=== PATIENT | female | born 1960 | race Hispanic/Latino ===

== ENCOUNTER 2018-06-11 04:21 | Inpatient (IN) | payer MEDICARE, MEDICAID ==
--- NOTE | 2018-06-11 04:42 | ED PDOC ---
Arrival/HPI - General Time Seen by Provider: 06/11/18 04:27 Historian: Patient, EMS, Police - Critical Care Critical Care Minutes: 30 minutes - History of Present Illness Narrative History of Present Illness (Text): 06/11/18 04:39 Cassie Mata is a 58 year old female who presents to the Emergency department brought in by EMS for altered mental status tonight. Patient's son, who lives out of state, reported patient takes care of her mother however patient was not answering her phone and son notified police. Police found patient disheveled, sitting on the floor of bathroom with bugs and cat litter. Patient may have fallen but does not recollect the incident. Patient notes she has been scratched by her cats on multiple occasions at home. Limited HPI and ROS due to patient's confusion. Symptom Onset: Gradual Symptom Course: Unchanged Activities at Onset: Light Context: Home Past Medical History - Provider Review Nursing Documentation Reviewed: Yes Family/Social History - Physician Review Nursing Documentation Reviewed: Yes Family/Social History: Unknown Family HX Allergies/Home Meds Allergies/Adverse Reactions: Allergies No Known Allergies Allergy (Unverified 06/11/18 04:43) Home Medications: Home Meds Medication Instructions Recorded Confirmed Unobtainable 06/11/18 06/11/18 Review of Systems - Review of Systems Systems not reviewed;Unavailable: Altered Mental Status (confusion) Respiratory: absent: SOB Cardiovascular: absent: Chest Pain Neurological: Seizure Physical Exam Vital Signs Reviewed: Yes Vital Signs Temp Pulse Resp BP Pulse Ox 06/11/18 06:48 110 H 18 104/63 93 L 06/11/18 04:51 98.8 F 103 H 20 100/77 95 06/11/18 04:49 98.8 F Temperature: Afebrile Blood Pressure: Normal Pulse: Regular Respiratory Rate: Normal Appearance: Positive for: Unkept Pain Distress: None Mental Status: Positive for: other (Awake, alert, confused) - Systems Exam Head: Present: Atraumatic, Normocephalic Pupils: Present: PERRL Extroacular Muscles: Present: EOMI Conjunctiva: Present: Normal Ears: Present: Normal, NORMAL TM, Normal Canal. No: Erythema, TM Bulging, Fluid , TM Perf Mouth: Present: Moist Mucous Membranes Pharnyx: Present: Normal. No: ERYTHEMA, EXUDATE, TONSILS ENLARGED, Peritonsilar Swelling, Uvular Deviation, Muffled/Hoarse Voice, Strider, Soft Palate/Uvular Edema Nose (External): Present: Atraumatic Nose (Internal): Present: Normal Inspection Neck: Present: Normal Range of Motion. No: Meningeal Signs, Paraspinal Tenderness, Lymphadenopathy Respiratory/Chest: Present: Clear to Auscultation, Good Air Exchange. No: Respiratory Distress, Accessory Muscle Use Cardiovascular: Present: Normal S1, S2, Tachycardic. No: Murmurs Abdomen: No: Tenderness, Distention, Peritoneal Signs Upper Extremity: Present: Normal Inspection. No: Cyanosis, Edema Lower Extremity: Present: Edema (Edema to lower legs) Neurological: Present: CN II-XII Intact, Motor Func Grossly Intact, Normal Sensory Function, Normal Cerebellar Funct Skin: Present: Warm, Dry, Other (Diffuse cellulitic areas to abdomen and lower legs, hands with area of excoriations/scabbed lesions). No: Rashes Psychiatric: Present: Alert Medical Decision Making ED Course and Treatment: 06/11/18 04:39 Impression: 58 year old female brought in for altered mental status. Plan: -- EKG -- Chest X-ray -- US Duplex Lower Extremities -- Labs, VBG, BNP, cardiac enzyme -- Reassess and disposition Progress Notes: Reviewed EKG, sinus tachycardia at 119 bpm. Anterolateral infarct. Non-specific ST/T wave changes. 06/11/18 05:48 Chest X-ray reviewed, shows increased interstitial markings. 06/11/18 05:49 Labs noted, lactate 4.5, pt tachycardic. Code Sepsis called. 06/11/18 05:[address] Haque, computer systems architect, who is aware and agrees to evaluate pt. vice president global advertising sales notified. 06/11/18 06:03 Reviewed radiology, CT Head shows: Brain: Examination of the brain demonstrates normal structure and attenuation.The cortical cameron / white matter interfaces are preserved throughout the brain.No acute infarction, masses or hemorrhage is seen. No acute intracranial abnormality is identified.There is no hyperdense MCA sign. Examination of the posterior fossa demonstrates no significant abnormality. Ventricles: The ventricular system is not dilated and is appropriate for the patient's age. Bones/joints: Unremarkable. No acute fracture. Soft tissues: Unremarkable. Sinuses: Unremarkable as visualized. No acute sinusitis. Mastoid air cells: Unremarkable as visualized. No mastoid effusion. IMPRESSION: No acute infarction, masses or hemorrhage is seen. No acute intracranial abnormality is identified. US Duplex Lower Extremities negative for DVT. 06/11/18 06:49 Case had been d/w requesting patient be admitted to hospitalist service. 06/11/18 06:50 Case d/w who evaluated patient and request ICU admission at this time for closer monitoring and further evaluation. 06/12/18 02:05 - Lab Interpretations Lab Results: 06/11/18 04:45 06/11/18 04:45 Lab Results 06/11/18 06:30: pCO2 36, pO2 51.0 L, HCO3 17.7 L, ABG pH 7.30 L, ABG Total CO2 18.8 L, ABG O2 Saturation 91.0 L, ABG O2 Content 18.7, ABG Base Excess -7.9 L, ABG Hemoglobin 15.9, ABG Carboxyhemoglobin 7.1 H, POC ABG HHb (Measured) 8.3 H, ABG Methemoglobin 0.8, ABG O2 Capacity 20.5, Hgb O2 Saturation 83.8 L, FiO2 28.0 06/11/18 04:45: ESR 4 06/11/18 04:45: NT-Pro-B Natriuret Pep 52554 H 06/11/18 04:45: pO2 33, VBG pH 7.22 L, VBG pCO2 57.0, VBG HCO3 23.3, VBG Total CO2 25.0, VBG O2 Sat (Calc) 69.6 H, VBG Base Excess -5.2 L, VBG Potassium 7.1 H* , Sodium 129.0 L, Chloride 85.0 L, Glucose 511 H*, Lactate 4.5 H*, FiO2 21.0, Venous Blood Potassium 7.1 H* 06/11/18 04:45: WBC 4.9, RBC 6.82 H, Hgb 19.9 H*, Hct 57.1 H*, MCV 83.7, MCH 29.2, MCHC 34.9, RDW 14.8 H, Plt Count 102 L 06/11/18 04:45: Sodium 129 L, Chloride 92 L, Potassium 6.6 H*, Carbon Dioxide 24 , Anion Gap 19, BUN 53 H, Creatinine 1.1, Est GFR ( Amer) > 60, Est GFR ( Non-Af Amer) 51, Random Glucose 514 H*, Calcium 9.5, Total Bilirubin 1.1, AST 46 H, ALT 48, Alkaline Phosphatase 447 H, Lactate Dehydrogenase 876 H, Total Creatine Kinase 254 H, CK-MB (CK-2) 5.1 H, CK-MB (CK-2) % 2.0 L, Troponin I < 0.01, Total Protein 6.5, Albumin 3.0, Globulin 3.5, Albumin/Globulin Ratio 0.8 L 06/11/18 04:45: PT 13.5 H, INR 1.17, APTT 39.3 H 06/11/18 04:43: Procalcitonin 58.06 H I have reviewed the lab results: Yes - RAD Interpretation Radiology Orders: 06/11/18 04:44 HEAD W/O CONTRAST [CT] Stat 06/11/18 04:45 CHEST PORTABLE [RAD] Stat 06/11/18 04:46 DUPLEX LOWER EXTRM VEIN BILAT [US] Stat 06/11/18 06:39 ABDOMEN COMPLETE [US] Routine Heel Trimmer: ED Physician, Radiologist - EKG Interpretation Interpreted by ED Physician: Yes Type: 12 lead EKG - Medication Orders Current Medication Orders: Albuterol/Ipratropium (Duoneb 3 Mg/0.5 Mg (3 Ml) Ud) 3 ml IH Q2H PRN PRN Reason: Shortness of Breath Albuterol/Ipratropium (Duoneb 3 Mg/0.5 Mg (3 Ml) Ud) 3 ml IH [id number] [facility] Last Admin: 06/11/18 20:00 Dose: 3 ml Heparin Sodium (Porcine) (Heparin) 5,000 units IVP Q8 LAMONTE PRN Reason: Protocol Last Admin: 06/11/18 23:22 Dose: 5,000 units IVP Administration Document 06/11/18 23:22 MG (Rec: 06/11/18 23:22 MG [id number]) Charges for Administration # of IVP Administrations 1 Insulin Human Regular 100 (units/ Sodium Chloride) 100 mls @ 5 mls/hr IV .Q20H PRN; Protocol; 5 UNITS/HR PRN Reason: TITRATE PER MD ORDER Last Titration: 06/11/18 13:33 Dose: 2 units/hr, 2 mls/hr Titration Intervention Document 06/11/18 13:33 JUR (Rec: 06/11/18 13:33 JUR [id number]) Titration Intake Titration Intake 8 Cumulative Intake 22 Cumulative Intake (Rx) 22 Waste Amount 0 Container Volume 78 Titration Dosing Titration Dose 2 IV Rate 2 Intake/Decrease Decreased Cumulative Dose 22 Meropenem (Merrem Iv 1 Gm Premix) 50 mls @ 100 mls/hr IVPB Q12 LAMONTE PRN Reason: Protocol Last Admin: 06/11/18 22:34 Dose: 100 mls/hr eMAR Start Stop Document 06/11/18 22:34 MG (Rec: 06/11/18 22:35 MG [facility]) Intravenous Solution Start Date 06/11/18 Start Time 22:34 End Date 06/11/18 End time 23:04 Total Infusion Time 30 Vancomycin HCl (Vancomycin 1gm) 1 gm in 250 mls @ 167 mls/hr IVPB Q12H LAMONTE PRN Reason: Protocol Last Admin: 06/11/18 17:24 Dose: 167 mls/hr eMAR Start Stop Document 06/11/18 17:24 JUR (Rec: 06/11/18 17:24 JUR [id number]) Intravenous Solution Start Date 06/11/18 Start Time 17:24 End Date 06/11/18 End time 18:54 Total Infusion Time 90 Clindamycin Phosphate 900 mg/ (Sodium Chloride) 106 mls @ 106 mls/hr IVPB Q8 LAMONTE PRN Reason: Protocol Last Admin: 06/11/18 23:21 Dose: Fentanyl Citrate (Fentanyl Citrate/Sodium Chloride 1 Mg/100 Ml) 1,000 mcg in 100 mls @ 2 mls/hr IV .Q24H PRN; Protocol; 20 MCG/HR PRN Reason: TITRATE PER MD ORDER Last Admin: 06/11/18 20:23 Dose: 20 mcg/hr, 2 mls/hr eMAR Start Stop Document 06/11/18 20:23 MG (Rec: 06/11/18 20:24 MG [id number]) Intravenous Solution Start Date 06/11/18 Start Time 20:23 Parsons Agitation Sedation Document 06/11/18 20:23 MG (Rec: 06/11/18 20:24 MG [id number]) Parsons Agitation Sedation Scale Parsons Agitation Sedation Scale Score -2 Light Sedation: briefly awakens with eye contact to voice (<10 sec) Titration Intervention Document 06/11/18 20:23 MG (Rec: 06/11/18 20:24 MG [facility]) Titration Intake Waste Amount 0 Container Volume 100 Titration Dosing Titration Dose 20 IV Rate 2 Intake/Decrease Started NOREPINEPHRINE BIT/0.9 % NACL (Levophed 4 Mg/ 250 Ml Ns Premixed) 4 mg in 250 mls @ 15 mls/hr IV .[id number] PRN; Protocol; 4 MCG/MIN PRN Reason: TITRATE PER MD ORDER Last Admin: 06/11/18 23:58 Dose: 15 mcg/min, 56.25 mls/hr eMAR Start Stop Document 06/11/18 23:58 MG (Rec: 06/12/18 00:01 MG [facility]) Intravenous Solution Start Date 06/11/18 Start Time 23:59 Titration Intervention Document 06/11/18 23:58 MG (Rec: 06/12/18 00:01 MG [facility]) Titration Intake Cumulative Intake (Rx) 250 Waste Amount 0 Container Volume 250 Titration Dosing Titration Dose 15 IV Rate 56.25 Intake/Decrease Started/Running Cumulative Dose 4 Sodium Chloride (Sodium Chloride 0.9%) 1,000 mls @ 100 mls/hr IV .Q10H LAMONTE Insulin Human Lispro (Humalog High) 0 units SC ACHS LAMONTE PRN Reason: Protocol Pantoprazole Sodium (Protonix Inj) 40 mg IVP DAILY LAMONTE Discontinued Medications Albuterol Sulfate (Albuterol 0.083% Inhal Astrid (2.5 Mg/3 Ml) Ud) 15 mg IH STAT STA Stop: 06/11/18 05:45 Last Admin: 06/11/18 06:39 Dose: 15 mg Calcium Gluconate (Calcium Gluconate Iv) 1,000 mg IVP ONCE ONE Stop: 06/11/18 07:25 Last Admin: 06/11/18 07:46 Dose: 1,000 mg IVP Administration Document 06/11/18 07:46 VALENTE (Rec: 06/11/18 07:46 VALENTE [id number]) Charges for Administration # of IVP Administrations 1 Sodium Chloride (Sodium Chloride 0.9%) 3,000 mls @ 999 mls/hr IV .Q3H1M STA Stop: 06/11/18 08:45 Last Admin: 06/11/18 06:09 Dose: 999 mls/hr eMAR Start Stop Document 06/11/18 06:09 IT (Rec: 06/11/18 06:09 IT [id number]) Intravenous Solution Start Date 06/11/18 Start Time 06:09 Piperacillin Sod/Tazobactam Sod (Zosyn 3.375 In Ns 100ml) 100 mls @ 200 mls/hr IV STAT STA PRN Reason: Protocol Stop: 06/11/18 06:18 Last Admin: 06/11/18 06:08 Dose: 200 mls/hr eMAR Start Stop Document 06/11/18 06:08 IT (Rec: 06/11/18 06:09 IT [id number]) Intravenous Solution Start Date 06/11/18 Start Time 06:09 Vancomycin HCl (Vancomycin 1gm) 1 gm in 250 mls @ 167 mls/hr IVPB STAT STA PRN Reason: Protocol Stop: 06/11/18 07:18 Last Admin: 06/11/18 07:20 Dose: 167 mls/hr eMAR Start Stop Document 06/11/18 07:20 EWO (Rec: 06/11/18 07:21 EWO [id number]) Intravenous Solution Start Date 06/11/18 Start Time 07:21 End Date 06/11/18 End time 09:00 Total Infusion Time 99 Insulin Human Regular (Humulin R) 10 units IVP STAT STA Stop: 06/11/18 05:45 Last Admin: 06/11/18 06:38 Dose: 10 u MAR Blood Glucose Document 06/11/18 06:38 IT (Rec: 06/11/18 06:38 IT [id number]) Blood Glucose Finger Stick Blood Glucose (70-120) 448 IVP Administration Document 06/11/18 06:38 IT (Rec: 06/11/18 06:38 IT [id number]) Charges for Administration # of IVP Administrations 1 Permethrin (Permethrin 5% Cream) 0 gm TOP ONCE ONE Stop: 06/11/18 08:32 Sodium Polystyrene Sulfonate (Kayexalate Susp) 30 gm PO ONCE ONE Stop: 06/11/18 05:45 Last Admin: 06/11/18 06:39 Dose: 30 gm - Scribe Statement The provider has reviewed the documentation as recorded by the Anaibarian Barrios All medical record entries made by the Anaibarian were at my direction and personally dictated by me. I have reviewed the chart and agree that the record accurately reflects my personal performance of the history, physical exam, medical decision making, and the department course for this patient. I have also personally directed, reviewed, and agree with the discharge instructions and disposition. Disposition/Present on Arrival - Present on Arrival Any Indicators Present on Arrival: No History of DVT/PE: No History of Uncontrolled Diabetes: No Urinary Catheter: No History of Decub. Ulcer: No History Surgical Site Infection Following: None - Disposition Have Diagnosis and Disposition been Completed?: Yes Diagnosis: Cellulitis, Sepsis, Uncontrolled diabetes mellitus, CHF (congestive heart failure) Disposition: HOSPITALIZED Disposition Time: 06:49 Patient Problems: Current Active Problems Problem Status Onset CHF (congestive heart failure) Acute Cellulitis Acute Sepsis Acute Uncontrolled diabetes mellitus Acute Condition: STABLE
[2018-06-11 04:57] LABS: VENOUS BLOOD GAS BASE EXCESS -5.2 mmol/L (0.0-2.0); VENOUS BLOOD GAS PO2 33 mm/Hg (30-55); VENOUS BLOOD PH 7.22 (7.32-7.43)
[2018-06-11 05:05] LABS: INR 1.17; PARTIAL THROMBOPLASTIN TIME 39.3 Seconds (25.1-36.5); PROTHROMBIN TIME 13.5 SECONDS (9.4-12.5)
[2018-06-11 05:11] LABS: MEAN CELL VOLUME 83.7 fl (80.0-105.0); MEAN CORPUSCULAR HEMOGLOBIN 29.2 pg (25.0-35.0); MEAN CORPUSCULAR HGB CONC 34.9 g/dl (31.0-37.0); PLATELET COUNT 102 10^3/uL (120.0-450.0); RBC 6.82 10^6/uL (3.5-6.1); RED CELL DISTRIBUTION WIDTH 14.8 % (11.5-14.5); WHITE BLOOD COUNT 4.9 10^3/ul (4.5-11.0)
[2018-06-11 05:15] LABS: HEMOGLOBIN 19.9 g/dL (12.0-16.0)
[2018-06-11 05:19] LABS: TROPONIN I < 0.01 ng/mL
[2018-06-11 05:38] LABS: ALB/GLOB RATIO 0.8 (1.1-1.8); ALT/SGPT 48 U/L (7-56); AST/SGOT 46 U/L (14-36); BLOOD UREA NITROGEN 53 mg/dL (7-21); CALCIUM 9.5 mg/dL (8.4-10.5); GFR AFRICAN-AMERICAN > 60; GFR NON-AFRICAN AMERICAN 51
[2018-06-11 05:41] LABS: CK-MB 5.1 ng/mL (0.0-3.6)
[2018-06-11] MEDS ORDERED: Insulin Regular 1 UNITS/0.01 ML ML IVP STA (05:44)
[2018-06-11] MEDS ORDERED: Albuterol 0.083% Inhal Sol (2.5 mg/3 mL) UD IH STA (05:44)
[2018-06-11] MEDS ORDERED: Sod Polystyrene Sulf 15 gm/60 ml Susp PO ONE (05:44)
[2018-06-11] MEDS ORDERED: Sodium Chloride 0.9% 3,000 ML IV STA (05:45)
[2018-06-11] MEDS ORDERED: Sodium Bicarbonate (8.4%) 50 Meq Syringe IVP ONE (05:47)
[2018-06-11] MEDS ORDERED: Piperacillin/Tazobact 3.375 gm 100 ML IV STA (05:49)
[2018-06-11] MEDS ORDERED: Vancomycin 1gm in NS 250ml 1 GM/250 ML BAG IVPB STA (05:49)
--- NOTE | 2018-06-11 06:00 | CT ---
EXAM: CT Head Without Intravenous Contrast CLINICAL HISTORY: 58 years old, female; Signs and symptoms; Other: Confusion TECHNIQUE: Axial computed tomography images of the head/brain without intravenous contrast. All CT scans at this facility use at least one of these dose optimization techniques: automated exposure control; mA and/or kV adjustment per patient size (includes targeted exams where dose is matched to clinical indication); or iterative reconstruction. Coronal and sagittal reformatted images were created and reviewed. COMPARISON: No relevant prior studies available. FINDINGS: Brain: Examination of the brain demonstrates normal structure and attenuation.The cortical cameron / white matter interfaces are preserved throughout the brain.No acute infarction, masses or hemorrhage is seen. No acute intracranial abnormality is identified.There is no hyperdense MCA sign. Examination of the posterior fossa demonstrates no significant abnormality. Ventricles: The ventricular system is not dilated and is appropriate for the patient's age. Bones/joints: Unremarkable. No acute fracture. Soft tissues: Unremarkable. Sinuses: Unremarkable as visualized. No acute sinusitis. Mastoid air cells: Unremarkable as visualized. No mastoid effusion. IMPRESSION: No acute infarction, masses or hemorrhage is seen. No acute intracranial abnormality is identified.
[2018-06-11 06:39] LABS: ARTERIAL BLOOD GAS HCO3 17.7 mmol/L (21-28); ARTERIAL BLOOD GAS HEMOGLOBIN 15.9 g/dL (11.7-17.4); ARTERIAL BLOOD GAS O2 CAPACITY 20.5 mL/dl (16-24); ARTERIAL BLOOD GAS O2 CONTENT 18.7 ML/dl (15-23); ARTERIAL BLOOD GAS PCO2 36 mm/Hg (35-45); ARTERIAL BLOOD GAS TCO2 18.8 mmol.L (22-28)
[2018-06-11] MEDS ORDERED: Insulin Regular 100 UNITS in Sodium Chloride 0.9% 99 ML IV PRN (07:04)
[2018-06-11] MEDS ORDERED: Albuterol-Ipratrop 3 mg / 0.5 (3 ml) UD IH PRN (07:41)
--- NOTE | 2018-06-11 07:56 | CP.PCM.HP ---
History of Present Illness - History of Present Illness History of Present Illness: 58 year old female with past medical history of hypertension, diabetes, and COPD was brought in by EMS to the [facility] on 06/11 for altered mental status. Patient lives with her son, who is currently out of state. The patient was not answering her phone for 2 days, which led to her son calling the police. Police found the patient on the floor, with bugs and cat litter. Patient states she fell but does not recollect the exact nature of the fall. On presentation, patient was AAOx2. Patient was lethargic and had difficulty answering questions. Patient complained of bilateral leg pain. Patient denies chest pain and shortness of breath, but most of the 12-point ROS was difficult to attain due to patient's mental status. PMH: hypertension, diabetes, and COPD PSH: none Family History: cannot be obtained due to AMS Social History: smokes 3packs/day, denies alcohol use, denies drug use Medications: incomplete history due to mental status. Patient reports taking Neurontin. Allergies: ERYNDA Code Status: Full Code PMD: Indra Pharmacy: [facility] Insurance: Medicaid, Medicare Part A Present on Admission - Present on Admission Any Indicators Present on Admission: No History of DVT/PE: No History of Uncontrolled Diabetes: No Review of Systems - Review of Systems Systems not reviewed;Unavailable: Altered Mental Status - Cardiovascular Cardiovascular: absent: Chest Pain - Respiratory Respiratory: absent: Dyspnea - Gastrointestinal Gastrointestinal: absent: Abdominal Pain Past Patient History - Infectious Disease Hx of Infectious Diseases: None - Past Social History Smoking Status: Heavy Smoker > 10 Cigarettes Daily Alcohol: Other (denies) Drugs: Denies - CARDIAC Hx Cardiac Disorders: No - PULMONARY Hx Respiratory Disorders: No - NEUROLOGICAL Hx Neurological Disorder: No - HEENT Hx HEENT Problems: No - RENAL Hx Chronic Kidney Disease: No - ENDOCRINE/METABOLIC Hx Diabetes Mellitus Type 2: Yes - HEMATOLOGICAL/ONCOLOGICAL Hx Blood Disorders: No - INTEGUMENTARY Hx Dermatological Problems: No - MUSCULOSKELETAL/RHEUMATOLOGICAL Hx Musculoskeletal Disorders: No - GASTROINTESTINAL Hx Gastrointestinal Disorders: No - PSYCHIATRIC Hx Substance Use: No - ANESTHESIA Hx Anesthesia: No Meds Allergies/Adverse Reactions: Allergies Allergy/AdvReac Type Severity Reaction Status Date / Time No Known Allergies Allergy Unverified 06/11/18 04:43 Physical Exam - Constitutional Appears: Toxic, Confused - Head Exam Head Exam: ATRAUMATIC, NORMOCEPHALIC - Eye Exam Eye Exam: EOMI, PERRL - Neck Exam Neck exam: Positive for: Full Rom - Respiratory Exam Respiratory Exam: Decreased Breath Sounds - Cardiovascular Exam Cardiovascular Exam: Tachycardia - GI/Abdominal Exam GI & Abdominal Exam: Normal Bowel Sounds, Soft - Extremities Exam Additional comments: difficult to evaluate due to altered mental status - Neurological Exam Neurological exam: Alert (AAOX2. Patient did not know date or year), CN II-XII Intact (grossly) - Skin Skin Exam: Erythema (bilateral lower extremity erythema, +2 pitting edema, cool skin, multiple lesions on bilateral lower extremities) Additional comments: large blister on left lower extremity Results - Vital Signs Recent Vital Signs: Last Vital Signs Temp 98.8 F 06/11/18 04:51 Pulse 110 H 06/11/18 06:48 Resp 18 06/11/18 06:48 BP 104/63 06/11/18 06:48 Pulse Ox 93 L 06/11/18 06:48 - Labs Result Diagrams: 06/11/18 04:45 06/11/18 11:39 Assessment & Plan - Assessment and Plan (Free Text) Assessment: 58 year old female with past medical history of COPD, hypertension, and diabetes presents with altered mental status. Plan: SIRS 2/2 Necrotic abdominal wound from necrotizing fasciitis vs. clostridial myonecrosis vs. necrotizing cellulitis -SIRS criteria fulfilled: HR: 113, RR: 32,Temperature: 97.2, WBC: 4.9. -Patient afebrile. -Abdominal CT: Extensive subcutaneous emphysema predominantly confined due to the mid and lower abdomen/ pelvis (anteriorly and extending laterally along the more inferior margins pelvis to the level of the symphysis). There is also see air seen tracking along the external and internal iliac vascular bundles. Additionally, the remaining subcutaneous tissues that do not contain air exhibit infiltration possibly anasarca. The the of findings are of uncertain etiology though could be posttraumatic. Extensive cellulitis secondary to a gas- forming organism cannot be excluded. Urinary bladder is collapsed about an in situ Lorenz catheter. Small amount of air is present within the urinary bladder likely due to instrumentation. 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 There appears to be increased on prominent vascularity and left upper abdomen splenic hilum; rule out mild varices. -Wound cultures, blood cultures, urine cultures, MRSA, bartonella Ab, HIV, hepatitis panel ordered. -Abdominal ultrasound results pending. -Lactate: initial lactate 4.2 increased to 6.2 -Procalcitonin: 58.06 -Dr. Cisneros consulted for ID recommendations. Follow recommendations. -As per ID, one dose vancomycin given. Meropenem has been started pending blood cultures. Patient to be given permethrin cream. -Dr. Oleary consulted for surgery recommendations. Patient will be taken for surgery today. Debridement of necrotic abdominal wound to be performed. Wound cultures will be taken in surgery. -Skin cultures taken. Awaiting results. -GI, Dr. Clifford has been consulted for free air from pelvis to iliac on abdominal CT -Patient has been started on meropenem 1 gm Q12 Hyperkalemia -Potassium 6.6 on presentation. Potassium has reduced to 5.0. -EKG: sinus tachycardia. Right atrial enlargement. HR: 119, MI: 132, QRS: 74, QTc: 419 -Calcium gluconate 1000 mg IVP given once to stabilize cardiac membranes. -Insulin 5 U/hour for hyperkalemia. -Continue to monitor. COPD -CXR: increased/coarsened interstitial markings; rule out chronic interstitial changes vs. sequela of COPD vs emphysema. -Patient on 2L of O2 PRN -Duonebs PRN -Continue to monitor. Bilateral lower extremity erythema and edema 2/2 cellulitis vs. DVT vs. venous stasis -Lower extremity ultrasound ordered -SIRS criteria fulfilled: Temperature: 97.2, HR: 113, RR: 32, WBC: 4.9. -meropenem 1 gm Q12 -Dr. Cunha, ID has been consulted. Follow recommendations. Uncontrolled diabetes -HgbA1c: 17.4 -Random glucose: 514 to 258 -Patient started on 5 U normal insulin per hour and high dose sliding scale insulin. Hypotension -Blood pressure: systolic BP ranging from 81 to 108. -3 L of IV NS given. Continue to administer NS fluids. -Continue to monitor. Rhabdomyolysis 2/2 dehydration -CK: 254 to 171 -Potassium elevated to 6.7 on presentation. -Phosphate level ordered. -Calcium gluconate and 3 L IV fluids given. Patient currently being administered fluids. Hemoconcentration 2/2 dehydration -Hgb: 19.9 -BUN/Cr: 53/1.1 on presentation -Given 3 L of NS 0.9%. Continue to administer NS fluids. Hepatomegaly 2/2 to cardiomyopathy vs. hepatitis vs. alcohol -Abdominal CT: liver enlarged measuring nearly 20 cm in CC dimension. No obvious hepatic mass or collection. -Abdominal US results pending. -Hepatitis panel has been ordered. -BNP: 66319 -GI, Dr. Clifford has been consulted. Follow recommendations. Left lower extremity blister -rule out abscess -wound culture to be ordered -patient on meropenem to cover any potential infectious etiology -Dr. uCnha, ID has been consulted. Follow recommendations. - Date & Time Date: 06/11/18 Time: 15:34
[2018-06-11 07:57] LABS: VENOUS BLOOD GAS BASE EXCESS -4.3 mmol/L (0.0-2.0); VENOUS BLOOD GAS PO2 50 mm/Hg (30-55); VENOUS BLOOD PH 7.26 (7.32-7.43)
[2018-06-11] MEDS ORDERED: Permethrin 5% Cream(60 gm) TOP ONE (08:31)
[2018-06-11 08:44] LABS: VENOUS BLOOD GAS BASE EXCESS -5.8 mmol/L (0.0-2.0); VENOUS BLOOD GAS PO2 43 mm/Hg (30-55)
[2018-06-11 09:01] LABS: BLOOD UREA NITROGEN 49 mg/dL (7-21); CALCIUM 9.7 mg/dL (8.4-10.5); GFR AFRICAN-AMERICAN > 60; GFR NON-AFRICAN AMERICAN 57; HDL CHOLESTEROL 21 mg/dL (29-60)
[2018-06-11 09:04] LABS: LDL CHOLESTEROL < 30 mg/dL (0-129)
--- NOTE | 2018-06-11 10:14 | CT ---
Date of service: 06/11/2018 PROCEDURE: CT Abdomen and Pelvis without intravenous contrast HISTORY: Abdominal hematoma COMPARISON: No prior study available for comparison. TECHNIQUE: Contiguous helical/transaxial sections of the abdomen pelvis performed without oral or intravenous contrast material. Additional 2D sagittal and coronal reformats generated. . Radiation dose: Total exam DLP = 690.29 mGy-cm. This CT exam was performed using one or more of the following dose reduction techniques: Automated exposure control, adjustment of the mA and/or kV according to patient size, and/or use of iterative reconstruction technique FINDINGS: Note the examination is limited due to a paucity of intraperitoneal and retroperitoneal fat. In addition, there is motion as well as streak and beam hardening artifact that further limits detail. LOWER THORAX: Minor passive/dependent type atelectasis both lung bases including the middle lobe and to a lesser degree lingular regions. LIVER: Liver is enlarged measuring nearly 20 cm in CC dimension. No obvious hepatic mass or collection. GALLBLADDER AND BILE DUCTS: Gallbladder is partially distended though poorly seen due to the aforementioned limiting factors. No definitive evidence of intraluminal gallbladder calculi. PANCREAS: The visualized portions of the pancreas unremarkable. SPLEEN: Spleen appears grossly unremarkable. Note made of prominent vasculature in the upper left upper abdomen near the splenic hilar region. Rule out varices. ADRENALS: The adrenal glands poorly seen due to a paucity of retroperitoneal and intraperitoneal fat. KIDNEYS AND URETERS: Changes of right-sided nephrectomy with metallic clips in the right renal fossa. Clinical correlation with surgical history recommended. The left kidney appears compensatory hypertrophic. VASCULATURE: There is no evidence of abdominal aortic aneurysm so far as can be seen. The BOWEL: Evaluation of the bowel is limited. High density material is present within the gastric lumen as well as the large bowel however as per request patient and apparently did not receive oral contrast material. Findings could be other high-density ingested material such as Pepto-Bismol or similar as mentioned above, the stomach contains some high density material and air. Visualized loops of small bowel are not well delineated however no evidence to suggest acute mechanical small bowel obstruction . The large bowel stool and minor er mild APPENDIX: The appendix is not visualized with any certainty on this study PERITONEUM: No definitive evidence of free intraperitoneal air. No obvious free or loculated intraperitoneal fluid collections. LYMPH NODES: Evaluation for adenopathy limited. BLADDER: Urinary bladder is collapsed about an in situ Lorenz catheter. Small amount of air is present within the urinary bladder likely due to instrumentation. . REPRODUCTIVE: Uterus appears grossly unremarkable. BONES: Mild multilevel degenerative spondylosis of the lumbar and visualized lower thoracic spine. There are no acute compression fractures nor retropulsed fragments. OTHER FINDINGS: Extensive subcutaneous emphysema predominantly confined due to the mid and lower abdomen/ pelvis (anteriorly and extending laterally along the more inferior margins pelvis to the level of the symphysis). There is also see air seen tracking -dissecting along the external and internal iliac vascular bundles. Additionally, the remaining subcutaneous tissues that do not contain air exhibit infiltration possibly anasarca. The findings are of uncertain etiology though could be posttraumatic. Extensive cellulitis secondary to a gas-forming organism cannot be excluded. IMPRESSION: Limited exam as detailed above. Extensive subcutaneous emphysema predominantly confined due to the mid and lower abdomen/ pelvis (anteriorly and extending laterally along the more inferior margins pelvis to the level of the symphysis). There is also see air seen tracking along the external and internal iliac vascular bundles. Additionally, the remaining subcutaneous tissues that do not contain air exhibit infiltration possibly anasarca. The the of findings are of uncertain etiology though could be posttraumatic. Extensive cellulitis secondary to a gas-forming organism cannot be excluded. Urinary bladder is collapsed about an in situ Lorenz catheter. Small amount of air is present within the urinary bladder likely due to instrumentation. 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 There appears to be increased on prominent vascularity and left upper abdomen splenic hilum ; rule out mild varices. These findings discussed with ICU resident Dr. Garcia at approximately 930 a.m. with written down and read back verification.
[2018-06-11 10:28] LABS: BARBITURATES, UR NEGATIVE (NEGATIVE); BENZODIAZEPINES, UR NEGATIVE (NEGATIVE); OPIATES, UR NEGATIVE (NEGATIVE); PHENCYCLIDINE, UR NEGATIVE (NEGATIVE)
--- NOTE | 2018-06-11 11:08 | CP.PCM.CON ---
History of Present Illness - History of Present Illness History of Present Illness: 58 year old female with PMH of HTN, S/P nephrectomy was brought in by ambulance after she was found on the floor not very responsive, disheveled and with scratches on her legs and bruises on her abdomen. She was last talked to by family 2 days ago and the patient lives alone. She is now in the ICU noted to have subcutaneous emphysema in he abdominal wall area. There is no note of fever , patient has not vomited, no diarrhea, no convulsions. Patient is lethargic and full ROS is unobtainable. Infectious diseases consult is requested to further evaluate and manage. Review of Systems - Review of Systems Systems not reviewed;Unavailable: Altered Mental Status Past Patient History - Infectious Disease Hx of Infectious Diseases: None - Past Social History Smoking Status: Unknown If Ever Smoked - CARDIAC Hx Cardiac Disorders: No - PULMONARY Hx Respiratory Disorders: No - NEUROLOGICAL Hx Neurological Disorder: No - HEENT Hx HEENT Problems: No - RENAL Hx Chronic Kidney Disease: No - ENDOCRINE/METABOLIC Hx Diabetes Mellitus Type 2: Yes - HEMATOLOGICAL/ONCOLOGICAL Hx Blood Disorders: No - INTEGUMENTARY Hx Dermatological Problems: No - MUSCULOSKELETAL/RHEUMATOLOGICAL Hx Musculoskeletal Disorders: No - GASTROINTESTINAL Hx Gastrointestinal Disorders: No - PSYCHIATRIC Hx Substance Use: No - ANESTHESIA Hx Anesthesia: No Meds Allergies/Adverse Reactions: Allergies Allergy/AdvReac Type Severity Reaction Status Date / Time No Known Allergies Allergy Unverified 06/11/18 04:43 - Medications Medications: Current Medications Albuterol/Ipratropium (Duoneb 3 Mg/0.5 Mg (3 Ml) Ud) 3 ml IH Q2H PRN PRN Reason: Shortness of Breath Albuterol/Ipratropium (Duoneb 3 Mg/0.5 Mg (3 Ml) Ud) 3 ml IH [id number] LAMONTE Insulin Human Regular 100 (units/ Sodium Chloride) 100 mls @ 5 mls/hr IV .Q20H PRN; Protocol; 5 UNITS/HR PRN Reason: TITRATE PER MD ORDER Last Admin: 06/11/18 07:46 Dose: 5 units/hr, 5 mls/hr Insulin Human Lispro (Humalog High) 0 units SC ACHS LAMONTE PRN Reason: Protocol Physical Exam - Constitutional Appears: Chronically Ill, Other (lethargic) - Head Exam Head Exam: NORMAL INSPECTION - Neck Exam Neck exam: Negative for: Lymphadenopathy, Meningismus - Respiratory Exam Respiratory Exam: Decreased Breath Sounds - Cardiovascular Exam Cardiovascular Exam: +S1, +S2 - GI/Abdominal Exam GI & Abdominal Exam: Soft. absent: Tenderness Additional comments: ecchymoses noted in the lower abdomen - Extremities Exam Additional comments: multiple scratches on both legs Results - Vital Signs Recent Vital Signs: Last Vital Signs Temp 98.8 F 06/11/18 04:51 Pulse 110 H 06/11/18 06:48 Resp 18 06/11/18 06:48 BP 104/63 06/11/18 06:48 Pulse Ox 93 L 06/11/18 06:48 - Labs Result Diagrams: 06/11/18 04:45 06/11/18 08:00 Labs: Laboratory Results - last 24 hr 06/11/18 06/11/18 07:49 07:50 pO2 50 43 VBG pH 7.26 L 7.20 L VBG pCO2 52.0 59.0 VBG HCO3 23.3 23.1 VBG Total CO2 24.9 VBG O2 Sat (Calc) 88.6 H 80.5 H VBG Base Excess -4.3 L -5.8 L VBG Potassium 5.9 H Sodium 133.0 Chloride 90.0 L Glucose 405 H* D Lactate 5.7 H* FiO2 21.0 Venous Blood Potassium 5.9 H Assessment & Plan - Assessment and Plan (Free Text) Plan: Assessment Systemic Inflammatory Response Syndrome (tachypnea and tachycardia), consider due to rhabdomyolysis after fall, R/O severe sepsis with acute renal failure due to severe abdominal wall skin and skin structure infection associated with trauma HTN S/P nephrectomy Plan Started with a dose of IV Vancomycin and started Merem pending blood cx; reviewed CT A/P showing subcutaneous emphysema in the lower abdomen - will recommend surgical consult patient to be given permethrin cream will monitor clinically
[2018-06-11] MEDS ORDERED: Insulin Lispro (HUMAlog) HIGH Coverage SC SCH (11:30)
[2018-06-11] MEDS: Albuterol-Ipratrop 3 mg / 0.5 (3 ml) UD IH SCH ×3 (11:33→20:00)
[2018-06-11 11:44] LABS: VENOUS BLOOD GAS BASE EXCESS -5.5 mmol/L (0.0-2.0); VENOUS BLOOD GAS PO2 33 mm/Hg (30-55); VENOUS BLOOD PH 7.21 (7.32-7.43)
[2018-06-11 11:52] LABS: BLOOD UREA NITROGEN 47 mg/dL (7-21); CALCIUM 8.9 mg/dL (8.4-10.5); GFR AFRICAN-AMERICAN > 60; GFR NON-AFRICAN AMERICAN > 60
[2018-06-11 12:04] LABS: TROPONIN I < 0.01 ng/mL
[2018-06-11 12:08] VITALS: BMI 27.4
--- NOTE | 2018-06-11 12:20 | PCM.SEPTIC ---
Sepsis Progress Note - Reassessment Type Date of Evaluation: 06/11/18 Time of Evaluation: 12:16 Reassessment Type: Non-invasive reassessment - Non Invasive Reassessment Were the most recent vital sign reviewed: Yes Vital Sign (Latest): Temp Pulse Resp BP Pulse Ox 97.2 F L 103 H 20 93/57 L 91 L 06/11/18 08:25 06/11/18 11:46 06/11/18 11:46 06/11/18 10:45 06/11/18 10:50 Cardiovascular: Yes: Chest Non Tender, Edema, Tachycardia. No: Murmur Respiratory: No: Wheezing Capillary Refill: Delayed Pulses: Normal Radial, Decreased Dorsalis Pedis, Decreased Posterior Tibialis Skin: Warm, Dry, Ecchymosis (belly)
--- NOTE | 2018-06-11 12:31 | RAD ---
Date of service: 06/11/2018 HISTORY: Medical clearance the the COMPARISON: No prior. FINDINGS: LUNGS: Increased/ coarsened interstitial markings; rule out chronic interstitial changes versus sequela of COPD or emphysema. PLEURA: No significant pleural effusion identified, no pneumothorax apparent. CARDIOVASCULAR: Normal. OSSEOUS STRUCTURES: No significant abnormalities. VISUALIZED UPPER ABDOMEN: Normal. OTHER FINDINGS: None. IMPRESSION: Increased/ coarsened interstitial markings; rule out chronic interstitial changes versus sequela of COPD or emphysema.
[2018-06-11] MEDS: Meropenem IV 1 gm in NS 50 ML IVPB SCH ×2 (13:36→22:34)
--- NOTE | 2018-06-11 14:19 | CP.PCM.CON ---
<Ron Joel - Last Filed: 06/11/18 14:51> History of Present Illness - History of Present Illness History of Present Illness: General Surgery Consult Note for Dr. Monica Oleary 58F, PMH significant for COPD, DM, manic depression, tobacco abuse, and right sided nephrectomy, presented to the ED after being found at home unresponsive by EMS. Patient is confused and history was obtained by patient as well as daughter. Patient states she fell sometime yesterday afternoon and does not remember what happened before or after the incident. The daughter states patient has been having bilateral lower extremity swelling for the past few weeks with visible excoriations and seeping. The abdominal wall was not necrotic the last time the daughter saw her mother. Timing of the symptoms are unclear. Daughter went to mother's home before arriving at the hospital and noticed blood on the bathroom floor. Patient is noncompliant with medications and refuses to see a doctor for any medical issues. Denies any fever, chills, nausea, vomiting, diarrhea, convulsions, or urinary symptoms. PMH: see above PSH: Right nephrectomy visualized on CT scan FH: noncontibutory ALL: NKDA Meds: patient does not take any medications prescribed Soc: Smokes 2-3 PPD, no alcohol or drugs Review of Systems - Review of Systems Systems not reviewed;Unavailable: Altered Mental Status, Uncooperative - Constitutional Constitutional: Chills, Weakness. absent: Fever - EENT Eyes: absent: Blurred Vision, Change in Vision Ears: absent: Ear Discharge, Ear Pain Nose/Mouth/Throat: absent: Nasal Congestion, Nasal Discharge - Cardiovascular Cardiovascular: absent: Chest Pain, Dyspnea - Respiratory Respiratory: Cough. absent: Dyspnea - Gastrointestinal Gastrointestinal: absent: Abdominal Pain, Nausea, Vomiting - Genitourinary Genitourinary: absent: Difficulty Urinating, Dysuria - Musculoskeletal Musculoskeletal: absent: Back Pain, Joint Swelling - Integumentary Integumentary: Changing Lesions, Erythema, New Lesions, Skin Pain, Skin Ulcer, Swelling - Neurological Neurological: Behavioral Changes. absent: Dizziness - Psychiatric Psychiatric: Depression. absent: Anxiety, Suicidal Ideation Past Patient History - Infectious Disease Hx of Infectious Diseases: None - Past Social History Smoking Status: Heavy Smoker > 10 Cigarettes Daily Alcohol: Other (denies) Drugs: Denies - CARDIAC Hx Cardiac Disorders: No - PULMONARY Hx Respiratory Disorders: No - NEUROLOGICAL Hx Neurological Disorder: No - HEENT Hx HEENT Problems: No - RENAL Hx Chronic Kidney Disease: No - ENDOCRINE/METABOLIC Hx Diabetes Mellitus Type 2: Yes - HEMATOLOGICAL/ONCOLOGICAL Hx Blood Disorders: No - INTEGUMENTARY Hx Dermatological Problems: No - MUSCULOSKELETAL/RHEUMATOLOGICAL Hx Musculoskeletal Disorders: No - GASTROINTESTINAL Hx Gastrointestinal Disorders: No - PSYCHIATRIC Hx Substance Use: No - ANESTHESIA Hx Anesthesia: No Meds Allergies/Adverse Reactions: Allergies Allergy/AdvReac Type Severity Reaction Status Date / Time No Known Allergies Allergy Unverified 06/11/18 04:43 - Medications Medications: Current Medications Albuterol/Ipratropium (Duoneb 3 Mg/0.5 Mg (3 Ml) Ud) 3 ml IH Q2H PRN PRN Reason: Shortness of Breath Albuterol/Ipratropium (Duoneb 3 Mg/0.5 Mg (3 Ml) Ud) 3 ml IH [id number] LAMONTE Last Admin: 06/11/18 11:33 Dose: 3 ml Insulin Human Regular 100 (units/ Sodium Chloride) 100 mls @ 5 mls/hr IV .Q20H PRN; Protocol; 5 UNITS/HR PRN Reason: TITRATE PER MD ORDER Last Titration: 06/11/18 13:33 Dose: 2 units/hr, 2 mls/hr Meropenem (Merrem Iv 1 Gm Premix) 50 mls @ 100 mls/hr IVPB Q12 LAMONTE PRN Reason: Protocol Last Admin: 06/11/18 13:36 Dose: 100 mls/hr Vancomycin HCl (Vancomycin 1gm) 1 gm in 250 mls @ 167 mls/hr IVPB Q12H LAMONTE PRN Reason: Protocol Insulin Human Lispro (Humalog High) 0 units SC ACHS LAMONTE PRN Reason: Protocol Physical Exam - Constitutional Appears: In Acute Distress, Confused - Head Exam Head Exam: ATRAUMATIC, NORMAL INSPECTION, NORMOCEPHALIC - Eye Exam Eye Exam: EOMI - ENT Exam ENT Exam: Mucous Membranes Dry - Respiratory Exam Respiratory Exam: Clear to Auscultation Bilateral. absent: Wheezes, Respiratory Distress - Cardiovascular Exam Cardiovascular Exam: REGULAR RHYTHM, +S1, +S2. absent: Systolic Murmur - GI/Abdominal Exam GI & Abdominal Exam: Normal Bowel Sounds, Soft, Tenderness Additional comments: Lower abdominal wall skin necrosis and erythema - Rectal Exam Rectal Exam: NORMAL INSPECTION - Exam External exam: Erythema, Lesions Bimanual exam: NORMAL BIMANUAL EXAM - Extremities Exam Extremities exam: Positive for: pedal edema, tenderness - Neurological Exam Additional comments: Oriented to place, not person or time Results - Vital Signs Recent Vital Signs: Last Vital Signs Temp 97.2 F L 06/11/18 08:25 Pulse 110 H 06/11/18 13:40 Resp 26 H 06/11/18 13:40 BP 96/63 L 06/11/18 13:30 Pulse Ox 90 L 06/11/18 13:40 - Labs Result Diagrams: 06/11/18 04:45 06/11/18 11:39 Labs: Laboratory Results - last 24 hr 06/11/18 06/11/18 06/11/18 07:41 07:41 07:49 pO2 50 VBG pH 7.26 L VBG pCO2 52.0 VBG HCO3 23.3 VBG Total CO2 VBG O2 Sat (Calc) 88.6 H VBG Base Excess -4.3 L VBG Potassium Sodium Chloride Glucose Lactate FiO2 Potassium Carbon Dioxide Anion Gap BUN Creatinine Est GFR ( Amer) Est GFR (Non-Af Amer) Random Glucose Hemoglobin A1c 17.4 H Calcium Phosphorus Magnesium Ammonia Total Creatine Kinase Troponin I C-React Prot High Sens Cancelled Triglycerides Cholesterol LDL Cholesterol Direct HDL Cholesterol TSH 3rd Generation 3.71 Venous Blood Potassium Urine Opiates Screen Urine Methadone Screen Ur Barbiturates Screen Ur Phencyclidine Scrn Ur Amphetamines Screen U Benzodiazepines Scrn U Oth Cocaine Metabols U Cannabinoids Screen Alcohol, Quantitative < 10 06/11/18 06/11/18 06/11/18 07:50 08:00 09:48 pO2 43 VBG pH 7.20 L VBG pCO2 59.0 VBG HCO3 23.1 VBG Total CO2 24.9 VBG O2 Sat (Calc) 80.5 H VBG Base Excess -5.8 L VBG Potassium 5.9 H Sodium 133.0 133 Chloride 90.0 L 95 L Glucose 405 H* D Lactate 5.7 H* FiO2 21.0 Potassium 5.6 H* Carbon Dioxide 24 Anion Gap 19 BUN 49 H Creatinine 1.0 Est GFR ( Amer) > 60 Est GFR (Non-Af Amer) 57 Random Glucose 401 H* D Hemoglobin A1c Calcium 9.7 Phosphorus 3.4 Magnesium 2.1 Ammonia Total Creatine Kinase Troponin I C-React Prot High Sens Triglycerides 168 H Cholesterol 110 L LDL Cholesterol Direct < 30 HDL Cholesterol 21 L TSH 3rd Generation Venous Blood Potassium 5.9 H Urine Opiates Screen Negative Urine Methadone Screen Negative Ur Barbiturates Screen Negative Ur Phencyclidine Scrn Negative Ur Amphetamines Screen Negative U Benzodiazepines Scrn Negative U Oth Cocaine Metabols Negative U Cannabinoids Screen Negative Alcohol, Quantitative 06/11/18 06/11/18 06/11/18 11:39 11:39 11:39 pO2 33 VBG pH 7.21 L VBG pCO2 58.0 VBG HCO3 23.2 VBG Total CO2 25.0 VBG O2 Sat (Calc) 67.3 H VBG Base Excess -5.5 L VBG Potassium 4.9 Sodium 133 133.0 Chloride 100 96.0 L Glucose 262 H Lactate 6.2 H* FiO2 21.0 Potassium 5.0 Carbon Dioxide 23 Anion Gap 16 BUN 47 H Creatinine 0.9 Est GFR ( Amer) > 60 Est GFR (Non-Af Amer) > 60 Random Glucose 258 H Hemoglobin A1c Calcium 8.9 Phosphorus Magnesium Ammonia 41 H Total Creatine Kinase 171 Troponin I < 0.01 C-React Prot High Sens Triglycerides Cholesterol LDL Cholesterol Direct HDL Cholesterol TSH 3rd Generation Venous Blood Potassium 4.9 Urine Opiates Screen Urine Methadone Screen Ur Barbiturates Screen Ur Phencyclidine Scrn Ur Amphetamines Screen U Benzodiazepines Scrn U Oth Cocaine Metabols U Cannabinoids Screen Alcohol, Quantitative Assessment & Plan - Assessment and Plan (Free Text) Assessment: 58F w/ necrotizing soft tissue infection of the abdominal wall, possible bowel perforation Plan: - Etiology unclear, necrotizing infection expanding across abdominal wall - Prep and optimize emergently for the OR - Type and Cross - NPO, AM labs - Patient is NOT DNR - Continue Medical management per primary - Further recommendations per Dr. Anirudh Joel PGY1 <Monica Oleary - Last Filed: 06/11/18 20:25> Meds - Medications Medications: Current Medications Albuterol/Ipratropium (Duoneb 3 Mg/0.5 Mg (3 Ml) Ud) 3 ml IH Q2H PRN PRN Reason: Shortness of Breath Albuterol/Ipratropium (Duoneb 3 Mg/0.5 Mg (3 Ml) Ud) 3 ml IH [id number] LAMONTE Last Admin: 06/11/18 15:23 Dose: Not Given Insulin Human Regular 100 (units/ Sodium Chloride) 100 mls @ 5 mls/hr IV .Q20H PRN; Protocol; 5 UNITS/HR PRN Reason: TITRATE PER MD ORDER Last Titration: 06/11/18 13:33 Dose: 2 units/hr, 2 mls/hr Meropenem (Merrem Iv 1 Gm Premix) 50 mls @ 100 mls/hr IVPB Q12 LAMONTE PRN Reason: Protocol Last Admin: 06/11/18 13:36 Dose: 100 mls/hr Vancomycin HCl (Vancomycin 1gm) 1 gm in 250 mls @ 167 mls/hr IVPB Q12H LAMONTE PRN Reason: Protocol Last Admin: 06/11/18 17:24 Dose: 167 mls/hr Clindamycin Phosphate 900 mg/ (Sodium Chloride) 106 mls @ 106 mls/hr IVPB Q8 LAMONTE PRN Reason: Protocol Fentanyl Citrate (Fentanyl Citrate/Sodium Chloride 1 Mg/100 Ml) 1,000 mcg in 100 mls @ 2 mls/hr IV .Q24H PRN; Protocol; 20 MCG/HR PRN Reason: TITRATE PER MD ORDER NOREPINEPHRINE BIT/0.9 % NACL (Levophed 4 Mg/ 250 Ml Ns Premixed) 4 mg in 250 mls @ 15 mls/hr IV .[id number] PRN; Protocol; 4 MCG/MIN PRN Reason: TITRATE PER MD ORDER Insulin Human Lispro (Humalog High) 0 units SC ACHS LAMONTE PRN Reason: Protocol Results - Vital Signs Recent Vital Signs: Last Vital Signs Temp 97.9 F 06/11/18 17:24 Pulse 106 H 06/11/18 18:40 Resp 22 06/11/18 18:09 BP 90/57 L 06/11/18 18:40 Pulse Ox 100 06/11/18 18:40 - Labs Result Diagrams: 06/11/18 18:30 06/11/18 18:00 Labs: Laboratory Results - last 24 hr 06/11/18 06/11/18 06/11/18 07:41 07:41 07:49 WBC RBC Hgb Hct MCV MCH MCHC RDW Plt Count Gran % Lymph % (Auto) [place] % (Auto) Eos % (Auto) Baso % (Auto) Gran # Lymph # (Auto) [place] # (Auto) Eos # (Auto) Baso # (Auto) pCO2 pO2 50 HCO3 ABG pH ABG Total CO2 ABG O2 Saturation ABG O2 Content ABG Base Excess ABG Hemoglobin ABG Carboxyhemoglobin POC ABG HHb (Measured) ABG Methemoglobin ABG O2 Capacity VBG pH 7.26 L VBG pCO2 52.0 VBG HCO3 23.3 VBG Total CO2 VBG O2 Sat (Calc) 88.6 H VBG Base Excess -4.3 L VBG Potassium Hgb O2 Saturation Sodium Chloride Glucose Lactate FiO2 Potassium Carbon Dioxide Anion Gap BUN Creatinine Est GFR ( Amer) Est GFR (Non-Af Amer) Random Glucose Hemoglobin A1c 17.4 H Calcium Phosphorus Magnesium Ammonia Total Creatine Kinase Troponin I C-React Prot High Sens Cancelled Triglycerides Cholesterol LDL Cholesterol Direct HDL Cholesterol TSH 3rd Generation 3.71 Venous Blood Potassium Urine Opiates Screen Urine Methadone Screen Ur Barbiturates Screen Ur Phencyclidine Scrn Ur Amphetamines Screen U Benzodiazepines Scrn U Oth Cocaine Metabols U Cannabinoids Screen Alcohol, Quantitative < 10 Blood Type Blood Type Confirm Antibody Screen Crossmatch BBK History Checked 06/11/18 06/11/18 06/11/18 07:50 08:00 09:48 WBC RBC Hgb Hct MCV MCH MCHC RDW Plt Count Gran % Lymph % (Auto) [place] % (Auto) Eos % (Auto) Baso % (Auto) Gran # Lymph # (Auto) [place] # (Auto) Eos # (Auto) Baso # (Auto) pCO2 pO2 43 HCO3 ABG pH ABG Total CO2 ABG O2 Saturation ABG O2 Content ABG Base Excess ABG Hemoglobin ABG Carboxyhemoglobin POC ABG HHb (Measured) ABG Methemoglobin ABG O2 Capacity VBG pH 7.20 L VBG pCO2 59.0 VBG HCO3 23.1 VBG Total CO2 24.9 VBG O2 Sat (Calc) 80.5 H VBG Base Excess -5.8 L VBG Potassium 5.9 H Hgb O2 Saturation Sodium 133.0 133 Chloride 90.0 L 95 L Glucose 405 H* D Lactate 5.7 H* FiO2 21.0 Potassium 5.6 H* Carbon Dioxide 24 Anion Gap 19 BUN 49 H Creatinine 1.0 Est GFR ( Amer) > 60 Est GFR (Non-Af Amer) 57 Random Glucose 401 H* D Hemoglobin A1c Calcium 9.7 Phosphorus 3.4 Magnesium 2.1 Ammonia Total Creatine Kinase Troponin I C-React Prot High Sens Triglycerides 168 H Cholesterol 110 L LDL Cholesterol Direct < 30 HDL Cholesterol 21 L TSH 3rd Generation Venous Blood Potassium 5.9 H Urine Opiates Screen Negative Urine Methadone Screen Negative Ur Barbiturates Screen Negative Ur Phencyclidine Scrn Negative Ur Amphetamines Screen Negative U Benzodiazepines Scrn Negative U Oth Cocaine Metabols Negative U Cannabinoids Screen Negative Alcohol, Quantitative Blood Type Blood Type Confirm Antibody Screen Crossmatch BBK History Checked 06/11/18 06/11/18 06/11/18 11:39 11:39 11:39 WBC RBC Hgb Hct MCV MCH MCHC RDW Plt Count Gran % Lymph % (Auto) [place] % (Auto) Eos % (Auto) Baso % (Auto) Gran # Lymph # (Auto) [place] # (Auto) Eos # (Auto) Baso # (Auto) pCO2 pO2 33 HCO3 ABG pH ABG Total CO2 ABG O2 Saturation ABG O2 Content ABG Base Excess ABG Hemoglobin ABG Carboxyhemoglobin POC ABG HHb (Measured) ABG Methemoglobin ABG O2 Capacity VBG pH 7.21 L VBG pCO2 58.0 VBG HCO3 23.2 VBG Total CO2 25.0 VBG O2 Sat (Calc) 67.3 H VBG Base Excess -5.5 L VBG Potassium 4.9 Hgb O2 Saturation Sodium 133 133.0 Chloride 100 96.0 L Glucose 262 H Lactate 6.2 H* FiO2 21.0 Potassium 5.0 Carbon Dioxide 23 Anion Gap 16 BUN 47 H Creatinine 0.9 Est GFR ( Amer) > 60 Est GFR (Non-Af Amer) > 60 Random Glucose 258 H Hemoglobin A1c Calcium 8.9 Phosphorus Magnesium Ammonia Total Creatine Kinase 171 Troponin I < 0.01 C-React Prot High Sens > 15.00 H Triglycerides Cholesterol LDL Cholesterol Direct HDL Cholesterol TSH 3rd Generation Venous Blood Potassium 4.9 Urine Opiates Screen Urine Methadone Screen Ur Barbiturates Screen Ur Phencyclidine Scrn Ur Amphetamines Screen U Benzodiazepines Scrn U Oth Cocaine Metabols U Cannabinoids Screen Alcohol, Quantitative Blood Type Blood Type Confirm Antibody Screen Crossmatch BBK History Checked 06/11/18 06/11/18 06/11/18 11:39 14:25 14:45 WBC RBC Hgb Hct MCV MCH MCHC RDW Plt Count Gran % Lymph % (Auto) [place] % (Auto) Eos % (Auto) Baso % (Auto) Gran # Lymph # (Auto) [place] # (Auto) Eos # (Auto) Baso # (Auto) pCO2 pO2 HCO3 ABG pH ABG Total CO2 ABG O2 Saturation ABG O2 Content ABG Base Excess ABG Hemoglobin ABG Carboxyhemoglobin POC ABG HHb (Measured) ABG Methemoglobin ABG O2 Capacity VBG pH VBG pCO2 VBG HCO3 VBG Total CO2 VBG O2 Sat (Calc) VBG Base Excess VBG Potassium Hgb O2 Saturation Sodium Chloride Glucose Lactate FiO2 Potassium Carbon Dioxide Anion Gap BUN Creatinine Est GFR ( Amer) Est GFR (Non-Af Amer) Random Glucose Hemoglobin A1c Calcium Phosphorus Magnesium Ammonia 41 H Total Creatine Kinase Troponin I C-React Prot High Sens Triglycerides Cholesterol LDL Cholesterol Direct HDL Cholesterol TSH 3rd Generation Venous Blood Potassium Urine Opiates Screen Urine Methadone Screen Ur Barbiturates Screen Ur Phencyclidine Scrn Ur Amphetamines Screen U Benzodiazepines Scrn U Oth Cocaine Metabols U Cannabinoids Screen Alcohol, Quantitative Blood Type A NEGATIVE Blood Type Confirm A NEGATIVE Antibody Screen Negative Crossmatch See Detail BBK History Checked No verified bt 06/11/18 06/11/18 06/11/18 14:45 17:20 18:00 WBC RBC Hgb Hct MCV MCH MCHC RDW Plt Count Gran % Lymph % (Auto) [place] % (Auto) Eos % (Auto) Baso % (Auto) Gran # Lymph # (Auto) [place] # (Auto) Eos # (Auto) Baso # (Auto) pCO2 64 H pO2 31 229.0 H HCO3 20.8 L ABG pH 7.12 L* ABG Total CO2 22.8 ABG O2 Saturation 98.9 H ABG O2 Content 22.5 ABG Base Excess -9.8 L ABG Hemoglobin 16.4 ABG Carboxyhemoglobin 2.6 H POC ABG HHb (Measured) 1.1 ABG Methemoglobin 0.7 ABG O2 Capacity 22.8 VBG pH 7.26 L VBG pCO2 52.0 VBG HCO3 23.3 VBG Total CO2 24.9 VBG O2 Sat (Calc) 66.9 H VBG Base Excess -4.3 L VBG Potassium 4.6 Hgb O2 Saturation 95.7 Sodium 135.0 137 Chloride 96.0 L 107 Glucose 138 H Lactate 5.6 H* FiO2 21.0 100.0 Potassium 3.8 Carbon Dioxide 22 Anion Gap 12 BUN 38 H Creatinine 0.5 L Est GFR ( Amer) > 60 Est GFR (Non-Af Amer) > 60 Random Glucose 132 H Hemoglobin A1c Calcium 7.8 L Phosphorus Magnesium Ammonia Total Creatine Kinase Troponin I < 0.01 C-React Prot High Sens Triglycerides Cholesterol LDL Cholesterol Direct HDL Cholesterol TSH 3rd Generation Venous Blood Potassium 4.6 Urine Opiates Screen Urine Methadone Screen Ur Barbiturates Screen Ur Phencyclidine Scrn Ur Amphetamines Screen U Benzodiazepines Scrn U Oth Cocaine Metabols U Cannabinoids Screen Alcohol, Quantitative Blood Type Blood Type Confirm Antibody Screen Crossmatch BBK History Checked 06/11/18 18:30 WBC 3.3 L D RBC 6.12 H Hgb 17.6 H D Hct 51.9 H MCV 84.8 MCH 28.8 MCHC 33.9 RDW 14.8 H Plt Count 65 L Gran % 84.3 H Lymph % (Auto) 13.6 L [place] % (Auto) 1.2 Eos % (Auto) 0.3 L Baso % (Auto) 0.6 Gran # 2.80 Lymph # (Auto) 0.5 L [place] # (Auto) 0.0 L Eos # (Auto) 0.0 Baso # (Auto) 0.02 pCO2 pO2 HCO3 ABG pH ABG Total CO2 ABG O2 Saturation ABG O2 Content ABG Base Excess ABG Hemoglobin ABG Carboxyhemoglobin POC ABG HHb (Measured) ABG Methemoglobin ABG O2 Capacity VBG pH VBG pCO2 VBG HCO3 VBG Total CO2 VBG O2 Sat (Calc) VBG Base Excess VBG Potassium Hgb O2 Saturation Sodium Chloride Glucose Lactate FiO2 Potassium Carbon Dioxide Anion Gap BUN Creatinine Est GFR ( Amer) Est GFR (Non-Af Amer) Random Glucose Hemoglobin A1c Calcium Phosphorus Magnesium Ammonia Total Creatine Kinase Troponin I C-React Prot High Sens Triglycerides Cholesterol LDL Cholesterol Direct HDL Cholesterol TSH 3rd Generation Venous Blood Potassium Urine Opiates Screen Urine Methadone Screen Ur Barbiturates Screen Ur Phencyclidine Scrn Ur Amphetamines Screen U Benzodiazepines Scrn U Oth Cocaine Metabols U Cannabinoids Screen Alcohol, Quantitative Blood Type Blood Type Confirm Antibody Screen Crossmatch BBK History Checked Assessment & Plan - Assessment and Plan (Free Text) Plan: I personally saw and examined the patient with the resident staff reviewed the available diagnostic images and imaging reports. See pre-operative note separately documented as addendum to H+P - Date & Time Date: 06/11/18 Time: 13:00
[2018-06-11] MEDS ORDERED: Rocuronium 10 mg/ml (5 ml) ONE (14:49)
[2018-06-11] MEDS ORDERED: Midazolam 2 MG/2 ML VIAL ONE (14:49)
[2018-06-11] MEDS ORDERED: Succinylcholine 200 mg/10 ml Inj IV ONE (14:49)
--- NOTE | 2018-06-11 15:08 | CP.PCM.CON ---
History of Present Illness - History of Present Illness History of Present Illness: 58F with past medical history of hypertension, diabetes, and COPD who we are admitted to the ICU for sepsis. The history is unclear and she is a poor historian. She was brought in by EMS altered mental status and abd pain. She was found on the floor of her house in waste and cat litter. Apparently her son did not hear from her for 2 days so he alerted police who found her as such. Currently, she c/o abd pain but denies CP SOB n.v In the Ed she was borderline hypotensive with metbolic acidodis / elevated lac and on exam having diffuse erythema on her abd and legs as well necrotic lesion on her abd. PMH: hypertension, diabetes, and COPD PSH: none Family History: cannot be obtained due to AMS Social History: smokes 3ppd, denies alcohol use, Home meds: unclear at this time Allergies: NKDA Review of Systems - Review of Systems Systems not reviewed;Unavailable: Altered Mental Status - Constitutional Constitutional: Fatigue, Malaise, Weakness - Breasts Breasts: Skin Changes - Cardiovascular Cardiovascular: absent: As Per HPI, Acrocyanosis, Chest Pain, Chest Pain at Rest , Chest Pain with Activity, Claudication, Diaphoresis, Dyspnea, Dyspnea on Exertion, Edema, Irregular Heart Rhythm, Pain Radiating to Arm/Neck/Jaw, Leg Edema, Leg Ulcers, Lightheadedness, Orthopnea, Palpitations, Paroxysmal Nocturnal Dyspnea, Pedal Edema, Radiating Pain, Rapid Heart Rate, Slow Heart Rate, Syncope, Other - Respiratory Respiratory: Dyspnea. absent: Hemoptysis, Snoring, Excessive Mucous Production - Gastrointestinal Gastrointestinal: absent: Coffee Ground Emesis, Constipation, Diarrhea, Excessive Flatus, Temesmus, Vomiting - Musculoskeletal Musculoskeletal: As Per HPI - Integumentary Integumentary: As Per HPI - Neurological Neurological: As Per HPI - Endocrine Endocrine: As Per HPI Past Patient History - Infectious Disease Hx of Infectious Diseases: None (as above) - Past Medical History & Family History Past Medical History?: Yes - Past Social History Smoking Status: Heavy Smoker > 10 Cigarettes Daily Alcohol: Other (denies) Drugs: Denies - CARDIAC Hx Cardiac Disorders: No - PULMONARY Hx Respiratory Disorders: No - NEUROLOGICAL Hx Neurological Disorder: No - HEENT Hx HEENT Problems: No - RENAL Hx Chronic Kidney Disease: No - ENDOCRINE/METABOLIC Hx Diabetes Mellitus Type 2: Yes - HEMATOLOGICAL/ONCOLOGICAL Hx Blood Disorders: No - INTEGUMENTARY Hx Dermatological Problems: No - MUSCULOSKELETAL/RHEUMATOLOGICAL Hx Musculoskeletal Disorders: No - GASTROINTESTINAL Hx Gastrointestinal Disorders: No - PSYCHIATRIC Hx Substance Use: No - ANESTHESIA Hx Anesthesia: No Meds Allergies/Adverse Reactions: Allergies Allergy/AdvReac Type Severity Reaction Status Date / Time No Known Allergies Allergy Unverified 06/11/18 04:43 - Medications Medications: Current Medications Albuterol/Ipratropium (Duoneb 3 Mg/0.5 Mg (3 Ml) Ud) 3 ml IH Q2H PRN PRN Reason: Shortness of Breath Albuterol/Ipratropium (Duoneb 3 Mg/0.5 Mg (3 Ml) Ud) 3 ml IH [id number] LAMONTE Last Admin: 06/11/18 11:33 Dose: 3 ml Insulin Human Regular 100 (units/ Sodium Chloride) 100 mls @ 5 mls/hr IV .Q20H PRN; Protocol; 5 UNITS/HR PRN Reason: TITRATE PER MD ORDER Last Titration: 06/11/18 13:33 Dose: 2 units/hr, 2 mls/hr Meropenem (Merrem Iv 1 Gm Premix) 50 mls @ 100 mls/hr IVPB Q12 LAMONTE PRN Reason: Protocol Last Admin: 06/11/18 13:36 Dose: 100 mls/hr Vancomycin HCl (Vancomycin 1gm) 1 gm in 250 mls @ 167 mls/hr IVPB Q12H LAMONTE PRN Reason: Protocol Insulin Human Lispro (Humalog High) 0 units SC ACHS LAMONTE PRN Reason: Protocol Physical Exam - Constitutional Appears: Toxic - Head Exam Head Exam: ATRAUMATIC, NORMAL INSPECTION - Eye Exam Eye Exam: EOMI, Normal appearance Pupil Exam: NORMAL ACCOMODATION - Respiratory Exam Respiratory Exam: Prolonged Expiratory Phase - Cardiovascular Exam Cardiovascular Exam: REGULAR RHYTHM - GI/Abdominal Exam GI & Abdominal Exam: Distended, Hypoactive Bowel Sounds - Psychiatric Exam Psychiatric exam: Depressed - Skin Skin Exam: Mottled Additional comments: necrotic lesion on abd surrounded by erythema along abd and legs, abd distended Results - Vital Signs Recent Vital Signs: Last Vital Signs Temp 97.2 F L 06/11/18 08:25 Pulse 113 H 06/11/18 14:40 Resp 32 H 06/11/18 14:40 BP 102/66 08/12/18 14:00 Pulse Ox 91 L 06/11/18 14:40 - Labs Result Diagrams: 06/11/18 04:45 06/11/18 11:39 Labs: Laboratory Results - last 24 hr 06/11/18 06/11/18 06/11/18 07:41 07:41 07:49 pO2 50 VBG pH 7.26 L VBG pCO2 52.0 VBG HCO3 23.3 VBG Total CO2 VBG O2 Sat (Calc) 88.6 H VBG Base Excess -4.3 L VBG Potassium Sodium Chloride Glucose Lactate FiO2 Potassium Carbon Dioxide Anion Gap BUN Creatinine Est GFR ( Amer) Est GFR (Non-Af Amer) Random Glucose Hemoglobin A1c 17.4 H Calcium Phosphorus Magnesium Ammonia Total Creatine Kinase Troponin I C-React Prot High Sens Cancelled Triglycerides Cholesterol LDL Cholesterol Direct HDL Cholesterol TSH 3rd Generation 3.71 Venous Blood Potassium Urine Opiates Screen Urine Methadone Screen Ur Barbiturates Screen Ur Phencyclidine Scrn Ur Amphetamines Screen U Benzodiazepines Scrn U Oth Cocaine Metabols U Cannabinoids Screen Alcohol, Quantitative < 10 Crossmatch BBK History Checked 06/11/18 06/11/18 06/11/18 07:50 08:00 09:48 pO2 43 VBG pH 7.20 L VBG pCO2 59.0 VBG HCO3 23.1 VBG Total CO2 24.9 VBG O2 Sat (Calc) 80.5 H VBG Base Excess -5.8 L VBG Potassium 5.9 H Sodium 133.0 133 Chloride 90.0 L 95 L Glucose 405 H* D Lactate 5.7 H* FiO2 21.0 Potassium 5.6 H* Carbon Dioxide 24 Anion Gap 19 BUN 49 H Creatinine 1.0 Est GFR ( Amer) > 60 Est GFR (Non-Af Amer) 57 Random Glucose 401 H* D Hemoglobin A1c Calcium 9.7 Phosphorus 3.4 Magnesium 2.1 Ammonia Total Creatine Kinase Troponin I C-React Prot High Sens Triglycerides 168 H Cholesterol 110 L LDL Cholesterol Direct < 30 HDL Cholesterol 21 L TSH 3rd Generation Venous Blood Potassium 5.9 H Urine Opiates Screen Negative Urine Methadone Screen Negative Ur Barbiturates Screen Negative Ur Phencyclidine Scrn Negative Ur Amphetamines Screen Negative U Benzodiazepines Scrn Negative U Oth Cocaine Metabols Negative U Cannabinoids Screen Negative Alcohol, Quantitative Crossmatch BBK History Checked 06/11/18 06/11/18 06/11/18 11:39 11:39 11:39 pO2 33 VBG pH 7.21 L VBG pCO2 58.0 VBG HCO3 23.2 VBG Total CO2 25.0 VBG O2 Sat (Calc) 67.3 H VBG Base Excess -5.5 L VBG Potassium 4.9 Sodium 133 133.0 Chloride 100 96.0 L Glucose 262 H Lactate 6.2 H* FiO2 21.0 Potassium 5.0 Carbon Dioxide 23 Anion Gap 16 BUN 47 H Creatinine 0.9 Est GFR ( Amer) > 60 Est GFR (Non-Af Amer) > 60 Random Glucose 258 H Hemoglobin A1c Calcium 8.9 Phosphorus Magnesium Ammonia 41 H Total Creatine Kinase 171 Troponin I < 0.01 C-React Prot High Sens Triglycerides Cholesterol LDL Cholesterol Direct HDL Cholesterol TSH 3rd Generation Venous Blood Potassium 4.9 Urine Opiates Screen Urine Methadone Screen Ur Barbiturates Screen Ur Phencyclidine Scrn Ur Amphetamines Screen U Benzodiazepines Scrn U Oth Cocaine Metabols U Cannabinoids Screen Alcohol, Quantitative Crossmatch BBK History Checked 06/11/18 14:25 pO2 VBG pH VBG pCO2 VBG HCO3 VBG Total CO2 VBG O2 Sat (Calc) VBG Base Excess VBG Potassium Sodium Chloride Glucose Lactate FiO2 Potassium Carbon Dioxide Anion Gap BUN Creatinine Est GFR ( Amer) Est GFR (Non-Af Amer) Random Glucose Hemoglobin A1c Calcium Phosphorus Magnesium Ammonia Total Creatine Kinase Troponin I C-React Prot High Sens Triglycerides Cholesterol LDL Cholesterol Direct HDL Cholesterol TSH 3rd Generation Venous Blood Potassium Urine Opiates Screen Urine Methadone Screen Ur Barbiturates Screen Ur Phencyclidine Scrn Ur Amphetamines Screen U Benzodiazepines Scrn U Oth Cocaine Metabols U Cannabinoids Screen Alcohol, Quantitative Crossmatch See Detail BBK History Checked No verified bt Assessment & Plan - Assessment and Plan (Free Text) Plan: Overall, Cassie is a 58f with HTN COPD DM found at home for possible 2 days on the floor in waste and cat litter who is now septic. Based on her exam and CT Abd, my concern if for gangrenous necrosis / nec fasc vs perf vs ecthyma. She will likely need source control via surgical route. Surgery notified. Will hold off on PO contrast CT until surgery sees the patient. In the meantime, we will optimize her with early abx given in ED and IVF 30cc/ kg. Will start pressors if needed. Staff working to contact family to update them as well as get consent for anticipated procedures. Will repet her labs as well including chem/lac. Her CXR shows mod-severe emphysema, will optimize her with duo neds and correcting her acidosis. No subQ emphysema in thorax so unlikely to be esophageal or brocnhial perf. Psych- will need eval eventually; may need 1:1 if suicidal ideations identified. Sigrid Garcia MD Layout Technician Critical Care time 60mins
[2018-06-11 15:12] LABS: VENOUS BLOOD GAS BASE EXCESS -4.3 mmol/L (0.0-2.0); VENOUS BLOOD GAS PO2 31 mm/Hg (30-55); VENOUS BLOOD PH 7.26 (7.32-7.43)
--- NOTE | 2018-06-11 15:28 | CARD ---
APPROVED REPORT Date of service: 06/11/2018 EKG Measurement Heart [id number] <Conclusion> Sinus tachycardia Right atrial enlargement Anterolateral infarct, age undetermined Abnormal ECG
[2018-06-11] MEDS ORDERED: Oxychlorosene Topical 2 gm Packet TOP ONE ×2 (15:37→16:12)
[2018-06-11] MEDS ORDERED: Vasopressin 20 Units/ml Inj ONE (15:38)
--- NOTE | 2018-06-11 16:15 | US ---
Date of service: 06/11/2018 HISTORY: Abdominal pain COMPARISON: Comparison made with concurrent CT scan abdomen and pelvis. TECHNIQUE: Sonographic evaluation of the abdomen. FINDINGS: LIVER: Liver is enlarged measuring nearly 20 cm in CC dimension on concurrent CT scan of the abdomen pelvis at despite measurements obtained on this exam of 13.6 cm in greatest CC dimension. Liver demonstrates relatively smooth contour though increased echotexture likely due to fatty infiltration. Other infiltrative hepatic cellular disease process not excluded. The. No mass. No intrahepatic bile duct dilatation. GALLBLADDER: Unremarkable. No gallstones. No pericholecystic fluid collections or sonographic Byers sign COMMON BILE DUCT: Measures 2.9 mm. No stones. No dilatation. PANCREAS: Unremarkable as visualized. No mass. No ductal dilatation. RIGHT KIDNEY: Status post nephrectomy. LEFT KIDNEY: Measures 12.8 x 5.6 x 6.4cm. Normal echogenicity. No calculus, mass, or hydronephrosis. SPLEEN: Normal in size and contour. No mass. AORTA: No aneurysmal dilatation. IVC: Unremarkable. OTHER FINDINGS: None. IMPRESSION: Liver is enlarged. The suspect mild fatty infiltration however other infiltrative hepatic cellular disease process not excluded. Status post right nephrectomy.
--- NOTE | 2018-06-11 16:41 | CP.PCM.CON ---
History of Present Illness - History of Present Illness History of Present Illness: ICU consult note: Radha, PGY - 2 Reason for consult: Severe sepsis HPI: 58 year old female with no pertinent medical history [place] via [place] [facility] [place] altered [place] status. Patient was apparently found in unsanitary conditions with cat feces, urine, and scratches all over her body, laying on the bathroom floor. History from patient is limited, but she states that the floor was wet and she slipped and fell, could not get back up. She denies any aura or loss of consciousness before she fell. She currently denies any symptoms including chest pain, shortness of breath. Review Of Systems 12 point ROS obtained and negative except as per HPI Surgical Hx: Patient denies any surgical history Medical Hx: HTN, DM, COPD Allergies: NKDA Social Hx: Smokes 3 ppd, Denies alcohol Home Meds: Reviewed, as per MAR Family Hx: Patient denies Past Patient History - Infectious Disease Hx of Infectious Diseases: None - Past Medical History & Family History Past Medical History?: Yes - Past Social History Smoking Status: Heavy Smoker > 10 Cigarettes Daily Alcohol: Other (denies) Drugs: Denies - CARDIAC Hx Cardiac Disorders: No - PULMONARY Hx Respiratory Disorders: No - NEUROLOGICAL Hx Neurological Disorder: No - HEENT Hx HEENT Problems: No - RENAL Hx Chronic Kidney Disease: No - ENDOCRINE/METABOLIC Hx Diabetes Mellitus Type 2: Yes - HEMATOLOGICAL/ONCOLOGICAL Hx Blood Disorders: No - INTEGUMENTARY Hx Dermatological Problems: No - MUSCULOSKELETAL/RHEUMATOLOGICAL Hx Musculoskeletal Disorders: No - GASTROINTESTINAL Hx Gastrointestinal Disorders: No - PSYCHIATRIC Hx Substance Use: No - ANESTHESIA Hx Anesthesia: No Meds Allergies/Adverse Reactions: Allergies Allergy/AdvReac Type Severity Reaction Status Date / Time No Known Allergies Allergy Unverified 06/11/18 04:43 - Medications Medications: Current Medications Albuterol/Ipratropium (Duoneb 3 Mg/0.5 Mg (3 Ml) Ud) 3 ml IH Q2H PRN PRN Reason: Shortness of Breath Albuterol/Ipratropium (Duoneb 3 Mg/0.5 Mg (3 Ml) Ud) 3 ml IH [id number] LAMONTE Last Admin: 06/11/18 15:23 Dose: Not Given Insulin Human Regular 100 (units/ Sodium Chloride) 100 mls @ 5 mls/hr IV .Q20H PRN; Protocol; 5 UNITS/HR PRN Reason: TITRATE PER MD ORDER Last Titration: 06/11/18 13:33 Dose: 2 units/hr, 2 mls/hr Meropenem (Merrem Iv 1 Gm Premix) 50 mls @ 100 mls/hr IVPB Q12 LAMONTE PRN Reason: Protocol Last Admin: 06/11/18 13:36 Dose: 100 mls/hr Vancomycin HCl (Vancomycin 1gm) 1 gm in 250 mls @ 167 mls/hr IVPB Q12H LAMONTE PRN Reason: Protocol Insulin Human Lispro (Humalog High) 0 units SC ACHS LAMONTE PRN Reason: Protocol Physical Exam - Constitutional Appears: Unkempt, Chronically Ill - Head Exam Head Exam: ATRAUMATIC, NORMAL INSPECTION, NORMOCEPHALIC - Eye Exam Eye Exam: EOMI, Normal appearance, PERRL Pupil Exam: NORMAL ACCOMODATION, PERRL - ENT Exam ENT Exam: Mucous Membranes Moist, Normal Exam - Neck Exam Neck exam: Positive for: Normal Inspection - Respiratory Exam Respiratory Exam: Decreased Breath Sounds, Clear to Auscultation Bilateral - Cardiovascular Exam Cardiovascular Exam: Tachycardia, REGULAR RHYTHM - GI/Abdominal Exam GI & Abdominal Exam: Normal Bowel Sounds, Soft. absent: Tenderness Additional comments: Patient has black discoloration in lower abdomen and upper pelvis - Rectal Exam Additional comments: Mass in perineal area - Extremities Exam Extremities exam: Positive for: normal inspection Additional comments: Scratches and bites indicative of cat scratches and perhaps bed bugs - Back Exam Back exam: NORMAL INSPECTION - Neurological Exam Neurological exam: Alert, CN II-XII Intact, Normal Gait, Oriented x3, Reflexes Normal - Psychiatric Exam Psychiatric exam: Normal Affect, Normal Mood - Skin Skin Exam: Dry, Intact, Normal Color, Warm Results - Vital Signs Recent Vital Signs: Last Vital Signs Temp 97.2 F L 06/11/18 08:25 Pulse 113 H 06/11/18 14:40 Resp 32 H 06/11/18 14:40 BP 102/66 06/11/18 14:00 Pulse Ox 91 L 06/11/18 14:40 - Labs Result Diagrams: 06/11/18 04:45 06/11/18 11:39 Labs: Laboratory Results - last 24 hr 06/11/18 06/11/18 06/11/18 07:41 07:41 07:49 pO2 50 VBG pH 7.26 L VBG pCO2 52.0 VBG HCO3 23.3 VBG Total CO2 VBG O2 Sat (Calc) 88.6 H VBG Base Excess -4.3 L VBG Potassium Sodium Chloride Glucose Lactate FiO2 Potassium Carbon Dioxide Anion Gap BUN Creatinine Est GFR ( Amer) Est GFR (Non-Af Amer) Random Glucose Hemoglobin A1c 17.4 H Calcium Phosphorus Magnesium Ammonia Total Creatine Kinase Troponin I C-React Prot High Sens Cancelled Triglycerides Cholesterol LDL Cholesterol Direct HDL Cholesterol TSH 3rd Generation 3.71 Venous Blood Potassium Urine Opiates Screen Urine Methadone Screen Ur Barbiturates Screen Ur Phencyclidine Scrn Ur Amphetamines Screen U Benzodiazepines Scrn U Oth Cocaine Metabols U Cannabinoids Screen Alcohol, Quantitative < 10 Blood Type Blood Type Confirm Antibody Screen Crossmatch BBK History Checked 06/11/18 06/11/18 06/11/18 07:50 08:00 09:48 pO2 43 VBG pH 7.20 L VBG pCO2 59.0 VBG HCO3 23.1 VBG Total CO2 24.9 VBG O2 Sat (Calc) 80.5 H VBG Base Excess -5.8 L VBG Potassium 5.9 H Sodium 133.0 133 Chloride 90.0 L 95 L Glucose 405 H* D Lactate 5.7 H* FiO2 21.0 Potassium 5.6 H* Carbon Dioxide 24 Anion Gap 19 BUN 49 H Creatinine 1.0 Est GFR ( Amer) > 60 Est GFR (Non-Af Amer) 57 Random Glucose 401 H* D Hemoglobin A1c Calcium 9.7 Phosphorus 3.4 Magnesium 2.1 Ammonia Total Creatine Kinase Troponin I C-React Prot High Sens Triglycerides 168 H Cholesterol 110 L LDL Cholesterol Direct < 30 HDL Cholesterol 21 L TSH 3rd Generation Venous Blood Potassium 5.9 H Urine Opiates Screen Negative Urine Methadone Screen Negative Ur Barbiturates Screen Negative Ur Phencyclidine Scrn Negative Ur Amphetamines Screen Negative U Benzodiazepines Scrn Negative U Oth Cocaine Metabols Negative U Cannabinoids Screen Negative Alcohol, Quantitative Blood Type Blood Type Confirm Antibody Screen Crossmatch BBK History Checked 06/11/18 06/11/18 06/11/18 11:39 11:39 11:39 pO2 33 VBG pH 7.21 L VBG pCO2 58.0 VBG HCO3 23.2 VBG Total CO2 25.0 VBG O2 Sat (Calc) 67.3 H VBG Base Excess -5.5 L VBG Potassium 4.9 Sodium 133 133.0 Chloride 100 96.0 L Glucose 262 H Lactate 6.2 H* FiO2 21.0 Potassium 5.0 Carbon Dioxide 23 Anion Gap 16 BUN 47 H Creatinine 0.9 Est GFR ( Amer) > 60 Est GFR (Non-Af Amer) > 60 Random Glucose 258 H Hemoglobin A1c Calcium 8.9 Phosphorus Magnesium Ammonia Total Creatine Kinase 171 Troponin I < 0.01 C-React Prot High Sens > 15.00 H Triglycerides Cholesterol LDL Cholesterol Direct HDL Cholesterol TSH 3rd Generation Venous Blood Potassium 4.9 Urine Opiates Screen Urine Methadone Screen Ur Barbiturates Screen Ur Phencyclidine Scrn Ur Amphetamines Screen U Benzodiazepines Scrn U Oth Cocaine Metabols U Cannabinoids Screen Alcohol, Quantitative Blood Type Blood Type Confirm Antibody Screen Crossmatch BBK History Checked 06/11/18 06/11/18 06/11/18 11:39 14:25 14:45 pO2 VBG pH VBG pCO2 VBG HCO3 VBG Total CO2 VBG O2 Sat (Calc) VBG Base Excess VBG Potassium Sodium Chloride Glucose Lactate FiO2 Potassium Carbon Dioxide Anion Gap BUN Creatinine Est GFR ( Amer) Est GFR (Non-Af Amer) Random Glucose Hemoglobin A1c Calcium Phosphorus Magnesium Ammonia 41 H Total Creatine Kinase Troponin I C-React Prot High Sens Triglycerides Cholesterol LDL Cholesterol Direct HDL Cholesterol TSH 3rd Generation Venous Blood Potassium Urine Opiates Screen Urine Methadone Screen Ur Barbiturates Screen Ur Phencyclidine Scrn Ur Amphetamines Screen U Benzodiazepines Scrn U Oth Cocaine Metabols U Cannabinoids Screen Alcohol, Quantitative Blood Type A NEGATIVE Blood Type Confirm A NEGATIVE Antibody Screen Negative Crossmatch See Detail BBK History Checked No verified bt 06/11/18 14:45 pO2 31 VBG pH 7.26 L VBG pCO2 52.0 VBG HCO3 23.3 VBG Total CO2 24.9 VBG O2 Sat (Calc) 66.9 H VBG Base Excess -4.3 L VBG Potassium 4.6 Sodium 135.0 Chloride 96.0 L Glucose 138 H Lactate 5.6 H* FiO2 21.0 Potassium Carbon Dioxide Anion Gap BUN Creatinine Est GFR ( Amer) Est GFR (Non-Af Amer) Random Glucose Hemoglobin A1c Calcium Phosphorus Magnesium Ammonia Total Creatine Kinase Troponin I C-React Prot High Sens Triglycerides Cholesterol LDL Cholesterol Direct HDL Cholesterol TSH 3rd Generation Venous Blood Potassium 4.6 Urine Opiates Screen Urine Methadone Screen Ur Barbiturates Screen Ur Phencyclidine Scrn Ur Amphetamines Screen U Benzodiazepines Scrn U Oth Cocaine Metabols U Cannabinoids Screen Alcohol, Quantitative Blood Type Blood Type Confirm Antibody Screen Crossmatch BBK History Checked Assessment & Plan - Assessment and Plan (Free Text) Assessment: 58 year old female under ICU management for severe sepsis in the setting of lactic acidosis, with possible source of infection in the abdomen. ICU management also required for possible HHS, as well as possible necrotizing fasciitis. 1. Acute AMS 2. Possible Nec Fasciitis 3. Acute metabolic acidosis likely 2/2 HHS 4. Acute hyperkalemia, likely 2/2 HHS 5. Hx COPD 6. Hx DM 7. Hx HTN Patient's labs reveal lactic acidosis as well as decreased paO2 on ABG. Patient is currently protecting her airway and is 100% O2 saturation. glucose levels on admission 514, trending downward with a metabolic acidosis. Tox screen negative, but no UA obtained to look for ketones. Chest XR shows chronic COPD Plan Neuro - Maintain normothermia - Treat lactic acidosis, likely source of infection, which are contributing to AMS Pulm - Duonebs PRN and LAMONTE - Maintain sats > 92% - Low threshold for intubation Cardio - Maintain MAP > 65 GI - GI PPX - Surgery on consult - will most likely need emergent surgery, will hold off on CT abdomen/pelvis with po contrast - GI on consult - Correct electrolyte abnormalities PRN (hyperkalemic) ID - Continue Clinda, Merrem, and Vanc for severe sepsis and possible necrotizing fasciitis - ID Consult: Dr. Mcfarland Endo - Continue insulin drip - Maintain euglycemia Heme - No heme issues Psych - Possible suicide attempt; may need 1:1 when patient medically optimized
--- NOTE | 2018-06-11 17:10 | PCM.SURG1 ---
Surgeon's Initial Post Op Note - Surgeon's Notes Surgeon: Dr. Urban [place] [employer] Loss Specialist: Ron Joel PGY1 Type of Anesthesia: General Endo Pre-Operative Diagnosis: Necroting soft tissue infection Operative Findings: Extensive necrotic soft tissue, soft tissue mass on the left vulva Post-Operative Diagnosis: same Operation Performed: extensive surgical debridement of the abdominal wall with antibiotic irrigation Specimen/Specimens Removed: abdominal wall soft tissue, biopsy of the left vulvular mass Estimated Blood Loss: EBL {In ML}: 350 Blood Products Given: PRBC Drains Used: No Drains Date of Surgery/Procedure: 06/11/18 Time of Surgery/Procedure: 17:24
[2018-06-11] MEDS: Vancomycin 1gm in NS 250ml 1 GM/250 ML BAG IVPB SCH (17:24)
[2018-06-11 17:27] LABS: ARTERIAL BLOOD GAS HCO3 20.8 mmol/L (21-28); ARTERIAL BLOOD GAS HEMOGLOBIN 16.4 g/dL (11.7-17.4); ARTERIAL BLOOD GAS O2 CAPACITY 22.8 mL/dl (16-24); ARTERIAL BLOOD GAS O2 CONTENT 22.5 ML/dl (15-23); ARTERIAL BLOOD GAS O2 SAT 98.9 % (95-98); ARTERIAL BLOOD GAS PCO2 64 mm/Hg (35-45); ARTERIAL BLOOD GAS TCO2 22.8 mmol.L (22-28)
[2018-06-11] MEDS ORDERED: NOREPINEPHRINE BIT/0.9 % NACL 4 MG/250 ML BAG IV ONE (17:28)
[2018-06-11] MEDS ORDERED: Phenylephrine 10 mg/ml Inj ONE (17:35)
[2018-06-11] MEDS ORDERED: ePHEDrine 50 mg/ml Inj ONE (17:35)
--- NOTE | 2018-06-11 17:57 | RAD ---
Date of service: 06/11/2018 HISTORY: central line placement COMPARISON: Comparison chest 06/11/2018 FINDINGS: Interval placement ETT, the tip of which lies approximately 4.7 cm above nay. Right IJ central venous line is present with tip in the SVC. LUNGS: There are patchy opacities seen throughout both lung springer most pronounced in the right upper and left lower lobes PLEURA: No significant pleural effusion identified, no pneumothorax apparent. CARDIOVASCULAR: Normal. OSSEOUS STRUCTURES: No significant abnormalities. VISUALIZED UPPER ABDOMEN: Normal. OTHER FINDINGS: None. IMPRESSION: Interval placement ETT and right IJ central line as described above. Patchy bilateral opacities right upper and left lower lobes.
[2018-06-11 18:46] VITALS: O2SAT 100
--- NOTE | 2018-06-11 18:46 | US ---
HISTORY: Leg pain and swelling. Evaluate for DVT PHYSICIAN(S): Ramon Holder MD. TECHNIQUE: Duplex sonography and color-flow Doppler with graded compression were used to evaluate the deep venous systems of both lower extremities. The exam is limited by edema. FINDINGS: The visualized deep venous systems of both lower extremities are sonographically normal and compressible. Normal wave forms and augmentation are seen. There is no sonographic evidence for deep venous thrombosis in the visualized segments of both lower extremities. IMPRESSION: No sonographic evidence for deep venous thrombosis in the visualized segments of both lower extremities.
[2018-06-11 18:51] LABS: ARTERIAL BLOOD GAS PH 7.12 (7.35-7.45)
[2018-06-11] MEDS: NOREPINEPHRINE BIT/0.9 % NACL 4 MG/250 ML BAG IV PRN ×2 (19:00→23:58)
[2018-06-11 19:01] LABS: BASO # 0.02 K/mm3 (0.0-2.0); BASO % 0.6 % (0.0-3.0); EOS % 0.3 % (1.5-5.0); GRAN % 84.3 % (50.0-68.0); HEMOGLOBIN 17.6 g/dL (12.0-16.0); LYMPH # 0.5 (1.2-3.4); LYMPH % 13.6 % (22.0-35.0); MEAN CELL VOLUME 84.8 fl (80.0-105.0); MEAN CORPUSCULAR HEMOGLOBIN 28.8 pg (25.0-35.0); MEAN CORPUSCULAR HGB CONC 33.9 g/dl (31.0-37.0); MONO % 1.2 % (1.0-6.0); PLATELET COUNT 65 10^3/uL (120.0-450.0); RBC 6.12 10^6/uL (3.5-6.1); RED CELL DISTRIBUTION WIDTH 14.8 % (11.5-14.5); WHITE BLOOD COUNT 3.3 10^3/ul (4.5-11.0)
[2018-06-11 19:08] LABS: BLOOD UREA NITROGEN 38 mg/dL (7-21); CALCIUM 7.8 mg/dL (8.4-10.5); GFR AFRICAN-AMERICAN > 60; GFR NON-AFRICAN AMERICAN > 60
[2018-06-11 19:09] LABS: TROPONIN I < 0.01 ng/mL
[2018-06-11] MEDS: Fentanyl 1000mcg/100ml NS 1,000 MCG/100 ML BAG IV PRN (20:23)
[2018-06-11 20:40] LABS: ARTERIAL BLOOD GAS HCO3 18.9 mmol/L (21-28); ARTERIAL BLOOD GAS O2 SAT 91.4 % (95-98); ARTERIAL BLOOD GAS PCO2 43 mm/Hg (35-45); ARTERIAL BLOOD GAS PH 7.25 (7.35-7.45); ARTERIAL BLOOD GAS TCO2 20.2 mmol.L (22-28)
--- NOTE | 2018-06-11 21:46 | PCM.OP ---
Operative Report - Operative Report Date of Surgery/Procedure: 06/11/18 Time of Surgery/Procedure: 14:30 Surgeon: Monica Oleary MD Delivery Associate: Zuhair Duggan MD (No qualified residents available), Ron Velasco DO Anesthesia/Sedation: General Endotracheal Pre-Operative Diagnosis: Necrotizing soft tissue infection of abdominal wall and perineum. Septic shock. Perineal mass. Lower extremity cellulitis. Congestive Heart Failure, acute. Poorly Controlled Diabetes type II. COPD. Morbid Obesity. Surgically absent Kidney Post-Operative Diagnosis: Necrotizing soft tissue infection of abdominal wall and perineum. Malignant appearing mass, left labia. Septic shock. Congestive Heart Failure, acute. Poorly Controlled Diabetes type II. COPD. Morbid Obesity. Lower extremity cellulitis. Surgically absent Kidney Indication for Surgery: 58 female admittd to ICU via ED arrival in ambulance after being found down at home, noted to have significant abdominal wall and flank skin changes and pain. CT evidence of significant subcutaneous emphysema of lower abdominal wall, pannus, flank and perineum. See HPI for ful details. Patient in septic shock at time of surgical consult and evaluation, taking to operating room emergently for extensive debridement of necrotizing soft tissue infection of lower torso and perineum. Patient with altered mental status not able to give consent. Consent obtained by patient's eldest daughter prior to operation. Risks and benefits discussed as documented in clinical chart. Operative Findings: Significant necrotizing soft tissue infection of lower abdominal wall and bilateral flanks, pubis, and perineum. Foul smelling, grossly necrotic skin and subcutaneous fat, without gross involvement of abdominal wall fasica. Soft tissue changes tracking inferiorly to mons pubis and down to perineum. 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 Debridement of skin, soft tissue, muscle, fascia for necroting soft tissue infection of of abdominal wall and perineum. 2. Incisional biopsy of left labial mass. DETAILS OF OPERATION: Patient was taken to operating room table and placed supine with both arms out on padded arm boards. SCD were not placed as patient had active cellulitis of bilateral lower extremities. Lorenz catheter had been previsouly placed. General endotracheal intubation performed by anesthesia. The patients legs were placed on padded foot rests for modified lithotomy position, taking care to pad pressure points and place in neutral position avoiding any undo stretching of the joints. No hair removal was necessary. Upper body warmer placed. The perineum and abdomen were separetly prepped and draped in sterile fashion. A safety strap was then loosely placed across lower chest. Patient received both vancomycin and meropenem in the ICU prior to surgery. A time out was performed prior to incision. A transverse skin incision was made across the lower abdominal pannus grossly necrotic, measuring approximately 12-14 inches in length. This was carried down with a combination of sharp and electro cautery dissection to subcutaneous tissue. All keenan, grossly infected non- bleeding subcutanoues fat was sharply removed and flaps created superior and inferior to preserve healthy appearing and bleeding skin edges. Debridement was continued in bilateral flanks and subcutanoues tissue easily peeled off abdominal wall fascia. Bleeding vessels coagulated using bipolar energy device. The specimen was submitted for permanent pathologic and culture analysis. During debridement of deep midline tissue, a 2 cm defect was inadvertantly created in the abdominal wall fascia. This was quickly identified and explored. Underlying bowel was noted to be normal and no abnormal peritoneal fluid encoutered. The defect was repaired with running 0-vicryl suture without issue. A counter skin incison was made in bilateral flanks and panfilo drains were passed from within main abdominal wound through each respective flank incision. The end of the drain stapled together creating seton like drain. Further dissectin inferiorly was carried over mons pubis and grossly necrotic tissue sharply removed and sent off. At this point Dr. Duggan performed examinaton of the perineum and biopsy of previously noted fungating mass of left labia. Specimen was sent off to [facility] pathology. A counter incison was made in the perineum and panfilo drain passed from inferior porton of abdominal wound through perineal incision and ends stapled together creating another seton like drain. At this point the patient was becoming more hypotensive requiring pressor support and hypothermic and so we quickly irrigated the wound , obtained hemostasis and packed the wound with 5 rolls of kerlix gauze soaked in antibitic solution, with the plan to return to the operating room in 24-48 hours for re-evaluation and further debridement of necrotic tissue after the patient had been adeqautely resusciated in the ICU. Abdominal pads were placed over our wound packing and large adhesive dressing applied over it. Anesthesia then placed a right IJ central venous line which will be dictated separately. I was present for the entirety of the operation. All sponge, needle and instrument counts were correct. Dr. Duggan was present for all critical portions of the operation and his involvement was vital to performing extensive debridement as no other qualified residents available to assist. The patient was transferred back to the ICU intubated and in critical condition. Estimated Blood Loss: 350mL Blood Replaced: 1upRBC Drains: 1/2" panfilo drain x3 placed in seton fashion in bilateral flanks and mons pubis. Lorenz Complications: none Specimen: Abdominal wall skin and subcutanoues tissue. Left labial mass incisional biopsy Discharge & Condition: to the ICU intubated and in critical condition.
[2018-06-11] MEDS: Sodium Chloride 0.9% 1,000 ML IV SCH (22:00)
[2018-06-11 22:57] LABS: ARTERIAL BLOOD GAS HCO3 18.9 mmol/L (21-28); ARTERIAL BLOOD GAS HEMOGLOBIN 17.7 g/dL (11.7-17.4); ARTERIAL BLOOD GAS O2 CAPACITY 24.2 mL/dl (16-24); ARTERIAL BLOOD GAS O2 CONTENT 22.5 ML/dl (15-23); ARTERIAL BLOOD GAS O2 SAT 93.1 % (95-98); ARTERIAL BLOOD GAS PCO2 43 mm/Hg (35-45); ARTERIAL BLOOD GAS PH 7.25 (7.35-7.45); ARTERIAL BLOOD GAS TCO2 20.2 mmol.L (22-28)
[2018-06-12] MEDS: Albuterol-Ipratrop 3 mg / 0.5 (3 ml) UD IH SCH ×4 (01:12→19:31)
[2018-06-12] MEDS ORDERED: Sodium Chloride 0.9% 1,000 ML IV STA (05:10)
[2018-06-12] MEDS: NOREPINEPHRINE BIT/0.9 % NACL 4 MG/250 ML BAG IV PRN ×4 (05:23→23:59)
[2018-06-12] MEDS: Vancomycin 1gm in NS 250ml 1 GM/250 ML BAG IVPB SCH ×2 (05:24→17:56)
[2018-06-12 05:35] LABS: ARTERIAL BLOOD GAS HCO3 19.3 mmol/L (21-28); ARTERIAL BLOOD GAS PCO2 44 mm/Hg (35-45); ARTERIAL BLOOD GAS PH 7.25 (7.35-7.45); ARTERIAL BLOOD GAS TCO2 20.7 mmol.L (22-28)
[2018-06-12 07:14] LABS: ALB/GLOB RATIO 0.7 (1.1-1.8); ALBUMIN 1.8 g/dL (3.0-4.8); ALT/SGPT 39 U/L (7-56); AST/SGOT 30 U/L (14-36); BLOOD UREA NITROGEN 44 mg/dL (7-21); CALCIUM 7.6 mg/dL (8.4-10.5); GFR AFRICAN-AMERICAN > 60; GFR NON-AFRICAN AMERICAN > 60
[2018-06-12] MEDS ORDERED: Iohexol 240 (50 ml) ONE (07:47)
[2018-06-12] MEDS: Sodium Chloride 0.9% 1,000 ML IV SCH ×2 (08:00→21:47)
[2018-06-12 08:50] LABS: HEPATITIS B SURFACE AG Negative (NEGATIVE)
[2018-06-12 08:55] LABS: HEPATITIS A IGM NEGATIVE (NEGATIVE)
--- NOTE | 2018-06-12 08:55 | CP.PCM.PN ---
<Ronnie Narayanan - Last Filed: 06/12/18 17:34> Subjective - Date & Time of Evaluation Date of Evaluation: 06/12/18 Time of Evaluation: 07:35 - Subjective Subjective: Patient seen and examined at bedside in CCU. She is intubated and unable to communicate. Per staff nurse, fever overnight was 100.4, input 2300 cc, output 150, NGT placed this am with bilious output, no bowel movement reported, otherwise no other overnight events. Objective - Vital Signs/Intake and Output Vital Signs (last 24 hours): Temp Pulse Resp BP Pulse Ox 100.4 F H 121 H 22 85/49 L 100 06/12/18 06:30 06/12/18 06:30 06/11/18 18:09 06/12/18 06:30 06/12/18 06:30 Intake and Output: 06/12/18 06/12/18 06:59 18:59 Intake Total 3476 Output Total 150 Balance 3326 - Medications Medications: Current Medications Albuterol/Ipratropium (Duoneb 3 Mg/0.5 Mg (3 Ml) Ud) 3 ml IH Q2H PRN PRN Reason: Shortness of Breath Albuterol/Ipratropium (Duoneb 3 Mg/0.5 Mg (3 Ml) Ud) 3 ml IH [id number] [facility] Last Admin: 06/12/18 08:09 Dose: 3 ml Heparin Sodium (Porcine) (Heparin) 5,000 units IVP Q8 RADHA PRN Reason: Protocol Last Admin: 06/12/18 05:25 Dose: 5,000 units Insulin Human Regular 100 (units/ Sodium Chloride) 100 mls @ 5 mls/hr IV .Q20H PRN; Protocol; 5 UNITS/HR PRN Reason: TITRATE PER MD ORDER Last Titration: 06/11/18 13:33 Dose: 2 units/hr, 2 mls/hr Meropenem (Merrem Iv 1 Gm Premix) 50 mls @ 100 mls/hr IVPB Q12 RADHA PRN Reason: Protocol Last Admin: 06/11/18 22:34 Dose: 100 mls/hr Vancomycin HCl (Vancomycin 1gm) 1 gm in 250 mls @ 167 mls/hr IVPB Q12H RADHA PRN Reason: Protocol Last Admin: 06/12/18 05:24 Dose: 167 mls/hr Clindamycin Phosphate 900 mg/ (Sodium Chloride) 106 mls @ 106 mls/hr IVPB Q8 RADHA PRN Reason: Protocol Last Admin: 06/12/18 05:25 Dose: 106 mls/hr Fentanyl Citrate (Fentanyl Citrate/Sodium Chloride 1 Mg/100 Ml) 1,000 mcg in 100 mls @ 2 mls/hr IV .Q24H PRN; Protocol; 20 MCG/HR PRN Reason: TITRATE PER MD ORDER Last Titration: 06/11/18 22:30 Dose: 75 mcg/hr, 7.5 mls/hr NOREPINEPHRINE BIT/0.9 % NACL (Levophed 4 Mg/ 250 Ml Ns Premixed) 4 mg in 250 mls @ 15 mls/hr IV .[id number] PRN; Protocol; 4 MCG/MIN PRN Reason: TITRATE PER MD ORDER Last Titration: 06/12/18 06:30 Dose: 20 mcg/min, 75 mls/hr Sodium Chloride (Sodium Chloride 0.9%) 1,000 mls @ 100 mls/hr IV .Q10H RADHA Last Admin: 06/11/18 22:00 Dose: 100 mls/hr Acetaminophen (Ofirmev) 1,000 mg in 100 mls @ 400 mls/hr IVPB Q6H PRN PRN Reason: Temperature Stop: 06/14/18 03:06 Last Admin: 06/12/18 03:19 Dose: 400 mls/hr Vasopressin 20 units/ Sodium (Chloride) 101 mls @ 9.09 mls/hr IV .Q11H7M RADHA; 0.03 U/MIN PRN Reason: Protocol Insulin Human Lispro (Humalog High) 0 units SC ACHS RADHA PRN Reason: Protocol Pantoprazole Sodium (Protonix Inj) 40 mg IVP DAILY RADHA - Labs Labs: 06/11/18 18:30 06/12/18 05:45 PT 13.5 SECONDS (9.4-12.5) H 06/11/18 04:45 INR 1.17 06/11/18 04:45 APTT 39.3 Seconds (25.1-36.5) H 06/11/18 04:45 - Constitutional Appears: Unkempt, Cachectic, Chronically Ill - Head Exam Head Exam: ATRAUMATIC, NORMAL INSPECTION, NORMOCEPHALIC - Eye Exam Eye Exam: Normal appearance - ENT Exam ENT Exam: Mucous Membranes Moist, Normal Exam - Neck Exam Neck Exam: Full ROM, Normal Inspection. absent: Lymphadenopathy - Respiratory Exam Respiratory Exam: Clear to Ausculation Bilateral, NORMAL BREATHING PATTERN - Cardiovascular Exam Cardiovascular Exam: REGULAR RHYTHM, +S1, +S2. absent: Murmur - GI/Abdominal Exam Additional comments: diffuse necrotic area in lower abdominal region below umbilicus level. Foul odor , necrotic fascia covered with gauze. - Exam External exam: Lesions (valvular lesion) - Extremities Exam Extremities Exam: Pedal Edema Additional comments: bilateral lower limb edema - Neurological Exam Neurological Exam: Altered - Skin Skin Exam: Erythema Additional comments: necrotic skin in lower abdominal wall. bilateral flank ecchymosis and dark discoloration of the skin. Assessment and Plan - Assessment and Plan (Free Text) Assessment: 58 y/o female with PMH significant for COPD, DM, depression, tobacco abuse, and right sided nephrectomy admitted for altered mental status for being found on the floor. She was found to have lactic acidosis of 7.06, lactate 4.6, BNP 27585 Plan: Septic shock in the setting of acute AMS Necrotizing fascitis is likely the source of infection Surgical emergent debridement to remove necrotic tissue continue Abx; Clinda, Merrem, and Vanc Lactic acidosis 7.06, lactate 4.6 Maintain MAP>65 On vasopressors levophed, vasopressin, phenylepherine BNP 74619 Echo to be done COPD Maintain sats > 92% on ventilation Duoneb prn/radha CXR consitent with chronic COPD DM2 Glucose in admission 514 ISS maintain euglycemic control GI PPX DVT ppx NPO <Tana Oleary R - Last Filed: 06/12/18 21:09> Objective - Vital Signs/Intake and Output Vital Signs (last 24 hours): Temp Pulse Resp BP Pulse Ox 100.8 F H 124 H 17 96/57 L 100 06/12/18 19:00 06/12/18 19:00 06/12/18 12:55 06/12/18 20:10 06/12/18 19:00 Intake and Output: 06/12/18 06/13/18 18:59 06:59 Intake Total 2508 110 Output Total 300 Balance 2208 110 - Medications Medications: Current Medications Albumin Human (Albumin Human 25% (12.5 Gm/50 Ml)) 12.5 gm IV Q6H RADHA Stop: 06/13/18 14:43 Last Admin: 06/12/18 18:38 Dose: 12.5 gm Albuterol/Ipratropium (Duoneb 3 Mg/0.5 Mg (3 Ml) Ud) 3 ml IH Q2H PRN PRN Reason: Shortness of Breath Albuterol/Ipratropium (Duoneb 3 Mg/0.5 Mg (3 Ml) Ud) 3 ml IH [id number] RADHA Last Admin: 06/12/18 19:31 Dose: 3 ml Meropenem (Merrem Iv 1 Gm Premix) 50 mls @ 100 mls/hr IVPB Q12 RADHA PRN Reason: Protocol Last Admin: 06/12/18 09:25 Dose: 100 mls/hr Vancomycin HCl (Vancomycin 1gm) 1 gm in 250 mls @ 167 mls/hr IVPB Q12H RADHA PRN Reason: Protocol Last Admin: 06/12/18 17:56 Dose: 167 mls/hr Clindamycin Phosphate 900 mg/ (Sodium Chloride) 106 mls @ 106 mls/hr IVPB Q8 RADHA PRN Reason: Protocol Last Admin: 06/12/18 13:57 Dose: 106 mls/hr Fentanyl Citrate (Fentanyl Citrate/Sodium Chloride 1 Mg/100 Ml) 1,000 mcg in 100 mls @ 2 mls/hr IV .Q24H PRN; Protocol; 20 MCG/HR PRN Reason: TITRATE PER MD ORDER Last Admin: 06/12/18 09:36 Dose: 75 mcg/hr, 7.5 mls/hr NOREPINEPHRINE BIT/0.9 % NACL (Levophed 4 Mg/ 250 Ml Ns Premixed) 4 mg in 250 mls @ 15 mls/hr IV .[id number] PRN; Protocol; 4 MCG/MIN PRN Reason: TITRATE PER MD ORDER Last Titration: 06/12/18 19:46 Dose: 12 mcg/min, 45 mls/hr Sodium Chloride (Sodium Chloride 0.9%) 1,000 mls @ 100 mls/hr IV .Q10H [facility] Last Admin: 06/12/18 08:00 Dose: 100 mls/hr Acetaminophen (Ofirmev) 1,000 mg in 100 mls @ 400 mls/hr IVPB Q6H PRN PRN Reason: Temperature Stop: 06/14/18 03:06 Last Admin: 06/12/18 03:19 Dose: 400 mls/hr Vasopressin 20 units/ Sodium (Chloride) 101 mls @ 9.09 mls/hr IV .Q11H7M RADHA; 0.03 U/MIN PRN Reason: Protocol Last Admin: 06/12/18 20:10 Dose: 9.09 mls/hr Phenylephrine HCl 40 mg/ (Sodium Chloride) 254 mls @ 38.1 mls/hr IV .Q6H40M PRN ; Protocol; 100 MCG/MIN PRN Reason: TITRATE PER MD ORDER Last Titration: 06/12/18 19:00 Dose: 100 mcg/min, 38.1 mls/hr Heparin Sodium/Sodium Chloride (Heparin 11424 Units/250ml 1/2 Normal Saline) 25 ,000 units in 250 mls @ 12.655 mls/hr IV .[id number] PRN; Protocol; 18 UNITS/KG/HR PRN Reason: ADJUST RATE PER PROTOCOL Insulin Human Lispro (Humalog High) 0 units SC Q4 RADHA PRN Reason: Protocol Lorazepam (Ativan) 2 mg IVP Q2H PRN; Protocol PRN Reason: Anxiety Pantoprazole Sodium (Protonix Inj) 40 mg IVP DAILY [facility] Last Admin: 06/12/18 09:26 Dose: 40 mg - Labs Labs: 06/12/18 15:19 06/12/18 15:19 PT 13.5 SECONDS (9.4-12.5) H 06/11/18 04:45 INR 1.17 06/11/18 04:45 APTT 39.3 Seconds (25.1-36.5) H 06/11/18 04:45 Attending/Attestation - Attestation I have personally seen and examined this patient.: Yes I have fully participated in the care of the patient.: Yes I have reviewed all pertinent clinical information, including history, physical exam and plan: Yes Notes (Text): Patient seen and examined by me at 9:30AM with resident. Case including HPI, physical exam, and assessment and plan discussed with resident. Agree with above with following additions/corrections. Patient is 58 year old female with past medical history significant for hypertension, DM2, and COPD that presented to the ED with altered mental status. Patient is intubated and sedated. Unable to obtain review of systems from patient. Patient is on 2 pressors. 3rd pressor being added. Patient also febrile. Physical exam: Gen: Intubated and sedated HEENT: Normocephalic, atraumatic. Pupils equal and reactive. No scleral icterus. ET tube in pace. NG tube in place. Cardiovascular: Tachycardic S1, S2. No murmurs, rubs, or gallops appreciated Pulmonary: Vented breath sounds. Coarse breath sounds. No wheezing appreciated. Gastrointestinal: Distended. Positive necrosis horizontally across lower abdomen. Positive necrotic abdominal fascia noted below abdominal dressing, positive foul smell, Musculoskeletal: Positive lower extremity pitting edema bilaterally, cold feet Central nervous system: intubated and sedated Dermatologic: Positive bilateral lower extremity wounds with serous drainage. Assessment and plan: Patient is 58 year old female with past medical history significant for hypertension, DM2, and COPD that presented to the ED with altered mental status. 1. Septic shock secondary to necrotizing fascitis. S/P debridement yesterday 10/17. For second debridement today. On 3 pressors. Continue IV fluids. Continue Clindamycin, Meropenem, and Vancomycin. ID following, recommendations appreciated. Surgery following, recommendations appreciated. GI following, recommendations appreciated. Procalcitonin 58.06. Lactate 3.4. Positive leukocytosis and febrile. Continue to monitor closely in ICU. Wound culture and blood cultures pending. 2. Acute respiratory failure. Secondary to # 1. Vent settings per ICU team. 3. Vulvar mass. S/p Biopsy. Pending pathology. 4. Hyperkalemia. Resolved. Continue to monitor. 5. Bilateral lower extremity edema, cellulitis. Lower extremity dopplers negative for DVT. Continue with antibiotics. ID following, recommendations appreciated. Podiatry consulted. 6. Elevated BNP. Likely has cardiomyopathy. Pending 2d echo. Cardiology consulted, recommendations appreciated 7. DM2 with hyperglycemia. Off insulin drip. Hgb A1C 17.4 Bloods sugar much better. Continue with insulin sliding scale. Continue to monitor accucheks. 8. Hepatomegaly. ?secondary to cardiomyopathy vs alcohol abuse. ?history of alcohol abuse. GI following, recommendations appreciated. Hep panel negative. HIV negative. 9. Tachycardia. Likely secondary to infection vs pressors. 2d echo pending. Cardiology following. 10. COPD. Patient intubated. Continue nebulizer treatments. 11. Patient is a full code Case was discussed in detail with artificial limb maker and patient's next of kin (patient 's mother Magnolia) regarding current diagnosis and treatment plan. Patient's mother is 91 and would like patient's son Les to me notified of any updates, phone number [phone].
[2018-06-12 09:07] LABS: HEPATITIS C ANTIBODY NEGATIVE (NEGATIVE)
--- NOTE | 2018-06-12 09:24 | CP.PCM.CON ---
<Maryjo Person - Last Filed: 06/12/18 09:18> History of Present Illness - History of Present Illness History of Present Illness: GI Fellow PGY5 Consult Note This is a 58yFwith PMH significant for COPD, DM, depression, tobacco abuse, and right sided nephrectomy, presented to the ED after being found at home unresponsive by EMS. At the time of evaluation pt is intubated and unresponsive , hx was gathered from Nursing and EMR. Patient was reportedly having bilateral lower extremity swelling for the past few weeks with visible excoriations and seeping. In the ER pt was found to be in septic shock and CT was significant for subcutaneous emphysema suggestive of gas producing organism. Pt was taken to the OR for debridement of necrotic fascia. Pt is currently intubated on IV Levophed and plan is to take the pt back to the OR for further debridement. Intra-op pt was found to have a large fungative left labia mass. Pt with no reported BM overnight, NGT placed tis am with small bilious oupt. ROS: unable to be obtained to AMS/Intubated PMH: see above PSH: right nephrectomy visualized on CT scan FH: noncontibutory SH: Smokes 2-3 PPD, no alcohol or drugs Past Patient History - Infectious Disease Hx of Infectious Diseases: None - Past Medical History & Family History Past Medical History?: Yes - Past Social History Smoking Status: Heavy Smoker > 10 Cigarettes Daily Alcohol: Other (denies) Drugs: Denies - CARDIAC Hx Cardiac Disorders: No - PULMONARY Hx Respiratory Disorders: No - NEUROLOGICAL Hx Neurological Disorder: No - HEENT Hx HEENT Problems: No - RENAL Hx Chronic Kidney Disease: No - ENDOCRINE/METABOLIC Hx Diabetes Mellitus Type 2: Yes - HEMATOLOGICAL/ONCOLOGICAL Hx Blood Disorders: No - INTEGUMENTARY Hx Dermatological Problems: No - MUSCULOSKELETAL/RHEUMATOLOGICAL Hx Musculoskeletal Disorders: No - GASTROINTESTINAL Hx Gastrointestinal Disorders: No - PSYCHIATRIC Hx Substance Use: No - ANESTHESIA Hx Anesthesia: No Meds Allergies/Adverse Reactions: Allergies Allergy/AdvReac Type Severity Reaction Status Date / Time No Known Allergies Allergy Unverified 06/11/18 04:43 - Medications Medications: Current Medications Albuterol/Ipratropium (Duoneb 3 Mg/0.5 Mg (3 Ml) Ud) 3 ml IH Q2H PRN PRN Reason: Shortness of Breath Albuterol/Ipratropium (Duoneb 3 Mg/0.5 Mg (3 Ml) Ud) 3 ml IH [id number] LAMONTE Last Admin: 06/12/18 08:09 Dose: 3 ml Heparin Sodium (Porcine) (Heparin) 5,000 units IVP Q8 [facility] PRN Reason: Protocol Last Admin: 06/12/18 05:25 Dose: 5,000 units Insulin Human Regular 100 (units/ Sodium Chloride) 100 mls @ 5 mls/hr IV .Q20H PRN; Protocol; 5 UNITS/HR PRN Reason: TITRATE PER MD ORDER Last Titration: 06/11/18 13:33 Dose: 2 units/hr, 2 mls/hr Meropenem (Merrem Iv 1 Gm Premix) 50 mls @ 100 mls/hr IVPB Q12 [facility] PRN Reason: Protocol Last Admin: 06/11/18 22:34 Dose: 100 mls/hr Vancomycin HCl (Vancomycin 1gm) 1 gm in 250 mls @ 167 mls/hr IVPB Q12H [facility] PRN Reason: Protocol Last Admin: 06/12/18 05:24 Dose: 167 mls/hr Clindamycin Phosphate 900 mg/ (Sodium Chloride) 106 mls @ 106 mls/hr IVPB Q8 [facility] PRN Reason: Protocol Last Admin: 06/12/18 05:25 Dose: 106 mls/hr Fentanyl Citrate (Fentanyl Citrate/Sodium Chloride 1 Mg/100 Ml) 1,000 mcg in 100 mls @ 2 mls/hr IV .Q24H PRN; Protocol; 20 MCG/HR PRN Reason: TITRATE PER MD ORDER Last Titration: 06/11/18 22:30 Dose: 75 mcg/hr, 7.5 mls/hr NOREPINEPHRINE BIT/0.9 % NACL (Levophed 4 Mg/ 250 Ml Ns Premixed) 4 mg in 250 mls @ 15 mls/hr IV .[id number] PRN; Protocol; 4 MCG/MIN PRN Reason: TITRATE PER MD ORDER Last Titration: 06/12/18 06:30 Dose: 20 mcg/min, 75 mls/hr Sodium Chloride (Sodium Chloride 0.9%) 1,000 mls @ 100 mls/hr IV .Q10H [facility] Last Admin: 06/11/18 22:00 Dose: 100 mls/hr Acetaminophen (Ofirmev) 1,000 mg in 100 mls @ 400 mls/hr IVPB Q6H PRN PRN Reason: Temperature Stop: 06/14/18 03:06 Last Admin: 06/12/18 03:19 Dose: 400 mls/hr Vasopressin 20 units/ Sodium (Chloride) 101 mls @ 9.09 mls/hr IV .Q11H7M LAMONTE; 0.03 U/MIN PRN Reason: Protocol Insulin Human Lispro (Humalog High) 0 units SC ACHS [facility] PRN Reason: Protocol Pantoprazole Sodium (Protonix Inj) 40 mg IVP DAILY [facility] Physical Exam - Constitutional Appears: Toxic, In Acute Distress, Unkempt, Chronically Ill - Head Exam Head Exam: ATRAUMATIC, NORMAL INSPECTION, NORMOCEPHALIC - Eye Exam Eye Exam: PERRL - ENT Exam ENT Exam: Mucous Membranes Dry Additional comments: ETT, NGT - Respiratory Exam Respiratory Exam: Respiratory Distress Additional comments: intubated on mechanical ventilation - Cardiovascular Exam Cardiovascular Exam: Tachycardia, +S1, +S2 - GI/Abdominal Exam Additional comments: Abdomen with surgical dressing, no distention - Rectal Exam Rectal Exam: Deferred - Extremities Exam Additional comments: subcutaneous emphysema - Skin Skin Exam: Dry, Intact, Normal Color, Warm Results - Vital Signs Recent Vital Signs: Last Vital Signs Temp 100.4 F H 06/12/18 06:30 Pulse 121 H 06/12/18 06:30 Resp 22 06/11/18 18:09 BP 85/49 L 06/12/18 06:30 Pulse Ox 100 06/12/18 06:30 - Labs Result Diagrams: 06/11/18 18:30 06/12/18 05:45 Labs: Laboratory Results - last 24 hr 06/11/18 06/11/18 06/11/18 07:41 07:41 08:01 WBC RBC Hgb Hct MCV MCH MCHC RDW Plt Count Gran % Lymph % (Auto) [place] % (Auto) Eos % (Auto) Baso % (Auto) Gran # Lymph # (Auto) [place] # (Auto) Eos # (Auto) Baso # (Auto) pCO2 pO2 HCO3 ABG pH ABG Total CO2 ABG O2 Saturation ABG O2 Content ABG Base Excess ABG Hemoglobin ABG Carboxyhemoglobin POC ABG HHb (Measured) ABG Methemoglobin ABG O2 Capacity ABG Potassium VBG pH VBG pCO2 VBG HCO3 VBG Total CO2 VBG O2 Sat (Calc) VBG Base Excess VBG Potassium Hgb O2 Saturation Sodium Chloride Glucose Lactate FiO2 Potassium Carbon Dioxide Anion Gap BUN Creatinine Est GFR ( Amer) Est GFR (Non-Af Amer) Random Glucose Hemoglobin A1c 17.4 H Calcium Total Bilirubin AST ALT Alkaline Phosphatase Ammonia Total Creatine Kinase Troponin I C-React Prot High Sens Cancelled NT-Pro-B Natriuret Pep Total Protein Albumin Globulin Albumin/Globulin Ratio TSH 3rd Generation 3.71 Arterial Blood Potassium Venous Blood Potassium Urine Opiates Screen Urine Methadone Screen Ur Barbiturates Screen Ur Phencyclidine Scrn Ur Amphetamines Screen U Benzodiazepines Scrn U Oth Cocaine Metabols U Cannabinoids Screen Hepatitis A IgM Ab Negative Hep Bs Antigen Negative Hepatitis C Antibody Negative HIV 1&2 Antibody Screen Blood Type Blood Type Confirm Antibody Screen Crossmatch BBK History Checked 06/11/18 06/11/18 06/11/18 09:48 11:39 11:39 WBC RBC Hgb Hct MCV MCH MCHC RDW Plt Count Gran % Lymph % (Auto) [place] % (Auto) Eos % (Auto) Baso % (Auto) Gran # Lymph # (Auto) [place] # (Auto) Eos # (Auto) Baso # (Auto) pCO2 pO2 HCO3 ABG pH ABG Total CO2 ABG O2 Saturation ABG O2 Content ABG Base Excess ABG Hemoglobin ABG Carboxyhemoglobin POC ABG HHb (Measured) ABG Methemoglobin ABG O2 Capacity ABG Potassium VBG pH VBG pCO2 VBG HCO3 VBG Total CO2 VBG O2 Sat (Calc) VBG Base Excess VBG Potassium Hgb O2 Saturation Sodium 133 Chloride 100 Glucose Lactate FiO2 Potassium 5.0 Carbon Dioxide 23 Anion Gap 16 BUN 47 H Creatinine 0.9 Est GFR ( Amer) > 60 Est GFR (Non-Af Amer) > 60 Random Glucose 258 H Hemoglobin A1c Calcium 8.9 Total Bilirubin AST ALT Alkaline Phosphatase Ammonia Total Creatine Kinase 171 Troponin I < 0.01 C-React Prot High Sens > 15.00 H NT-Pro-B Natriuret Pep Total Protein Albumin Globulin Albumin/Globulin Ratio TSH 3rd Generation Arterial Blood Potassium Venous Blood Potassium Urine Opiates Screen Negative Urine Methadone Screen Negative Ur Barbiturates Screen Negative Ur Phencyclidine Scrn Negative Ur Amphetamines Screen Negative U Benzodiazepines Scrn Negative U Oth Cocaine Metabols Negative U Cannabinoids Screen Negative Hepatitis A IgM Ab Hep Bs Antigen Hepatitis C Antibody HIV 1&2 Antibody Screen Blood Type Blood Type Confirm Antibody Screen Crossmatch BBK History Checked 06/11/18 06/11/18 06/11/18 11:39 11:39 14:25 WBC RBC Hgb Hct MCV MCH MCHC RDW Plt Count Gran % Lymph % (Auto) [place] % (Auto) Eos % (Auto) Baso % (Auto) Gran # Lymph # (Auto) [place] # (Auto) Eos # (Auto) Baso # (Auto) pCO2 pO2 33 HCO3 ABG pH ABG Total CO2 ABG O2 Saturation ABG O2 Content ABG Base Excess ABG Hemoglobin ABG Carboxyhemoglobin POC ABG HHb (Measured) ABG Methemoglobin ABG O2 Capacity ABG Potassium VBG pH 7.21 L VBG pCO2 58.0 VBG HCO3 23.2 VBG Total CO2 25.0 VBG O2 Sat (Calc) 67.3 H VBG Base Excess -5.5 L VBG Potassium 4.9 Hgb O2 Saturation Sodium 133.0 Chloride 96.0 L Glucose 262 H Lactate 6.2 H* FiO2 21.0 Potassium Carbon Dioxide Anion Gap BUN Creatinine Est GFR ( Amer) Est GFR (Non-Af Amer) Random Glucose Hemoglobin A1c Calcium Total Bilirubin AST ALT Alkaline Phosphatase Ammonia 41 H Total Creatine Kinase Troponin I C-React Prot High Sens NT-Pro-B Natriuret Pep Total Protein Albumin Globulin Albumin/Globulin Ratio TSH 3rd Generation Arterial Blood Potassium Venous Blood Potassium 4.9 Urine Opiates Screen Urine Methadone Screen Ur Barbiturates Screen Ur Phencyclidine Scrn Ur Amphetamines Screen U Benzodiazepines Scrn U Oth Cocaine Metabols U Cannabinoids Screen Hepatitis A IgM Ab Hep Bs Antigen Hepatitis C Antibody HIV 1&2 Antibody Screen Blood Type A NEGATIVE Blood Type Confirm Antibody Screen Negative Crossmatch See Detail BBK History Checked No verified bt 06/11/18 06/11/18 06/11/18 14:45 14:45 15:37 WBC RBC Hgb Hct MCV MCH MCHC RDW Plt Count Gran % Lymph % (Auto) [place] % (Auto) Eos % (Auto) Baso % (Auto) Gran # Lymph # (Auto) [place] # (Auto) Eos # (Auto) Baso # (Auto) pCO2 pO2 31 HCO3 ABG pH ABG Total CO2 ABG O2 Saturation ABG O2 Content ABG Base Excess ABG Hemoglobin ABG Carboxyhemoglobin POC ABG HHb (Measured) ABG Methemoglobin ABG O2 Capacity ABG Potassium VBG pH 7.26 L VBG pCO2 52.0 VBG HCO3 23.3 VBG Total CO2 24.9 VBG O2 Sat (Calc) 66.9 H VBG Base Excess -4.3 L VBG Potassium 4.6 Hgb O2 Saturation Sodium 135.0 Chloride 96.0 L Glucose 138 H Lactate 5.6 H* FiO2 21.0 Potassium Carbon Dioxide Anion Gap BUN Creatinine Est GFR ( Amer) Est GFR (Non-Af Amer) Random Glucose Hemoglobin A1c Calcium Total Bilirubin AST ALT Alkaline Phosphatase Ammonia Total Creatine Kinase Troponin I C-React Prot High Sens NT-Pro-B Natriuret Pep Total Protein Albumin Globulin Albumin/Globulin Ratio TSH 3rd Generation Arterial Blood Potassium Venous Blood Potassium 4.6 Urine Opiates Screen Urine Methadone Screen Ur Barbiturates Screen Ur Phencyclidine Scrn Ur Amphetamines Screen U Benzodiazepines Scrn U Oth Cocaine Metabols U Cannabinoids Screen Hepatitis A IgM Ab Hep Bs Antigen Hepatitis C Antibody HIV 1&2 Antibody Screen Negative Blood Type Blood Type Confirm A NEGATIVE Antibody Screen Crossmatch BBK History Checked 06/11/18 06/11/18 06/11/18 17:20 18:00 18:30 WBC 3.3 L D RBC 6.12 H Hgb 17.6 H D Hct 51.9 H MCV 84.8 MCH 28.8 MCHC 33.9 RDW 14.8 H Plt Count 65 L Gran % 84.3 H Lymph % (Auto) 13.6 L [place] % (Auto) 1.2 Eos % (Auto) 0.3 L Baso % (Auto) 0.6 Gran # 2.80 Lymph # (Auto) 0.5 L [place] # (Auto) 0.0 L Eos # (Auto) 0.0 Baso # (Auto) 0.02 pCO2 64 H pO2 229.0 H HCO3 20.8 L ABG pH 7.12 L* ABG Total CO2 22.8 ABG O2 Saturation 98.9 H ABG O2 Content 22.5 ABG Base Excess -9.8 L ABG Hemoglobin 16.4 ABG Carboxyhemoglobin 2.6 H POC ABG HHb (Measured) 1.1 ABG Methemoglobin 0.7 ABG O2 Capacity 22.8 ABG Potassium VBG pH VBG pCO2 VBG HCO3 VBG Total CO2 VBG O2 Sat (Calc) VBG Base Excess VBG Potassium Hgb O2 Saturation 95.7 Sodium 137 Chloride 107 Glucose Lactate FiO2 100.0 Potassium 3.8 Carbon Dioxide 22 Anion Gap 12 BUN 38 H Creatinine 0.5 L Est GFR ( Amer) > 60 Est GFR (Non-Af Amer) > 60 Random Glucose 132 H Hemoglobin A1c Calcium 7.8 L Total Bilirubin AST ALT Alkaline Phosphatase Ammonia Total Creatine Kinase Troponin I < 0.01 C-React Prot High Sens NT-Pro-B Natriuret Pep Total Protein Albumin Globulin Albumin/Globulin Ratio TSH 3rd Generation Arterial Blood Potassium Venous Blood Potassium Urine Opiates Screen Urine Methadone Screen Ur Barbiturates Screen Ur Phencyclidine Scrn Ur Amphetamines Screen U Benzodiazepines Scrn U Oth Cocaine Metabols U Cannabinoids Screen Hepatitis A IgM Ab Hep Bs Antigen Hepatitis C Antibody HIV 1&2 Antibody Screen Blood Type Blood Type Confirm Antibody Screen Crossmatch BBK History Checked 06/11/18 06/11/18 06/12/18 20:37 22:54 05:20 WBC RBC Hgb Hct MCV MCH MCHC RDW Plt Count Gran % Lymph % (Auto) [place] % (Auto) Eos % (Auto) Baso % (Auto) Gran # Lymph # (Auto) [place] # (Auto) Eos # (Auto) Baso # (Auto) pCO2 43 43 44 pO2 57.0 L 60.0 L 63.0 L HCO3 18.9 L 18.9 L 19.3 L ABG pH 7.25 L 7.25 L 7.25 L ABG Total CO2 20.2 L 20.2 L 20.7 L ABG O2 Saturation 91.4 L 93.1 L 94.0 L ABG O2 Content 22.5 ABG Base Excess -8.1 L -8.2 L -7.7 L ABG Hemoglobin 17.7 H ABG Carboxyhemoglobin 1.9 H POC ABG HHb (Measured) 6.7 H ABG Methemoglobin 0.9 ABG O2 Capacity 24.2 H ABG Potassium 4.0 4.6 VBG pH VBG pCO2 VBG HCO3 VBG Total CO2 VBG O2 Sat (Calc) VBG Base Excess VBG Potassium Hgb O2 Saturation 90.5 L Sodium 135.0 134.0 Chloride 108.0 H 107.0 Glucose 133 H 123 H Lactate 3.1 H 3.4 H FiO2 60.0 65.0 65.0 Potassium Carbon Dioxide Anion Gap BUN Creatinine Est GFR ( Amer) Est GFR (Non-Af Amer) Random Glucose Hemoglobin A1c Calcium Total Bilirubin AST ALT Alkaline Phosphatase Ammonia Total Creatine Kinase Troponin I C-React Prot High Sens NT-Pro-B Natriuret Pep Total Protein Albumin Globulin Albumin/Globulin Ratio TSH 3rd Generation Arterial Blood Potassium 4.0 4.6 Venous Blood Potassium Urine Opiates Screen Urine Methadone Screen Ur Barbiturates Screen Ur Phencyclidine Scrn Ur Amphetamines Screen U Benzodiazepines Scrn U Oth Cocaine Metabols U Cannabinoids Screen Hepatitis A IgM Ab Hep Bs Antigen Hepatitis C Antibody HIV 1&2 Antibody Screen Blood Type Blood Type Confirm Antibody Screen Crossmatch BBK History Checked 06/12/18 06/12/18 05:45 05:45 WBC RBC Hgb Hct MCV MCH MCHC RDW Plt Count Gran % Lymph % (Auto) [place] % (Auto) Eos % (Auto) Baso % (Auto) Gran # Lymph # (Auto) [place] # (Auto) Eos # (Auto) Baso # (Auto) pCO2 pO2 HCO3 ABG pH ABG Total CO2 ABG O2 Saturation ABG O2 Content ABG Base Excess ABG Hemoglobin ABG Carboxyhemoglobin POC ABG HHb (Measured) ABG Methemoglobin ABG O2 Capacity ABG Potassium VBG pH VBG pCO2 VBG HCO3 VBG Total CO2 VBG O2 Sat (Calc) VBG Base Excess VBG Potassium Hgb O2 Saturation Sodium 138 Chloride 107 Glucose Lactate FiO2 Potassium 4.5 Carbon Dioxide 21 Anion Gap 14 BUN 44 H Creatinine 0.7 Est GFR ( Amer) > 60 Est GFR (Non-Af Amer) > 60 Random Glucose 121 H Hemoglobin A1c Calcium 7.6 L Total Bilirubin 0.9 AST 30 ALT 39 Alkaline Phosphatase 251 H D Ammonia Total Creatine Kinase Troponin I C-React Prot High Sens NT-Pro-B Natriuret Pep 10086 H Total Protein 4.3 L Albumin 1.8 L Globulin 2.5 Albumin/Globulin Ratio 0.7 L TSH 3rd Generation Arterial Blood Potassium Venous Blood Potassium Urine Opiates Screen Urine Methadone Screen Ur Barbiturates Screen Ur Phencyclidine Scrn Ur Amphetamines Screen U Benzodiazepines Scrn U Oth Cocaine Metabols U Cannabinoids Screen Hepatitis A IgM Ab Hep Bs Antigen Hepatitis C Antibody HIV 1&2 Antibody Screen Blood Type Blood Type Confirm Antibody Screen Crossmatch BBK History Checked Assessment & Plan - Assessment and Plan (Free Text) Assessment: This is a 58yF found unresponsive. 1. Septic Shock 2. Necrotizing fascia with subcutaneous emphysema 3. Labia mass appearing malignant Plan: -Continue supportive care per ICU team -IVF -IV pressor support -NPO s/p NGT -Monito I's and O's -Broad spectrum abx per ID -CT imaging reviewed with significant subcutaneous emphysema -s/p debridement of necrotic fascia, further management per surgical team -No plan for any GI intervention at this time -Please call with any questions or concerns <Viktor Kendrick - Last Filed: 06/12/18 09:38> Meds - Medications Medications: Current Medications Albuterol/Ipratropium (Duoneb 3 Mg/0.5 Mg (3 Ml) Ud) 3 ml IH Q2H PRN PRN Reason: Shortness of Breath Albuterol/Ipratropium (Duoneb 3 Mg/0.5 Mg (3 Ml) Ud) 3 ml IH [id number] LAMONTE Last Admin: 06/12/18 08:09 Dose: 3 ml Heparin Sodium (Porcine) (Heparin) 5,000 units IVP Q8 [facility] PRN Reason: Protocol Last Admin: 06/12/18 05:25 Dose: 5,000 units Insulin Human Regular 100 (units/ Sodium Chloride) 100 mls @ 5 mls/hr IV .Q20H PRN; Protocol; 5 UNITS/HR PRN Reason: TITRATE PER MD ORDER Last Titration: 06/11/18 13:33 Dose: 2 units/hr, 2 mls/hr Meropenem (Merrem Iv 1 Gm Premix) 50 mls @ 100 mls/hr IVPB Q12 [facility]TE PRN Reason: Protocol Last Admin: 06/11/18 22:34 Dose: 100 mls/hr Vancomycin HCl (Vancomycin 1gm) 1 gm in 250 mls @ 167 mls/hr IVPB Q12H [facility] PRN Reason: Protocol Last Admin: 06/12/18 05:24 Dose: 167 mls/hr Clindamycin Phosphate 900 mg/ (Sodium Chloride) 106 mls @ 106 mls/hr IVPB Q8 [facility] PRN Reason: Protocol Last Admin: 06/12/18 05:25 Dose: 106 mls/hr Fentanyl Citrate (Fentanyl Citrate/Sodium Chloride 1 Mg/100 Ml) 1,000 mcg in 100 mls @ 2 mls/hr IV .Q24H PRN; Protocol; 20 MCG/HR PRN Reason: TITRATE PER MD ORDER Last Titration: 06/11/18 22:30 Dose: 75 mcg/hr, 7.5 mls/hr NOREPINEPHRINE BIT/0.9 % NACL (Levophed 4 Mg/ 250 Ml Ns Premixed) 4 mg in 250 mls @ 15 mls/hr IV .[id number] PRN; Protocol; 4 MCG/MIN PRN Reason: TITRATE PER MD ORDER Last Titration: 06/12/18 06:30 Dose: 20 mcg/min, 75 mls/hr Sodium Chloride (Sodium Chloride 0.9%) 1,000 mls @ 100 mls/hr IV .Q10H LAMONTE Last Admin: 06/11/18 22:00 Dose: 100 mls/hr Acetaminophen (Ofirmev) 1,000 mg in 100 mls @ 400 mls/hr IVPB Q6H PRN PRN Reason: Temperature Stop: 06/14/18 03:06 Last Admin: 06/12/18 03:19 Dose: 400 mls/hr Vasopressin 20 units/ Sodium (Chloride) 101 mls @ 9.09 mls/hr IV .Q11H7M LAMONTE; 0.03 U/MIN PRN Reason: Protocol Insulin Human Lispro (Humalog High) 0 units SC ACHS LAMONTE PRN Reason: Protocol Pantoprazole Sodium (Protonix Inj) 40 mg IVP DAILY LAMONTE Results - Vital Signs Recent Vital Signs: Last Vital Signs Temp 100.4 F H 06/12/18 06:30 Pulse 121 H 06/12/18 06:30 Resp 22 06/11/18 18:09 BP 85/49 L 06/12/18 06:30 Pulse Ox 100 06/12/18 06:30 - Labs Result Diagrams: 06/11/18 18:30 06/12/18 05:45 Labs: Laboratory Results - last 24 hr 06/11/18 06/11/18 06/11/18 07:41 07:41 08:01 WBC RBC Hgb Hct MCV MCH MCHC RDW Plt Count Gran % Lymph % (Auto) [place] % (Auto) Eos % (Auto) Baso % (Auto) Gran # Lymph # (Auto) [place] # (Auto) Eos # (Auto) Baso # (Auto) pCO2 pO2 HCO3 ABG pH ABG Total CO2 ABG O2 Saturation ABG O2 Content ABG Base Excess ABG Hemoglobin ABG Carboxyhemoglobin POC ABG HHb (Measured) ABG Methemoglobin ABG O2 Capacity ABG Potassium VBG pH VBG pCO2 VBG HCO3 VBG Total CO2 VBG O2 Sat (Calc) VBG Base Excess VBG Potassium Hgb O2 Saturation Sodium Chloride Glucose Lactate FiO2 Potassium Carbon Dioxide Anion Gap BUN Creatinine Est GFR ( Amer) Est GFR (Non-Af Amer) Random Glucose Hemoglobin A1c 17.4 H Calcium Total Bilirubin AST ALT Alkaline Phosphatase Ammonia Total Creatine Kinase Troponin I C-React Prot High Sens Cancelled NT-Pro-B Natriuret Pep Total Protein Albumin Globulin Albumin/Globulin Ratio Arterial Blood Potassium Venous Blood Potassium Urine Opiates Screen Urine Methadone Screen Ur Barbiturates Screen Ur Phencyclidine Scrn Ur Amphetamines Screen U Benzodiazepines Scrn U Oth Cocaine Metabols U Cannabinoids Screen Hepatitis A IgM Ab Negative Hep Bs Antigen Negative Hepatitis C Antibody Negative HIV 1&2 Antibody Screen Blood Type Blood Type Confirm Antibody Screen Crossmatch BBK History Checked 06/11/18 06/11/18 06/11/18 09:48 11:39 11:39 WBC RBC Hgb Hct MCV MCH MCHC RDW Plt Count Gran % Lymph % (Auto) [place] % (Auto) Eos % (Auto) Baso % (Auto) Gran # Lymph # (Auto) [place] # (Auto) Eos # (Auto) Baso # (Auto) pCO2 pO2 HCO3 ABG pH ABG Total CO2 ABG O2 Saturation ABG O2 Content ABG Base Excess ABG Hemoglobin ABG Carboxyhemoglobin POC ABG HHb (Measured) ABG Methemoglobin ABG O2 Capacity ABG Potassium VBG pH VBG pCO2 VBG HCO3 VBG Total CO2 VBG O2 Sat (Calc) VBG Base Excess VBG Potassium Hgb O2 Saturation Sodium 133 Chloride 100 Glucose Lactate FiO2 Potassium 5.0 Carbon Dioxide 23 Anion Gap 16 BUN 47 H Creatinine 0.9 Est GFR ( Amer) > 60 Est GFR (Non-Af Amer) > 60 Random Glucose 258 H Hemoglobin A1c Calcium 8.9 Total Bilirubin AST ALT Alkaline Phosphatase Ammonia Total Creatine Kinase 171 Troponin I < 0.01 C-React Prot High Sens > 15.00 H NT-Pro-B Natriuret Pep Total Protein Albumin Globulin Albumin/Globulin Ratio Arterial Blood Potassium Venous Blood Potassium Urine Opiates Screen Negative Urine Methadone Screen Negative Ur Barbiturates Screen Negative Ur Phencyclidine Scrn Negative Ur Amphetamines Screen Negative U Benzodiazepines Scrn Negative U Oth Cocaine Metabols Negative U Cannabinoids Screen Negative Hepatitis A IgM Ab Hep Bs Antigen Hepatitis C Antibody HIV 1&2 Antibody Screen Blood Type Blood Type Confirm Antibody Screen Crossmatch BBK History Checked 06/11/18 06/11/18 06/11/18 11:39 11:39 14:25 WBC RBC Hgb Hct MCV MCH MCHC RDW Plt Count Gran % Lymph % (Auto) [place] % (Auto) Eos % (Auto) Baso % (Auto) Gran # Lymph # (Auto) [place] # (Auto) Eos # (Auto) Baso # (Auto) pCO2 pO2 33 HCO3 ABG pH ABG Total CO2 ABG O2 Saturation ABG O2 Content ABG Base Excess ABG Hemoglobin ABG Carboxyhemoglobin POC ABG HHb (Measured) ABG Methemoglobin ABG O2 Capacity ABG Potassium VBG pH 7.21 L VBG pCO2 58.0 VBG HCO3 23.2 VBG Total CO2 25.0 VBG O2 Sat (Calc) 67.3 H VBG Base Excess -5.5 L VBG Potassium 4.9 Hgb O2 Saturation Sodium 133.0 Chloride 96.0 L Glucose 262 H Lactate 6.2 H* FiO2 21.0 Potassium Carbon Dioxide Anion Gap BUN Creatinine Est GFR ( Amer) Est GFR (Non-Af Amer) Random Glucose Hemoglobin A1c Calcium Total Bilirubin AST ALT Alkaline Phosphatase Ammonia 41 H Total Creatine Kinase Troponin I C-React Prot High Sens NT-Pro-B Natriuret Pep Total Protein Albumin Globulin Albumin/Globulin Ratio Arterial Blood Potassium Venous Blood Potassium 4.9 Urine Opiates Screen Urine Methadone Screen Ur Barbiturates Screen Ur Phencyclidine Scrn Ur Amphetamines Screen U Benzodiazepines Scrn U Oth Cocaine Metabols U Cannabinoids Screen Hepatitis A IgM Ab Hep Bs Antigen Hepatitis C Antibody HIV 1&2 Antibody Screen Blood Type A NEGATIVE Blood Type Confirm Antibody Screen Negative Crossmatch See Detail BBK History Checked No verified bt 06/11/18 06/11/18 06/11/18 14:45 14:45 15:37 WBC RBC Hgb Hct MCV MCH MCHC RDW Plt Count Gran % Lymph % (Auto) [place] % (Auto) Eos % (Auto) Baso % (Auto) Gran # Lymph # (Auto) [place] # (Auto) Eos # (Auto) Baso # (Auto) pCO2 pO2 31 HCO3 ABG pH ABG Total CO2 ABG O2 Saturation ABG O2 Content ABG Base Excess ABG Hemoglobin ABG Carboxyhemoglobin POC ABG HHb (Measured) ABG Methemoglobin ABG O2 Capacity ABG Potassium VBG pH 7.26 L VBG pCO2 52.0 VBG HCO3 23.3 VBG Total CO2 24.9 VBG O2 Sat (Calc) 66.9 H VBG Base Excess -4.3 L VBG Potassium 4.6 Hgb O2 Saturation Sodium 135.0 Chloride 96.0 L Glucose 138 H Lactate 5.6 H* FiO2 21.0 Potassium Carbon Dioxide Anion Gap BUN Creatinine Est GFR ( Amer) Est GFR (Non-Af Amer) Random Glucose Hemoglobin A1c Calcium Total Bilirubin AST ALT Alkaline Phosphatase Ammonia Total Creatine Kinase Troponin I C-React Prot High Sens NT-Pro-B Natriuret Pep Total Protein Albumin Globulin Albumin/Globulin Ratio Arterial Blood Potassium Venous Blood Potassium 4.6 Urine Opiates Screen Urine Methadone Screen Ur Barbiturates Screen Ur Phencyclidine Scrn Ur Amphetamines Screen U Benzodiazepines Scrn U Oth Cocaine Metabols U Cannabinoids Screen Hepatitis A IgM Ab Hep Bs Antigen Hepatitis C Antibody HIV 1&2 Antibody Screen Negative Blood Type Blood Type Confirm A NEGATIVE Antibody Screen Crossmatch BBK History Checked 06/11/18 06/11/18 06/11/18 17:20 18:00 18:30 WBC 3.3 L D RBC 6.12 H Hgb 17.6 H D Hct 51.9 H MCV 84.8 MCH 28.8 MCHC 33.9 RDW 14.8 H Plt Count 65 L Gran % 84.3 H Lymph % (Auto) 13.6 L [place] % (Auto) 1.2 Eos % (Auto) 0.3 L Baso % (Auto) 0.6 Gran # 2.80 Lymph # (Auto) 0.5 L [place] # (Auto) 0.0 L Eos # (Auto) 0.0 Baso # (Auto) 0.02 pCO2 64 H pO2 229.0 H HCO3 20.8 L ABG pH 7.12 L* ABG Total CO2 22.8 ABG O2 Saturation 98.9 H ABG O2 Content 22.5 ABG Base Excess -9.8 L ABG Hemoglobin 16.4 ABG Carboxyhemoglobin 2.6 H POC ABG HHb (Measured) 1.1 ABG Methemoglobin 0.7 ABG O2 Capacity 22.8 ABG Potassium VBG pH VBG pCO2 VBG HCO3 VBG Total CO2 VBG O2 Sat (Calc) VBG Base Excess VBG Potassium Hgb O2 Saturation 95.7 Sodium 137 Chloride 107 Glucose Lactate FiO2 100.0 Potassium 3.8 Carbon Dioxide 22 Anion Gap 12 BUN 38 H Creatinine 0.5 L Est GFR ( Amer) > 60 Est GFR (Non-Af Amer) > 60 Random Glucose 132 H Hemoglobin A1c Calcium 7.8 L Total Bilirubin AST ALT Alkaline Phosphatase Ammonia Total Creatine Kinase Troponin I < 0.01 C-React Prot High Sens NT-Pro-B Natriuret Pep Total Protein Albumin Globulin Albumin/Globulin Ratio Arterial Blood Potassium Venous Blood Potassium Urine Opiates Screen Urine Methadone Screen Ur Barbiturates Screen Ur Phencyclidine Scrn Ur Amphetamines Screen U Benzodiazepines Scrn U Oth Cocaine Metabols U Cannabinoids Screen Hepatitis A IgM Ab Hep Bs Antigen Hepatitis C Antibody HIV 1&2 Antibody Screen Blood Type Blood Type Confirm Antibody Screen Crossmatch BBK History Checked 06/11/18 06/11/18 06/12/18 20:37 22:54 05:20 WBC RBC Hgb Hct MCV MCH MCHC RDW Plt Count Gran % Lymph % (Auto) [place] % (Auto) Eos % (Auto) Baso % (Auto) Gran # Lymph # (Auto) [place] # (Auto) Eos # (Auto) Baso # (Auto) pCO2 43 43 44 pO2 57.0 L 60.0 L 63.0 L HCO3 18.9 L 18.9 L 19.3 L ABG pH 7.25 L 7.25 L 7.25 L ABG Total CO2 20.2 L 20.2 L 20.7 L ABG O2 Saturation 91.4 L 93.1 L 94.0 L ABG O2 Content 22.5 ABG Base Excess -8.1 L -8.2 L -7.7 L ABG Hemoglobin 17.7 H ABG Carboxyhemoglobin 1.9 H POC ABG HHb (Measured) 6.7 H ABG Methemoglobin 0.9 ABG O2 Capacity 24.2 H ABG Potassium 4.0 4.6 VBG pH VBG pCO2 VBG HCO3 VBG Total CO2 VBG O2 Sat (Calc) VBG Base Excess VBG Potassium Hgb O2 Saturation 90.5 L Sodium 135.0 134.0 Chloride 108.0 H 107.0 Glucose 133 H 123 H Lactate 3.1 H 3.4 H FiO2 60.0 65.0 65.0 Potassium Carbon Dioxide Anion Gap BUN Creatinine Est GFR ( Amer) Est GFR (Non-Af Amer) Random Glucose Hemoglobin A1c Calcium Total Bilirubin AST ALT Alkaline Phosphatase Ammonia Total Creatine Kinase Troponin I C-React Prot High Sens NT-Pro-B Natriuret Pep Total Protein Albumin Globulin Albumin/Globulin Ratio Arterial Blood Potassium 4.0 4.6 Venous Blood Potassium Urine Opiates Screen Urine Methadone Screen Ur Barbiturates Screen Ur Phencyclidine Scrn Ur Amphetamines Screen U Benzodiazepines Scrn U Oth Cocaine Metabols U Cannabinoids Screen Hepatitis A IgM Ab Hep Bs Antigen Hepatitis C Antibody HIV 1&2 Antibody Screen Blood Type Blood Type Confirm Antibody Screen Crossmatch BBK History Checked 06/12/18 06/12/18 05:45 05:45 WBC RBC Hgb Hct MCV MCH MCHC RDW Plt Count Gran % Lymph % (Auto) [place] % (Auto) Eos % (Auto) Baso % (Auto) Gran # Lymph # (Auto) [place] # (Auto) Eos # (Auto) Baso # (Auto) pCO2 pO2 HCO3 ABG pH ABG Total CO2 ABG O2 Saturation ABG O2 Content ABG Base Excess ABG Hemoglobin ABG Carboxyhemoglobin POC ABG HHb (Measured) ABG Methemoglobin ABG O2 Capacity ABG Potassium VBG pH VBG pCO2 VBG HCO3 VBG Total CO2 VBG O2 Sat (Calc) VBG Base Excess VBG Potassium Hgb O2 Saturation Sodium 138 Chloride 107 Glucose Lactate FiO2 Potassium 4.5 Carbon Dioxide 21 Anion Gap 14 BUN 44 H Creatinine 0.7 Est GFR ( Amer) > 60 Est GFR (Non-Af Amer) > 60 Random Glucose 121 H Hemoglobin A1c Calcium 7.6 L Total Bilirubin 0.9 AST 30 ALT 39 Alkaline Phosphatase 251 H D Ammonia Total Creatine Kinase Troponin I C-React Prot High Sens NT-Pro-B Natriuret Pep 02261 H Total Protein 4.3 L Albumin 1.8 L Globulin 2.5 Albumin/Globulin Ratio 0.7 L Arterial Blood Potassium Venous Blood Potassium Urine Opiates Screen Urine Methadone Screen Ur Barbiturates Screen Ur Phencyclidine Scrn Ur Amphetamines Screen U Benzodiazepines Scrn U Oth Cocaine Metabols U Cannabinoids Screen Hepatitis A IgM Ab Hep Bs Antigen Hepatitis C Antibody HIV 1&2 Antibody Screen Blood Type Blood Type Confirm Antibody Screen Crossmatch BBK History Checked Attending/Attestation - Attestation I have personally seen and examined this patient.: Yes I have fully participated in the care of the patient.: Yes I have reviewed all pertinent clinical information: Yes Notes (Text): 06/12/18 09:31 I have seen and examined patient with GI fellow. Agree with above documentation with the following additions. In brief, this is a 58 year old female with history of DM, COPD, who was brought to the hospital with altered mental status. She is unable to participate in meaningful conversation, she is currently seen intubated and sedated in intensive care unit. Additional information obtained via chart review, discussion with nursing staff and patient family members. Her hospital course has been complicated requiring emergent surgery for management of necrotizing fascitis resulting in septic shock. GI called for evaluation of subcutaneous emphysema seen on abdominal cross sectional imaging. As per nursing staff there is no reported diarrhea, NGT placed this morning with minimal bilious output. Review of vitals from today shows hypotension, tachycardia. Additional physical examination: Psych: unable to assess Abdomen: no palpable hepato/splenomegaly Neurology: patient unable to participate in neurological examination DM / COPD Septic shock Necrotizing facitis Labial mass CT imaging reviewed by me showing extensive subcutaneous emphysema, no intraabdominal free air noted - NPO - Continue with IV antibiotic therapy - Vasopressor and ventilator management as per critical care teams - Further plan including potential repeat intervention as per surgical team - No planned GI intervention, will sign off case. Please reconsult as necessary , thank you.
[2018-06-12] MEDS: Meropenem IV 1 gm in NS 50 ML IVPB SCH ×2 (09:25→21:04)
[2018-06-12] MEDS: Fentanyl 1000mcg/100ml NS 1,000 MCG/100 ML BAG IV PRN ×2 (09:36→20:21)
[2018-06-12] MEDS: Insulin Lispro (HUMAlog) HIGH Coverage SC SCH ×3 (10:26→21:02)
[2018-06-12] MEDS ORDERED: Oxychlorosene Topical 2 gm Packet TOP ONE ×2 (10:47→10:49)
[2018-06-12] MEDS ORDERED: Rocuronium 10 mg/ml (5 ml) ONE (10:51)
--- NOTE | 2018-06-12 10:56 | CP.CCUPN ---
<Adithya Garcia - Last Filed: 06/12/18 10:53> CCU Subjective - Physician Review Events Since Last Encounter (Free Text): 06/12/18 10:54 Patient seen and examined at bedside, s/p debridement of necrotizing fasciitis on lower abdomen. Patient was brought back from the OR vented and became hypotensive during surgery, levophed was started. Patient's history currently limited 2/2 intubation and sedation on fentanyl. CCU Objective - Vital Signs / Intake & Output Vital Signs (Last 4 hours): Vital Signs BP 06/12/18 09:12 102/56 L Intake and Output (Last 8hrs): Intake & Output 06/11/18 06/12/18 06/12/18 22:59 06:59 14:59 Intake Total 3579 3347 290 Output Total 850 150 Balance 2729 3197 290 Intake: IV 3579 3347 290 Right Internal Jugular 3450 2916 Output: Urine 850 150 Urethral (Lorenz) 850 150 Other: # Bowel Movements 0 - Physical Exam Head: Positive for: Atraumatic, Normocephalic Pupils: Positive for: PERRL Extroacular Muscles: Positive for: EOMI Conjunctiva: Positive for: Normal Ears: Positive for: Normal, NORMAL TM, Normal Canal. Negative for: Erythema, TM Bulging, Fluid, TM Perf Mouth: Positive for: Moist Mucous Membranes Pharnyx: Positive for: Normal. Negative for: ERYTHEMA, EXUDATE, TONSILS ENLARGED, Peritonsilar Swelling, Uvular Deviation, Muffled/Hoarse Voice, Strider , Soft Palate/Uvular Edema Nose (External): Positive for: Atraumatic Nose (Internal): Positive for: Normal Inspection Neck: Positive for: Normal Range of Motion. Negative for: Meningeal Signs, Paraspinal Tenderness, Lymphadenopathy Respiratory/Chest: Positive for: Clear to Auscultation, Good Air Exchange. Negative for: Respiratory Distress, Accessory Muscle Use Cardiovascular: Positive for: Normal S1, S2, Tachycardic. Negative for: Murmurs Abdomen: Negative for: Tenderness, Distention, Peritoneal Signs Upper Extremity: Positive for: Normal Inspection. Negative for: Cyanosis, Edema Lower Extremity: Positive for: Edema (Edema to lower legs) Neurological: Positive for: CN II-XII Intact, Motor Func Grossly Intact, Normal Sensory Function, Normal Cerebellar Funct Skin: Positive for: Warm, Dry, Other (Diffuse cellulitic areas to abdomen and lower legs, hands with area of excoriations/scabbed lesions). Negative for: Rashes Psychiatric: Positive for: Alert - Medications Active Medications: Active Medications Generic Name Dose Route Start Last Admin Trade Name Freq PRN Reason Stop Dose Admin Albuterol/Ipratropium 3 ml 06/11/18 07:41 Duoneb 3 Mg/0.5 Mg (3 Ml) Ud IH Q2H PRN Shortness of Breath Albuterol/Ipratropium 3 ml 06/11/18 08:00 06/12/18 08:09 Duoneb 3 Mg/0.5 Mg (3 Ml) Ud IH 3 ml [id number] LAMONTE Administration Heparin Sodium (Porcine) 5,000 units 06/11/18 22:00 06/12/18 05:25 Heparin IVP 5,000 units Q8 LAMONTE Administration Protocol Meropenem 50 mls @ 100 mls/hr 06/11/18 11:15 06/12/18 09:25 Merrem Iv 1 Gm Premix IVPB 100 mls/hr Q12 LAMONTE Administration Protocol Vancomycin HCl 1 gm in 250 mls @ 167 mls/hr 06/11/18 17:30 06/12/18 05:24 Vancomycin 1gm IVPB 167 mls/hr Q12H LAMONTE Administration Protocol Clindamycin Phosphate 900 mg/ 106 mls @ 106 mls/hr 06/11/18 17:30 06/12/18 05 :25 Sodium Chloride IVPB 106 mls/hr Q8 LAMONTE Administration Protocol Fentanyl Citrate 1,000 mcg in 100 mls @ 2 mls/hr 06/11/18 19:42 06/12/18 09: 36 Fentanyl Citrate/Sodium Chloride 1 Mg/100 Ml IV 75 mcg/hr .Q24H PRN 7.5 mls/hr TITRATE PER MD ORDER Administration Protocol 20 MCG/HR NOREPINEPHRINE BIT/0.9 % NACL 4 mg in 250 mls @ 15 mls/hr 06/11/18 19:42 09:17 Levophed 4 Mg/ 250 Ml Ns Premixed IV 20 mcg/min .[id number] PRN 75 mls/hr TITRATE PER MD ORDER Administration Protocol 4 MCG/MIN Sodium Chloride 1,000 mls @ 100 mls/hr 06/11/18 22:00 06/12/18 08:00 Sodium Chloride 0.9% IV 100 mls/hr .Q10H LAMONTE Administration Acetaminophen 1,000 mg in 100 mls @ 400 mls/hr 06/12/18 03:05 06/12/18 03:19 Ofirmev IVPB 06/14/18 03:06 400 mls/hr Q6H PRN Administration Temperature Vasopressin 20 units/ Sodium 101 mls @ 9.09 mls/hr 06/12/18 08:30 06/12/18 09 :12 Chloride IV 9.09 mls/hr .[id number] LAMONTE Administration Protocol 0.03 U/MIN Phenylephrine HCl 40 mg/ 254 mls @ 38.1 mls/hr 06/12/18 09:35 06/12/18 10:15 Sodium Chloride IV 100 mcg/min .[id number] PRN 38.1 mls/hr TITRATE PER MD ORDER Administration Protocol 100 MCG/MIN Insulin Human Lispro 0 units 06/12/18 09:45 06/12/18 10:26 Humalog High SC Not Given Q4H LAMONTE Protocol Lorazepam 2 mg 06/12/18 09:43 Ativan IVP Q2H PRN Anxiety Protocol Pantoprazole Sodium 40 mg 06/12/18 10:00 06/12/18 09:26 Protonix Inj IVP 40 mg DAILY LAMONTE Administration - Patient Studies Lab Studies: Microbiology Studies 06/11/18 07:00 Urine Culture - Final Urine,Clean Catch No Growth (<1,000 CFU/ML) 06/11/18 14:52 Gram Stain - Final Abdomen Lab Studies 06/12/18 06/12/18 06/12/18 Range/Units 05:45 05:45 05:20 WBC (4.5-11.0) 10^3/ul RBC (3.5-6.1) 10^6/uL Hgb (12.0-16.0) g/dL Hct (36.0-48.0) % MCV (80.0-105.0) fl MCH (25.0-35.0) pg MCHC (31.0-37.0) g/dl RDW (11.5-14.5) % Plt Count (120.0-450.0) 10^3/uL Gran % (50.0-68.0) % Lymph % (Auto) (22.0-35.0) % Pettis % (Auto) (1.0-6.0) % Eos % (Auto) (1.5-5.0) % Baso % (Auto) (0.0-3.0) % Gran # (1.4-6.5) Lymph # (Auto) (1.2-3.4) Pettis # (Auto) (0.1-0.6) Eos # (Auto) (0.0-0.7) Baso # (Auto) (0.0-2.0) K/mm3 pCO2 44 (35-45) mm/Hg pO2 63.0 L (30-55) mm/Hg HCO3 19.3 L (21-28) mmol/L ABG pH 7.25 L (7.35-7.45) ABG Total CO2 20.7 L (22-28) mmol.L ABG O2 Saturation 94.0 L (95-98) % ABG O2 Content (15-23) ML/dl ABG Base Excess -7.7 L (-2.0-3.0) mmol/L ABG Hemoglobin (11.7-17.4) g/dL ABG Carboxyhemoglobin (0.5-1.5) % POC ABG HHb (Measured) (0-5) % ABG Methemoglobin (0.0-3.0) % ABG O2 Capacity (16-24) mL/dl ABG Potassium 4.6 (3.6-5.2) mmol/L VBG pH (7.32-7.43) VBG pCO2 (40-60) VBG HCO3 (21-28) mmol/l VBG Total CO2 (22-28) mmol.L VBG O2 Sat (Calc) (40-65) % VBG Base Excess (0.0-2.0) mmol/L VBG Potassium (3.6-5.2) mmol/L Hgb O2 Saturation (95.0-98.0) % Sodium 138 134.0 (132-148) mmol/L Chloride 107 107.0 (98-107) mmol/L Glucose 123 H (65-105) mg/dl Lactate 3.4 H (0.7-2.1) mmol/L FiO2 65.0 % Potassium 4.5 (3.6-5.0) mmol/L Carbon Dioxide 21 (21-33) mmol/L Anion Gap 14 (10-20) BUN 44 H (7-21) mg/dL Creatinine 0.7 (0.7-1.2) mg/dl Est GFR ( Amer) > 60 Est GFR (Non-Af Amer) > 60 Random Glucose 121 H (70-110) mg/dL Hemoglobin A1c (4.2-6.5) % Calcium 7.6 L (8.4-10.5) mg/dL Total Bilirubin 0.9 (0.2-1.3) mg/dL AST 30 (14-36) U/L ALT 39 (7-56) U/L Alkaline Phosphatase 251 H D (38-126) U/L Ammonia (9-33) umol/L Total Creatine Kinase (35-230) U/L Troponin I ng/mL C-React Prot High Sens (1.00-3.00) mg/L NT-Pro-B Natriuret Pep 79144 H (0-450) pg/mL Total Protein 4.3 L (5.8-8.3) g/dL Albumin 1.8 L (3.0-4.8) g/dL Globulin 2.5 gm/dL Albumin/Globulin Ratio 0.7 L (1.1-1.8) Arterial Blood Potassium 4.6 (3.6-5.2) mmol/L Venous Blood Potassium (3.6-5.2) mmol/L Hepatitis A IgM Ab (NEGATIVE) Hep Bs Antigen (NEGATIVE) Hepatitis C Antibody (NEGATIVE) HIV 1&2 Antibody Screen (NEGATIVE) Blood Type Blood Type Confirm Antibody Screen Crossmatch BBK History Checked 06/11/18 06/11/18 06/11/18 Range/Units 22:54 20:37 18:30 WBC 3.3 L D (4.5-11.0) 10^3/ul RBC 6.12 H (3.5-6.1) 10^6/uL Hgb 17.6 H D (12.0-16.0) g/dL Hct 51.9 H (36.0-48.0) % MCV 84.8 (80.0-105.0) fl MCH 28.8 (25.0-35.0) pg MCHC 33.9 (31.0-37.0) g/dl RDW 14.8 H (11.5-14.5) % Plt Count 65 L (120.0-450.0) 10^3/uL Gran % 84.3 H (50.0-68.0) % Lymph % (Auto) 13.6 L (22.0-35.0) % Pettis % (Auto) 1.2 (1.0-6.0) % Eos % (Auto) 0.3 L (1.5-5.0) % Baso % (Auto) 0.6 (0.0-3.0) % Gran # 2.80 (1.4-6.5) Lymph # (Auto) 0.5 L (1.2-3.4) Pettis # (Auto) 0.0 L (0.1-0.6) Eos # (Auto) 0.0 (0.0-0.7) Baso # (Auto) 0.02 (0.0-2.0) K/mm3 pCO2 43 43 (35-45) mm/Hg pO2 60.0 L 57.0 L (30-55) mm/Hg HCO3 18.9 L 18.9 L (21-28) mmol/L ABG pH 7.25 L 7.25 L (7.35-7.45) ABG Total CO2 20.2 L 20.2 L (22-28) mmol.L ABG O2 Saturation 93.1 L 91.4 L (95-98) % ABG O2 Content 22.5 (15-23) ML/dl ABG Base Excess -8.2 L -8.1 L (-2.0-3.0) mmol/L ABG Hemoglobin 17.7 H (11.7-17.4) g/dL ABG Carboxyhemoglobin 1.9 H (0.5-1.5) % POC ABG HHb (Measured) 6.7 H (0-5) % ABG Methemoglobin 0.9 (0.0-3.0) % ABG O2 Capacity 24.2 H (16-24) mL/dl ABG Potassium 4.0 (3.6-5.2) mmol/L VBG pH (7.32-7.43) VBG pCO2 (40-60) VBG HCO3 (21-28) mmol/l VBG Total CO2 (22-28) mmol.L VBG O2 Sat (Calc) (40-65) % VBG Base Excess (0.0-2.0) mmol/L VBG Potassium (3.6-5.2) mmol/L Hgb O2 Saturation 90.5 L (95.0-98.0) % Sodium 135.0 (132-148) mmol/L Chloride 108.0 H (98-107) mmol/L Glucose 133 H (65-105) mg/dl Lactate 3.1 H (0.7-2.1) mmol/L FiO2 65.0 60.0 % Potassium (3.6-5.0) mmol/L Carbon Dioxide (21-33) mmol/L Anion Gap (10-20) BUN (7-21) mg/dL Creatinine (0.7-1.2) mg/dl Est GFR ( Amer) Est GFR (Non-Af Amer) Random Glucose (70-110) mg/dL Hemoglobin A1c (4.2-6.5) % Calcium (8.4-10.5) mg/dL Total Bilirubin (0.2-1.3) mg/dL AST (14-36) U/L ALT (7-56) U/L Alkaline Phosphatase (38-126) U/L Ammonia (9-33) umol/L Total Creatine Kinase (35-230) U/L Troponin I ng/mL C-React Prot High Sens (1.00-3.00) mg/L NT-Pro-B Natriuret Pep (0-450) pg/mL Total Protein (5.8-8.3) g/dL Albumin (3.0-4.8) g/dL Globulin gm/dL Albumin/Globulin Ratio (1.1-1.8) Arterial Blood Potassium 4.0 (3.6-5.2) mmol/L Venous Blood Potassium (3.6-5.2) mmol/L Hepatitis A IgM Ab (NEGATIVE) Hep Bs Antigen (NEGATIVE) Hepatitis C Antibody (NEGATIVE) HIV 1&2 Antibody Screen (NEGATIVE) Blood Type Blood Type Confirm Antibody Screen Crossmatch BBK History Checked 06/11/18 06/11/18 06/11/18 Range/Units 18:00 17:20 15:37 WBC (4.5-11.0) 10^3/ul RBC (3.5-6.1) 10^6/uL Hgb (12.0-16.0) g/dL Hct (36.0-48.0) % MCV (80.0-105.0) fl MCH (25.0-35.0) pg MCHC (31.0-37.0) g/dl RDW (11.5-14.5) % Plt Count (120.0-450.0) 10^3/uL Gran % (50.0-68.0) % Lymph % (Auto) (22.0-35.0) % Pettis % (Auto) (1.0-6.0) % Eos % (Auto) (1.5-5.0) % Baso % (Auto) (0.0-3.0) % Gran # (1.4-6.5) Lymph # (Auto) (1.2-3.4) Pettis # (Auto) (0.1-0.6) Eos # (Auto) (0.0-0.7) Baso # (Auto) (0.0-2.0) K/mm3 pCO2 64 H (35-45) mm/Hg pO2 229.0 H (30-55) mm/Hg HCO3 20.8 L (21-28) mmol/L ABG pH 7.12 L* (7.35-7.45) ABG Total CO2 22.8 (22-28) mmol.L ABG O2 Saturation 98.9 H (95-98) % ABG O2 Content 22.5 (15-23) ML/dl ABG Base Excess -9.8 L (-2.0-3.0) mmol/L ABG Hemoglobin 16.4 (11.7-17.4) g/dL ABG Carboxyhemoglobin 2.6 H (0.5-1.5) % POC ABG HHb (Measured) 1.1 (0-5) % ABG Methemoglobin 0.7 (0.0-3.0) % ABG O2 Capacity 22.8 (16-24) mL/dl ABG Potassium (3.6-5.2) mmol/L VBG pH (7.32-7.43) VBG pCO2 (40-60) VBG HCO3 (21-28) mmol/l VBG Total CO2 (22-28) mmol.L VBG O2 Sat (Calc) (40-65) % VBG Base Excess (0.0-2.0) mmol/L VBG Potassium (3.6-5.2) mmol/L Hgb O2 Saturation 95.7 (95.0-98.0) % Sodium 137 (132-148) mmol/L Chloride 107 (98-107) mmol/L Glucose (65-105) mg/dl Lactate (0.7-2.1) mmol/L FiO2 100.0 % Potassium 3.8 (3.6-5.0) mmol/L Carbon Dioxide 22 (21-33) mmol/L Anion Gap 12 (10-20) BUN 38 H (7-21) mg/dL Creatinine 0.5 L (0.7-1.2) mg/dl Est GFR ( Amer) > 60 Est GFR (Non-Af Amer) > 60 Random Glucose 132 H (70-110) mg/dL Hemoglobin A1c (4.2-6.5) % Calcium 7.8 L (8.4-10.5) mg/dL Total Bilirubin (0.2-1.3) mg/dL AST (14-36) U/L ALT (7-56) U/L Alkaline Phosphatase (38-126) U/L Ammonia (9-33) umol/L Total Creatine Kinase (35-230) U/L Troponin I < 0.01 ng/mL C-React Prot High Sens (1.00-3.00) mg/L NT-Pro-B Natriuret Pep (0-450) pg/mL Total Protein (5.8-8.3) g/dL Albumin (3.0-4.8) g/dL Globulin gm/dL Albumin/Globulin Ratio (1.1-1.8) Arterial Blood Potassium (3.6-5.2) mmol/L Venous Blood Potassium (3.6-5.2) mmol/L Hepatitis A IgM Ab (NEGATIVE) Hep Bs Antigen (NEGATIVE) Hepatitis C Antibody (NEGATIVE) HIV 1&2 Antibody Screen Negative (NEGATIVE) Blood Type Blood Type Confirm Antibody Screen Crossmatch BBK History Checked 06/11/18 06/11/18 06/11/18 Range/Units 14:45 14:45 14:25 WBC (4.5-11.0) 10^3/ul RBC (3.5-6.1) 10^6/uL Hgb (12.0-16.0) g/dL Hct (36.0-48.0) % MCV (80.0-105.0) fl MCH (25.0-35.0) pg MCHC (31.0-37.0) g/dl RDW (11.5-14.5) % Plt Count (120.0-450.0) 10^3/uL Gran % (50.0-68.0) % Lymph % (Auto) (22.0-35.0) % Pettis % (Auto) (1.0-6.0) % Eos % (Auto) (1.5-5.0) % Baso % (Auto) (0.0-3.0) % Gran # (1.4-6.5) Lymph # (Auto) (1.2-3.4) Pettis # (Auto) (0.1-0.6) Eos # (Auto) (0.0-0.7) Baso # (Auto) (0.0-2.0) K/mm3 pCO2 (35-45) mm/Hg pO2 31 (30-55) mm/Hg HCO3 (21-28) mmol/L ABG pH (7.35-7.45) ABG Total CO2 (22-28) mmol.L ABG O2 Saturation (95-98) % ABG O2 Content (15-23) ML/dl ABG Base Excess (-2.0-3.0) mmol/L ABG Hemoglobin (11.7-17.4) g/dL ABG Carboxyhemoglobin (0.5-1.5) % POC ABG HHb (Measured) (0-5) % ABG Methemoglobin (0.0-3.0) % ABG O2 Capacity (16-24) mL/dl ABG Potassium (3.6-5.2) mmol/L VBG pH 7.26 L (7.32-7.43) VBG pCO2 52.0 (40-60) VBG HCO3 23.3 (21-28) mmol/l VBG Total CO2 24.9 (22-28) mmol.L VBG O2 Sat (Calc) 66.9 H (40-65) % VBG Base Excess -4.3 L (0.0-2.0) mmol/L VBG Potassium 4.6 (3.6-5.2) mmol/L Hgb O2 Saturation (95.0-98.0) % Sodium 135.0 (132-148) mmol/L Chloride 96.0 L (98-107) mmol/L Glucose 138 H (65-105) mg/dl Lactate 5.6 H* (0.7-2.1) mmol/L FiO2 21.0 % Potassium (3.6-5.0) mmol/L Carbon Dioxide (21-33) mmol/L Anion Gap (10-20) BUN (7-21) mg/dL Creatinine (0.7-1.2) mg/dl Est GFR ( Amer) Est GFR (Non-Af Amer) Random Glucose (70-110) mg/dL Hemoglobin A1c (4.2-6.5) % Calcium (8.4-10.5) mg/dL Total Bilirubin (0.2-1.3) mg/dL AST (14-36) U/L ALT (7-56) U/L Alkaline Phosphatase (38-126) U/L Ammonia (9-33) umol/L Total Creatine Kinase (35-230) U/L Troponin I ng/mL C-React Prot High Sens (1.00-3.00) mg/L NT-Pro-B Natriuret Pep (0-450) pg/mL Total Protein (5.8-8.3) g/dL Albumin (3.0-4.8) g/dL Globulin gm/dL Albumin/Globulin Ratio (1.1-1.8) Arterial Blood Potassium (3.6-5.2) mmol/L Venous Blood Potassium 4.6 (3.6-5.2) mmol/L Hepatitis A IgM Ab (NEGATIVE) Hep Bs Antigen (NEGATIVE) Hepatitis C Antibody (NEGATIVE) HIV 1&2 Antibody Screen (NEGATIVE) Blood Type A NEGATIVE Blood Type Confirm A NEGATIVE Antibody Screen Negative Crossmatch See Detail BBK History Checked No verified bt 06/11/18 06/11/18 06/11/18 Range/Units 11:39 11:39 11:39 WBC (4.5-11.0) 10^3/ul RBC (3.5-6.1) 10^6/uL Hgb (12.0-16.0) g/dL Hct (36.0-48.0) % MCV (80.0-105.0) fl MCH (25.0-35.0) pg MCHC (31.0-37.0) g/dl RDW (11.5-14.5) % Plt Count (120.0-450.0) 10^3/uL Gran % (50.0-68.0) % Lymph % (Auto) (22.0-35.0) % Pettis % (Auto) (1.0-6.0) % Eos % (Auto) (1.5-5.0) % Baso % (Auto) (0.0-3.0) % Gran # (1.4-6.5) Lymph # (Auto) (1.2-3.4) Pettis # (Auto) (0.1-0.6) Eos # (Auto) (0.0-0.7) Baso # (Auto) (0.0-2.0) K/mm3 pCO2 (35-45) mm/Hg pO2 33 (30-55) mm/Hg HCO3 (21-28) mmol/L ABG pH (7.35-7.45) ABG Total CO2 (22-28) mmol.L ABG O2 Saturation (95-98) % ABG O2 Content (15-23) ML/dl ABG Base Excess (-2.0-3.0) mmol/L ABG Hemoglobin (11.7-17.4) g/dL ABG Carboxyhemoglobin (0.5-1.5) % POC ABG HHb (Measured) (0-5) % ABG Methemoglobin (0.0-3.0) % ABG O2 Capacity (16-24) mL/dl ABG Potassium (3.6-5.2) mmol/L VBG pH 7.21 L (7.32-7.43) VBG pCO2 58.0 (40-60) VBG HCO3 23.2 (21-28) mmol/l VBG Total CO2 25.0 (22-28) mmol.L VBG O2 Sat (Calc) 67.3 H (40-65) % VBG Base Excess -5.5 L (0.0-2.0) mmol/L VBG Potassium 4.9 (3.6-5.2) mmol/L Hgb O2 Saturation (95.0-98.0) % Sodium 133.0 (132-148) mmol/L Chloride 96.0 L (98-107) mmol/L Glucose 262 H (65-105) mg/dl Lactate 6.2 H* (0.7-2.1) mmol/L FiO2 21.0 % Potassium (3.6-5.0) mmol/L Carbon Dioxide (21-33) mmol/L Anion Gap (10-20) BUN (7-21) mg/dL Creatinine (0.7-1.2) mg/dl Est GFR ( Amer) Est GFR (Non-Af Amer) Random Glucose (70-110) mg/dL Hemoglobin A1c (4.2-6.5) % Calcium (8.4-10.5) mg/dL Total Bilirubin (0.2-1.3) mg/dL AST (14-36) U/L ALT (7-56) U/L Alkaline Phosphatase (38-126) U/L Ammonia 41 H (9-33) umol/L Total Creatine Kinase (35-230) U/L Troponin I ng/mL C-React Prot High Sens > 15.00 H (1.00-3.00) mg/L NT-Pro-B Natriuret Pep (0-450) pg/mL Total Protein (5.8-8.3) g/dL Albumin (3.0-4.8) g/dL Globulin gm/dL Albumin/Globulin Ratio (1.1-1.8) Arterial Blood Potassium (3.6-5.2) mmol/L Venous Blood Potassium 4.9 (3.6-5.2) mmol/L Hepatitis A IgM Ab (NEGATIVE) Hep Bs Antigen (NEGATIVE) Hepatitis C Antibody (NEGATIVE) HIV 1&2 Antibody Screen (NEGATIVE) Blood Type Blood Type Confirm Antibody Screen Crossmatch BBK History Checked 06/11/18 06/11/18 06/11/18 Range/Units 11:39 08:01 07:41 WBC (4.5-11.0) 10^3/ul RBC (3.5-6.1) 10^6/uL Hgb (12.0-16.0) g/dL Hct (36.0-48.0) % MCV (80.0-105.0) fl MCH (25.0-35.0) pg MCHC (31.0-37.0) g/dl RDW (11.5-14.5) % Plt Count (120.0-450.0) 10^3/uL Gran % (50.0-68.0) % Lymph % (Auto) (22.0-35.0) % Pettis % (Auto) (1.0-6.0) % Eos % (Auto) (1.5-5.0) % Baso % (Auto) (0.0-3.0) % Gran # (1.4-6.5) Lymph # (Auto) (1.2-3.4) Pettis # (Auto) (0.1-0.6) Eos # (Auto) (0.0-0.7) Baso # (Auto) (0.0-2.0) K/mm3 pCO2 (35-45) mm/Hg pO2 (30-55) mm/Hg HCO3 (21-28) mmol/L ABG pH (7.35-7.45) ABG Total CO2 (22-28) mmol.L ABG O2 Saturation (95-98) % ABG O2 Content (15-23) ML/dl ABG Base Excess (-2.0-3.0) mmol/L ABG Hemoglobin (11.7-17.4) g/dL ABG Carboxyhemoglobin (0.5-1.5) % POC ABG HHb (Measured) (0-5) % ABG Methemoglobin (0.0-3.0) % ABG O2 Capacity (16-24) mL/dl ABG Potassium (3.6-5.2) mmol/L VBG pH (7.32-7.43) VBG pCO2 (40-60) VBG HCO3 (21-28) mmol/l VBG Total CO2 (22-28) mmol.L VBG O2 Sat (Calc) (40-65) % VBG Base Excess (0.0-2.0) mmol/L VBG Potassium (3.6-5.2) mmol/L Hgb O2 Saturation (95.0-98.0) % Sodium 133 (132-148) mmol/L Chloride 100 (98-107) mmol/L Glucose (65-105) mg/dl Lactate (0.7-2.1) mmol/L FiO2 % Potassium 5.0 (3.6-5.0) mmol/L Carbon Dioxide 23 (21-33) mmol/L Anion Gap 16 (10-20) BUN 47 H (7-21) mg/dL Creatinine 0.9 (0.7-1.2) mg/dl Est GFR ( Amer) > 60 Est GFR (Non-Af Amer) > 60 Random Glucose 258 H (70-110) mg/dL Hemoglobin A1c 17.4 H (4.2-6.5) % Calcium 8.9 (8.4-10.5) mg/dL Total Bilirubin (0.2-1.3) mg/dL AST (14-36) U/L ALT (7-56) U/L Alkaline Phosphatase (38-126) U/L Ammonia (9-33) umol/L Total Creatine Kinase 171 (35-230) U/L Troponin I < 0.01 ng/mL C-React Prot High Sens (1.00-3.00) mg/L NT-Pro-B Natriuret Pep (0-450) pg/mL Total Protein (5.8-8.3) g/dL Albumin (3.0-4.8) g/dL Globulin gm/dL Albumin/Globulin Ratio (1.1-1.8) Arterial Blood Potassium (3.6-5.2) mmol/L Venous Blood Potassium (3.6-5.2) mmol/L Hepatitis A IgM Ab Negative (NEGATIVE) Hep Bs Antigen Negative (NEGATIVE) Hepatitis C Antibody Negative (NEGATIVE) HIV 1&2 Antibody Screen (NEGATIVE) Blood Type Blood Type Confirm Antibody Screen Crossmatch BBK History Checked Laboratory Results - last 24 hr 06/11/18 06/11/18 06/11/18 07:41 08:01 11:39 WBC RBC Hgb Hct MCV MCH MCHC RDW Plt Count Gran % Lymph % (Auto) [place] % (Auto) Eos % (Auto) Baso % (Auto) Gran # Lymph # (Auto) [place] # (Auto) Eos # (Auto) Baso # (Auto) pCO2 pO2 HCO3 ABG pH ABG Total CO2 ABG O2 Saturation ABG O2 Content ABG Base Excess ABG Hemoglobin ABG Carboxyhemoglobin POC ABG HHb (Measured) ABG Methemoglobin ABG O2 Capacity ABG Potassium VBG pH VBG pCO2 VBG HCO3 VBG Total CO2 VBG O2 Sat (Calc) VBG Base Excess VBG Potassium Hgb O2 Saturation Sodium 133 Chloride 100 Glucose Lactate FiO2 Potassium 5.0 Carbon Dioxide 23 Anion Gap 16 BUN 47 H Creatinine 0.9 Est GFR ( Amer) > 60 Est GFR (Non-Af Amer) > 60 Random Glucose 258 H Hemoglobin A1c 17.4 H Calcium 8.9 Total Bilirubin AST ALT Alkaline Phosphatase Ammonia Total Creatine Kinase 171 Troponin I < 0.01 C-React Prot High Sens NT-Pro-B Natriuret Pep Total Protein Albumin Globulin Albumin/Globulin Ratio Arterial Blood Potassium Venous Blood Potassium Hepatitis A IgM Ab Negative Hep Bs Antigen Negative Hepatitis C Antibody Negative HIV 1&2 Antibody Screen Blood Type Blood Type Confirm Antibody Screen Crossmatch BBK History Checked 06/11/18 06/11/18 06/11/18 11:39 11:39 11:39 WBC RBC Hgb Hct MCV MCH MCHC RDW Plt Count Gran % Lymph % (Auto) [place] % (Auto) Eos % (Auto) Baso % (Auto) Gran # Lymph # (Auto) [place] # (Auto) Eos # (Auto) Baso # (Auto) pCO2 pO2 33 HCO3 ABG pH ABG Total CO2 ABG O2 Saturation ABG O2 Content ABG Base Excess ABG Hemoglobin ABG Carboxyhemoglobin POC ABG HHb (Measured) ABG Methemoglobin ABG O2 Capacity ABG Potassium VBG pH 7.21 L VBG pCO2 58.0 VBG HCO3 23.2 VBG Total CO2 25.0 VBG O2 Sat (Calc) 67.3 H VBG Base Excess -5.5 L VBG Potassium 4.9 Hgb O2 Saturation Sodium 133.0 Chloride 96.0 L Glucose 262 H Lactate 6.2 H* FiO2 21.0 Potassium Carbon Dioxide Anion Gap BUN Creatinine Est GFR ( Amer) Est GFR (Non-Af Amer) Random Glucose Hemoglobin A1c Calcium Total Bilirubin AST ALT Alkaline Phosphatase Ammonia 41 H Total Creatine Kinase Troponin I C-React Prot High Sens > 15.00 H NT-Pro-B Natriuret Pep Total Protein Albumin Globulin Albumin/Globulin Ratio Arterial Blood Potassium Venous Blood Potassium 4.9 Hepatitis A IgM Ab Hep Bs Antigen Hepatitis C Antibody HIV 1&2 Antibody Screen Blood Type Blood Type Confirm Antibody Screen Crossmatch BBK History Checked 06/11/18 06/11/18 06/11/18 14:25 14:45 14:45 WBC RBC Hgb Hct MCV MCH MCHC RDW Plt Count Gran % Lymph % (Auto) [place] % (Auto) Eos % (Auto) Baso % (Auto) Gran # Lymph # (Auto) [place] # (Auto) Eos # (Auto) Baso # (Auto) pCO2 pO2 31 HCO3 ABG pH ABG Total CO2 ABG O2 Saturation ABG O2 Content ABG Base Excess ABG Hemoglobin ABG Carboxyhemoglobin POC ABG HHb (Measured) ABG Methemoglobin ABG O2 Capacity ABG Potassium VBG pH 7.26 L VBG pCO2 52.0 VBG HCO3 23.3 VBG Total CO2 24.9 VBG O2 Sat (Calc) 66.9 H VBG Base Excess -4.3 L VBG Potassium 4.6 Hgb O2 Saturation Sodium 135.0 Chloride 96.0 L Glucose 138 H Lactate 5.6 H* FiO2 21.0 Potassium Carbon Dioxide Anion Gap BUN Creatinine Est GFR ( Amer) Est GFR (Non-Af Amer) Random Glucose Hemoglobin A1c Calcium Total Bilirubin AST ALT Alkaline Phosphatase Ammonia Total Creatine Kinase Troponin I C-React Prot High Sens NT-Pro-B Natriuret Pep Total Protein Albumin Globulin Albumin/Globulin Ratio Arterial Blood Potassium Venous Blood Potassium 4.6 Hepatitis A IgM Ab Hep Bs Antigen Hepatitis C Antibody HIV 1&2 Antibody Screen Blood Type A NEGATIVE Blood Type Confirm A NEGATIVE Antibody Screen Negative Crossmatch See Detail BBK History Checked No verified bt 06/11/18 06/11/18 06/11/18 15:37 17:20 18:00 WBC RBC Hgb Hct MCV MCH MCHC RDW Plt Count Gran % Lymph % (Auto) [place] % (Auto) Eos % (Auto) Baso % (Auto) Gran # Lymph # (Auto) [place] # (Auto) Eos # (Auto) Baso # (Auto) pCO2 64 H pO2 229.0 H HCO3 20.8 L ABG pH 7.12 L* ABG Total CO2 22.8 ABG O2 Saturation 98.9 H ABG O2 Content 22.5 ABG Base Excess -9.8 L ABG Hemoglobin 16.4 ABG Carboxyhemoglobin 2.6 H POC ABG HHb (Measured) 1.1 ABG Methemoglobin 0.7 ABG O2 Capacity 22.8 ABG Potassium VBG pH VBG pCO2 VBG HCO3 VBG Total CO2 VBG O2 Sat (Calc) VBG Base Excess VBG Potassium Hgb O2 Saturation 95.7 Sodium 137 Chloride 107 Glucose Lactate FiO2 100.0 Potassium 3.8 Carbon Dioxide 22 Anion Gap 12 BUN 38 H Creatinine 0.5 L Est GFR ( Amer) > 60 Est GFR (Non-Af Amer) > 60 Random Glucose 132 H Hemoglobin A1c Calcium 7.8 L Total Bilirubin AST ALT Alkaline Phosphatase Ammonia Total Creatine Kinase Troponin I < 0.01 C-React Prot High Sens NT-Pro-B Natriuret Pep Total Protein Albumin Globulin Albumin/Globulin Ratio Arterial Blood Potassium Venous Blood Potassium Hepatitis A IgM Ab Hep Bs Antigen Hepatitis C Antibody HIV 1&2 Antibody Screen Negative Blood Type Blood Type Confirm Antibody Screen Crossmatch BBK History Checked 06/11/18 06/11/18 06/11/18 18:30 20:37 22:54 WBC 3.3 L D RBC 6.12 H Hgb 17.6 H D Hct 51.9 H MCV 84.8 MCH 28.8 MCHC 33.9 RDW 14.8 H Plt Count 65 L Gran % 84.3 H Lymph % (Auto) 13.6 L [place]ett[place] % (Auto) 1.2 Eos % (Auto) 0.3 L Baso % (Auto) 0.6 Gran # 2.80 Lymph # (Auto) 0.5 L [place] # (Auto) 0.0 L Eos # (Auto) 0.0 Baso # (Auto) 0.02 pCO2 43 43 pO2 57.0 L 60.0 L HCO3 18.9 L 18.9 L ABG pH 7.25 L 7.25 L ABG Total CO2 20.2 L 20.2 L ABG O2 Saturation 91.4 L 93.1 L ABG O2 Content 22.5 ABG Base Excess -8.1 L -8.2 L ABG Hemoglobin 17.7 H ABG Carboxyhemoglobin 1.9 H POC ABG HHb (Measured) 6.7 H ABG Methemoglobin 0.9 ABG O2 Capacity 24.2 H ABG Potassium 4.0 VBG pH VBG pCO2 VBG HCO3 VBG Total CO2 VBG O2 Sat (Calc) VBG Base Excess VBG Potassium Hgb O2 Saturation 90.5 L Sodium 135.0 Chloride 108.0 H Glucose 133 H Lactate 3.1 H FiO2 60.0 65.0 Potassium Carbon Dioxide Anion Gap BUN Creatinine Est GFR ( Amer) Est GFR (Non-Af Amer) Random Glucose Hemoglobin A1c Calcium Total Bilirubin AST ALT Alkaline Phosphatase Ammonia Total Creatine Kinase Troponin I C-React Prot High Sens NT-Pro-B Natriuret Pep Total Protein Albumin Globulin Albumin/Globulin Ratio Arterial Blood Potassium 4.0 Venous Blood Potassium Hepatitis A IgM Ab Hep Bs Antigen Hepatitis C Antibody HIV 1&2 Antibody Screen Blood Type Blood Type Confirm Antibody Screen Crossmatch BBK History Checked 06/12/18 06/12/18 06/12/18 05:20 05:45 05:45 WBC RBC Hgb Hct MCV MCH MCHC RDW Plt Count Gran % Lymph % (Auto) Pettis % (Auto) Eos % (Auto) Baso % (Auto) Gran # Lymph # (Auto) Pettis # (Auto) Eos # (Auto) Baso # (Auto) pCO2 44 pO2 63.0 L HCO3 19.3 L ABG pH 7.25 L ABG Total CO2 20.7 L ABG O2 Saturation 94.0 L ABG O2 Content ABG Base Excess -7.7 L ABG Hemoglobin ABG Carboxyhemoglobin POC ABG HHb (Measured) ABG Methemoglobin ABG O2 Capacity ABG Potassium 4.6 VBG pH VBG pCO2 VBG HCO3 VBG Total CO2 VBG O2 Sat (Calc) VBG Base Excess VBG Potassium Hgb O2 Saturation Sodium 134.0 138 Chloride 107.0 107 Glucose 123 H Lactate 3.4 H FiO2 65.0 Potassium 4.5 Carbon Dioxide 21 Anion Gap 14 BUN 44 H Creatinine 0.7 Est GFR ( Amer) > 60 Est GFR (Non-Af Amer) > 60 Random Glucose 121 H Hemoglobin A1c Calcium 7.6 L Total Bilirubin 0.9 AST 30 ALT 39 Alkaline Phosphatase 251 H D Ammonia Total Creatine Kinase Troponin I C-React Prot High Sens NT-Pro-B Natriuret Pep 87706 H Total Protein 4.3 L Albumin 1.8 L Globulin 2.5 Albumin/Globulin Ratio 0.7 L Arterial Blood Potassium 4.6 Venous Blood Potassium Hepatitis A IgM Ab Hep Bs Antigen Hepatitis C Antibody HIV 1&2 Antibody Screen Blood Type Blood Type Confirm Antibody Screen Crossmatch BBK History Checked Fingerstick Blood Sugar Results: 97 Assessment/Plan - Assessment and Plan (Free Text) Assessment: 58 year old female under ICU management for septic shock in the setting of lactic acidosis, likely 2/2 necrotizing fasciitis. 1. Acute AMS 2. Possible Nec Fasciitis 3. Acute metabolic acidosis likely 2/2 HHS - resolved 4. Acute hyperkalemia, likely 2/2 HHS - resolved 5. Possible vulvar carcinoma/Vulvar mass 6. Hx COPD 7. Hx DM 8. Hx HTN Patient's labs reveal lactic acidosis as well as decreased paO2 on ABG. Patient is currently protecting her airway and is 100% O2 saturation. glucose levels on admission 514, trending downward with a metabolic acidosis. Tox screen negative, but no UA obtained to look for ketones. Chest XR shows chronic COPD. Plan Neuro - Maintain normothermia - Treat lactic acidosis, likely source of infection, which are contributing to AMS - Titrate fentanyl drip to RASS score of -4 Pulm - Duonebs PRN and LAMONTE - Maintain sats > 92% - Lung protective ventilation protocol (Peak pressures < 30) with settings of: 400/20/7/80 Cardio - Maintain MAP > 65, A-line placed for more accurate measurement of BP - Patient on levophed, vasopressin, neosynephrine drips - Obtain ECHO given elevated BNP on admission GI - GI PPX - Surgery on consult - will most likely need emergent surgery, will hold off on CT abdomen/pelvis with po contrast - GI on consult - Correct electrolyte abnormalities PRN (hyperkalemic) - Goal UOP should be .5/kg/hr ID - Continue Clinda, Merrem, and Vanc for septic shock 2/2 necrotizing fasciitis - ID Consult: Dr. Mcfarland Endo - Continue RISS q4 with FS q4 - Maintain euglycemia Heme - No heme issues Psych - Possible suicide attempt; may need 1:1 when patient medically optimized <Aguila Contreras - Last Filed: 06/12/18 14:42> CCU Objective - Vital Signs / Intake & Output Vital Signs (Last 4 hours): Vital Signs Temp Pulse Resp BP Pulse Ox 06/12/18 13:40 99.5 F 124 H 100 06/12/18 13:30 99.5 F 125 H 99 06/12/18 13:20 99.5 F 125 H 100 06/12/18 13:10 99.5 F 124 H 100 06/12/18 13:00 99.5 F 124 H 112/69 100 06/12/18 12:55 99.5 F 125 H 17 94 L 06/12/18 12:50 127 H 100 06/12/18 12:40 124 H 99 06/12/18 12:30 123 H 99 06/12/18 12:20 124 H 99 06/12/18 12:10 125 H 100 06/12/18 12:07 125 H 20 99 06/12/18 12:00 124 H 112/64 100 06/12/18 11:57 123 H 06/12/18 11:50 124 H 100 06/12/18 11:49 124 H 110/70 100 06/12/18 11:43 20 06/12/18 11:42 124 H 20 85/60 L 06/12/18 11:41 124 H 29 H Intake and Output (Last 8hrs): Intake & Output 06/11/18 06/12/18 06/12/18 22:59 06:59 14:59 Intake Total 3579 3347 310 Output Total 850 150 Balance 2729 3197 310 Intake: IV 3579 3347 310 Right Internal Jugular 3450 2916 Output: Urine 850 150 Urethral (Lorenz) 850 150 Other: # Bowel Movements 0 - Medications Active Medications: Active Medications Generic Name Dose Route Start Last Admin Trade Name Freq PRN Reason Stop Dose Admin Albuterol/Ipratropium 3 ml 06/11/18 07:41 Duoneb 3 Mg/0.5 Mg (3 Ml) Ud IH Q2H PRN Shortness of Breath Albuterol/Ipratropium 3 ml 06/11/18 08:00 06/12/18 13:05 Duoneb 3 Mg/0.5 Mg (3 Ml) Ud IH 3 ml [id number] LAMONTE Administration Heparin Sodium (Porcine) 5,000 units 06/11/18 22:00 06/12/18 14:22 Heparin IVP 5,000 units Q8 LAMONTE Administration Protocol Meropenem 50 mls @ 100 mls/hr 06/11/18 11:15 06/12/18 09:25 Merrem Iv 1 Gm Premix IVPB 100 mls/hr Q12 LAMONTE Administration Protocol Vancomycin HCl 1 gm in 250 mls @ 167 mls/hr 06/11/18 17:30 06/12/18 05:24 Vancomycin 1gm IVPB 167 mls/hr Q12H LAMONTE Administration Protocol Clindamycin Phosphate 900 mg/ 106 mls @ 106 mls/hr 06/11/18 17:30 06/12/18 13 :57 Sodium Chloride IVPB 106 mls/hr Q8 LAMONTE Administration Protocol Fentanyl Citrate 1,000 mcg in 100 mls @ 2 mls/hr 06/11/18 19:42 06/12/18 09: 36 Fentanyl Citrate/Sodium Chloride 1 Mg/100 Ml IV 75 mcg/hr .Q24H PRN 7.5 mls/hr TITRATE PER MD ORDER Administration Protocol 20 MCG/HR NOREPINEPHRINE BIT/0.9 % NACL 4 mg in 250 mls @ 15 mls/hr 06/11/18 19:42 13:03 Levophed 4 Mg/ 250 Ml Ns Premixed IV 15 mcg/min .[id number] PRN 56.25 mls/hr TITRATE PER MD ORDER Titration Protocol 4 MCG/MIN Sodium Chloride 1,000 mls @ 100 mls/hr 06/11/18 22:00 06/12/18 08:00 Sodium Chloride 0.9% IV 100 mls/hr .Q10H LAMONTE Administration Acetaminophen 1,000 mg in 100 mls @ 400 mls/hr 06/12/18 03:05 06/12/18 03:19 Ofirmev IVPB 06/14/18 03:06 400 mls/hr Q6H PRN Administration Temperature Vasopressin 20 units/ Sodium 101 mls @ 9.09 mls/hr 06/12/18 08:30 06/12/18 09 :12 Chloride IV 9.09 mls/hr .[id number] LAMONTE Administration Protocol 0.03 U/MIN Phenylephrine HCl 40 mg/ 254 mls @ 38.1 mls/hr 06/12/18 09:35 06/12/18 10:15 Sodium Chloride IV 100 mcg/min .[id number] PRN 38.1 mls/hr TITRATE PER MD ORDER Administration Protocol 100 MCG/MIN Insulin Human Lispro 0 units 06/12/18 09:45 06/12/18 10:26 Humalog High SC Not Given Q4H LAMONTE Protocol Lorazepam 2 mg 06/12/18 09:43 Ativan IVP Q2H PRN Anxiety Protocol Pantoprazole Sodium 40 mg 06/12/18 10:00 06/12/18 09:26 Protonix Inj IVP 40 mg DAILY [facility] Administration - Patient Studies Lab Studies: Microbiology Studies 06/11/18 07:00 Urine Culture - Final Urine,Clean Catch No Growth (<1,000 CFU/ML) 06/11/18 14:52 Gram Stain - Final Abdomen Lab Studies 06/12/18 06/12/18 06/12/18 Range/Units 09:12 05:45 05:45 WBC (4.5-11.0) 10^3/ul RBC (3.5-6.1) 10^6/uL Hgb (12.0-16.0) g/dL Hct (36.0-48.0) % MCV (80.0-105.0) fl MCH (25.0-35.0) pg MCHC (31.0-37.0) g/dl RDW (11.5-14.5) % Plt Count (120.0-450.0) 10^3/uL Gran % (50.0-68.0) % Lymph % (Auto) (22.0-35.0) % Pettis % (Auto) (1.0-6.0) % Eos % (Auto) (1.5-5.0) % Baso % (Auto) (0.0-3.0) % Gran # (1.4-6.5) Lymph # (Auto) (1.2-3.4) Pettis # (Auto) (0.1-0.6) Eos # (Auto) (0.0-0.7) Baso # (Auto) (0.0-2.0) K/mm3 pCO2 (35-45) mm/Hg pO2 (30-55) mm/Hg HCO3 (21-28) mmol/L ABG pH (7.35-7.45) ABG Total CO2 (22-28) mmol.L ABG O2 Saturation (95-98) % ABG O2 Content (15-23) ML/dl ABG Base Excess (-2.0-3.0) mmol/L ABG Hemoglobin (11.7-17.4) g/dL ABG Carboxyhemoglobin (0.5-1.5) % POC ABG HHb (Measured) (0-5) % ABG Methemoglobin (0.0-3.0) % ABG O2 Capacity (16-24) mL/dl ABG Potassium (3.6-5.2) mmol/L VBG pH (7.32-7.43) VBG pCO2 (40-60) VBG HCO3 (21-28) mmol/l VBG Total CO2 (22-28) mmol.L VBG O2 Sat (Calc) (40-65) % VBG Base Excess (0.0-2.0) mmol/L VBG Potassium (3.6-5.2) mmol/L Hgb O2 Saturation (95.0-98.0) % Sodium 138 (132-148) mmol/L Chloride 107 (98-107) mmol/L Glucose (65-105) mg/dl Lactate (0.7-2.1) mmol/L FiO2 % Potassium 4.5 (3.6-5.0) mmol/L Carbon Dioxide 21 (21-33) mmol/L Anion Gap 14 (10-20) BUN 44 H (7-21) mg/dL Creatinine 0.7 (0.7-1.2) mg/dl Est GFR ( Amer) > 60 Est GFR (Non-Af Amer) > 60 POC Glucose (mg/dL) 92 (65-110) mg/dL Random Glucose 121 H (70-110) mg/dL Calcium 7.6 L (8.4-10.5) mg/dL Total Bilirubin 0.9 (0.2-1.3) mg/dL AST 30 (14-36) U/L ALT 39 (7-56) U/L Alkaline Phosphatase 251 H D (38-126) U/L Troponin I ng/mL C-React Prot High Sens (1.00-3.00) mg/L NT-Pro-B Natriuret Pep [id number] H (0-450) pg/mL Total Protein 4.3 L (5.8-8.3) g/dL Albumin 1.8 L (3.0-4.8) g/dL Globulin 2.5 gm/dL Albumin/Globulin Ratio 0.7 L (1.1-1.8) Arterial Blood Potassium (3.6-5.2) mmol/L Venous Blood Potassium (3.6-5.2) mmol/L Hepatitis A IgM Ab (NEGATIVE) Hep Bs Antigen (NEGATIVE) Hep B Core IgM Ab (NEGATIVE) Hepatitis C Antibody (NEGATIVE) HIV 1&2 Antibody Screen (NEGATIVE) Blood Type Blood Type Confirm Antibody Screen Crossmatch BBK History Checked 06/12/18 06/12/18 06/12/18 Range/Units 05:20 03:50 01:24 WBC (4.5-11.0) 10^3/ul RBC (3.5-6.1) 10^6/uL Hgb (12.0-16.0) g/dL Hct (36.0-48.0) % MCV (80.0-105.0) fl MCH (25.0-35.0) pg MCHC (31.0-37.0) g/dl RDW (11.5-14.5) % Plt Count (120.0-450.0) 10^3/uL Gran % (50.0-68.0) % Lymph % (Auto) (22.0-35.0) % Pettis % (Auto) (1.0-6.0) % Eos % (Auto) (1.5-5.0) % Baso % (Auto) (0.0-3.0) % Gran # (1.4-6.5) Lymph # (Auto) (1.2-3.4) Pettis # (Auto) (0.1-0.6) Eos # (Auto) (0.0-0.7) Baso # (Auto) (0.0-2.0) K/mm3 pCO2 44 (35-45) mm/Hg pO2 63.0 L (30-55) mm/Hg HCO3 19.3 L (21-28) mmol/L ABG pH 7.25 L (7.35-7.45) ABG Total CO2 20.7 L (22-28) mmol.L ABG O2 Saturation 94.0 L (95-98) % ABG O2 Content (15-23) ML/dl ABG Base Excess -7.7 L (-2.0-3.0) mmol/L ABG Hemoglobin (11.7-17.4) g/dL ABG Carboxyhemoglobin (0.5-1.5) % POC ABG HHb (Measured) (0-5) % ABG Methemoglobin (0.0-3.0) % ABG O2 Capacity (16-24) mL/dl ABG Potassium 4.6 (3.6-5.2) mmol/L VBG pH (7.32-7.43) VBG pCO2 (40-60) VBG HCO3 (21-28) mmol/l VBG Total CO2 (22-28) mmol.L VBG O2 Sat (Calc) (40-65) % VBG Base Excess (0.0-2.0) mmol/L VBG Potassium (3.6-5.2) mmol/L Hgb O2 Saturation (95.0-98.0) % Sodium 134.0 (132-148) mmol/L Chloride 107.0 (98-107) mmol/L Glucose 123 H (65-105) mg/dl Lactate 3.4 H (0.7-2.1) mmol/L FiO2 65.0 % Potassium (3.6-5.0) mmol/L Carbon Dioxide (21-33) mmol/L Anion Gap (10-20) BUN (7-21) mg/dL Creatinine (0.7-1.2) mg/dl Est GFR ( Amer) Est GFR (Non-Af Amer) POC Glucose (mg/dL) 136 H 132 H (65-110) mg/dL Random Glucose (70-110) mg/dL Calcium (8.4-10.5) mg/dL Total Bilirubin (0.2-1.3) mg/dL AST (14-36) U/L ALT (7-56) U/L Alkaline Phosphatase (38-126) U/L Troponin I ng/mL C-React Prot High Sens (1.00-3.00) mg/L NT-Pro-B Natriuret Pep (0-450) pg/mL Total Protein (5.8-8.3) g/dL Albumin (3.0-4.8) g/dL Globulin gm/dL Albumin/Globulin Ratio (1.1-1.8) Arterial Blood Potassium 4.6 (3.6-5.2) mmol/L Venous Blood Potassium (3.6-5.2) mmol/L Hepatitis A IgM Ab (NEGATIVE) Hep Bs Antigen (NEGATIVE) Hep B Core IgM Ab (NEGATIVE) Hepatitis C Antibody (NEGATIVE) HIV 1&2 Antibody Screen (NEGATIVE) Blood Type Blood Type Confirm Antibody Screen Crossmatch BBK History Checked 06/11/18 06/11/18 06/11/18 Range/Units 22:54 20:37 19:54 WBC (4.5-11.0) 10^3/ul RBC (3.5-6.1) 10^6/uL Hgb (12.0-16.0) g/dL Hct (36.0-48.0) % MCV (80.0-105.0) fl MCH (25.0-35.0) pg MCHC (31.0-37.0) g/dl RDW (11.5-14.5) % Plt Count (120.0-450.0) 10^3/uL Gran % (50.0-68.0) % Lymph % (Auto) (22.0-35.0) % Pettis % (Auto) (1.0-6.0) % Eos % (Auto) (1.5-5.0) % Baso % (Auto) (0.0-3.0) % Gran # (1.4-6.5) Lymph # (Auto) (1.2-3.4) Pettis # (Auto) (0.1-0.6) Eos # (Auto) (0.0-0.7) Baso # (Auto) (0.0-2.0) K/mm3 pCO2 43 43 (35-45) mm/Hg pO2 60.0 L 57.0 L (30-55) mm/Hg HCO3 18.9 L 18.9 L (21-28) mmol/L ABG pH 7.25 L 7.25 L (7.35-7.45) ABG Total CO2 20.2 L 20.2 L (22-28) mmol.L ABG O2 Saturation 93.1 L 91.4 L (95-98) % ABG O2 Content 22.5 (15-23) ML/dl ABG Base Excess -8.2 L -8.1 L (-2.0-3.0) mmol/L ABG Hemoglobin 17.7 H (11.7-17.4) g/dL ABG Carboxyhemoglobin 1.9 H (0.5-1.5) % POC ABG HHb (Measured) 6.7 H (0-5) % ABG Methemoglobin 0.9 (0.0-3.0) % ABG O2 Capacity 24.2 H (16-24) mL/dl ABG Potassium 4.0 (3.6-5.2) mmol/L VBG pH (7.32-7.43) VBG pCO2 (40-60) VBG HCO3 (21-28) mmol/l VBG Total CO2 (22-28) mmol.L VBG O2 Sat (Calc) (40-65) % VBG Base Excess (0.0-2.0) mmol/L VBG Potassium (3.6-5.2) mmol/L Hgb O2 Saturation 90.5 L (95.0-98.0) % Sodium 135.0 (132-148) mmol/L Chloride 108.0 H (98-107) mmol/L Glucose 133 H (65-105) mg/dl Lactate 3.1 H (0.7-2.1) mmol/L FiO2 65.0 60.0 % Potassium (3.6-5.0) mmol/L Carbon Dioxide (21-33) mmol/L Anion Gap (10-20) BUN (7-21) mg/dL Creatinine (0.7-1.2) mg/dl Est GFR ( Amer) Est GFR (Non-Af Amer) POC Glucose (mg/dL) 120 H (65-110) mg/dL Random Glucose (70-110) mg/dL Calcium (8.4-10.5) mg/dL Total Bilirubin (0.2-1.3) mg/dL AST (14-36) U/L ALT (7-56) U/L Alkaline Phosphatase (38-126) U/L Troponin I ng/mL C-React Prot High Sens (1.00-3.00) mg/L NT-Pro-B Natriuret Pep (0-450) pg/mL Total Protein (5.8-8.3) g/dL Albumin (3.0-4.8) g/dL Globulin gm/dL Albumin/Globulin Ratio (1.1-1.8) Arterial Blood Potassium 4.0 (3.6-5.2) mmol/L Venous Blood Potassium (3.6-5.2) mmol/L Hepatitis A IgM Ab (NEGATIVE) Hep Bs Antigen (NEGATIVE) Hep B Core IgM Ab (NEGATIVE) Hepatitis C Antibody (NEGATIVE) HIV 1&2 Antibody Screen (NEGATIVE) Blood Type Blood Type Confirm Antibody Screen Crossmatch BBK History Checked 06/11/18 06/11/18 06/11/18 Range/Units 18:30 18:00 17:20 WBC 3.3 L D (4.5-11.0) 10^3/ul RBC 6.12 H (3.5-6.1) 10^6/uL Hgb 17.6 H D (12.0-16.0) g/dL Hct 51.9 H (36.0-48.0) % MCV 84.8 (80.0-105.0) fl MCH 28.8 (25.0-35.0) pg MCHC 33.9 (31.0-37.0) g/dl RDW 14.8 H (11.5-14.5) % Plt Count 65 L (120.0-450.0) 10^3/uL Gran % 84.3 H (50.0-68.0) % Lymph % (Auto) 13.6 L (22.0-35.0) % Pettis % (Auto) 1.2 (1.0-6.0) % Eos % (Auto) 0.3 L (1.5-5.0) % Baso % (Auto) 0.6 (0.0-3.0) % Gran # 2.80 (1.4-6.5) Lymph # (Auto) 0.5 L (1.2-3.4) Pettis # (Auto) 0.0 L (0.1-0.6) Eos # (Auto) 0.0 (0.0-0.7) Baso # (Auto) 0.02 (0.0-2.0) K/mm3 pCO2 64 H (35-45) mm/Hg pO2 229.0 H (30-55) mm/Hg HCO3 20.8 L (21-28) mmol/L ABG pH 7.12 L* (7.35-7.45) ABG Total CO2 22.8 (22-28) mmol.L ABG O2 Saturation 98.9 H (95-98) % ABG O2 Content 22.5 (15-23) ML/dl ABG Base Excess -9.8 L (-2.0-3.0) mmol/L ABG Hemoglobin 16.4 (11.7-17.4) g/dL ABG Carboxyhemoglobin 2.6 H (0.5-1.5) % POC ABG HHb (Measured) 1.1 (0-5) % ABG Methemoglobin 0.7 (0.0-3.0) % ABG O2 Capacity 22.8 (16-24) mL/dl ABG Potassium (3.6-5.2) mmol/L VBG pH (7.32-7.43) VBG pCO2 (40-60) VBG HCO3 (21-28) mmol/l VBG Total CO2 (22-28) mmol.L VBG O2 Sat (Calc) (40-65) % VBG Base Excess (0.0-2.0) mmol/L VBG Potassium (3.6-5.2) mmol/L Hgb O2 Saturation 95.7 (95.0-98.0) % Sodium 137 (132-148) mmol/L Chloride 107 (98-107) mmol/L Glucose (65-105) mg/dl Lactate (0.7-2.1) mmol/L FiO2 100.0 % Potassium 3.8 (3.6-5.0) mmol/L Carbon Dioxide 22 (21-33) mmol/L Anion Gap 12 (10-20) BUN 38 H (7-21) mg/dL Creatinine 0.5 L (0.7-1.2) mg/dl Est GFR ( Amer) > 60 Est GFR (Non-Af Amer) > 60 POC Glucose (mg/dL) (65-110) mg/dL Random Glucose 132 H (70-110) mg/dL Calcium 7.8 L (8.4-10.5) mg/dL Total Bilirubin (0.2-1.3) mg/dL AST (14-36) U/L ALT (7-56) U/L Alkaline Phosphatase (38-126) U/L Troponin I < 0.01 ng/mL C-React Prot High Sens (1.00-3.00) mg/L NT-Pro-B Natriuret Pep (0-450) pg/mL Total Protein (5.8-8.3) g/dL Albumin (3.0-4.8) g/dL Globulin gm/dL Albumin/Globulin Ratio (1.1-1.8) Arterial Blood Potassium (3.6-5.2) mmol/L Venous Blood Potassium (3.6-5.2) mmol/L Hepatitis A IgM Ab (NEGATIVE) Hep Bs Antigen (NEGATIVE) Hep B Core IgM Ab (NEGATIVE) Hepatitis C Antibody (NEGATIVE) HIV 1&2 Antibody Screen (NEGATIVE) Blood Type Blood Type Confirm Antibody Screen Crossmatch BBK History Checked 06/11/18 06/11/18 06/11/18 Range/Units 17:18 15:37 14:45 WBC (4.5-11.0) 10^3/ul RBC (3.5-6.1) 10^6/uL Hgb (12.0-16.0) g/dL Hct (36.0-48.0) % MCV (80.0-105.0) fl MCH (25.0-35.0) pg MCHC (31.0-37.0) g/dl RDW (11.5-14.5) % Plt Count (120.0-450.0) 10^3/uL Gran % (50.0-68.0) % Lymph % (Auto) (22.0-35.0) % Pettis % (Auto) (1.0-6.0) % Eos % (Auto) (1.5-5.0) % Baso % (Auto) (0.0-3.0) % Gran # (1.4-6.5) Lymph # (Auto) (1.2-3.4) Pettis # (Auto) (0.1-0.6) Eos # (Auto) (0.0-0.7) Baso # (Auto) (0.0-2.0) K/mm3 pCO2 (35-45) mm/Hg pO2 31 (30-55) mm/Hg HCO3 (21-28) mmol/L ABG pH (7.35-7.45) ABG Total CO2 (22-28) mmol.L ABG O2 Saturation (95-98) % ABG O2 Content (15-23) ML/dl ABG Base Excess (-2.0-3.0) mmol/L ABG Hemoglobin (11.7-17.4) g/dL ABG Carboxyhemoglobin (0.5-1.5) % POC ABG HHb (Measured) (0-5) % ABG Methemoglobin (0.0-3.0) % ABG O2 Capacity (16-24) mL/dl ABG Potassium (3.6-5.2) mmol/L VBG pH 7.26 L (7.32-7.43) VBG pCO2 52.0 (40-60) VBG HCO3 23.3 (21-28) mmol/l VBG Total CO2 24.9 (22-28) mmol.L VBG O2 Sat (Calc) 66.9 H (40-65) % VBG Base Excess -4.3 L (0.0-2.0) mmol/L VBG Potassium 4.6 (3.6-5.2) mmol/L Hgb O2 Saturation (95.0-98.0) % Sodium 135.0 (132-148) mmol/L Chloride 96.0 L (98-107) mmol/L Glucose 138 H (65-105) mg/dl Lactate 5.6 H* (0.7-2.1) mmol/L FiO2 21.0 % Potassium (3.6-5.0) mmol/L Carbon Dioxide (21-33) mmol/L Anion Gap (10-20) BUN (7-21) mg/dL Creatinine (0.7-1.2) mg/dl Est GFR ( Amer) Est GFR (Non-Af Amer) POC Glucose (mg/dL) 171 H (65-110) mg/dL Random Glucose (70-110) mg/dL Calcium (8.4-10.5) mg/dL Total Bilirubin (0.2-1.3) mg/dL AST (14-36) U/L ALT (7-56) U/L Alkaline Phosphatase (38-126) U/L Troponin I ng/mL C-React Prot High Sens (1.00-3.00) mg/L NT-Pro-B Natriuret Pep (0-450) pg/mL Total Protein (5.8-8.3) g/dL Albumin (3.0-4.8) g/dL Globulin gm/dL Albumin/Globulin Ratio (1.1-1.8) Arterial Blood Potassium (3.6-5.2) mmol/L Venous Blood Potassium 4.6 (3.6-5.2) mmol/L Hepatitis A IgM Ab (NEGATIVE) Hep Bs Antigen (NEGATIVE) Hep B Core IgM Ab (NEGATIVE) Hepatitis C Antibody (NEGATIVE) HIV 1&2 Antibody Screen Negative (NEGATIVE) Blood Type Blood Type Confirm Antibody Screen Crossmatch BBK History Checked 06/11/18 06/11/18 06/11/18 Range/Units 14:45 14:25 14:20 WBC (4.5-11.0) 10^3/ul RBC (3.5-6.1) 10^6/uL Hgb (12.0-16.0) g/dL Hct (36.0-48.0) % MCV (80.0-105.0) fl MCH (25.0-35.0) pg MCHC (31.0-37.0) g/dl RDW (11.5-14.5) % Plt Count (120.0-450.0) 10^3/uL Gran % (50.0-68.0) % Lymph % (Auto) (22.0-35.0) % Pettis % (Auto) (1.0-6.0) % Eos % (Auto) (1.5-5.0) % Baso % (Auto) (0.0-3.0) % Gran # (1.4-6.5) Lymph # (Auto) (1.2-3.4) Pettis # (Auto) (0.1-0.6) Eos # (Auto) (0.0-0.7) Baso # (Auto) (0.0-2.0) K/mm3 pCO2 (35-45) mm/Hg pO2 (30-55) mm/Hg HCO3 (21-28) mmol/L ABG pH (7.35-7.45) ABG Total CO2 (22-28) mmol.L ABG O2 Saturation (95-98) % ABG O2 Content (15-23) ML/dl ABG Base Excess (-2.0-3.0) mmol/L ABG Hemoglobin (11.7-17.4) g/dL ABG Carboxyhemoglobin (0.5-1.5) % POC ABG HHb (Measured) (0-5) % ABG Methemoglobin (0.0-3.0) % ABG O2 Capacity (16-24) mL/dl ABG Potassium (3.6-5.2) mmol/L VBG pH (7.32-7.43) VBG pCO2 (40-60) VBG HCO3 (21-28) mmol/l VBG Total CO2 (22-28) mmol.L VBG O2 Sat (Calc) (40-65) % VBG Base Excess (0.0-2.0) mmol/L VBG Potassium (3.6-5.2) mmol/L Hgb O2 Saturation (95.0-98.0) % Sodium (132-148) mmol/L Chloride (98-107) mmol/L Glucose (65-105) mg/dl Lactate (0.7-2.1) mmol/L FiO2 % Potassium (3.6-5.0) mmol/L Carbon Dioxide (21-33) mmol/L Anion Gap (10-20) BUN (7-21) mg/dL Creatinine (0.7-1.2) mg/dl Est GFR ( Amer) Est GFR (Non-Af Amer) POC Glucose (mg/dL) 168 H (65-110) mg/dL Random Glucose (70-110) mg/dL Calcium (8.4-10.5) mg/dL Total Bilirubin (0.2-1.3) mg/dL AST (14-36) U/L ALT (7-56) U/L Alkaline Phosphatase (38-126) U/L Troponin I ng/mL C-React Prot High Sens (1.00-3.00) mg/L NT-Pro-B Natriuret Pep (0-450) pg/mL Total Protein (5.8-8.3) g/dL Albumin (3.0-4.8) g/dL Globulin gm/dL Albumin/Globulin Ratio (1.1-1.8) Arterial Blood Potassium (3.6-5.2) mmol/L Venous Blood Potassium (3.6-5.2) mmol/L Hepatitis A IgM Ab (NEGATIVE) Hep Bs Antigen (NEGATIVE) Hep B Core IgM Ab (NEGATIVE) Hepatitis C Antibody (NEGATIVE) HIV 1&2 Antibody Screen (NEGATIVE) Blood Type A NEGATIVE Blood Type Confirm A NEGATIVE Antibody Screen Negative Crossmatch See Detail BBK History Checked No verified bt 06/11/18 06/11/18 06/11/18 Range/Units 13:32 11:39 11:29 WBC (4.5-11.0) 10^3/ul RBC (3.5-6.1) 10^6/uL Hgb (12.0-16.0) g/dL Hct (36.0-48.0) % MCV (80.0-105.0) fl MCH (25.0-35.0) pg MCHC (31.0-37.0) g/dl RDW (11.5-14.5) % Plt Count (120.0-450.0) 10^3/uL Gran % (50.0-68.0) % Lymph % (Auto) (22.0-35.0) % Pettis % (Auto) (1.0-6.0) % Eos % (Auto) (1.5-5.0) % Baso % (Auto) (0.0-3.0) % Gran # (1.4-6.5) Lymph # (Auto) (1.2-3.4) Pettis # (Auto) (0.1-0.6) Eos # (Auto) (0.0-0.7) Baso # (Auto) (0.0-2.0) K/mm3 pCO2 (35-45) mm/Hg pO2 (30-55) mm/Hg HCO3 (21-28) mmol/L ABG pH (7.35-7.45) ABG Total CO2 (22-28) mmol.L ABG O2 Saturation (95-98) % ABG O2 Content (15-23) ML/dl ABG Base Excess (-2.0-3.0) mmol/L ABG Hemoglobin (11.7-17.4) g/dL ABG Carboxyhemoglobin (0.5-1.5) % POC ABG HHb (Measured) (0-5) % ABG Methemoglobin (0.0-3.0) % ABG O2 Capacity (16-24) mL/dl ABG Potassium (3.6-5.2) mmol/L VBG pH (7.32-7.43) VBG pCO2 (40-60) VBG HCO3 (21-28) mmol/l VBG Total CO2 (22-28) mmol.L VBG O2 Sat (Calc) (40-65) % VBG Base Excess (0.0-2.0) mmol/L VBG Potassium (3.6-5.2) mmol/L Hgb O2 Saturation (95.0-98.0) % Sodium (132-148) mmol/L Chloride (98-107) mmol/L Glucose (65-105) mg/dl Lactate (0.7-2.1) mmol/L FiO2 % Potassium (3.6-5.0) mmol/L Carbon Dioxide (21-33) mmol/L Anion Gap (10-20) BUN (7-21) mg/dL Creatinine (0.7-1.2) mg/dl Est GFR ( Amer) Est GFR (Non-Af Amer) POC Glucose (mg/dL) 193 H 303 H (65-110) mg/dL Random Glucose (70-110) mg/dL Calcium (8.4-10.5) mg/dL Total Bilirubin (0.2-1.3) mg/dL AST (14-36) U/L ALT (7-56) U/L Alkaline Phosphatase (38-126) U/L Troponin I ng/mL C-React Prot High Sens > 15.00 H (1.00-3.00) mg/L NT-Pro-B Natriuret Pep (0-450) pg/mL Total Protein (5.8-8.3) g/dL Albumin (3.0-4.8) g/dL Globulin gm/dL Albumin/Globulin Ratio (1.1-1.8) Arterial Blood Potassium (3.6-5.2) mmol/L Venous Blood Potassium (3.6-5.2) mmol/L Hepatitis A IgM Ab (NEGATIVE) Hep Bs Antigen (NEGATIVE) Hep B Core IgM Ab (NEGATIVE) Hepatitis C Antibody (NEGATIVE) HIV 1&2 Antibody Screen (NEGATIVE) Blood Type Blood Type Confirm Antibody Screen Crossmatch BBK History Checked 06/11/18 06/11/18 06/11/18 Range/Units 10:32 09:28 08:01 WBC (4.5-11.0) 10^3/ul RBC (3.5-6.1) 10^6/uL Hgb (12.0-16.0) g/dL Hct (36.0-48.0) % MCV (80.0-105.0) fl MCH (25.0-35.0) pg MCHC (31.0-37.0) g/dl RDW (11.5-14.5) % Plt Count (120.0-450.0) 10^3/uL Gran % (50.0-68.0) % Lymph % (Auto) (22.0-35.0) % Pettis % (Auto) (1.0-6.0) % Eos % (Auto) (1.5-5.0) % Baso % (Auto) (0.0-3.0) % Gran # (1.4-6.5) Lymph # (Auto) (1.2-3.4) Pettis # (Auto) (0.1-0.6) Eos # (Auto) (0.0-0.7) Baso # (Auto) (0.0-2.0) K/mm3 pCO2 (35-45) mm/Hg pO2 (30-55) mm/Hg HCO3 (21-28) mmol/L ABG pH (7.35-7.45) ABG Total CO2 (22-28) mmol.L ABG O2 Saturation (95-98) % ABG O2 Content (15-23) ML/dl ABG Base Excess (-2.0-3.0) mmol/L ABG Hemoglobin (11.7-17.4) g/dL ABG Carboxyhemoglobin (0.5-1.5) % POC ABG HHb (Measured) (0-5) % ABG Methemoglobin (0.0-3.0) % ABG O2 Capacity (16-24) mL/dl ABG Potassium (3.6-5.2) mmol/L VBG pH (7.32-7.43) VBG pCO2 (40-60) VBG HCO3 (21-28) mmol/l VBG Total CO2 (22-28) mmol.L VBG O2 Sat (Calc) (40-65) % VBG Base Excess (0.0-2.0) mmol/L VBG Potassium (3.6-5.2) mmol/L Hgb O2 Saturation (95.0-98.0) % Sodium (132-148) mmol/L Chloride (98-107) mmol/L Glucose (65-105) mg/dl Lactate (0.7-2.1) mmol/L FiO2 % Potassium (3.6-5.0) mmol/L Carbon Dioxide (21-33) mmol/L Anion Gap (10-20) BUN (7-21) mg/dL Creatinine (0.7-1.2) mg/dl Est GFR ( Amer) Est GFR (Non-Af Amer) POC Glucose (mg/dL) 291 H 395 H (65-110) mg/dL Random Glucose (70-110) mg/dL Calcium (8.4-10.5) mg/dL Total Bilirubin (0.2-1.3) mg/dL AST (14-36) U/L ALT (7-56) U/L Alkaline Phosphatase (38-126) U/L Troponin I ng/mL C-React Prot High Sens (1.00-3.00) mg/L NT-Pro-B Natriuret Pep (0-450) pg/mL Total Protein (5.8-8.3) g/dL Albumin (3.0-4.8) g/dL Globulin gm/dL Albumin/Globulin Ratio (1.1-1.8) Arterial Blood Potassium (3.6-5.2) mmol/L Venous Blood Potassium (3.6-5.2) mmol/L Hepatitis A IgM Ab Negative (NEGATIVE) Hep Bs Antigen Negative (NEGATIVE) Hep B Core IgM Ab Negative (NEGATIVE) Hepatitis C Antibody Negative (NEGATIVE) HIV 1&2 Antibody Screen (NEGATIVE) Blood Type Blood Type Confirm Antibody Screen Crossmatch BBK History Checked Laboratory Results - last 24 hr 06/11/18 06/11/18 06/11/18 08:01 09:28 10:32 WBC RBC Hgb Hct MCV MCH MCHC RDW Plt Count Gran % Lymph % (Auto) Pettis % (Auto) Eos % (Auto) Baso % (Auto) Gran # Lymph # (Auto) Pettis # (Auto) Eos # (Auto) Baso # (Auto) pCO2 pO2 HCO3 ABG pH ABG Total CO2 ABG O2 Saturation ABG O2 Content ABG Base Excess ABG Hemoglobin ABG Carboxyhemoglobin POC ABG HHb (Measured) ABG Methemoglobin ABG O2 Capacity ABG Potassium VBG pH VBG pCO2 VBG HCO3 VBG Total CO2 VBG O2 Sat (Calc) VBG Base Excess VBG Potassium Hgb O2 Saturation Sodium Chloride Glucose Lactate FiO2 Potassium Carbon Dioxide Anion Gap BUN Creatinine Est GFR ( Amer) Est GFR (Non-Af Amer) POC Glucose (mg/dL) 395 H 291 H Random Glucose Calcium Total Bilirubin AST ALT Alkaline Phosphatase Troponin I C-React Prot High Sens NT-Pro-B Natriuret Pep Total Protein Albumin Globulin Albumin/Globulin Ratio Arterial Blood Potassium Venous Blood Potassium Hepatitis A IgM Ab Negative Hep Bs Antigen Negative Hep B Core IgM Ab Negative Hepatitis C Antibody Negative HIV 1&2 Antibody Screen Blood Type Blood Type Confirm Antibody Screen Crossmatch BBK History Checked 06/11/18 06/11/18 06/11/18 11:29 11:39 13:32 WBC RBC Hgb Hct MCV MCH MCHC RDW Plt Count Gran % Lymph % (Auto) Pettis % (Auto) Eos % (Auto) Baso % (Auto) Gran # Lymph # (Auto) Pettis # (Auto) Eos # (Auto) Baso # (Auto) pCO2 pO2 HCO3 ABG pH ABG Total CO2 ABG O2 Saturation ABG O2 Content ABG Base Excess ABG Hemoglobin ABG Carboxyhemoglobin POC ABG HHb (Measured) ABG Methemoglobin ABG O2 Capacity ABG Potassium VBG pH VBG pCO2 VBG HCO3 VBG Total CO2 VBG O2 Sat (Calc) VBG Base Excess VBG Potassium Hgb O2 Saturation Sodium Chloride Glucose Lactate FiO2 Potassium Carbon Dioxide Anion Gap BUN Creatinine Est GFR ( Amer) Est GFR (Non-Af Amer) POC Glucose (mg/dL) 303 H 193 H Random Glucose Calcium Total Bilirubin AST ALT Alkaline Phosphatase Troponin I C-React Prot High Sens > 15.00 H NT-Pro-B Natriuret Pep Total Protein Albumin Globulin Albumin/Globulin Ratio Arterial Blood Potassium Venous Blood Potassium Hepatitis A IgM Ab Hep Bs Antigen Hep B Core IgM Ab Hepatitis C Antibody HIV 1&2 Antibody Screen Blood Type Blood Type Confirm Antibody Screen Crossmatch BBK History Checked 06/11/18 06/11/18 06/11/18 14:20 14:25 14:45 WBC RBC Hgb Hct MCV MCH MCHC RDW Plt Count Gran % Lymph % (Auto) Pettis % (Auto) Eos % (Auto) Baso % (Auto) Gran # Lymph # (Auto) Pettis # (Auto) Eos # (Auto) Baso # (Auto) pCO2 pO2 HCO3 ABG pH ABG Total CO2 ABG O2 Saturation ABG O2 Content ABG Base Excess ABG Hemoglobin ABG Carboxyhemoglobin POC ABG HHb (Measured) ABG Methemoglobin ABG O2 Capacity ABG Potassium VBG pH VBG pCO2 VBG HCO3 VBG Total CO2 VBG O2 Sat (Calc) VBG Base Excess VBG Potassium Hgb O2 Saturation Sodium Chloride Glucose Lactate FiO2 Potassium Carbon Dioxide Anion Gap BUN Creatinine Est GFR ( Amer) Est GFR (Non-Af Amer) POC Glucose (mg/dL) 168 H Random Glucose Calcium Total Bilirubin AST ALT Alkaline Phosphatase Troponin I C-React Prot High Sens NT-Pro-B Natriuret Pep Total Protein Albumin Globulin Albumin/Globulin Ratio Arterial Blood Potassium Venous Blood Potassium Hepatitis A IgM Ab Hep Bs Antigen Hep B Core IgM Ab Hepatitis C Antibody HIV 1&2 Antibody Screen Blood Type A NEGATIVE Blood Type Confirm A NEGATIVE Antibody Screen Negative Crossmatch See Detail BBK History Checked No verified bt 06/11/18 06/11/18 06/11/18 14:45 15:37 17:18 WBC RBC Hgb Hct MCV MCH MCHC RDW Plt Count Gran % Lymph % (Auto) Pettis % (Auto) Eos % (Auto) Baso % (Auto) Gran # Lymph # (Auto) Pettis # (Auto) Eos # (Auto) Baso # (Auto) pCO2 pO2 31 HCO3 ABG pH ABG Total CO2 ABG O2 Saturation ABG O2 Content ABG Base Excess ABG Hemoglobin ABG Carboxyhemoglobin POC ABG HHb (Measured) ABG Methemoglobin ABG O2 Capacity ABG Potassium VBG pH 7.26 L VBG pCO2 52.0 VBG HCO3 23.3 VBG Total CO2 24.9 VBG O2 Sat (Calc) 66.9 H VBG Base Excess -4.3 L VBG Potassium 4.6 Hgb O2 Saturation Sodium 135.0 Chloride 96.0 L Glucose 138 H Lactate 5.6 H* FiO2 21.0 Potassium Carbon Dioxide Anion Gap BUN Creatinine Est GFR ( Amer) Est GFR (Non-Af Amer) POC Glucose (mg/dL) 171 H Random Glucose Calcium Total Bilirubin AST ALT Alkaline Phosphatase Troponin I C-React Prot High Sens NT-Pro-B Natriuret Pep Total Protein Albumin Globulin Albumin/Globulin Ratio Arterial Blood Potassium Venous Blood Potassium 4.6 Hepatitis A IgM Ab Hep Bs Antigen Hep B Core IgM Ab Hepatitis C Antibody HIV 1&2 Antibody Screen Negative Blood Type Blood Type Confirm Antibody Screen Crossmatch BBK History Checked 06/11/18 06/11/18 06/11/18 17:20 18:00 18:30 WBC 3.3 L D RBC 6.12 H Hgb 17.6 H D Hct 51.9 H MCV 84.8 MCH 28.8 MCHC 33.9 RDW 14.8 H Plt Count 65 L Gran % 84.3 H Lymph % (Auto) 13.6 L Pettis % (Auto) 1.2 Eos % (Auto) 0.3 L Baso % (Auto) 0.6 Gran # 2.80 Lymph # (Auto) 0.5 L Pettis # (Auto) 0.0 L Eos # (Auto) 0.0 Baso # (Auto) 0.02 pCO2 64 H pO2 229.0 H HCO3 20.8 L ABG pH 7.12 L* ABG Total CO2 22.8 ABG O2 Saturation 98.9 H ABG O2 Content 22.5 ABG Base Excess -9.8 L ABG Hemoglobin 16.4 ABG Carboxyhemoglobin 2.6 H POC ABG HHb (Measured) 1.1 ABG Methemoglobin 0.7 ABG O2 Capacity 22.8 ABG Potassium VBG pH VBG pCO2 VBG HCO3 VBG Total CO2 VBG O2 Sat (Calc) VBG Base Excess VBG Potassium Hgb O2 Saturation 95.7 Sodium 137 Chloride 107 Glucose Lactate FiO2 100.0 Potassium 3.8 Carbon Dioxide 22 Anion Gap 12 BUN 38 H Creatinine 0.5 L Est GFR ( Amer) > 60 Est GFR (Non-Af Amer) > 60 POC Glucose (mg/dL) Random Glucose 132 H Calcium 7.8 L Total Bilirubin AST ALT Alkaline Phosphatase Troponin I < 0.01 C-React Prot High Sens NT-Pro-B Natriuret Pep Total Protein Albumin Globulin Albumin/Globulin Ratio Arterial Blood Potassium Venous Blood Potassium Hepatitis A IgM Ab Hep Bs Antigen Hep B Core IgM Ab Hepatitis C Antibody HIV 1&2 Antibody Screen Blood Type Blood Type Confirm Antibody Screen Crossmatch BBK History Checked 06/11/18 06/11/18 06/11/18 19:54 20:37 22:54 WBC RBC Hgb Hct MCV MCH MCHC RDW Plt Count Gran % Lymph % (Auto) Pettis % (Auto) Eos % (Auto) Baso % (Auto) Gran # Lymph # (Auto) Pettis # (Auto) Eos # (Auto) Baso # (Auto) pCO2 43 43 pO2 57.0 L 60.0 L HCO3 18.9 L 18.9 L ABG pH 7.25 L 7.25 L ABG Total CO2 20.2 L 20.2 L ABG O2 Saturation 91.4 L 93.1 L ABG O2 Content 22.5 ABG Base Excess -8.1 L -8.2 L ABG Hemoglobin 17.7 H ABG Carboxyhemoglobin 1.9 H POC ABG HHb (Measured) 6.7 H ABG Methemoglobin 0.9 ABG O2 Capacity 24.2 H ABG Potassium 4.0 VBG pH VBG pCO2 VBG HCO3 VBG Total CO2 VBG O2 Sat (Calc) VBG Base Excess VBG Potassium Hgb O2 Saturation 90.5 L Sodium 135.0 Chloride 108.0 H Glucose 133 H Lactate 3.1 H FiO2 60.0 65.0 Potassium Carbon Dioxide Anion Gap BUN Creatinine Est GFR ( Amer) Est GFR (Non-Af Amer) POC Glucose (mg/dL) 120 H Random Glucose Calcium Total Bilirubin AST ALT Alkaline Phosphatase Troponin I C-React Prot High Sens NT-Pro-B Natriuret Pep Total Protein Albumin Globulin Albumin/Globulin Ratio Arterial Blood Potassium 4.0 Venous Blood Potassium Hepatitis A IgM Ab Hep Bs Antigen Hep B Core IgM Ab Hepatitis C Antibody HIV 1&2 Antibody Screen Blood Type Blood Type Confirm Antibody Screen Crossmatch BBK History Checked 06/12/18 06/12/18 06/12/18 01:24 03:50 05:20 WBC RBC Hgb Hct MCV MCH MCHC RDW Plt Count Gran % Lymph % (Auto) Pettis % (Auto) Eos % (Auto) Baso % (Auto) Gran # Lymph # (Auto) Pettis # (Auto) Eos # (Auto) Baso # (Auto) pCO2 44 pO2 63.0 L HCO3 19.3 L ABG pH 7.25 L ABG Total CO2 20.7 L ABG O2 Saturation 94.0 L ABG O2 Content ABG Base Excess -7.7 L ABG Hemoglobin ABG Carboxyhemoglobin POC ABG HHb (Measured) ABG Methemoglobin ABG O2 Capacity ABG Potassium 4.6 VBG pH VBG pCO2 VBG HCO3 VBG Total CO2 VBG O2 Sat (Calc) VBG Base Excess VBG Potassium Hgb O2 Saturation Sodium 134.0 Chloride 107.0 Glucose 123 H Lactate 3.4 H FiO2 65.0 Potassium Carbon Dioxide Anion Gap BUN Creatinine Est GFR ( Amer) Est GFR (Non-Af Amer) POC Glucose (mg/dL) 132 H 136 H Random Glucose Calcium Total Bilirubin AST ALT Alkaline Phosphatase Troponin I C-React Prot High Sens NT-Pro-B Natriuret Pep Total Protein Albumin Globulin Albumin/Globulin Ratio Arterial Blood Potassium 4.6 Venous Blood Potassium Hepatitis A IgM Ab Hep Bs Antigen Hep B Core IgM Ab Hepatitis C Antibody HIV 1&2 Antibody Screen Blood Type Blood Type Confirm Antibody Screen Crossmatch BBK History Checked 06/12/18 06/12/18 06/12/18 05:45 05:45 09:12 WBC RBC Hgb Hct MCV MCH MCHC RDW Plt Count Gran % Lymph % (Auto) Pettis % (Auto) Eos % (Auto) Baso % (Auto) Gran # Lymph # (Auto) Pettis # (Auto) Eos # (Auto) Baso # (Auto) pCO2 pO2 HCO3 ABG pH ABG Total CO2 ABG O2 Saturation ABG O2 Content ABG Base Excess ABG Hemoglobin ABG Carboxyhemoglobin POC ABG HHb (Measured) ABG Methemoglobin ABG O2 Capacity ABG Potassium VBG pH VBG pCO2 VBG HCO3 VBG Total CO2 VBG O2 Sat (Calc) VBG Base Excess VBG Potassium Hgb O2 Saturation Sodium 138 Chloride 107 Glucose Lactate FiO2 Potassium 4.5 Carbon Dioxide 21 Anion Gap 14 BUN 44 H Creatinine 0.7 Est GFR ( Amer) > 60 Est GFR (Non-Af Amer) > 60 POC Glucose (mg/dL) 92 Random Glucose 121 H Calcium 7.6 L Total Bilirubin 0.9 AST 30 ALT 39 Alkaline Phosphatase 251 H D Troponin I C-React Prot High Sens NT-Pro-B Natriuret Pep 43630 H Total Protein 4.3 L Albumin 1.8 L Globulin 2.5 Albumin/Globulin Ratio 0.7 L Arterial Blood Potassium Venous Blood Potassium Hepatitis A IgM Ab Hep Bs Antigen Hep B Core IgM Ab Hepatitis C Antibody HIV 1&2 Antibody Screen Blood Type Blood Type Confirm Antibody Screen Crossmatch BBK History Checked Attending/Attestation - Attestation I have personally seen and examined this patient.: Yes I have fully participated in the care of the patient.: Yes I have reviewed all pertinent clinical information: Yes Notes (Text): 06/12/18 14:38 The patient was seen and examined at the bedside. Patient care was discussed with resident Medical records, lab studies, and imaging were reviewed and management issues were discussed and formulated. Last 24H events reviewed. Agree with above treatment plans as outlined in 's note with addition of the following: Acute Respiratory Failure \ Hypoxemia \ Septic Shock \ Necrotizing Fasciitis \ DM 2 \ COPD \ -hemodynamic monitoring to maintain MAP>65; vasopressor support with levophed, vasopressin and phenylephrine -f\u Echo, cardiology team f\u -mechanical ventilation and o2 supplementation to maintain Spo2 >90 Pao2>60 -monitor for TV 6ml\kg IBW and plateau pressure <30 -ABG in AM reviewed and PEEP increased to 7 -CXR reviewed -continue nebs and pulmonary toileting -continue broad spectrum Abx as per ID team and f\u cultures -f\u Bun\Cr and U\o; monitor and replace e-lites -NPO diet and aspiration precautions -surgical team following closely and took to OR today for repeat debreedement of necrotic tissue -ISS and BGM monitoring -f\u repeat labs post-op -DVT \PUD prophylaxis CCM time 36min
--- NOTE | 2018-06-12 10:57 | RAD ---
Date of service: 06/12/2018 HISTORY: Orogastric tube placement. COMPARISON: June 11, 2018. FINDINGS: LUNGS: New left lower lobe infiltrate. PLEURA: Small bilateral pleural effusions. CARDIOVASCULAR: No radiographic findings to suggest acute or significant cardiovascular disease. OSSEOUS STRUCTURES: No significant abnormalities. VISUALIZED UPPER ABDOMEN: Normal. OTHER FINDINGS: Stable, satisfactory position ventilatory, vascular and nasogastric apparatus. IMPRESSION: Satisfactory position of recently placed nasogastric tube. New left lower lobe infiltrate/ bilateral small pleural effusions.
--- NOTE | 2018-06-12 11:44 | PCM.SURG1 ---
Surgeon's Initial Post Op Note - Surgeon's Notes Surgeon: Dr. Duggan Patient Account Analyst: Dr. Owen PGY3, Dr. Briceno PGY3, Dr. Amezcua PGY2 Type of Anesthesia: General Endo Anesthesia Administered By: Dr. Hess Pre-Operative Diagnosis: Necrotizing Fascitis Operative Findings: See operative dictation Post-Operative Diagnosis: Necrotizing Fascitis Operation Performed: Abdominal Wall and Flank Debriedment Specimen/Specimens Removed: Necrotic Tissue Estimated Blood Loss: EBL {In ML}: 50 Blood Products Given: N/A Drains Used: [place] Post-Op Condition: Critical Date of Surgery/Procedure: 06/12/18 Time of Surgery/Procedure: 11:44
[2018-06-12 13:38] LABS: HEPATITIS B CORE AB NEGATIVE (NEGATIVE)
[2018-06-12] MEDS ORDERED: Albumin Human 25% (12.5 gm/50 ml) IV ONE ×2 (14:41→15:15)
--- NOTE | 2018-06-12 15:30 | CP.PCM.PN ---
Subjective - Date & Time of Evaluation Date of Evaluation: 06/12/18 Time of Evaluation: 09:00 - Subjective Subjective: Patient had debridement of abdominal wall yesterday and going for surgery again today, no fevers. Objective - Vital Signs/Intake and Output Vital Signs (last 24 hours): Temp Pulse Resp BP Pulse Ox 97.2 F L 103 H 22 93/57 L 91 L 06/11/18 08:25 06/11/18 10:50 06/11/18 10:50 06/11/18 10:45 06/11/18 10:50 Intake and Output: 06/11/18 06/11/18 06:59 18:59 Intake Total 11 Balance 11 - Medications Medications: Current Medications Albuterol/Ipratropium (Duoneb 3 Mg/0.5 Mg (3 Ml) Ud) 3 ml IH Q2H PRN PRN Reason: Shortness of Breath Albuterol/Ipratropium (Duoneb 3 Mg/0.5 Mg (3 Ml) Ud) 3 ml IH [id number] LAMONTE Insulin Human Regular 100 (units/ Sodium Chloride) 100 mls @ 5 mls/hr IV .Q20H PRN; Protocol; 5 UNITS/HR PRN Reason: TITRATE PER MD ORDER Last Titration: 06/11/18 10:33 Dose: 3 units/hr, 3 mls/hr Meropenem (Merrem Iv 1 Gm Premix) 50 mls @ 100 mls/hr IVPB Q12 LAMONTE PRN Reason: Protocol Insulin Human Lispro (Humalog High) 0 units SC ACHS LAMONTE PRN Reason: Protocol - Labs Labs: 06/11/18 08:00 PT 13.5 SECONDS (9.4-12.5) H 06/11/18 04:45 INR 1.17 06/11/18 04:45 APTT 39.3 Seconds (25.1-36.5) H 06/11/18 04:45 - Constitutional Appears: Chronically Ill, Other (lethargic) - Head Exam Head Exam: NORMAL INSPECTION - Respiratory Exam Respiratory Exam: Decreased Breath Sounds - Cardiovascular Exam Cardiovascular Exam: +S1, +S2 - GI/Abdominal Exam GI & Abdominal Exam: Soft. absent: Tenderness Additional comments: dressings in place Assessment and Plan - Assessment and Plan (Free Text) Plan: Assessment severe sepsis/septic shock S/P acute renal failure due to severe abdominal wall skin and skin structure infection/necrotizing fasciitis/Isac gangrene associated with trauma and vulvar mass S/P debridement and for repeat surgery today HTN S/P nephrectomy Plan continue IV Vancomycin, Merem and IV Clindamycin pending blood cx and wound cx vulvar mass biopsy sample has been sent and will follow up results will continue to monitor clinically
[2018-06-12 16:04] LABS: VENOUS BLOOD GAS PO2 132 mm/Hg (30-55)
[2018-06-12 16:05] LABS: BASO # 0.14 K/mm3 (0.0-2.0); BASO % 1.1 % (0.0-3.0); EOS % 0.2 % (1.5-5.0); GRAN % 90.2 % (50.0-68.0); LYMPH % 7.5 % (22.0-35.0); MEAN CORPUSCULAR HEMOGLOBIN 29.4 pg (25.0-35.0); MEAN CORPUSCULAR HGB CONC 34.2 g/dl (31.0-37.0); MONO # 0.1 (0.1-0.6); RBC 6.15 10^6/uL (3.5-6.1); RED CELL DISTRIBUTION WIDTH 15.6 % (11.5-14.5); WHITE BLOOD COUNT 12.6 10^3/ul (4.5-11.0)
[2018-06-12 16:09] LABS: VENOUS BLOOD PH 7.06 (7.32-7.43)
[2018-06-12] MEDS ORDERED: Sodium Bicarbonate (8.4%) 50 Meq Syringe IVP ONE ×2 (16:11→16:15)
[2018-06-12 16:23] LABS: ALB/GLOB RATIO 0.7 (1.1-1.8); ALBUMIN 2.1 g/dL (3.0-4.8); ALT/SGPT 40 U/L (7-56); AST/SGOT 49 U/L (14-36); BLOOD UREA NITROGEN 48 mg/dL (7-21); CALCIUM 7.4 mg/dL (8.4-10.5); GFR AFRICAN-AMERICAN > 60; GFR NON-AFRICAN AMERICAN > 60; HEMOGLOBIN 18.1 g/dL (12.0-16.0)
[2018-06-12 16:24] LABS: PLATELET COUNT 10 10^3/uL (120.0-450.0)
[2018-06-12 16:52] LABS: LYMPHOCYTE 7 % (22.0-35.0); MONOCYTE 1 % (1.0-6.0); NEUTROPHIL 92 % (50.0-70.0)
[2018-06-12 16:53] LABS: ANISOCYTOSIS 1+
[2018-06-12 16:54] LABS: PLATELET ESTIMATE LOW (NORMAL)
[2018-06-12] MEDS: Albumin Human 25% (12.5 gm/50 ml) IV SCH ×2 (18:38→23:47)
--- NOTE | 2018-06-12 19:41 | CP.PCM.PN ---
Subjective - Date & Time of Evaluation Date of Evaluation: 06/12/18 Time of Evaluation: 19:39 - Subjective Subjective: Spoke with Dr. Ramsey from cardiology and Echo is suggestive of possible PE and therefore need for heparin gtt. Discussed case with Drs. Oleary, Ben and Kane and agrrement to start heparin gtt without bolus per PE protocol. Objective - Vital Signs/Intake and Output Vital Signs (last 24 hours): Temp Pulse Resp BP Pulse Ox 100.8 F H 124 H 17 92/55 L 100 06/12/18 19:00 06/12/18 19:00 06/12/18 12:55 06/12/18 19:00 06/12/18 19:00 Intake and Output: 06/12/18 06/13/18 18:59 06:59 Intake Total 2504 Output Total 300 Balance 2204 - Medications Medications: Current Medications Albumin Human (Albumin Human 25% (12.5 Gm/50 Ml)) 12.5 gm IV Q6H LAMONTE Stop: 06/13/18 14:43 Last Admin: 06/12/18 18:38 Dose: 12.5 gm Albuterol/Ipratropium (Duoneb 3 Mg/0.5 Mg (3 Ml) Ud) 3 ml IH Q2H PRN PRN Reason: Shortness of Breath Albuterol/Ipratropium (Duoneb 3 Mg/0.5 Mg (3 Ml) Ud) 3 ml IH [id number] LAMONTE Last Admin: 06/12/18 19:31 Dose: 3 ml Heparin Sodium (Porcine) (Heparin) 5,000 units IVP Q8 LAMONTE PRN Reason: Protocol Last Admin: 06/12/18 14:22 Dose: 5,000 units Meropenem (Merrem Iv 1 Gm Premix) 50 mls @ 100 mls/hr IVPB Q12 LAMONTE PRN Reason: Protocol Last Admin: 06/12/18 09:25 Dose: 100 mls/hr Vancomycin HCl (Vancomycin 1gm) 1 gm in 250 mls @ 167 mls/hr IVPB Q12H LAMONTE PRN Reason: Protocol Last Admin: 06/12/18 17:56 Dose: 167 mls/hr Clindamycin Phosphate 900 mg/ (Sodium Chloride) 106 mls @ 106 mls/hr IVPB Q8 LAMONTE PRN Reason: Protocol Last Admin: 06/12/18 13:57 Dose: 106 mls/hr Fentanyl Citrate (Fentanyl Citrate/Sodium Chloride 1 Mg/100 Ml) 1,000 mcg in 100 mls @ 2 mls/hr IV .Q24H PRN; Protocol; 20 MCG/HR PRN Reason: TITRATE PER MD ORDER Last Admin: 06/12/18 09:36 Dose: 75 mcg/hr, 7.5 mls/hr NOREPINEPHRINE BIT/0.9 % NACL (Levophed 4 Mg/ 250 Ml Ns Premixed) 4 mg in 250 mls @ 15 mls/hr IV .[id number] PRN; Protocol; 4 MCG/MIN PRN Reason: TITRATE PER MD ORDER Last Admin: 06/12/18 17:52 Dose: 15 mcg/min, 56.25 mls/hr Sodium Chloride (Sodium Chloride 0.9%) 1,000 mls @ 100 mls/hr IV .Q10H LAMONTE Last Admin: 06/12/18 08:00 Dose: 100 mls/hr Acetaminophen (Ofirmev) 1,000 mg in 100 mls @ 400 mls/hr IVPB Q6H PRN PRN Reason: Temperature Stop: 06/14/18 03:06 Last Admin: 06/12/18 03:19 Dose: 400 mls/hr Vasopressin 20 units/ Sodium (Chloride) 101 mls @ 9.09 mls/hr IV .Q11H7M LAMONTE; 0.03 U/MIN PRN Reason: Protocol Last Admin: 06/12/18 09:12 Dose: 9.09 mls/hr Phenylephrine HCl 40 mg/ (Sodium Chloride) 254 mls @ 38.1 mls/hr IV .Q6H40M PRN ; Protocol; 100 MCG/MIN PRN Reason: TITRATE PER MD ORDER Last Admin: 06/12/18 17:40 Dose: 37.5 mcg/min, 14.28 mls/hr Insulin Human Lispro (Humalog High) 0 units SC Q4 LAMONET PRN Reason: Protocol Lorazepam (Ativan) 2 mg IVP Q2H PRN; Protocol PRN Reason: Anxiety Pantoprazole Sodium (Protonix Inj) 40 mg IVP DAILY LAMONTE Last Admin: 06/12/18 09:26 Dose: 40 mg - Labs Labs: 06/12/18 15:19 06/12/18 15:19 PT 13.5 SECONDS (9.4-12.5) H 06/11/18 04:45 INR 1.17 06/11/18 04:45 APTT 39.3 Seconds (25.1-36.5) H 06/11/18 04:45
[2018-06-12] MEDS: Heparin25000 units/250ml 1/2NS 25,000 UNITS/250 ML BAG IV PRN (20:27)
[2018-06-12 21:40] LABS: BASO # 0.08 K/mm3 (0.0-2.0); BASO % 0.5 % (0.0-3.0); EOS % 0.1 % (1.5-5.0); GRAN # 14.04 (1.4-6.5); GRAN % 89.4 % (50.0-68.0); HEMOGLOBIN 15.3 g/dL (12.0-16.0); LYMPH # 1.2 (1.2-3.4); LYMPH % 7.6 % (22.0-35.0); MEAN CELL VOLUME 84.9 fl (80.0-105.0); MEAN CORPUSCULAR HEMOGLOBIN 28.9 pg (25.0-35.0); MEAN CORPUSCULAR HGB CONC 34.1 g/dl (31.0-37.0); MONO # 0.4 (0.1-0.6); MONO % 2.4 % (1.0-6.0); RBC 5.29 10^6/uL (3.5-6.1); RED CELL DISTRIBUTION WIDTH 15.3 % (11.5-14.5); WHITE BLOOD COUNT 15.7 10^3/ul (4.5-11.0)
[2018-06-12 21:49] LABS: VENOUS BLOOD GAS BASE EXCESS -9.5 mmol/L (0.0-2.0); VENOUS BLOOD GAS PO2 49 mm/Hg (30-55); VENOUS BLOOD PH 7.14 (7.32-7.43)
[2018-06-12 21:50] LABS: PLATELET COUNT 7 10^3/uL (120.0-450.0)
[2018-06-12 21:51] LABS: PLATELET ESTIMATE LOW (NORMAL)
[2018-06-12 21:59] LABS: INR 1.48
[2018-06-12 22:01] LABS: BLOOD UREA NITROGEN 51 mg/dL (7-21); GFR AFRICAN-AMERICAN > 60; GFR NON-AFRICAN AMERICAN 57
[2018-06-12 22:02] LABS: ALB/GLOB RATIO 0.9 (1.1-1.8); ALBUMIN 2.3 g/dL (3.0-4.8); ALT/SGPT 43 U/L (7-56); AST/SGOT 34 U/L (14-36); CALCIUM 7.2 mg/dL (8.4-10.5)
[2018-06-12 22:06] LABS: PARTIAL THROMBOPLASTIN TIME 127.5 Seconds (25.1-36.5)
[2018-06-12 23:10] LABS: INR 1.48
[2018-06-12 23:16] LABS: PARTIAL THROMBOPLASTIN TIME 127.2 Seconds (25.1-36.5)
--- NOTE | 2018-06-13 00:07 | CON ---
Copied To: Cipriano Ramsey MD Attending MD: Cipriano Ramsey MD DATE: 06/12/2018 SERVICE: Cardiology. REASON FOR THE CONSULTATION AND FOLLOWUP: Cardiac evaluation, went to the OR for debridement, preop evaluation, risk stratification for necrotizing fascitis, debridement of necrotizing fascitis. BRIEF CLINICAL HISTORY: This is a 58-year-old female with past medical history significant for diabetes, hypertension, hyperlipidemia, COPD, brought by EMS for altered mental status. The patient is intubated, septic, subcutaneous emphysema and necrotizing fascitis and Cardiology consult was called because of sepsis, septic shock, preop evaluation, risk stratification for OR. The patient is currently being intubated. PAST MEDICAL HISTORY: Significant for COPD, diabetes, hypertension, hyperlipidemia. SOCIAL HISTORY: Smokes 3 packs a day. Denies any history of alcohol abuse in the chart. CURRENT MEDICATIONS: In the chart, the patient at home was unobtainable. Currently, the patient is on meropenem, IV fluid, vancomycin. REVIEW OF SYSTEMS: As per HPI. PREVIOUS CARDIAC WORKUP: The patient is new to the hospital, not available. PHYSICAL EXAMINATION: VITAL SIGNS: Height of the patient 5 feet 6 inches, weight of the patient 170 pounds, body mass index 27.4 kg/sq m. Temperature 100, heart rate 124, blood pressure 112/69. HEENT: PERRLA. Extraocular muscles intact. NECK: Supple. No carotid bruit. No thyromegaly. CHEST: Clear to auscultation. HEART: S1 and S2 regular. ABDOMEN: Soft. EXTREMITIES: Clubbing and cyanosis negative. LABORATORY DATA: Blood workup; WBC 3.3, hemoglobin 17.6, hematocrit 51.9, platelet count 65. Chemistry shows sodium 138, potassium 4.5, chloride 107, carbon dioxide 21, anion gap of 14, BUN 44, creatinine 0.7, total protein 4.3, albumin 1.8, albumin and globulin ratio 0.7. IMPRESSION: Necrotizing fascitis, sepsis, septic shock, intubated, respiratory failure, severe protein-calorie malnutrition, which was not present on admission, anemia, thrombocytopenia, hypotension secondary to septic shock. RECOMMENDATIONS: Continue broad-spectrum antibiotic. Give IV albumin. The patient is cleared to go for surgery to save her life. We will get echo to assess LV function. Further recommendations depending on the patient's condition. We will follow with you. Overall, the patient's condition is critical. Prognosis is guarded. Thank you, Dr. Oleary for providing us the opportunity in taking care of Cassie Mata. Cipriano Ramsey MD
[2018-06-13 01:10] LABS: ARTERIAL BLOOD GAS HCO3 18.3 mmol/L (21-28); ARTERIAL BLOOD GAS O2 SAT 96.9 % (95-98); ARTERIAL BLOOD GAS PCO2 49 mm/Hg (35-45); ARTERIAL BLOOD GAS TCO2 19.8 mmol.L (22-28)
[2018-06-13 01:15] LABS: BASO # 0.09 K/mm3 (0.0-2.0); BASO % 0.6 % (0.0-3.0); EOS % 0.1 % (1.5-5.0); GRAN # 13.46 (1.4-6.5); GRAN % 88.1 % (50.0-68.0); HEMOGLOBIN 15.5 g/dL (12.0-16.0); LYMPH # 1.3 (1.2-3.4); LYMPH % 8.3 % (22.0-35.0); MEAN CELL VOLUME 84.9 fl (80.0-105.0); MEAN CORPUSCULAR HEMOGLOBIN 28.6 pg (25.0-35.0); MEAN CORPUSCULAR HGB CONC 33.7 g/dl (31.0-37.0); MONO # 0.4 (0.1-0.6); MONO % 2.9 % (1.0-6.0); RBC 5.42 10^6/uL (3.5-6.1); RED CELL DISTRIBUTION WIDTH 15.5 % (11.5-14.5); WHITE BLOOD COUNT 15.3 10^3/ul (4.5-11.0)
[2018-06-13 01:19] LABS: PLATELET COUNT 8 10^3/uL (120.0-450.0)
[2018-06-13 01:21] LABS: ARTERIAL BLOOD GAS PH 7.18 (7.35-7.45)
[2018-06-13 01:24] LABS: ALB/GLOB RATIO 1.1 (1.1-1.8); ALBUMIN 2.6 g/dL (3.0-4.8); ALT/SGPT 32 U/L (7-56); AST/SGOT 36 U/L (14-36); BLOOD UREA NITROGEN 53 mg/dL (7-21); CALCIUM 7.4 mg/dL (8.4-10.5); GFR AFRICAN-AMERICAN > 60; GFR NON-AFRICAN AMERICAN > 60
[2018-06-13] MEDS: Albuterol-Ipratrop 3 mg / 0.5 (3 ml) UD IH SCH ×4 (03:15→20:10)
[2018-06-13 03:34] LABS: PLATELET ESTIMATE LOW (NORMAL)
[2018-06-13] MEDS: NOREPINEPHRINE BIT/0.9 % NACL 4 MG/250 ML BAG IV PRN ×5 (04:03→23:50)
[2018-06-13] MEDS: Vancomycin 1gm in NS 250ml 1 GM/250 ML BAG IVPB SCH (04:29)
[2018-06-13] MEDS: Insulin Lispro (HUMAlog) HIGH Coverage SC SCH ×6 (04:38→20:00)
[2018-06-13] MEDS: Albumin Human 25% (12.5 gm/50 ml) IV SCH ×2 (05:02→13:22)
[2018-06-13 05:40] LABS: ARTERIAL BLOOD GAS HCO3 17.6 mmol/L (21-28); ARTERIAL BLOOD GAS O2 SAT 97.6 % (95-98); ARTERIAL BLOOD GAS PCO2 46 mm/Hg (35-45)
[2018-06-13 05:44] LABS: ARTERIAL BLOOD GAS PH 7.19 (7.35-7.45)
[2018-06-13] MEDS: Sodium Chloride 0.9% 1,000 ML IV SCH ×2 (06:41→20:50)
[2018-06-13 07:05] LABS: BASO # 0.04 K/mm3 (0.0-2.0); HEMOGLOBIN 13.1 g/dL (12.0-16.0); MEAN CELL VOLUME 84.3 fl (80.0-105.0); MEAN CORPUSCULAR HEMOGLOBIN 28.5 pg (25.0-35.0); MEAN CORPUSCULAR HGB CONC 33.8 g/dl (31.0-37.0); RED CELL DISTRIBUTION WIDTH 15.7 % (11.5-14.5)
[2018-06-13 07:18] LABS: INR 1.51; PROTHROMBIN TIME 17.5 SECONDS (9.4-12.5)
[2018-06-13 07:25] LABS: PLATELET COUNT 12 10^3/uL (120.0-450.0)
[2018-06-13 07:58] LABS: ALBUMIN 2.3 g/dL (3.0-4.8); ALT/SGPT 36 U/L (7-56); AST/SGOT 33 U/L (14-36); BLOOD UREA NITROGEN 57 mg/dL (7-21); CALCIUM 6.8 mg/dL (8.4-10.5); GFR AFRICAN-AMERICAN > 60; GFR NON-AFRICAN AMERICAN > 60
--- NOTE | 2018-06-13 08:05 | CON ---
Copied To: Freddie Norton DPM Attending MD: Freddie Norton DPM DATE: 06/12/2018 HISTORY OF PRESENT ILLNESS: A 58-year-old female seen in ICU, who is currently intubated and unresponsive, for consultation, evaluation, and management of blister formation on her left heel. PAST MEDICAL HISTORY: The patient's medical history is significant for longstanding insulin-dependent diabetes with peripheral neuropathy, chronic obstructive pulmonary disease, right-sided nephrectomy, and depression. The patient was taken to the OR today for debridement of necrotizing fasciitis. PAST SURGICAL HISTORY: Includes right nephrectomy. FAMILY HISTORY: Unremarkable. HOME MEDICATIONS: Noted in MAR. SOCIAL HISTORY: No history of alcohol abuse or illicit drug use, but the patient is a heavy smoker, smoking between 2 and 3 packs per day times 30 years. ALLERGIES: THE PATIENT HAS NO KNOWN DRUG ALLERGIES. PHYSICAL EXAMINATION: VITAL SIGNS: Reveal temperature of 99.5, pulse rate of 125, respiratory rate of 17, and blood pressure of 112/69. LABORATORY FINDINGS: Reveal white count of 12.6, hemoglobin of 18.1, hematocrit of 52.9, and platelet count of 10. Her ESR is 4. OBJECTIVE: Nonpalpable posterior tibial pulse and weakly palpable dorsalis pedis pulse noted bilaterally. Absent pedal hair growth noted bilaterally. A +2 nonpitting lower extremity edema noted bilaterally. The patient is unable to detect a sharp-dull sensation, as she is intubated and unresponsive. Capillary filling time is delayed x10. There is noted to be a large clear fluid-filled bulla on the medial aspect of her left heel at the instep. The blister is intact. The area is void of any edema or erythema to suggest cellulitic activity. ASSESSMENT: Large fluid-filled bulla formation on the left medial heel. PLAN: The patient was examined using a sterile 15-gauge needle. The pustule was drained of all fluid and the roof of the roof of the pustule was kept intact. An application of Bactroban, sterile Adaptic, and a dry sterile dressing was applied. We will order formal type Podus boots to keep both feet off the bed and dressing will be changed daily. Freddie Norton DPM
[2018-06-13] MEDS: Fentanyl 1000mcg/100ml NS 1,000 MCG/100 ML BAG IV PRN ×2 (08:30→23:30)
[2018-06-13 08:44] LABS: PLATELET ESTIMATE LOW (NORMAL)
--- NOTE | 2018-06-13 09:15 | CP.PCM.PN ---
<Lupillo Amezcua - Last Filed: 06/13/18 15:10> Subjective - Date & Time of Evaluation Date of Evaluation: 06/13/18 Time of Evaluation: 07:15 - Subjective Subjective: General Surgery Note for Patient seen and examined at bedside. Overnight, Patient was febrile. Patient received Ofirmev. Patient is still intubated and on vent support. Patient requiring 3 vasopressors for hemodynamically stability. Dressing was changed twice today. ROS unobtainable due to clinical condition. Objective - Vital Signs/Intake and Output Vital Signs (last 24 hours): Temp Pulse Resp BP Pulse Ox 99.9 F H 115 H 17 89/58 L 100 06/13/18 07:00 06/13/18 07:00 06/12/18 12:55 06/13/18 07:00 06/13/18 07:00 Intake and Output: 06/13/18 06/13/18 06:59 18:59 Intake Total 4486 597 Output Total 500 Balance 3986 597 - Medications Medications: Current Medications Albumin Human (Albumin Human 25% (12.5 Gm/50 Ml)) 12.5 gm IV Q6H LAMONTE Stop: 06/13/18 14:43 Last Admin: 06/13/18 05:02 Dose: 12.5 gm Albuterol/Ipratropium (Duoneb 3 Mg/0.5 Mg (3 Ml) Ud) 3 ml IH Q2H PRN PRN Reason: Shortness of Breath Albuterol/Ipratropium (Duoneb 3 Mg/0.5 Mg (3 Ml) Ud) 3 ml IH [id number] [facility] Last Admin: 06/13/18 07:27 Dose: 3 ml Vancomycin HCl (Vancomycin 1gm) 1 gm in 250 mls @ 167 mls/hr IVPB Q12H LAMONTE PRN Reason: Protocol Last Admin: 06/13/18 04:29 Dose: 167 mls/hr Clindamycin Phosphate 900 mg/ (Sodium Chloride) 106 mls @ 106 mls/hr IVPB Q8 LAMONTE PRN Reason: Protocol Last Admin: 06/13/18 05:02 Dose: 106 mls/hr Fentanyl Citrate (Fentanyl Citrate/Sodium Chloride 1 Mg/100 Ml) 1,000 mcg in 100 mls @ 2 mls/hr IV .Q24H PRN; Protocol; 20 MCG/HR PRN Reason: TITRATE PER MD ORDER Last Admin: 06/13/18 08:30 Dose: 80 mcg/hr, 8 mls/hr NOREPINEPHRINE BIT/0.9 % NACL (Levophed 4 Mg/ 250 Ml Ns Premixed) 4 mg in 250 mls @ 15 mls/hr IV .[id number] PRN; Protocol; 4 MCG/MIN PRN Reason: TITRATE PER MD ORDER Last Admin: 06/13/18 09:08 Dose: 20 mcg/min, 75 mls/hr Sodium Chloride (Sodium Chloride 0.9%) 1,000 mls @ 100 mls/hr IV .Q10H LAMONTE Last Admin: 06/13/18 06:41 Dose: 100 mls/hr Acetaminophen (Ofirmev) 1,000 mg in 100 mls @ 400 mls/hr IVPB Q6H PRN PRN Reason: Temperature Stop: 06/14/18 03:06 Last Admin: 06/13/18 02:33 Dose: 400 mls/hr Vasopressin 20 units/ Sodium (Chloride) 101 mls @ 9.09 mls/hr IV .Q11H7M LAMONTE; 0.03 U/MIN PRN Reason: Protocol Last Admin: 06/13/18 06:55 Dose: 9.09 mls/hr Phenylephrine HCl 40 mg/ (Sodium Chloride) 254 mls @ 38.1 mls/hr IV .Q6H40M PRN ; Protocol; 100 MCG/MIN PRN Reason: TITRATE PER MD ORDER Last Admin: 06/13/18 07:14 Dose: 100 mcg/min, 38.1 mls/hr Heparin Sodium/Sodium Chloride (Heparin 97365 Units/250ml 1/2 Normal Saline) 25 ,000 units in 250 mls @ 12.655 mls/hr IV .[id number] PRN; Protocol; 18 UNITS/KG/HR PRN Reason: ADJUST RATE PER PROTOCOL Last Titration: 06/13/18 08:45 Dose: 12 units/kg/hr, 8.437 mls/hr Meropenem (Merrem Iv 1 Gm Premix) 50 mls @ 100 mls/hr IVPB Q8 LAMONTE PRN Reason: Protocol Insulin Human Lispro (Humalog High) 0 units SC Q4 LAMONTE PRN Reason: Protocol Last Admin: 06/13/18 04:38 Dose: Not Given Lorazepam (Ativan) 2 mg IVP Q2H PRN; Protocol PRN Reason: Anxiety Last Admin: 06/13/18 04:07 Dose: 2 mg Pantoprazole Sodium (Protonix Inj) 40 mg IVP DAILY LAMONTE Last Admin: 06/12/18 09:26 Dose: 40 mg Sodium Hypochlorite (Dakins Solution 0.25%) 500 ml TOP DAILY LAMONTE - Labs Labs: 06/13/18 06:40 06/13/18 06:40 PT 17.5 SECONDS (9.4-12.5) H 06/13/18 06:40 INR 1.51 06/13/18 06:40 APTT 136.0 Seconds (25.1-36.5) H* 06/13/18 06:40 - Constitutional Appears: Toxic, Other (intubated and sedated) - Head Exam Head Exam: NORMOCEPHALIC - Eye Exam Eye Exam: Normal appearance - ENT Exam ENT Exam: Mucous Membranes Dry - Respiratory Exam Additional comments: intubated and on mechanical vent support - Cardiovascular Exam Cardiovascular Exam: Tachycardia - GI/Abdominal Exam GI & Abdominal Exam: Soft. absent: Tenderness Additional comments: abdominal fascia exposed, few areas of oozing, surgicel applied, small area of fluctuance was drained and stitch placed, necrotic areas of skin present, kerlex soaked in dakins and abdominal pads used as dressing in conjunction with abdominal binder - Neurological Exam Neurological Exam: Altered (intubated and sedated) - Psychiatric Exam Psychiatric exam: Flat Affect - Skin Skin Exam: absent: Dry, Intact Assessment and Plan - Assessment and Plan (Free Text) Assessment: 58 F presents with uncontrolled DM, septic shock requiring 3 pressors and necrotizing fasciitis now with suspected PE Plan: -IV fluids -Continue pressors -Dressing changes PRN -Monitor for bleeding due to heparin drip and possible DIC -Trend Platelets -Monitor for necrosis -f/u Palliative care -Family met with Neeta Mallory and decided that they will make decisions together but Magnolia (daughter) will have ultimate say - considering DNR -Further recommendations as per Dr. Urban Amezcua PGY2 <Monica Oleary - Last Filed: 06/13/18 21:38> Objective - Vital Signs/Intake and Output Vital Signs (last 24 hours): Temp Pulse Resp BP Pulse Ox 99.5 F 100 H 17 139/57 L 100 06/13/18 18:20 06/13/18 18:20 06/12/18 12:55 06/13/18 18:12 06/13/18 18:20 Intake and Output: 06/13/18 06/14/18 18:59 06:59 Intake Total 5072 Output Total 420 Balance 4652 - Medications Medications: Current Medications Albuterol/Ipratropium (Duoneb 3 Mg/0.5 Mg (3 Ml) Ud) 3 ml IH Q2H PRN PRN Reason: Shortness of Breath Albuterol/Ipratropium (Duoneb 3 Mg/0.5 Mg (3 Ml) Ud) 3 ml IH [id number] LAMONTE Last Admin: 06/13/18 20:10 Dose: 3 ml Clindamycin Phosphate 900 mg/ (Sodium Chloride) 106 mls @ 106 mls/hr IVPB Q8 LAMONTE PRN Reason: Protocol Last Admin: 06/13/18 14:49 Dose: 106 mls/hr Fentanyl Citrate (Fentanyl Citrate/Sodium Chloride 1 Mg/100 Ml) 1,000 mcg in 100 mls @ 2 mls/hr IV .Q24H PRN; Protocol; 20 MCG/HR PRN Reason: TITRATE PER MD ORDER Last Admin: 06/13/18 08:30 Dose: 80 mcg/hr, 8 mls/hr NOREPINEPHRINE BIT/0.9 % NACL (Levophed 4 Mg/ 250 Ml Ns Premixed) 4 mg in 250 mls @ 15 mls/hr IV .[id number] PRN; Protocol; 4 MCG/MIN PRN Reason: TITRATE PER MD ORDER Last Admin: 06/13/18 14:44 Dose: 20 mcg/min, 75 mls/hr Acetaminophen (Ofirmev) 1,000 mg in 100 mls @ 400 mls/hr IVPB Q6H PRN PRN Reason: Temperature Stop: 06/14/18 03:06 Last Admin: 06/13/18 02:33 Dose: 400 mls/hr Vasopressin 20 units/ Sodium (Chloride) 101 mls @ 9.09 mls/hr IV .Q11H7M LAMONTE; 0.03 U/MIN PRN Reason: Protocol Last Admin: 06/13/18 18:12 Dose: 9.09 mls/hr Phenylephrine HCl 40 mg/ (Sodium Chloride) 254 mls @ 38.1 mls/hr IV .Q6H40M PRN ; Protocol; 100 MCG/MIN PRN Reason: TITRATE PER MD ORDER Last Admin: 06/13/18 14:45 Dose: 100 mcg/min, 38.1 mls/hr Heparin Sodium/Sodium Chloride (Heparin 87321 Units/250ml 1/2 Normal Saline) 25 ,000 units in 250 mls @ 12.655 mls/hr IV .[id number] PRN; Protocol; 18 UNITS/KG/HR PRN Reason: ADJUST RATE PER PROTOCOL Last Titration: 06/13/18 18:10 Dose: 12 units/kg/hr, 8.437 mls/hr Meropenem (Merrem Iv 1 Gm Premix) 50 mls @ 100 mls/hr IVPB Q8 LAMONTE PRN Reason: Protocol Last Admin: 06/13/18 13:12 Dose: 100 mls/hr Daptomycin 430 mg/ Sodium (Chloride) 100 mls @ 200 mls/hr IV Q24H LAMONTE Stop: 06/18/18 12:01 Last Admin: 06/13/18 13:26 Dose: 200 mls/hr Sodium Chloride (Sodium Chloride 0.9%) 1,000 mls @ 100 mls/hr IV .Q10H LAMONTE Insulin Human Lispro (Humalog High) 0 units SC Q4 LAMONTE PRN Reason: Protocol Last Admin: 06/13/18 16:14 Dose: 2 units Lorazepam (Ativan) 2 mg IVP Q2H PRN; Protocol PRN Reason: Anxiety Last Admin: 06/13/18 04:07 Dose: 2 mg Pantoprazole Sodium (Protonix Inj) 40 mg IVP DAILY LAMONTE Last Admin: 06/13/18 10:12 Dose: 40 mg Sodium Hypochlorite (Dakins Solution 0.25%) 500 ml TOP DAILY LAMONTE Last Admin: 06/13/18 10:27 Dose: 1 % Sodium Hypochlorite (Dakins Solution 0.25%) 0 ml TOP DAILY LAMONTE - Labs Labs: 06/13/18 11:15 06/13/18 19:51 PT 17.5 SECONDS (9.4-12.5) H 06/13/18 06:40 INR 1.51 06/13/18 06:40 APTT 118.3 Seconds (25.1-36.5) H* 06/13/18 16:05 Assessment and Plan - Assessment and Plan (Free Text) Plan: Patient was seen earlier by Dr. Duggan and resident staff in am. I saw and examined patient at 4pm with resident staff. Worsening clinical status despite further debridement in OR yesterday. Currently, abdominal wall fascia appears keenan and necrotic. Bleeding wound from heparin drip needed for suspected PE. Also has cinsumptve coagulopathy. Remains on 3 vasoactive agents for blood pressure support. Persistent severe acidosis for last 36 hours. 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 Overall prognosis is very grave. No further debridement or surgery is going to result in any curative or meaningful recovery, or quality of life. Continue support care. Appreciate palliative care involvement. No family at bedside to update. Will update family in am and recommend comfort care measures be taken as no surgical options remain.
--- NOTE | 2018-06-13 09:15 | RAD ---
Date of service: 06/13/2018 HISTORY: Intubated COMPARISON: 06/12/2018 FINDINGS: LUNGS: Limited examination due to failure to include the left costophrenic angle and lower left lateral hemithorax. No infiltrate. . PLEURA: Small bilateral pleural effusion. No pneumothorax. CARDIOVASCULAR: ET tube, NG tube and right IJ central venous catheter are all grossly unchanged. OSSEOUS STRUCTURES: No significant abnormalities. VISUALIZED UPPER ABDOMEN: Normal. OTHER FINDINGS: None. IMPRESSION: Small bilateral pleural effusion. Limited examination. No significant change.
--- NOTE | 2018-06-13 09:48 | CON ---
Copied To: Zuhair Duggan MD Attending MD: Zuhair Duggan MD DATE: 06/12/2018 HISTORY OF PRESENT ILLNESS: The patient is seen at the request of Dr. Oleary and the ophthalmology surgical technician. I saw the patient in the ICU. He was found at home, brought to the hospital on 06/11/2018 early in the morning. A 58-year-old who had altered mental status. Police found the patient disheveled, sitting on the floor of the bathroom with bugs and cat litter. Does not recall the incident. She has been scratched by the cats on multiple occasions. PHYSICAL EXAMINATION GENERAL: Remarkable for her lying in bed, not being very responsive. VITAL SIGNS: Temperature afebrile, pulse 112, respiratory rate 18, and blood pressure 104/60. HEENT: Negative. Pupils equal and round. NECK: Supple. CHEST: Clear. HEART: Without murmur. RESPIRATORY: Atrophic. ABDOMEN: Without liver, kidney, spleen, or mass. In lower part of the abdomen, there is an ecchymotic area that looks like it will be full thickness necrosis. LABORATORY DATA: CAT scan of the head is relatively unremarkable. White count on admission was 44.9, hemoglobin elevated at 19.9. Coags 13/39.3. Lactate is elevated 5.6. Blood gas was acidotic 7.12. natriuretic peptide is 11,000. BUN 38, creatinine elevated, and alk phos 251. Alcohol normal as was the opioids. CAT scan is remarkable for multiple gas pockets in the subcutaneous tissue, also around the iliac vessels. The abdomen is unremarkable. This was without oral or IV contrast. Discussion was made with patient, with resident, and Dr. Oleary who is the surgical attending of record. The patient needs an emergency operation. Zuhair Duggan MD
--- NOTE | 2018-06-13 09:49 | OP ---
PROCEDURE DATE: 06/12/2018 PREOPERATIVE DIAGNOSIS: Necrotizing fasciitis. POSTOPERATIVE DIAGNOSIS: Necrotizing fasciitis. CO-SURGEON: Dr. Oleary. DESCRIPTION OF PROCEDURE: The patient was intubated. The abdomen was prepped and draped. The lower pannus was opened and light swabs of skin were removed to somewhat viable tissue. The blunt dissection laterally revealed the pocket that was drained with the [place], removing anything that was obviously . Going to the pelvis, the labia was expressed and the Jose placed through a loop. Rectum unremarkable. 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 The area was irrigated, drained and taken back to the recovery room thereafter. I will follow with Dr. Oleary. Zuhair Duggan MD DT: 06/12/2018 16:32:53
--- NOTE | 2018-06-13 09:50 | CP.PCM.CON ---
History of Present Illness - History of Present Illness History of Present Illness: Palliative consult requested by Dr Santana Posada Reason: Goals of care 58 year old female with past history COPD,DM and HTN who was brought to ED on 10/17 after being found on floor at home. She was altered, found in unsanitary conditions on bathroom floor, multiple cat scratches on body. Patient was able to tell staff that she slipped and fell but did not remember anything else. She denied chest pain, fever,chills, nausea and vomiting. Patient's daughter informed medical team that her mother had been having bilateral lower extremity edema over the past few weeks. Daughter also reported mother having an abdominal wound which was not necrotic. Daughter admits that her mother is non complaint with medical care and is taking no medication. In addition to necrotic abdominal wound, patent also found to have fungating lesion of left labia. Patient was subsequently taken to surgery for abdominal wall and flank debriedment. Patient became hypotensive during procedure, intubated and on [address] of abdomen showing extensive subcutaneous emphysema confined to mid and lower abdomen/pelvis,air tracking along external/internal iliac vascular bundles. Remaining subcutaneous tissues do not contain infiltration, possible ansarca. Extensive cellulitis secondary to a gas forming organism. Urinary bladder collapse, changes of right sided nephrectomy with compensatory hypertrophy of left kidney, possible mild varices in left upper abdomen splenic hilum. CT of head negative for acute findings US of lower extremities negative for DVT Tox screen negative. Blood cultures for S Aureus pending, gram + Cocci identified. Wound culture negative for MRSA PMHX: COPD,HTN, DM, right nephrectomy Social History: Current smoker, no alcohol or drug use. Lives alone, her mother lives in upstairs apartment. Patient used cane when ambulating. Family History: Non contributory. Advance Care Planning: The patient does not have an Advanced Directive. Review of Systems: As per HPI, intubated ,unable to obtain. Past Patient History - Infectious Disease Hx of Infectious Diseases: None - Past Medical History & Family History Past Medical History?: Yes - Past Social History Smoking Status: Heavy Smoker > 10 Cigarettes Daily Alcohol: Other (denies) Drugs: Denies - CARDIAC Hx Cardiac Disorders: No - PULMONARY Hx Respiratory Disorders: No - NEUROLOGICAL Hx Neurological Disorder: No - HEENT Hx HEENT Problems: No - RENAL Hx Chronic Kidney Disease: No - ENDOCRINE/METABOLIC Hx Diabetes Mellitus Type 2: Yes - HEMATOLOGICAL/ONCOLOGICAL Hx Blood Disorders: No - INTEGUMENTARY Hx Dermatological Problems: No - MUSCULOSKELETAL/RHEUMATOLOGICAL Hx Musculoskeletal Disorders: No - GASTROINTESTINAL Hx Gastrointestinal Disorders: No - PSYCHIATRIC Hx Substance Use: No - ANESTHESIA Hx Anesthesia: No Meds Allergies/Adverse Reactions: Allergies Allergy/AdvReac Type Severity Reaction Status Date / Time No Known Allergies Allergy Unverified 06/11/18 04:43 - Medications Medications: Current Medications Albumin Human (Albumin Human 25% (12.5 Gm/50 Ml)) 12.5 gm IV Q6H LAMONTE Stop: 06/13/18 14:43 Last Admin: 06/13/18 05:02 Dose: 12.5 gm Albuterol/Ipratropium (Duoneb 3 Mg/0.5 Mg (3 Ml) Ud) 3 ml IH Q2H PRN PRN Reason: Shortness of Breath Albuterol/Ipratropium (Duoneb 3 Mg/0.5 Mg (3 Ml) Ud) 3 ml IH [id number] LAMONTE Last Admin: 06/13/18 07:27 Dose: 3 ml Vancomycin HCl (Vancomycin 1gm) 1 gm in 250 mls @ 167 mls/hr IVPB Q12H LAMONTE PRN Reason: Protocol Last Admin: 06/13/18 04:29 Dose: 167 mls/hr Clindamycin Phosphate 900 mg/ (Sodium Chloride) 106 mls @ 106 mls/hr IVPB Q8 L[facility]ONTE PRN Reason: Protocol Last Admin: 06/13/18 05:02 Dose: 106 mls/hr Fentanyl Citrate (Fentanyl Citrate/Sodium Chloride 1 Mg/100 Ml) 1,000 mcg in 100 mls @ 2 mls/hr IV .Q24H PRN; Protocol; 20 MCG/HR PRN Reason: TITRATE PER MD ORDER Last Admin: 06/13/18 08:30 Dose: 80 mcg/hr, 8 mls/hr NOREPINEPHRINE BIT/0.9 % NACL (Levophed 4 Mg/ 250 Ml Ns Premixed) 4 mg in 250 mls @ 15 mls/hr IV .[id number] PRN; Protocol; 4 MCG/MIN PRN Reason: TITRATE PER MD ORDER Last Admin: 06/13/18 09:08 Dose: 20 mcg/min, 75 mls/hr Sodium Chloride (Sodium Chloride 0.9%) 1,000 mls @ 100 mls/hr IV .Q10H LAMONTE Last Admin: 06/13/18 06:41 Dose: 100 mls/hr Acetaminophen (Ofirmev) 1,000 mg in 100 mls @ 400 mls/hr IVPB Q6H PRN PRN Reason: Temperature Stop: 06/14/18 03:06 Last Admin: 06/13/18 02:33 Dose: 400 mls/hr Vasopressin 20 units/ Sodium (Chloride) 101 mls @ 9.09 mls/hr IV .Q11H7M LAMONTE; 0.03 U/MIN PRN Reason: Protocol Last Admin: 06/13/18 06:55 Dose: 9.09 mls/hr Phenylephrine HCl 40 mg/ (Sodium Chloride) 254 mls @ 38.1 mls/hr IV .Q6H40M PRN ; Protocol; 100 MCG/MIN PRN Reason: TITRATE PER MD ORDER Last Admin: 06/13/18 07:14 Dose: 100 mcg/min, 38.1 mls/hr Heparin Sodium/Sodium Chloride (Heparin 01664 Units/250ml 1/2 Normal Saline) 25 ,000 units in 250 mls @ 12.655 mls/hr IV .[id number] PRN; Protocol; 18 UNITS/KG/HR PRN Reason: ADJUST RATE PER PROTOCOL Last Titration: 06/13/18 08:45 Dose: 12 units/kg/hr, 8.437 mls/hr Meropenem (Merrem Iv 1 Gm Premix) 50 mls @ 100 mls/hr IVPB Q8 LAMONTE PRN Reason: Protocol Insulin Human Lispro (Humalog High) 0 units SC Q4 LAMONTE PRN Reason: Protocol Last Admin: 06/13/18 04:38 Dose: Not Given Lorazepam (Ativan) 2 mg IVP Q2H PRN; Protocol PRN Reason: Anxiety Last Admin: 06/13/18 04:07 Dose: 2 mg Pantoprazole Sodium (Protonix Inj) 40 mg IVP DAILY [facility] Last Admin: 06/12/18 09:26 Dose: 40 mg Sodium Hypochlorite (Dakins Solution 0.25%) 500 ml TOP DAILY [facility] Physical Exam - Constitutional Appears: Chronically Ill - Head Exam Head Exam: NORMOCEPHALIC - Eye Exam Eye Exam: Normal appearance, PERRL - ENT Exam ENT Exam: Mucous Membranes Moist - Respiratory Exam Respiratory Exam: Decreased Breath Sounds, Rales - Cardiovascular Exam Cardiovascular Exam: REGULAR RHYTHM, +S1, +S2 - GI/Abdominal Exam GI & Abdominal Exam: Normal Bowel Sounds, Soft Additional comments: OG to wall suction draining greenish fluid, abdominal wound dry - Extremities Exam Additional comments: piiting edema of both lower extremities - Skin Skin Exam: Dry, Pallor - Additional Findings Additional findings: palliative performance scale rating 10% Results - Vital Signs Recent Vital Signs: Last Vital Signs Temp 99.9 F H 06/13/18 07:00 Pulse 115 H 06/13/18 07:00 Resp 17 06/12/18 12:55 BP 89/58 L 06/13/18 07:00 Pulse Ox 100 06/13/18 07:00 - Labs Result Diagrams: 06/13/18 11:15 06/13/18 06:40 Labs: Laboratory Results - last 24 hr 06/11/18 06/11/18 06/11/18 07:44 08:01 09:28 WBC RBC Hgb Hct MCV MCH MCHC RDW Plt Count Gran % Lymph % (Auto) [place] % (Auto) Eos % (Auto) Baso % (Auto) Gran # Lymph # (Auto) [place] # (Auto) Eos # (Auto) Baso # (Auto) Neutrophils % (Manual) Lymphocytes % (Manual) Monocytes % (Manual) Platelet Evaluation Anisocytosis (manual) PT INR APTT pCO2 pO2 HCO3 ABG pH ABG Total CO2 ABG O2 Saturation ABG Base Excess ABG Potassium VBG pH VBG pCO2 VBG HCO3 VBG Total CO2 VBG O2 Sat (Calc) VBG Base Excess VBG Potassium Sodium Chloride Glucose Lactate FiO2 Potassium Carbon Dioxide Anion Gap BUN Creatinine Est GFR ( Amer) Est GFR (Non-Af Amer) POC Glucose (mg/dL) 370 H 395 H Random Glucose Calcium Phosphorus Magnesium Total Bilirubin AST ALT Alkaline Phosphatase Total Protein Albumin Globulin Albumin/Globulin Ratio Arterial Blood Potassium Venous Blood Potassium Hep B Core IgM Ab Negative 06/11/18 06/11/18 06/11/18 10:32 11:29 13:32 WBC RBC Hgb Hct MCV MCH MCHC RDW Plt Count Gran % Lymph % (Auto) [place] % (Auto) Eos % (Auto) Baso % (Auto) Gran # Lymph # (Auto) [place] # (Auto) Eos # (Auto) Baso # (Auto) Neutrophils % (Manual) Lymphocytes % (Manual) Monocytes % (Manual) Platelet Evaluation Anisocytosis (manual) PT INR APTT pCO2 pO2 HCO3 ABG pH ABG Total CO2 ABG O2 Saturation ABG Base Excess ABG Potassium VBG pH VBG pCO2 VBG HCO3 VBG Total CO2 VBG O2 Sat (Calc) VBG Base Excess VBG Potassium Sodium Chloride Glucose Lactate FiO2 Potassium Carbon Dioxide Anion Gap BUN Creatinine Est GFR ( Amer) Est GFR (Non-Af Amer) POC Glucose (mg/dL) 291 H 303 H 193 H Random Glucose Calcium Phosphorus Magnesium Total Bilirubin AST ALT Alkaline Phosphatase Total Protein Albumin Globulin Albumin/Globulin Ratio Arterial Blood Potassium Venous Blood Potassium Hep B Core IgM Ab 06/11/18 06/11/18 06/11/18 14:20 17:18 19:54 WBC RBC Hgb Hct MCV MCH MCHC RDW Plt Count Gran % Lymph % (Auto) [place] % (Auto) Eos % (Auto) Baso % (Auto) Gran # Lymph # (Auto) [place] # (Auto) Eos # (Auto) Baso # (Auto) Neutrophils % (Manual) Lymphocytes % (Manual) Monocytes % (Manual) Platelet Evaluation Anisocytosis (manual) PT INR APTT pCO2 pO2 HCO3 ABG pH ABG Total CO2 ABG O2 Saturation ABG Base Excess ABG Potassium VBG pH VBG pCO2 VBG HCO3 VBG Total CO2 VBG O2 Sat (Calc) VBG Base Excess VBG Potassium Sodium Chloride Glucose Lactate FiO2 Potassium Carbon Dioxide Anion Gap BUN Creatinine Est GFR ( Amer) Est GFR (Non-Af Amer) POC Glucose (mg/dL) 168 H 171 H 120 H Random Glucose Calcium Phosphorus Magnesium Total Bilirubin AST ALT Alkaline Phosphatase Total Protein Albumin Globulin Albumin/Globulin Ratio Arterial Blood Potassium Venous Blood Potassium Hep B Core IgM Ab 06/12/18 06/12/18 06/12/18 01:24 03:50 09:12 WBC RBC Hgb Hct MCV MCH MCHC RDW Plt Count Gran % Lymph % (Auto) [place] % (Auto) Eos % (Auto) Baso % (Auto) Gran # Lymph # (Auto) [place] # (Auto) Eos # (Auto) Baso # (Auto) Neutrophils % (Manual) Lymphocytes % (Manual) Monocytes % (Manual) Platelet Evaluation Anisocytosis (manual) PT INR APTT pCO2 pO2 HCO3 ABG pH ABG Total CO2 ABG O2 Saturation ABG Base Excess ABG Potassium VBG pH VBG pCO2 VBG HCO3 VBG Total CO2 VBG O2 Sat (Calc) VBG Base Excess VBG Potassium Sodium Chloride Glucose Lactate FiO2 Potassium Carbon Dioxide Anion Gap BUN Creatinine Est GFR ( Amer) Est GFR (Non-Af Amer) POC Glucose (mg/dL) 132 H 136 H 92 Random Glucose Calcium Phosphorus Magnesium Total Bilirubin AST ALT Alkaline Phosphatase Total Protein Albumin Globulin Albumin/Globulin Ratio Arterial Blood Potassium Venous Blood Potassium Hep B Core IgM Ab 06/12/18 06/12/18 06/12/18 13:09 15:19 15:19 WBC 12.6 H D RBC 6.15 H Hgb 18.1 H* Hct 52.9 H MCV 86.0 MCH 29.4 MCHC 34.2 RDW 15.6 H Plt Count 10 L* Gran % 90.2 H Lymph % (Auto) 7.5 L [place] % (Auto) 1.0 Eos % (Auto) 0.2 L Baso % (Auto) 1.1 Gran # 11.40 H Lymph # (Auto) 1.0 L [place] # (Auto) 0.1 Eos # (Auto) 0.0 Baso # (Auto) 0.14 Neutrophils % (Manual) 92 H Lymphocytes % (Manual) 7 L Monocytes % (Manual) 1 Platelet Evaluation Low Anisocytosis (manual) 1+ PT INR APTT pCO2 pO2 132 H HCO3 ABG pH ABG Total CO2 ABG O2 Saturation ABG Base Excess ABG Potassium VBG pH 7.06 L* VBG pCO2 59.0 VBG HCO3 16.7 L VBG Total CO2 18.5 L VBG O2 Sat (Calc) 98.0 H VBG Base Excess -14.0 L VBG Potassium 5.5 H Sodium 133.0 Chloride 107.0 Glucose 110 H Lactate 4.6 H* FiO2 21.0 Potassium Carbon Dioxide Anion Gap BUN Creatinine Est GFR ( Amer) Est GFR (Non-Af Amer) POC Glucose (mg/dL) 88 Random Glucose Calcium Phosphorus Magnesium Total Bilirubin AST ALT Alkaline Phosphatase Total Protein Albumin Globulin Albumin/Globulin Ratio Arterial Blood Potassium Venous Blood Potassium 5.5 H Hep B Core IgM Ab 06/12/18 06/12/18 06/12/18 15:19 16:05 20:36 WBC RBC Hgb Hct MCV MCH MCHC RDW Plt Count Gran % Lymph % (Auto) [place] % (Auto) Eos % (Auto) Baso % (Auto) Gran # Lymph # (Auto) [place] # (Auto) Eos # (Auto) Baso # (Auto) Neutrophils % (Manual) Lymphocytes % (Manual) Monocytes % (Manual) Platelet Evaluation Anisocytosis (manual) PT INR APTT pCO2 pO2 HCO3 ABG pH ABG Total CO2 ABG O2 Saturation ABG Base Excess ABG Potassium VBG pH VBG pCO2 VBG HCO3 VBG Total CO2 VBG O2 Sat (Calc) VBG Base Excess VBG Potassium Sodium 141 Chloride 111 H Glucose Lactate FiO2 Potassium 5.3 H Carbon Dioxide 17 L Anion Gap 18 BUN 48 H Creatinine 0.9 Est GFR ( Amer) > 60 Est GFR (Non-Af Amer) > 60 POC Glucose (mg/dL) 95 94 Random Glucose 107 Calcium 7.4 L Phosphorus 7.0 H Magnesium 1.7 Total Bilirubin 1.4 H AST 49 H D ALT 40 Alkaline Phosphatase 335 H D Total Protein 4.9 L Albumin 2.1 L Globulin 2.8 Albumin/Globulin Ratio 0.7 L Arterial Blood Potassium Venous Blood Potassium Hep B Core IgM Ab 06/12/18 06/12/18 06/12/18 21:30 21:30 21:40 WBC 15.7 H D RBC 5.29 Hgb 15.3 D Hct 44.9 MCV 84.9 MCH 28.9 MCHC 34.1 RDW 15.3 H Plt Count 7 L* Gran % 89.4 H Lymph % (Auto) 7.6 L [place] % (Auto) 2.4 Eos % (Auto) 0.1 L Baso % (Auto) 0.5 Gran # 14.04 H Lymph # (Auto) 1.2 [place] # (Auto) 0.4 Eos # (Auto) 0.0 Baso # (Auto) 0.08 Neutrophils % (Manual) Lymphocytes % (Manual) Monocytes % (Manual) Platelet Evaluation Low Anisocytosis (manual) PT 17.0 H INR 1.48 APTT 127.5 H* pCO2 pO2 HCO3 ABG pH ABG Total CO2 ABG O2 Saturation ABG Base Excess ABG Potassium VBG pH VBG pCO2 VBG HCO3 VBG Total CO2 VBG O2 Sat (Calc) VBG Base Excess VBG Potassium Sodium 143 Chloride 109 H Glucose Lactate FiO2 Potassium 5.0 Carbon Dioxide 21 Anion Gap 18 BUN 51 H Creatinine 1.0 Est GFR ( Amer) > 60 Est GFR (Non-Af Amer) 57 POC Glucose (mg/dL) Random Glucose 111 H Calcium 7.2 L Phosphorus Magnesium Total Bilirubin 1.8 H AST 34 ALT 43 Alkaline Phosphatase 280 H Total Protein 4.8 L Albumin 2.3 L Globulin 2.5 Albumin/Globulin Ratio 0.9 L Arterial Blood Potassium Venous Blood Potassium Hep B Core IgM Ab 06/12/18 06/12/18 06/13/18 21:40 22:49 00:04 WBC RBC Hgb Hct MCV MCH MCHC RDW Plt Count Gran % Lymph % (Auto) [place] % (Auto) Eos % (Auto) Baso % (Auto) Gran # Lymph # (Auto) [place] # (Auto) Eos # (Auto) Baso # (Auto) Neutrophils % (Manual) Lymphocytes % (Manual) Monocytes % (Manual) Platelet Evaluation Anisocytosis (manual) PT 17.0 H INR 1.48 APTT 127.2 H* pCO2 pO2 49 HCO3 ABG pH ABG Total CO2 ABG O2 Saturation ABG Base Excess ABG Potassium VBG pH 7.14 L* VBG pCO2 59.0 VBG HCO3 20.1 L VBG Total CO2 21.9 L VBG O2 Sat (Calc) 87.2 H VBG Base Excess -9.5 L VBG Potassium 5.0 Sodium 137.0 Chloride 107.0 Glucose 114 H Lactate 3.4 H FiO2 21.0 Potassium Carbon Dioxide Anion Gap BUN Creatinine Est GFR ( Amer) Est GFR (Non-Af Amer) POC Glucose (mg/dL) 85 Random Glucose Calcium Phosphorus Magnesium Total Bilirubin AST ALT Alkaline Phosphatase Total Protein Albumin Globulin Albumin/Globulin Ratio Arterial Blood Potassium Venous Blood Potassium 5.0 Hep B Core IgM Ab 06/13/18 06/13/18 06/13/18 00:55 00:55 00:55 WBC 15.3 H RBC 5.42 Hgb 15.5 Hct 46.0 MCV 84.9 MCH 28.6 MCHC 33.7 RDW 15.5 H Plt Count 8 L* Gran % 88.1 H Lymph % (Auto) 8.3 L [place] % (Auto) 2.9 Eos % (Auto) 0.1 L Baso % (Auto) 0.6 Gran # 13.46 H Lymph # (Auto) 1.3 [place] # (Auto) 0.4 Eos # (Auto) 0.0 Baso # (Auto) 0.09 Neutrophils % (Manual) Lymphocytes % (Manual) Monocytes % (Manual) Platelet Evaluation Low Anisocytosis (manual) PT INR APTT pCO2 49 H pO2 88.0 HCO3 18.3 L ABG pH 7.18 L* ABG Total CO2 19.8 L ABG O2 Saturation 96.9 ABG Base Excess -10.1 L ABG Potassium 4.8 VBG pH VBG pCO2 VBG HCO3 VBG Total CO2 VBG O2 Sat (Calc) VBG Base Excess VBG Potassium Sodium 143 139.0 Chloride 110 H 111.0 H Glucose 118 H Lactate 2.8 H FiO2 80.0 Potassium 5.0 Carbon Dioxide 18 L Anion Gap 21 H BUN 53 H Creatinine 0.8 Est GFR ( Amer) > 60 Est GFR (Non-Af Amer) > 60 POC Glucose (mg/dL) Random Glucose 109 Calcium 7.4 L Phosphorus Magnesium Total Bilirubin 2.0 H AST 36 ALT 32 Alkaline Phosphatase 271 H Total Protein 5.1 L Albumin 2.6 L Globulin 2.5 Albumin/Globulin Ratio 1.1 Arterial Blood Potassium 4.8 Venous Blood Potassium Hep B Core IgM Ab 06/13/18 06/13/18 06/13/18 04:15 05:26 06:40 WBC 17.0 H RBC 4.60 Hgb 13.1 D Hct 38.8 MCV 84.3 MCH 28.5 MCHC 33.8 RDW 15.7 H Plt Count 12 L* Gran % Lymph % (Auto) Director General [place] % (Auto) Eos % (Auto) Director General Baso % (Auto) Director General Gran # Lymph # (Auto) Director General [place] # (Auto) Eos # (Auto) 0.0 Baso # (Auto) 0.04 Neutrophils % (Manual) Lymphocytes % (Manual) Monocytes % (Manual) Platelet Evaluation Low Anisocytosis (manual) PT INR APTT pCO2 46 H pO2 94.0 HCO3 17.6 L ABG pH 7.19 L* ABG Total CO2 19.0 L ABG O2 Saturation 97.6 ABG Base Excess -10.4 L ABG Potassium 4.4 VBG pH VBG pCO2 VBG HCO3 VBG Total CO2 VBG O2 Sat (Calc) VBG Base Excess VBG Potassium Sodium 139.0 Chloride 112.0 H Glucose 126 H Lactate 2.3 H FiO2 80.0 Potassium Carbon Dioxide Anion Gap BUN Creatinine Est GFR ( Amer) Est GFR (Non-Af Amer) POC Glucose (mg/dL) 118 H Random Glucose Calcium Phosphorus Magnesium Total Bilirubin AST ALT Alkaline Phosphatase Total Protein Albumin Globulin Albumin/Globulin Ratio Arterial Blood Potassium 4.4 Venous Blood Potassium Hep B Core IgM Ab 06/13/18 06/13/18 06:40 06:40 WBC RBC Hgb Hct MCV MCH MCHC RDW Plt Count Gran % Lymph % (Auto) [place] % (Auto) Eos % (Auto) Baso % (Auto) Gran # Lymph # (Auto) [place] # (Auto) Eos # (Auto) Baso # (Auto) Neutrophils % (Manual) Lymphocytes % (Manual) Monocytes % (Manual) Platelet Evaluation Anisocytosis (manual) PT 17.5 H INR 1.51 APTT 136.0 H* pCO2 pO2 HCO3 ABG pH ABG Total CO2 ABG O2 Saturation ABG Base Excess ABG Potassium VBG pH VBG pCO2 VBG HCO3 VBG Total CO2 VBG O2 Sat (Calc) VBG Base Excess VBG Potassium Sodium 143 Chloride 110 H Glucose Lactate FiO2 Potassium 4.9 Carbon Dioxide 20 L Anion Gap 18 BUN 57 H Creatinine 0.9 Est GFR ( Amer) > 60 Est GFR (Non-Af Amer) > 60 POC Glucose (mg/dL) Random Glucose 133 H Calcium 6.8 L* Phosphorus 6.3 H Magnesium 1.5 L Total Bilirubin 2.3 H AST 33 ALT 36 Alkaline Phosphatase 237 H Total Protein 4.7 L Albumin 2.3 L Globulin 2.4 Albumin/Globulin Ratio 1.0 L Arterial Blood Potassium Venous Blood Potassium Hep B Core IgM Ab Assessment & Plan - Assessment and Plan (Free Text) Assessment: 58 year old female with history of DM, HTN and COPD who was admitted with sepsis, SIRS, necrotizing fasciitis, hyperkalemia, bilateral lower extremity edema, hypotension, rhabdomyolysis, hepatomegaly. Patient's daughter Magnolia and son met with myself, Dr. Garcia and Lesia AMNRIQUEZ. Family given an update of patients medical condition and guarded prognosis. Family agrees that they will be making decisions together but that daughter Magnolia will have ultimate say over medical decision making. Lengthy discussion regarding goals of care ensued. Family struggling to accept the gravity of mother' situation. Encouraged to consider resuscitation status. Burdens of CPR explained, specifically in patients with comorbidities such as hers. Psychosocial support provided. Spiritual support declined. Time spent with family in goals of care and advance care planning discussion, 50 minutes Plan: Goals of care and advance care planning. Sepsis: ID following, continue Merrem, Clindamycin, Vancomysin Necrotizing Fasciitis: s/p debriedment of left abdominal wall and flank, surgery following Cardio/Hypotension: On Levophed, vasopressin and neosynephrine. maintain MAP>65 , Cardiology following. Pulmonary: Intubated, duonebs, maintain 02 sat >92%
[2018-06-13] MEDS ORDERED: Dakin's Topical 0.25%-Half Strength (480 ml) TOP SCH ×2 (10:00→14:00)
[2018-06-13] MEDS ORDERED: Magnesium 2 gm/50 ml NS 2 GM/50 ML BAG IVPB ONE (10:06)
--- NOTE | 2018-06-13 10:10 | CARD ---
APPROVED REPORT Date of service: 06/12/2018 EXAM: Two-dimensional and M-mode echocardiogram with Doppler and color Doppler. INDICATION 2D DIMENSIONS Left Atrium (2D)1.7 (1.6-4.0cm)IVSd0.7 (0.7-1.1cm) LVDd3.0 (3.9-5.9cm)PWd1.3 (0.7-1.1cm) LVDs2.2 (2.5-4.0cm)FS (%) 25.1 % LVEF (%)51.2 (>50%) M-Mode DIMENSIONS Aortic Root2.90 (2.2-3.7cm)Aortic Cusp Exc.1.70 (1.5-2.0cm) Aortic Valve AoV Peak Yyoxwzzu06.0cm/Leeann Peak GR.4mmHg Mitral Valve MV E Gddjxfcl38.6cm/sMV A Objgxvdf54.1cm/sE/A ratio0.8 TDI Lateral E' Peak V8.58cm/sMedial E' Peak V5.93cm/sE/Lateral E'6.8 E/Medial E'9.9 Tricuspid Valve TR Peak [id number]/sRAP [id number] Peak Gr.45mmHg [id number] LEFT VENTRICLE The left ventricle is normal size. There is normal left ventricular wall thickness. The left ventricular function is normal.EF-55-60% There is a flattened septum consistent with right ventricle volume and pressure overload. The left ventricular diastolic function is normal. No left ventricle thrombus noted on this study. There is no ventricular septal defect visualized. There is no left ventricular aneurysm. There is no mass noted in the left ventricle. RIGHT VENTRICLE The right ventricle is severely dilated. The right ventricle is mildly hypertrophied. Systolic function of RV is severely reduced. ATRIA The left atrium size is normal. The right atrium is borderline dilated. The interatrial septum is intact with no evidence for an atrial septal defect. AORTIC VALVE The aortic valve is normal in structure. No aortic regurgitation is present. There is no aortic valvular stenosis. There is no aortic valvular vegetation. MITRAL VALVE The mitral valve is thickened but opens well. Mitral regurgitation is trace. There is no mitral valve stenosis. There is no evidence of mitral valve prolapse. TRICUSPID VALVE The tricuspid valve leaflets are thickened , but open well. There is Moderate tosevere tricuspid regurgitation. Calculated RVSP-55 mmof Hg may be underestmaing RVSP b/c of configuration of TR Jet There is no tricuspid valve stenosis. There is no tricuspid valve prolapse or vegetation. PULMONIC VALVE The pulmonic valve is borderline thickened. There is mild pulmonic valvular regurgitation. There is no pulmonic valvular stenosis. GREAT VESSELS The aortic root is normal in size. The ascending aorta is normal in size. The pulmonary artery is normal. The IVC is dilated. PERICARDIAL EFFUSION There is no pleural effusion. There is no pericardial effusion. <Conclusion> The left ventricle is normal size. There is normal left ventricular wall thickness. The left ventricular function is normal.EF-55-60% There is a flattened septum consistent with right ventricle volume and pressure overload. The right ventricle is severely dilated. Systolic function of RV is severely reduced. Mitral regurgitation is trace. There is Moderate to severe tricuspid regurgitation. Calculated RVSP-55 mmof Hg may be underestmaing RVSP b/c of configuration of TR Jet The IVC is dilated. There is no pericardial effusion. Consider Acute PE, discussed with Dr. Jimenez ( Intesivist).
--- NOTE | 2018-06-13 11:10 | OP ---
Copied To: Zuhair Duggan MD Attending MD: Zuhair Duggan MD PROCEDURE DATE: 06/12/2018 PREOPERATIVE DIAGNOSES: 1. Progressive sepsis. 2. Necrotizing fasciitis. POSTOPERATIVE DIAGNOSES: 1. Progressive sepsis. 2. Necrotizing fasciitis. OPERATION PERFORMED: Debridement. SURGEON: Zuhair Duggan M.D. ASSISTANTS: DO Dr. Melodie Pereira DO ESTIMATED BLOOD LOSS: Minimal. DESCRIPTION OF PROCEDURE: The patient was placed in the operating room, intubated. The abdomen was prepped and draped. The perineal area was pretty much unremarkable. From yesterday, the bleeding site in the labia was sutured, it was intact. The skin in the midline was taken care of. The closure of the abdominal fascia was still intact. Some of the fascia was laterally and it was debrided with a Versajet. Large flaps of skin laterally on either sides were taken down to a viable tissue to using the cautery at a high . The fascia was debrided with the Versajet as was the abdominal wall. The wound was packed with Clorpactin. The patient was taken to the ICU in critical condition. Zuhair Duggan MD
[2018-06-13 11:24] LABS: VENOUS BLOOD GAS PO2 82 mm/Hg (30-55)
--- NOTE | 2018-06-13 11:25 | CP.CCUPN ---
<Adithya Garcia - Last Filed: 06/13/18 12:33> CCU Subjective - Physician Review Events Since Last Encounter (Free Text): 06/13/18 12:38 Patient seen and examined at bedside. Patient became febrile overnight, ofirmev given. Otherwise no acute ovrnight events; history limited 2/2 intubation status. CCU Objective - Vital Signs / Intake & Output Intake and Output (Last 8hrs): Intake & Output 06/12/18 06/13/18 06/13/18 22:59 06:59 14:59 Intake Total 2408 4276 597 Output Total 300 500 Balance 2108 3776 597 Weight 72.121 kg Intake: IV 2408 4276 597 Right Internal Jugular 1710 abx 550 albumin 100 fentanyl 90 heparin 144 levo 804 ns 0.9 1200 phenylephrine 456 vaso 108 Oral 0 Output: Gastric Amount 100 0 Stomach 100 0 Urine 200 500 Urethral (Lorenz) 200 500 Stool 0 Emesis 0 - Physical Exam Head: Positive for: Atraumatic, Normocephalic Pupils: Positive for: PERRL Extroacular Muscles: Positive for: EOMI Conjunctiva: Positive for: Normal Ears: Positive for: Normal, NORMAL TM, Normal Canal. Negative for: Erythema, TM Bulging, Fluid, TM Perf Mouth: Positive for: Moist Mucous Membranes Pharnyx: Positive for: Normal. Negative for: ERYTHEMA, EXUDATE, TONSILS ENLARGED, Peritonsilar Swelling, Uvular Deviation, Muffled/Hoarse Voice, Strider , Soft Palate/Uvular Edema Nose (External): Positive for: Atraumatic Nose (Internal): Positive for: Normal Inspection Neck: Positive for: Normal Range of Motion. Negative for: Meningeal Signs, Paraspinal Tenderness, Lymphadenopathy Respiratory/Chest: Positive for: Clear to Auscultation, Good Air Exchange. Negative for: Respiratory Distress, Accessory Muscle Use Cardiovascular: Positive for: Normal S1, S2, Tachycardic. Negative for: Murmurs Abdomen: Negative for: Tenderness, Distention, Peritoneal Signs Upper Extremity: Positive for: Normal Inspection. Negative for: Cyanosis, Edema Lower Extremity: Positive for: Edema (Edema to lower legs) Neurological: Positive for: CN II-XII Intact, Motor Func Grossly Intact, Normal Sensory Function, Normal Cerebellar Funct Skin: Positive for: Warm, Dry, Other (Diffuse cellulitic areas to abdomen and lower legs, hands with area of excoriations/scabbed lesions). Negative for: Rashes Psychiatric: Positive for: Alert - Medications Active Medications: Active Medications Generic Name Dose Route Start Last Admin Trade Name Freq PRN Reason Stop Dose Admin Albumin Human 12.5 gm 06/12/18 18:00 06/13/18 05:02 Albumin Human 25% (12.5 Gm/50 Ml) IV 06/13/18 14:43 12.5 gm Q6H [facility]TE Administration Albuterol/Ipratropium 3 ml 06/11/18 07:41 Duoneb 3 Mg/0.5 Mg (3 Ml) Ud IH Q2H PRN Shortness of Breath Albuterol/Ipratropium 3 ml 06/11/18 08:00 06/13/18 07:27 Duoneb 3 Mg/0.5 Mg (3 Ml) Ud IH 3 ml [id number] [facility] Administration Vancomycin HCl 1 gm in 250 mls @ 167 mls/hr 06/11/18 17:30 06/13/18 04:29 Vancomycin 1gm IVPB 167 mls/hr Q12H [facility] Administration Protocol Clindamycin Phosphate 900 mg/ 106 mls @ 106 mls/hr 06/11/18 17:30 06/13/18 05 :02 Sodium Chloride IVPB 106 mls/hr Q8 [facility] Administration Protocol Fentanyl Citrate 1,000 mcg in 100 mls @ 2 mls/hr 06/11/18 19:42 06/13/18 08: 30 Fentanyl Citrate/Sodium Chloride 1 Mg/100 Ml IV 80 mcg/hr .Q24H PRN 8 mls/hr TITRATE PER MD ORDER Administration Protocol 20 MCG/HR NOREPINEPHRINE BIT/0.9 % NACL 4 mg in 250 mls @ 15 mls/hr 06/11/18 19:42 09:08 Levophed 4 Mg/ 250 Ml Ns Premixed IV 20 mcg/min .[id number] PRN 75 mls/hr TITRATE PER MD ORDER Administration Protocol 4 MCG/MIN Sodium Chloride 1,000 mls @ 100 mls/hr 06/11/18 22:00 06/13/18 06:41 Sodium Chloride 0.9% IV 100 mls/hr .Q10H [facility] Administration Acetaminophen 1,000 mg in 100 mls @ 400 mls/hr 06/12/18 03:05 06/13/18 02:33 Ofirmev IVPB 06/14/18 03:06 400 mls/hr Q6H PRN Administration Temperature Vasopressin 20 units/ Sodium 101 mls @ 9.09 mls/hr 06/12/18 08:30 06/13/18 06 :55 Chloride IV 9.09 mls/hr .[id number] [facility] Administration Protocol 0.03 U/MIN Phenylephrine HCl 40 mg/ 254 mls @ 38.1 mls/hr 06/12/18 09:35 06/13/18 07:14 Sodium Chloride IV 100 mcg/min .[id number] PRN 38.1 mls/hr TITRATE PER MD ORDER Administration Protocol 100 MCG/MIN Heparin Sodium/Sodium Chloride 25,000 units in 250 mls @ 12.655 mls/hr 19:42 06/13/18 08:45 Heparin 00678 Units/250ml 1/2 Normal Saline IV 12 units/kg/hr .[id number] PRN 8.437 mls/hr ADJUST RATE PER PROTOCOL Titration Protocol 18 UNITS/KG/HR Meropenem 50 mls @ 100 mls/hr 06/13/18 09:10 Merrem Iv 1 Gm Premix IVPB Q8 [facility] Protocol Insulin Human Lispro 0 units 06/12/18 20:00 06/13/18 10:08 Humalog High SC Not Given Q4 [facility] Protocol Lorazepam 2 mg 06/12/18 09:43 06/13/18 04:07 Ativan IVP 2 mg Q2H PRN Administration Anxiety Protocol Pantoprazole Sodium 40 mg 06/12/18 10:00 06/13/18 10:12 Protonix Inj IVP 40 mg DAILY [facility] Administration Sodium Hypochlorite 500 ml 06/13/18 10:00 06/13/18 10:27 Dakins Solution 0.25% TOP 1 % DAILY [facility] Administration - Patient Studies Lab Studies: Microbiology Studies 06/11/18 16:26 Gram Stain - Final Other: Please Indicate Wound Culture - Preliminary Gram Negative [facility] 06/11/18 11:32 MRSA Culture (Admit) - Final [facility] MRSA NOT DETECTED 06/11/18 07:00 Urine Culture - Final Urine,Clean Catch No Growth (<1,000 CFU/ML) Lab Studies 06/13/18 06/13/18 06/13/18 Range/Units 06:40 06:40 06:40 WBC 17.0 H (4.5-11.0) 10^3/ul RBC 4.60 (3.5-6.1) 10^6/uL Hgb 13.1 D (12.0-16.0) g/dL Hct 38.8 (36.0-48.0) % MCV 84.3 (80.0-105.0) fl MCH 28.5 (25.0-35.0) pg MCHC 33.8 (31.0-37.0) g/dl RDW 15.7 H (11.5-14.5) % Plt Count 12 L* (120.0-450.0) 10^3/uL Gran % (50.0-68.0) % Lymph % (Auto) [employer] (22.0-35.0) % [place] % (Auto) (1.0-6.0) % Eos % (Auto) Cementing Machine Operator (1.5-5.0) % Baso % (Auto) Cementing Machine Operator (0.0-3.0) % Gran # (1.4-6.5) Lymph # (Auto) Cementing Machine Operator (1.2-3.4) [place] # (Auto) (0.1-0.6) Eos # (Auto) 0.0 (0.0-0.7) Baso # (Auto) 0.04 (0.0-2.0) K/mm3 Neutrophils % (Manual) (50.0-70.0) % Lymphocytes % (Manual) (22.0-35.0) % Monocytes % (Manual) (1.0-6.0) % Platelet Evaluation Low (NORMAL) Anisocytosis (manual) PT 17.5 H (9.4-12.5) SECONDS INR 1.51 APTT 136.0 H* (25.1-36.5) Seconds pCO2 (35-45) mm/Hg pO2 (30-55) mm/Hg HCO3 (21-28) mmol/L ABG pH (7.35-7.45) ABG Total CO2 (22-28) mmol.L ABG O2 Saturation (95-98) % ABG Base Excess (-2.0-3.0) mmol/L ABG Potassium (3.6-5.2) mmol/L VBG pH (7.32-7.43) VBG pCO2 (40-60) VBG HCO3 (21-28) mmol/l VBG Total CO2 (22-28) mmol.L VBG O2 Sat (Calc) (40-65) % VBG Base Excess (0.0-2.0) mmol/L VBG Potassium (3.6-5.2) mmol/L Sodium 143 (132-148) mmol/L Chloride 110 H (98-107) mmol/L Glucose (65-105) mg/dl Lactate (0.7-2.1) mmol/L FiO2 % Potassium 4.9 (3.6-5.0) mmol/L Carbon Dioxide 20 L (21-33) mmol/L Anion Gap 18 (10-20) BUN 57 H (7-21) mg/dL Creatinine 0.9 (0.7-1.2) mg/dl Est GFR ( Amer) > 60 Est GFR (Non-Af Amer) > 60 POC Glucose (mg/dL) (65-110) mg/dL Random Glucose 133 H (70-110) mg/dL Calcium 6.8 L* (8.4-10.5) mg/dL Phosphorus 6.3 H (2.5-4.5) mg/dL Magnesium 1.5 L (1.7-2.2) mg/dL Total Bilirubin 2.3 H (0.2-1.3) mg/dL AST 33 (14-36) U/L ALT 36 (7-56) U/L Alkaline Phosphatase 237 H (38-126) U/L Total Protein 4.7 L (5.8-8.3) g/dL Albumin 2.3 L (3.0-4.8) g/dL Globulin 2.4 gm/dL Albumin/Globulin Ratio 1.0 L (1.1-1.8) Arterial Blood Potassium (3.6-5.2) mmol/L Venous Blood Potassium (3.6-5.2) mmol/L Hep B Core IgM Ab (NEGATIVE) 06/13/18 06/13/18 06/13/18 Range/Units 05:26 04:15 00:55 WBC (4.5-11.0) 10^3/ul RBC (3.5-6.1) 10^6/uL Hgb (12.0-16.0) g/dL Hct (36.0-48.0) % MCV (80.0-105.0) fl MCH (25.0-35.0) pg MCHC (31.0-37.0) g/dl RDW (11.5-14.5) % Plt Count (120.0-450.0) 10^3/uL Gran % (50.0-68.0) % Lymph % (Auto) (22.0-35.0) % [place] % (Auto) (1.0-6.0) % Eos % (Auto) (1.5-5.0) % Baso % (Auto) (0.0-3.0) % Gran # (1.4-6.5) Lymph # (Auto) (1.2-3.4) [place] # (Auto) (0.1-0.6) Eos # (Auto) (0.0-0.7) Baso # (Auto) (0.0-2.0) K/mm3 Neutrophils % (Manual) (50.0-70.0) % Lymphocytes % (Manual) (22.0-35.0) % Monocytes % (Manual) (1.0-6.0) % Platelet Evaluation (NORMAL) Anisocytosis (manual) PT (9.4-12.5) SECONDS INR APTT (25.1-36.5) Seconds pCO2 46 H 49 H (35-45) mm/Hg pO2 94.0 88.0 (30-55) mm/Hg HCO3 17.6 L 18.3 L (21-28) mmol/L ABG pH 7.19 L* 7.18 L* (7.35-7.45) ABG Total CO2 19.0 L 19.8 L (22-28) mmol.L ABG O2 Saturation 97.6 96.9 (95-98) % ABG Base Excess -10.4 L -10.1 L (-2.0-3.0) mmol/L ABG Potassium 4.4 4.8 (3.6-5.2) mmol/L VBG pH (7.32-7.43) VBG pCO2 (40-60) VBG HCO3 (21-28) mmol/l VBG Total CO2 (22-28) mmol.L VBG O2 Sat (Calc) (40-65) % VBG Base Excess (0.0-2.0) mmol/L VBG Potassium (3.6-5.2) mmol/L Sodium 139.0 139.0 (132-148) mmol/L Chloride 112.0 H 111.0 H (98-107) mmol/L Glucose 126 H 118 H (65-105) mg/dl Lactate 2.3 H 2.8 H (0.7-2.1) mmol/L FiO2 80.0 80.0 % Potassium (3.6-5.0) mmol/L Carbon Dioxide (21-33) mmol/L Anion Gap (10-20) BUN (7-21) mg/dL Creatinine (0.7-1.2) mg/dl Est GFR ( Amer) Est GFR (Non-Af Amer) POC Glucose (mg/dL) 118 H (65-110) mg/dL Random Glucose (70-110) mg/dL Calcium (8.4-10.5) mg/dL Phosphorus (2.5-4.5) mg/dL Magnesium (1.7-2.2) mg/dL Total Bilirubin (0.2-1.3) mg/dL AST (14-36) U/L ALT (7-56) U/L Alkaline Phosphatase (38-126) U/L Total Protein (5.8-8.3) g/dL Albumin (3.0-4.8) g/dL Globulin gm/dL Albumin/Globulin Ratio (1.1-1.8) Arterial Blood Potassium 4.4 4.8 (3.6-5.2) mmol/L Venous Blood Potassium (3.6-5.2) mmol/L Hep B Core IgM Ab (NEGATIVE) 06/13/18 06/13/18 06/13/18 Range/Units 00:55 00:55 00:04 WBC 15.3 H (4.5-11.0) 10^3/ul RBC 5.42 (3.5-6.1) 10^6/uL Hgb 15.5 (12.0-16.0) g/dL Hct 46.0 (36.0-48.0) % MCV 84.9 (80.0-105.0) fl MCH 28.6 (25.0-35.0) pg MCHC 33.7 (31.0-37.0) g/dl RDW 15.5 H (11.5-14.5) % Plt Count 8 L* (120.0-450.0) 10^3/uL Gran % 88.1 H (50.0-68.0) % Lymph % (Auto) 8.3 L (22.0-35.0) % [place] % (Auto) 2.9 (1.0-6.0) % Eos % (Auto) 0.1 L (1.5-5.0) % Baso % (Auto) 0.6 (0.0-3.0) % Gran # 13.46 H (1.4-6.5) Lymph # (Auto) 1.3 (1.2-3.4) [place] # (Auto) 0.4 (0.1-0.6) Eos # (Auto) 0.0 (0.0-0.7) Baso # (Auto) 0.09 (0.0-2.0) K/mm3 Neutrophils % (Manual) (50.0-70.0) % Lymphocytes % (Manual) (22.0-35.0) % Monocytes % (Manual) (1.0-6.0) % Platelet Evaluation Low (NORMAL) Anisocytosis (manual) PT (9.4-12.5) SECONDS INR APTT (25.1-36.5) Seconds pCO2 (35-45) mm/Hg pO2 (30-55) mm/Hg HCO3 (21-28) mmol/L ABG pH (7.35-7.45) ABG Total CO2 (22-28) mmol.L ABG O2 Saturation (95-98) % ABG Base Excess (-2.0-3.0) mmol/L ABG Potassium (3.6-5.2) mmol/L VBG pH (7.32-7.43) VBG pCO2 (40-60) VBG HCO3 (21-28) mmol/l VBG Total CO2 (22-28) mmol.L VBG O2 Sat (Calc) (40-65) % VBG Base Excess (0.0-2.0) mmol/L VBG Potassium (3.6-5.2) mmol/L Sodium 143 (132-148) mmol/L Chloride 110 H (98-107) mmol/L Glucose (65-105) mg/dl Lactate (0.7-2.1) mmol/L FiO2 % Potassium 5.0 (3.6-5.0) mmol/L Carbon Dioxide 18 L (21-33) mmol/L Anion Gap 21 H (10-20) BUN 53 H (7-21) mg/dL Creatinine 0.8 (0.7-1.2) mg/dl Est GFR ( Amer) > 60 Est GFR (Non-Af Amer) > 60 POC Glucose (mg/dL) 85 (65-110) mg/dL Random Glucose 109 (70-110) mg/dL Calcium 7.4 L (8.4-10.5) mg/dL Phosphorus (2.5-4.5) mg/dL Magnesium (1.7-2.2) mg/dL Total Bilirubin 2.0 H (0.2-1.3) mg/dL AST 36 (14-36) U/L ALT 32 (7-56) U/L Alkaline Phosphatase 271 H (38-126) U/L Total Protein 5.1 L (5.8-8.3) g/dL Albumin 2.6 L (3.0-4.8) g/dL Globulin 2.5 gm/dL Albumin/Globulin Ratio 1.1 (1.1-1.8) Arterial Blood Potassium (3.6-5.2) mmol/L Venous Blood Potassium (3.6-5.2) mmol/L Hep B Core IgM Ab (NEGATIVE) 06/12/18 06/12/18 06/12/18 Range/Units 22:49 21:40 21:40 WBC (4.5-11.0) 10^3/ul RBC (3.5-6.1) 10^6/uL Hgb (12.0-16.0) g/dL Hct (36.0-48.0) % MCV (80.0-105.0) fl MCH (25.0-35.0) pg MCHC (31.0-37.0) g/dl RDW (11.5-14.5) % Plt Count (120.0-450.0) 10^3/uL Gran % (50.0-68.0) % Lymph % (Auto) (22.0-35.0) % [place] % (Auto) (1.0-6.0) % Eos % (Auto) (1.5-5.0) % Baso % (Auto) (0.0-3.0) % Gran # (1.4-6.5) Lymph # (Auto) (1.2-3.4) [place] # (Auto) (0.1-0.6) Eos # (Auto) (0.0-0.7) Baso # (Auto) (0.0-2.0) K/mm3 Neutrophils % (Manual) (50.0-70.0) % Lymphocytes % (Manual) (22.0-35.0) % Monocytes % (Manual) (1.0-6.0) % Platelet Evaluation (NORMAL) Anisocytosis (manual) PT 17.0 H (9.4-12.5) SECONDS INR 1.48 APTT 127.2 H* (25.1-36.5) Seconds pCO2 (35-45) mm/Hg pO2 49 (30-55) mm/Hg HCO3 (21-28) mmol/L ABG pH (7.35-7.45) ABG Total CO2 (22-28) mmol.L ABG O2 Saturation (95-98) % ABG Base Excess (-2.0-3.0) mmol/L ABG Potassium (3.6-5.2) mmol/L VBG pH 7.14 L* (7.32-7.43) VBG pCO2 59.0 (40-60) VBG HCO3 20.1 L (21-28) mmol/l VBG Total CO2 21.9 L (22-28) mmol.L VBG O2 Sat (Calc) 87.2 H (40-65) % VBG Base Excess -9.5 L (0.0-2.0) mmol/L VBG Potassium 5.0 (3.6-5.2) mmol/L Sodium 137.0 143 (132-148) mmol/L Chloride 107.0 109 H (98-107) mmol/L Glucose 114 H (65-105) mg/dl Lactate 3.4 H (0.7-2.1) mmol/L FiO2 21.0 % Potassium 5.0 (3.6-5.0) mmol/L Carbon Dioxide 21 (21-33) mmol/L Anion Gap 18 (10-20) BUN 51 H (7-21) mg/dL Creatinine 1.0 (0.7-1.2) mg/dl Est GFR ( Amer) > 60 Est GFR (Non-Af Amer) 57 POC Glucose (mg/dL) (65-110) mg/dL Random Glucose 111 H (70-110) mg/dL Calcium 7.2 L (8.4-10.5) mg/dL Phosphorus (2.5-4.5) mg/dL Magnesium (1.7-2.2) mg/dL Total Bilirubin 1.8 H (0.2-1.3) mg/dL AST 34 (14-36) U/L ALT 43 (7-56) U/L Alkaline Phosphatase 280 H (38-126) U/L Total Protein 4.8 L (5.8-8.3) g/dL Albumin 2.3 L (3.0-4.8) g/dL Globulin 2.5 gm/dL Albumin/Globulin Ratio 0.9 L (1.1-1.8) Arterial Blood Potassium (3.6-5.2) mmol/L Venous Blood Potassium 5.0 (3.6-5.2) mmol/L Hep B Core IgM Ab (NEGATIVE) 06/12/18 06/12/18 06/12/18 Range/Units 21:30 21:30 20:36 WBC 15.7 H D (4.5-11.0) 10^3/ul RBC 5.29 (3.5-6.1) 10^6/uL Hgb 15.3 D (12.0-16.0) g/dL Hct 44.9 (36.0-48.0) % MCV 84.9 (80.0-105.0) fl MCH 28.9 (25.0-35.0) pg MCHC 34.1 (31.0-37.0) g/dl RDW 15.3 H (11.5-14.5) % Plt Count 7 L* (120.0-450.0) 10^3/uL Gran % 89.4 H (50.0-68.0) % Lymph % (Auto) 7.6 L (22.0-35.0) % [place] % (Auto) 2.4 (1.0-6.0) % Eos % (Auto) 0.1 L (1.5-5.0) % Baso % (Auto) 0.5 (0.0-3.0) % Gran # 14.04 H (1.4-6.5) Lymph # (Auto) 1.2 (1.2-3.4) [place] # (Auto) 0.4 (0.1-0.6) Eos # (Auto) 0.0 (0.0-0.7) Baso # (Auto) 0.08 (0.0-2.0) K/mm3 Neutrophils % (Manual) (50.0-70.0) % Lymphocytes % (Manual) (22.0-35.0) % Monocytes % (Manual) (1.0-6.0) % Platelet Evaluation Low (NORMAL) Anisocytosis (manual) PT 17.0 H (9.4-12.5) SECONDS INR 1.48 APTT 127.5 H* (25.1-36.5) Seconds pCO2 (35-45) mm/Hg pO2 (30-55) mm/Hg HCO3 (21-28) mmol/L ABG pH (7.35-7.45) ABG Total CO2 (22-28) mmol.L ABG O2 Saturation (95-98) % ABG Base Excess (-2.0-3.0) mmol/L ABG Potassium (3.6-5.2) mmol/L VBG pH (7.32-7.43) VBG pCO2 (40-60) VBG HCO3 (21-28) mmol/l VBG Total CO2 (22-28) mmol.L VBG O2 Sat (Calc) (40-65) % VBG Base Excess (0.0-2.0) mmol/L VBG Potassium (3.6-5.2) mmol/L Sodium (132-148) mmol/L Chloride (98-107) mmol/L Glucose (65-105) mg/dl Lactate (0.7-2.1) mmol/L FiO2 % Potassium (3.6-5.0) mmol/L Carbon Dioxide (21-33) mmol/L Anion Gap (10-20) BUN (7-21) mg/dL Creatinine (0.7-1.2) mg/dl Est GFR ( Amer) Est GFR (Non-Af Amer) POC Glucose (mg/dL) 94 (65-110) mg/dL Random Glucose (70-110) mg/dL Calcium (8.4-10.5) mg/dL Phosphorus (2.5-4.5) mg/dL Magnesium (1.7-2.2) mg/dL Total Bilirubin (0.2-1.3) mg/dL AST (14-36) U/L ALT (7-56) U/L Alkaline Phosphatase (38-126) U/L Total Protein (5.8-8.3) g/dL Albumin (3.0-4.8) g/dL Globulin gm/dL Albumin/Globulin Ratio (1.1-1.8) Arterial Blood Potassium (3.6-5.2) mmol/L Venous Blood Potassium (3.6-5.2) mmol/L Hep B Core IgM Ab (NEGATIVE) 06/12/18 06/12/18 06/12/18 Range/Units 16:05 15:19 15:19 WBC 12.6 H D (4.5-11.0) 10^3/ul RBC 6.15 H (3.5-6.1) 10^6/uL Hgb 18.1 H* (12.0-16.0) g/dL Hct 52.9 H (36.0-48.0) % MCV 86.0 (80.0-105.0) fl MCH 29.4 (25.0-35.0) pg MCHC 34.2 (31.0-37.0) g/dl RDW 15.6 H (11.5-14.5) % Plt Count 10 L* (120.0-450.0) 10^3/uL Gran % 90.2 H (50.0-68.0) % Lymph % (Auto) 7.5 L (22.0-35.0) % [place] % (Auto) 1.0 (1.0-6.0) % Eos % (Auto) 0.2 L (1.5-5.0) % Baso % (Auto) 1.1 (0.0-3.0) % Gran # 11.40 H (1.4-6.5) Lymph # (Auto) 1.0 L (1.2-3.4) [place] # (Auto) 0.1 (0.1-0.6) Eos # (Auto) 0.0 (0.0-0.7) Baso # (Auto) 0.14 (0.0-2.0) K/mm3 Neutrophils % (Manual) 92 H (50.0-70.0) % Lymphocytes % (Manual) 7 L (22.0-35.0) % Monocytes % (Manual) 1 (1.0-6.0) % Platelet Evaluation Low (NORMAL) Anisocytosis (manual) 1+ PT (9.4-12.5) SECONDS INR APTT (25.1-36.5) Seconds pCO2 (35-45) mm/Hg pO2 (30-55) mm/Hg HCO3 (21-28) mmol/L ABG pH (7.35-7.45) ABG Total CO2 (22-28) mmol.L ABG O2 Saturation (95-98) % ABG Base Excess (-2.0-3.0) mmol/L ABG Potassium (3.6-5.2) mmol/L VBG pH (7.32-7.43) VBG pCO2 (40-60) VBG HCO3 (21-28) mmol/l VBG Total CO2 (22-28) mmol.L VBG O2 Sat (Calc) (40-65) % VBG Base Excess (0.0-2.0) mmol/L VBG Potassium (3.6-5.2) mmol/L Sodium 141 (132-148) mmol/L Chloride 111 H (98-107) mmol/L Glucose (65-105) mg/dl Lactate (0.7-2.1) mmol/L FiO2 % Potassium 5.3 H (3.6-5.0) mmol/L Carbon Dioxide 17 L (21-33) mmol/L Anion Gap 18 (10-20) BUN 48 H (7-21) mg/dL Creatinine 0.9 (0.7-1.2) mg/dl Est GFR ( Amer) > 60 Est GFR (Non-Af Amer) > 60 POC Glucose (mg/dL) 95 (65-110) mg/dL Random Glucose 107 (70-110) mg/dL Calcium 7.4 L (8.4-10.5) mg/dL Phosphorus 7.0 H (2.5-4.5) mg/dL Magnesium 1.7 (1.7-2.2) mg/dL Total Bilirubin 1.4 H (0.2-1.3) mg/dL AST 49 H D (14-36) U/L ALT 40 (7-56) U/L Alkaline Phosphatase 335 H D (38-126) U/L Total Protein 4.9 L (5.8-8.3) g/dL Albumin 2.1 L (3.0-4.8) g/dL Globulin 2.8 gm/dL Albumin/Globulin Ratio 0.7 L (1.1-1.8) Arterial Blood Potassium (3.6-5.2) mmol/L Venous Blood Potassium (3.6-5.2) mmol/L Hep B Core IgM Ab (NEGATIVE) 06/12/18 06/12/18 06/12/18 Range/Units 15:19 13:09 09:12 WBC (4.5-11.0) 10^3/ul RBC (3.5-6.1) 10^6/uL Hgb (12.0-16.0) g/dL Hct (36.0-48.0) % MCV (80.0-105.0) fl MCH (25.0-35.0) pg MCHC (31.0-37.0) g/dl RDW (11.5-14.5) % Plt Count (120.0-450.0) 10^3/uL Gran % (50.0-68.0) % Lymph % (Auto) (22.0-35.0) % [place] % (Auto) (1.0-6.0) % Eos % (Auto) (1.5-5.0) % Baso % (Auto) (0.0-3.0) % Gran # (1.4-6.5) Lymph # (Auto) (1.2-3.4) [place] # (Auto) (0.1-0.6) Eos # (Auto) (0.0-0.7) Baso # (Auto) (0.0-2.0) K/mm3 Neutrophils % (Manual) (50.0-70.0) % Lymphocytes % (Manual) (22.0-35.0) % Monocytes % (Manual) (1.0-6.0) % Platelet Evaluation (NORMAL) Anisocytosis (manual) PT (9.4-12.5) SECONDS INR APTT (25.1-36.5) Seconds pCO2 (35-45) mm/Hg pO2 132 H (30-55) mm/Hg HCO3 (21-28) mmol/L ABG pH (7.35-7.45) ABG Total CO2 (22-28) mmol.L ABG O2 Saturation (95-98) % ABG Base Excess (-2.0-3.0) mmol/L ABG Potassium (3.6-5.2) mmol/L VBG pH 7.06 L* (7.32-7.43) VBG pCO2 59.0 (40-60) VBG HCO3 16.7 L (21-28) mmol/l VBG Total CO2 18.5 L (22-28) mmol.L VBG O2 Sat (Calc) 98.0 H (40-65) % VBG Base Excess -14.0 L (0.0-2.0) mmol/L VBG Potassium 5.5 H (3.6-5.2) mmol/L Sodium 133.0 (132-148) mmol/L Chloride 107.0 (98-107) mmol/L Glucose 110 H (65-105) mg/dl Lactate 4.6 H* (0.7-2.1) mmol/L FiO2 21.0 % Potassium (3.6-5.0) mmol/L Carbon Dioxide (21-33) mmol/L Anion Gap (10-20) BUN (7-21) mg/dL Creatinine (0.7-1.2) mg/dl Est GFR ( Amer) Est GFR (Non-Af Amer) POC Glucose (mg/dL) 88 92 (65-110) mg/dL Random Glucose (70-110) mg/dL Calcium (8.4-10.5) mg/dL Phosphorus (2.5-4.5) mg/dL Magnesium (1.7-2.2) mg/dL Total Bilirubin (0.2-1.3) mg/dL AST (14-36) U/L ALT (7-56) U/L Alkaline Phosphatase (38-126) U/L Total Protein (5.8-8.3) g/dL Albumin (3.0-4.8) g/dL Globulin gm/dL Albumin/Globulin Ratio (1.1-1.8) Arterial Blood Potassium (3.6-5.2) mmol/L Venous Blood Potassium 5.5 H (3.6-5.2) mmol/L Hep B Core IgM Ab (NEGATIVE) 06/12/18 06/12/18 06/11/18 Range/Units 03:50 01:24 19:54 WBC (4.5-11.0) 10^3/ul RBC (3.5-6.1) 10^6/uL Hgb (12.0-16.0) g/dL Hct (36.0-48.0) % MCV (80.0-105.0) fl MCH (25.0-35.0) pg MCHC (31.0-37.0) g/dl RDW (11.5-14.5) % Plt Count (120.0-450.0) 10^3/uL Gran % (50.0-68.0) % Lymph % (Auto) (22.0-35.0) % [place] % (Auto) (1.0-6.0) % Eos % (Auto) (1.5-5.0) % Baso % (Auto) (0.0-3.0) % Gran # (1.4-6.5) Lymph # (Auto) (1.2-3.4) [place] # (Auto) (0.1-0.6) Eos # (Auto) (0.0-0.7) Baso # (Auto) (0.0-2.0) K/mm3 Neutrophils % (Manual) (50.0-70.0) % Lymphocytes % (Manual) (22.0-35.0) % Monocytes % (Manual) (1.0-6.0) % Platelet Evaluation (NORMAL) Anisocytosis (manual) PT (9.4-12.5) SECONDS INR APTT (25.1-36.5) Seconds pCO2 (35-45) mm/Hg pO2 (30-55) mm/Hg HCO3 (21-28) mmol/L ABG pH (7.35-7.45) ABG Total CO2 (22-28) mmol.L ABG O2 Saturation (95-98) % ABG Base Excess (-2.0-3.0) mmol/L ABG Potassium (3.6-5.2) mmol/L VBG pH (7.32-7.43) VBG pCO2 (40-60) VBG HCO3 (21-28) mmol/l VBG Total CO2 (22-28) mmol.L VBG O2 Sat (Calc) (40-65) % VBG Base Excess (0.0-2.0) mmol/L VBG Potassium (3.6-5.2) mmol/L Sodium (132-148) mmol/L Chloride (98-107) mmol/L Glucose (65-105) mg/dl Lactate (0.7-2.1) mmol/L FiO2 % Potassium (3.6-5.0) mmol/L Carbon Dioxide (21-33) mmol/L Anion Gap (10-20) BUN (7-21) mg/dL Creatinine (0.7-1.2) mg/dl Est GFR ( Amer) Est GFR (Non-Af Amer) POC Glucose (mg/dL) 136 H 132 H 120 H (65-110) mg/dL Random Glucose (70-110) mg/dL Calcium (8.4-10.5) mg/dL Phosphorus (2.5-4.5) mg/dL Magnesium (1.7-2.2) mg/dL Total Bilirubin (0.2-1.3) mg/dL AST (14-36) U/L ALT (7-56) U/L Alkaline Phosphatase (38-126) U/L Total Protein (5.8-8.3) g/dL Albumin (3.0-4.8) g/dL Globulin gm/dL Albumin/Globulin Ratio (1.1-1.8) Arterial Blood Potassium (3.6-5.2) mmol/L Venous Blood Potassium (3.6-5.2) mmol/L Hep B Core IgM Ab (NEGATIVE) 06/11/18 06/11/18 06/11/18 Range/Units 17:18 14:20 13:32 WBC (4.5-11.0) 10^3/ul RBC (3.5-6.1) 10^6/uL Hgb (12.0-16.0) g/dL Hct (36.0-48.0) % MCV (80.0-105.0) fl MCH (25.0-35.0) pg MCHC (31.0-37.0) g/dl RDW (11.5-14.5) % Plt Count (120.0-450.0) 10^3/uL Gran % (50.0-68.0) % Lymph % (Auto) (22.0-35.0) % [place] % (Auto) (1.0-6.0) % Eos % (Auto) (1.5-5.0) % Baso % (Auto) (0.0-3.0) % Gran # (1.4-6.5) Lymph # (Auto) (1.2-3.4) [place] # (Auto) (0.1-0.6) Eos # (Auto) (0.0-0.7) Baso # (Auto) (0.0-2.0) K/mm3 Neutrophils % (Manual) (50.0-70.0) % Lymphocytes % (Manual) (22.0-35.0) % Monocytes % (Manual) (1.0-6.0) % Platelet Evaluation (NORMAL) Anisocytosis (manual) PT (9.4-12.5) SECONDS INR APTT (25.1-36.5) Seconds pCO2 (35-45) mm/Hg pO2 (30-55) mm/Hg HCO3 (21-28) mmol/L ABG pH (7.35-7.45) ABG Total CO2 (22-28) mmol.L ABG O2 Saturation (95-98) % ABG Base Excess (-2.0-3.0) mmol/L ABG Potassium (3.6-5.2) mmol/L VBG pH (7.32-7.43) VBG pCO2 (40-60) VBG HCO3 (21-28) mmol/l VBG Total CO2 (22-28) mmol.L VBG O2 Sat (Calc) (40-65) % VBG Base Excess (0.0-2.0) mmol/L VBG Potassium (3.6-5.2) mmol/L Sodium (132-148) mmol/L Chloride (98-107) mmol/L Glucose (65-105) mg/dl Lactate (0.7-2.1) mmol/L FiO2 % Potassium (3.6-5.0) mmol/L Carbon Dioxide (21-33) mmol/L Anion Gap (10-20) BUN (7-21) mg/dL Creatinine (0.7-1.2) mg/dl Est GFR ( Amer) Est GFR (Non-Af Amer) POC Glucose (mg/dL) 171 H 168 H 193 H (65-110) mg/dL Random Glucose (70-110) mg/dL Calcium (8.4-10.5) mg/dL Phosphorus (2.5-4.5) mg/dL Magnesium (1.7-2.2) mg/dL Total Bilirubin (0.2-1.3) mg/dL AST (14-36) U/L ALT (7-56) U/L Alkaline Phosphatase (38-126) U/L Total Protein (5.8-8.3) g/dL Albumin (3.0-4.8) g/dL Globulin gm/dL Albumin/Globulin Ratio (1.1-1.8) Arterial Blood Potassium (3.6-5.2) mmol/L Venous Blood Potassium (3.6-5.2) mmol/L Hep B Core IgM Ab (NEGATIVE) 06/11/18 06/11/18 06/11/18 Range/Units 11:29 10:32 09:28 WBC (4.5-11.0) 10^3/ul RBC (3.5-6.1) 10^6/uL Hgb (12.0-16.0) g/dL Hct (36.0-48.0) % MCV (80.0-105.0) fl MCH (25.0-35.0) pg MCHC (31.0-37.0) g/dl RDW (11.5-14.5) % Plt Count (120.0-450.0) 10^3/uL Gran % (50.0-68.0) % Lymph % (Auto) (22.0-35.0) % [place] % (Auto) (1.0-6.0) % Eos % (Auto) (1.5-5.0) % Baso % (Auto) (0.0-3.0) % Gran # (1.4-6.5) Lymph # (Auto) (1.2-3.4) [place] # (Auto) (0.1-0.6) Eos # (Auto) (0.0-0.7) Baso # (Auto) (0.0-2.0) K/mm3 Neutrophils % (Manual) (50.0-70.0) % Lymphocytes % (Manual) (22.0-35.0) % Monocytes % (Manual) (1.0-6.0) % Platelet Evaluation (NORMAL) Anisocytosis (manual) PT (9.4-12.5) SECONDS INR APTT (25.1-36.5) Seconds pCO2 (35-45) mm/Hg pO2 (30-55) mm/Hg HCO3 (21-28) mmol/L ABG pH (7.35-7.45) ABG Total CO2 (22-28) mmol.L ABG O2 Saturation (95-98) % ABG Base Excess (-2.0-3.0) mmol/L ABG Potassium (3.6-5.2) mmol/L VBG pH (7.32-7.43) VBG pCO2 (40-60) VBG HCO3 (21-28) mmol/l VBG Total CO2 (22-28) mmol.L VBG O2 Sat (Calc) (40-65) % VBG Base Excess (0.0-2.0) mmol/L VBG Potassium (3.6-5.2) mmol/L Sodium (132-148) mmol/L Chloride (98-107) mmol/L Glucose (65-105) mg/dl Lactate (0.7-2.1) mmol/L FiO2 % Potassium (3.6-5.0) mmol/L Carbon Dioxide (21-33) mmol/L Anion Gap (10-20) BUN (7-21) mg/dL Creatinine (0.7-1.2) mg/dl Est GFR ( Amer) Est GFR (Non-Af Amer) POC Glucose (mg/dL) 303 H 291 H 395 H (65-110) mg/dL Random Glucose (70-110) mg/dL Calcium (8.4-10.5) mg/dL Phosphorus (2.5-4.5) mg/dL Magnesium (1.7-2.2) mg/dL Total Bilirubin (0.2-1.3) mg/dL AST (14-36) U/L ALT (7-56) U/L Alkaline Phosphatase (38-126) U/L Total Protein (5.8-8.3) g/dL Albumin (3.0-4.8) g/dL Globulin gm/dL Albumin/Globulin Ratio (1.1-1.8) Arterial Blood Potassium (3.6-5.2) mmol/L Venous Blood Potassium (3.6-5.2) mmol/L Hep B Core IgM Ab (NEGATIVE) 06/11/18 06/11/18 Range/Units 08:01 07:44 WBC (4.5-11.0) 10^3/ul RBC (3.5-6.1) 10^6/uL Hgb (12.0-16.0) g/dL Hct (36.0-48.0) % MCV (80.0-105.0) fl MCH (25.0-35.0) pg MCHC (31.0-37.0) g/dl RDW (11.5-14.5) % Plt Count (120.0-450.0) 10^3/uL Gran % (50.0-68.0) % Lymph % (Auto) (22.0-35.0) % [place] % (Auto) (1.0-6.0) % Eos % (Auto) (1.5-5.0) % Baso % (Auto) (0.0-3.0) % Gran # (1.4-6.5) Lymph # (Auto) (1.2-3.4) [place] # (Auto) (0.1-0.6) Eos # (Auto) (0.0-0.7) Baso # (Auto) (0.0-2.0) K/mm3 Neutrophils % (Manual) (50.0-70.0) % Lymphocytes % (Manual) (22.0-35.0) % Monocytes % (Manual) (1.0-6.0) % Platelet Evaluation (NORMAL) Anisocytosis (manual) PT (9.4-12.5) SECONDS INR APTT (25.1-36.5) Seconds pCO2 (35-45) mm/Hg pO2 (30-55) mm/Hg HCO3 (21-28) mmol/L ABG pH (7.35-7.45) ABG Total CO2 (22-28) mmol.L ABG O2 Saturation (95-98) % ABG Base Excess (-2.0-3.0) mmol/L ABG Potassium (3.6-5.2) mmol/L VBG pH (7.32-7.43) VBG pCO2 (40-60) VBG HCO3 (21-28) mmol/l VBG Total CO2 (22-28) mmol.L VBG O2 Sat (Calc) (40-65) % VBG Base Excess (0.0-2.0) mmol/L VBG Potassium (3.6-5.2) mmol/L Sodium (132-148) mmol/L Chloride (98-107) mmol/L Glucose (65-105) mg/dl Lactate (0.7-2.1) mmol/L FiO2 % Potassium (3.6-5.0) mmol/L Carbon Dioxide (21-33) mmol/L Anion Gap (10-20) BUN (7-21) mg/dL Creatinine (0.7-1.2) mg/dl Est GFR ( Amer) Est GFR (Non-Af Amer) POC Glucose (mg/dL) 370 H (65-110) mg/dL Random Glucose (70-110) mg/dL Calcium (8.4-10.5) mg/dL Phosphorus (2.5-4.5) mg/dL Magnesium (1.7-2.2) mg/dL Total Bilirubin (0.2-1.3) mg/dL AST (14-36) U/L ALT (7-56) U/L Alkaline Phosphatase (38-126) U/L Total Protein (5.8-8.3) g/dL Albumin (3.0-4.8) g/dL Globulin gm/dL Albumin/Globulin Ratio (1.1-1.8) Arterial Blood Potassium (3.6-5.2) mmol/L Venous Blood Potassium (3.6-5.2) mmol/L Hep B Core IgM Ab Negative (NEGATIVE) Laboratory Results - last 24 hr 06/11/18 06/11/18 06/11/18 07:44 08:01 09:28 WBC RBC Hgb Hct MCV MCH MCHC RDW Plt Count Gran % Lymph % (Auto) [place] % (Auto) Eos % (Auto) Baso % (Auto) Gran # Lymph # (Auto) [place] # (Auto) Eos # (Auto) Baso # (Auto) Neutrophils % (Manual) Lymphocytes % (Manual) Monocytes % (Manual) Platelet Evaluation Anisocytosis (manual) PT INR APTT pCO2 pO2 HCO3 ABG pH ABG Total CO2 ABG O2 Saturation ABG Base Excess ABG Potassium VBG pH VBG pCO2 VBG HCO3 VBG Total CO2 VBG O2 Sat (Calc) VBG Base Excess VBG Potassium Sodium Chloride Glucose Lactate FiO2 Potassium Carbon Dioxide Anion Gap BUN Creatinine Est GFR ( Amer) Est GFR (Non-Af Amer) POC Glucose (mg/dL) 370 H 395 H Random Glucose Calcium Phosphorus Magnesium Total Bilirubin AST ALT Alkaline Phosphatase Total Protein Albumin Globulin Albumin/Globulin Ratio Arterial Blood Potassium Venous Blood Potassium Hep B Core IgM Ab Negative 06/11/18 06/11/18 06/11/18 10:32 11:29 13:32 WBC RBC Hgb Hct MCV MCH MCHC RDW Plt Count Gran % Lymph % (Auto) [place] % (Auto) Eos % (Auto) Baso % (Auto) Gran # Lymph # (Auto) [place] # (Auto) Eos # (Auto) Baso # (Auto) Neutrophils % (Manual) Lymphocytes % (Manual) Monocytes % (Manual) Platelet Evaluation Anisocytosis (manual) PT INR APTT pCO2 pO2 HCO3 ABG pH ABG Total CO2 ABG O2 Saturation ABG Base Excess ABG Potassium VBG pH VBG pCO2 VBG HCO3 VBG Total CO2 VBG O2 Sat (Calc) VBG Base Excess VBG Potassium Sodium Chloride Glucose Lactate FiO2 Potassium Carbon Dioxide Anion Gap BUN Creatinine Est GFR ( Amer) Est GFR (Non-Af Amer) POC Glucose (mg/dL) 291 H 303 H 193 H Random Glucose Calcium Phosphorus Magnesium Total Bilirubin AST ALT Alkaline Phosphatase Total Protein Albumin Globulin Albumin/Globulin Ratio Arterial Blood Potassium Venous Blood Potassium Hep B Core IgM Ab 06/11/18 06/11/18 06/11/18 14:20 17:18 19:54 WBC RBC Hgb Hct MCV MCH MCHC RDW Plt Count Gran % Lymph % (Auto) [place] % (Auto) Eos % (Auto) Baso % (Auto) Gran # Lymph # (Auto) [place] # (Auto) Eos # (Auto) Baso # (Auto) Neutrophils % (Manual) Lymphocytes % (Manual) Monocytes % (Manual) Platelet Evaluation Anisocytosis (manual) PT INR APTT pCO2 pO2 HCO3 ABG pH ABG Total CO2 ABG O2 Saturation ABG Base Excess ABG Potassium VBG pH VBG pCO2 VBG HCO3 VBG Total CO2 VBG O2 Sat (Calc) VBG Base Excess VBG Potassium Sodium Chloride Glucose Lactate FiO2 Potassium Carbon Dioxide Anion Gap BUN Creatinine Est GFR ( Amer) Est GFR (Non-Af Amer) POC Glucose (mg/dL) 168 H 171 H 120 H Random Glucose Calcium Phosphorus Magnesium Total Bilirubin AST ALT Alkaline Phosphatase Total Protein Albumin Globulin Albumin/Globulin Ratio Arterial Blood Potassium Venous Blood Potassium Hep B Core IgM Ab 06/12/18 06/12/18 06/12/18 01:24 03:50 09:12 WBC RBC Hgb Hct MCV MCH MCHC RDW Plt Count Gran % Lymph % (Auto) [place] % (Auto) Eos % (Auto) Baso % (Auto) Gran # Lymph # (Auto) [place] # (Auto) Eos # (Auto) Baso # (Auto) Neutrophils % (Manual) Lymphocytes % (Manual) Monocytes % (Manual) Platelet Evaluation Anisocytosis (manual) PT INR APTT pCO2 pO2 HCO3 ABG pH ABG Total CO2 ABG O2 Saturation ABG Base Excess ABG Potassium VBG pH VBG pCO2 VBG HCO3 VBG Total CO2 VBG O2 Sat (Calc) VBG Base Excess VBG Potassium Sodium Chloride Glucose Lactate FiO2 Potassium Carbon Dioxide Anion Gap BUN Creatinine Est GFR ( Amer) Est GFR (Non-Af Amer) POC Glucose (mg/dL) 132 H 136 H 92 Random Glucose Calcium Phosphorus Magnesium Total Bilirubin AST ALT Alkaline Phosphatase Total Protein Albumin Globulin Albumin/Globulin Ratio Arterial Blood Potassium Venous Blood Potassium Hep B Core IgM Ab 06/12/18 06/12/18 06/12/18 13:09 15:19 15:19 WBC 12.6 H D RBC 6.15 H Hgb 18.1 H* Hct 52.9 H MCV 86.0 MCH 29.4 MCHC 34.2 RDW 15.6 H Plt Count 10 L* Gran % 90.2 H Lymph % (Auto) 7.5 L [place] % (Auto) 1.0 Eos % (Auto) 0.2 L Baso % (Auto) 1.1 Gran # 11.40 H Lymph # (Auto) 1.0 L [place] # (Auto) 0.1 Eos # (Auto) 0.0 Baso # (Auto) 0.14 Neutrophils % (Manual) 92 H Lymphocytes % (Manual) 7 L Monocytes % (Manual) 1 Platelet Evaluation Low Anisocytosis (manual) 1+ PT INR APTT pCO2 pO2 132 H HCO3 ABG pH ABG Total CO2 ABG O2 Saturation ABG Base Excess ABG Potassium VBG pH 7.06 L* VBG pCO2 59.0 VBG HCO3 16.7 L VBG Total CO2 18.5 L VBG O2 Sat (Calc) 98.0 H VBG Base Excess -14.0 L VBG Potassium 5.5 H Sodium 133.0 Chloride 107.0 Glucose 110 H Lactate 4.6 H* FiO2 21.0 Potassium Carbon Dioxide Anion Gap BUN Creatinine Est GFR ( Amer) Est GFR (Non-Af Amer) POC Glucose (mg/dL) 88 Random Glucose Calcium Phosphorus Magnesium Total Bilirubin AST ALT Alkaline Phosphatase Total Protein Albumin Globulin Albumin/Globulin Ratio Arterial Blood Potassium Venous Blood Potassium 5.5 H Hep B Core IgM Ab 06/12/18 06/12/18 06/12/18 15:19 16:05 20:36 WBC RBC Hgb Hct MCV MCH MCHC RDW Plt Count Gran % Lymph % (Auto) [place] % (Auto) Eos % (Auto) Baso % (Auto) Gran # Lymph # (Auto) [place] # (Auto) Eos # (Auto) Baso # (Auto) Neutrophils % (Manual) Lymphocytes % (Manual) Monocytes % (Manual) Platelet Evaluation Anisocytosis (manual) PT INR APTT pCO2 pO2 HCO3 ABG pH ABG Total CO2 ABG O2 Saturation ABG Base Excess ABG Potassium VBG pH VBG pCO2 VBG HCO3 VBG Total CO2 VBG O2 Sat (Calc) VBG Base Excess VBG Potassium Sodium 141 Chloride 111 H Glucose Lactate FiO2 Potassium 5.3 H Carbon Dioxide 17 L Anion Gap 18 BUN 48 H Creatinine 0.9 Est GFR ( Amer) > 60 Est GFR (Non-Af Amer) > 60 POC Glucose (mg/dL) 95 94 Random Glucose 107 Calcium 7.4 L Phosphorus 7.0 H Magnesium 1.7 Total Bilirubin 1.4 H AST 49 H D ALT 40 Alkaline Phosphatase 335 H D Total Protein 4.9 L Albumin 2.1 L Globulin 2.8 Albumin/Globulin Ratio 0.7 L Arterial Blood Potassium Venous Blood Potassium Hep B Core IgM Ab 06/12/18 06/12/18 06/12/18 21:30 21:30 21:40 WBC 15.7 H D RBC 5.29 Hgb 15.3 D Hct 44.9 MCV 84.9 MCH 28.9 MCHC 34.1 RDW 15.3 H Plt Count 7 L* Gran % 89.4 H Lymph % (Auto) 7.6 L [place] % (Auto) 2.4 Eos % (Auto) 0.1 L Baso % (Auto) 0.5 Gran # 14.04 H Lymph # (Auto) 1.2 [place] # (Auto) 0.4 Eos # (Auto) 0.0 Baso # (Auto) 0.08 Neutrophils % (Manual) Lymphocytes % (Manual) Monocytes % (Manual) Platelet Evaluation Low Anisocytosis (manual) PT 17.0 H INR 1.48 APTT 127.5 H* pCO2 pO2 HCO3 ABG pH ABG Total CO2 ABG O2 Saturation ABG Base Excess ABG Potassium VBG pH VBG pCO2 VBG HCO3 VBG Total CO2 VBG O2 Sat (Calc) VBG Base Excess VBG Potassium Sodium 143 Chloride 109 H Glucose Lactate FiO2 Potassium 5.0 Carbon Dioxide 21 Anion Gap 18 BUN 51 H Creatinine 1.0 Est GFR ( Amer) > 60 Est GFR (Non-Af Amer) 57 POC Glucose (mg/dL) Random Glucose 111 H Calcium 7.2 L Phosphorus Magnesium Total Bilirubin 1.8 H AST 34 ALT 43 Alkaline Phosphatase 280 H Total Protein 4.8 L Albumin 2.3 L Globulin 2.5 Albumin/Globulin Ratio 0.9 L Arterial Blood Potassium Venous Blood Potassium Hep B Core IgM Ab 06/12/18 06/12/18 06/13/18 21:40 22:49 00:04 WBC RBC Hgb Hct MCV MCH MCHC RDW Plt Count Gran % Lymph % (Auto) [place] % (Auto) Eos % (Auto) Baso % (Auto) Gran # Lymph # (Auto) [place] # (Auto) Eos # (Auto) Baso # (Auto) Neutrophils % (Manual) Lymphocytes % (Manual) Monocytes % (Manual) Platelet Evaluation Anisocytosis (manual) PT 17.0 H INR 1.48 APTT 127.2 H* pCO2 pO2 49 HCO3 ABG pH ABG Total CO2 ABG O2 Saturation ABG Base Excess ABG Potassium VBG pH 7.14 L* VBG pCO2 59.0 VBG HCO3 20.1 L VBG Total CO2 21.9 L VBG O2 Sat (Calc) 87.2 H VBG Base Excess -9.5 L VBG Potassium 5.0 Sodium 137.0 Chloride 107.0 Glucose 114 H Lactate 3.4 H FiO2 21.0 Potassium Carbon Dioxide Anion Gap BUN Creatinine Est GFR ( Amer) Est GFR (Non-Af Amer) POC Glucose (mg/dL) 85 Random Glucose Calcium Phosphorus Magnesium Total Bilirubin AST ALT Alkaline Phosphatase Total Protein Albumin Globulin Albumin/Globulin Ratio Arterial Blood Potassium Venous Blood Potassium 5.0 Hep B Core IgM Ab 06/13/18 06/13/18 06/13/18 00:55 00:55 00:55 WBC 15.3 H RBC 5.42 Hgb 15.5 Hct 46.0 MCV 84.9 MCH 28.6 MCHC 33.7 RDW 15.5 H Plt Count 8 L* Gran % 88.1 H Lymph % (Auto) 8.3 L [place] % (Auto) 2.9 Eos % (Auto) 0.1 L Baso % (Auto) 0.6 Gran # 13.46 H Lymph # (Auto) 1.3 [place] # (Auto) 0.4 Eos # (Auto) 0.0 Baso # (Auto) 0.09 Neutrophils % (Manual) Lymphocytes % (Manual) Monocytes % (Manual) Platelet Evaluation Low Anisocytosis (manual) PT INR APTT pCO2 49 H pO2 88.0 HCO3 18.3 L ABG pH 7.18 L* ABG Total CO2 19.8 L ABG O2 Saturation 96.9 ABG Base Excess -10.1 L ABG Potassium 4.8 VBG pH VBG pCO2 VBG HCO3 VBG Total CO2 VBG O2 Sat (Calc) VBG Base Excess VBG Potassium Sodium 143 139.0 Chloride 110 H 111.0 H Glucose 118 H Lactate 2.8 H FiO2 80.0 Potassium 5.0 Carbon Dioxide 18 L Anion Gap 21 H BUN 53 H Creatinine 0.8 Est GFR ( Amer) > 60 Est GFR (Non-Af Amer) > 60 POC Glucose (mg/dL) Random Glucose 109 Calcium 7.4 L Phosphorus Magnesium Total Bilirubin 2.0 H AST 36 ALT 32 Alkaline Phosphatase 271 H Total Protein 5.1 L Albumin 2.6 L Globulin 2.5 Albumin/Globulin Ratio 1.1 Arterial Blood Potassium 4.8 Venous Blood Potassium Hep B Core IgM Ab 06/13/18 06/13/18 06/13/18 04:15 05:26 06:40 WBC 17.0 H RBC 4.60 Hgb 13.1 D Hct 38.8 MCV 84.3 MCH 28.5 MCHC 33.8 RDW 15.7 H Plt Count 12 L* Gran % Lymph % (Auto) [employer]ementing [employer] Operator [place] % (Auto) Eos % (Auto) [employer]ementing Machine Operator Baso % (Auto) Cementing Machine Operator Gran # Lymph # (Auto) Cementing Machine Operator [place] # (Auto) Eos # (Auto) 0.0 Baso # (Auto) 0.04 Neutrophils % (Manual) Lymphocytes % (Manual) Monocytes % (Manual) Platelet Evaluation Low Anisocytosis (manual) PT INR APTT pCO2 46 H pO2 94.0 HCO3 17.6 L ABG pH 7.19 L* ABG Total CO2 19.0 L ABG O2 Saturation 97.6 ABG Base Excess -10.4 L ABG Potassium 4.4 VBG pH VBG pCO2 VBG HCO3 VBG Total CO2 VBG O2 Sat (Calc) VBG Base Excess VBG Potassium Sodium 139.0 Chloride 112.0 H Glucose 126 H Lactate 2.3 H FiO2 80.0 Potassium Carbon Dioxide Anion Gap BUN Creatinine Est GFR ( Amer) Est GFR (Non-Af Amer) POC Glucose (mg/dL) 118 H Random Glucose Calcium Phosphorus Magnesium Total Bilirubin AST ALT Alkaline Phosphatase Total Protein Albumin Globulin Albumin/Globulin Ratio Arterial Blood Potassium 4.4 Venous Blood Potassium Hep B Core IgM Ab 06/13/18 06/13/18 06:40 06:40 WBC RBC Hgb Hct MCV MCH MCHC RDW Plt Count Gran % Lymph % (Auto) [place] % (Auto) Eos % (Auto) Baso % (Auto) Gran # Lymph # (Auto) [place] # (Auto) Eos # (Auto) Baso # (Auto) Neutrophils % (Manual) Lymphocytes % (Manual) Monocytes % (Manual) Platelet Evaluation Anisocytosis (manual) PT 17.5 H INR 1.51 APTT 136.0 H* pCO2 pO2 HCO3 ABG pH ABG Total CO2 ABG O2 Saturation ABG Base Excess ABG Potassium VBG pH VBG pCO2 VBG HCO3 VBG Total CO2 VBG O2 Sat (Calc) VBG Base Excess VBG Potassium Sodium 143 Chloride 110 H Glucose Lactate FiO2 Potassium 4.9 Carbon Dioxide 20 L Anion Gap 18 BUN 57 H Creatinine 0.9 Est GFR ( Amer) > 60 Est GFR (Non-Af Amer) > 60 POC Glucose (mg/dL) Random Glucose 133 H Calcium 6.8 L* Phosphorus 6.3 H Magnesium 1.5 L Total Bilirubin 2.3 H AST 33 ALT 36 Alkaline Phosphatase 237 H Total Protein 4.7 L Albumin 2.3 L Globulin 2.4 Albumin/Globulin Ratio 1.0 L Arterial Blood Potassium Venous Blood Potassium Hep B Core IgM Ab Fingerstick Blood Sugar Results: 140 Assessment/Plan - Assessment and Plan (Free Text) Assessment: 58 year old female under ICU management for septic shock in the setting of lactic acidosis, likely 2/2 necrotizing fasciitis. 1. Acute AMS 2. Possible Nec Fasciitis 3. Acute thrombocytopenia 4. Acute metabolic acidosis likely 2/2 HHS 5. Acute hyperkalemia, likely 2/2 HHS 6. 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 Hx COPD 8. Hx DM 9. Hx HTN Patient's labs reveal lactic acidosis as well as decreased paO2 on ABG. Patient is currently protecting her airway and is 100% O2 saturation. glucose levels on admission 514, trending downward with a metabolic acidosis. Tox screen negative, but no UA obtained to look for ketones. Chest XR shows chronic COPD. Acutely, ECHO shows possibility of PE; given patient's current status, CTA is not going to be plausible; ptt shows that heparin drip is therapeutic. Plan Neuro - Maintain normothermia - Treat lactic acidosis, likely source of infection, which are contributing to AMS - Titrate fentanyl drip to RASS score of -4 Pulm - Duonebs PRN and LAMONTE - Maintain sats > 92% - Lung protective ventilation protocol (Peak pressures < 30) with settings of: 400/20/7/80 Cardio - Maintain MAP > 65, A-line placed for more accurate measurement of BP - Patient on levophed, vasopressin, neosynephrine drips - Heparin drip for possible PE GI - GI PPX - Surgery on consult - will most likely need emergent surgery, will hold off on CT abdomen/pelvis with po contrast - GI on consult - Correct electrolyte abnormalities PRN (hyperkalemic) - Goal UOP should be .5/kg/hr; Continue to try to maintain MAP > 65 to allow for renal perfusion ID - Continue Clinda, Merrem, and Vanc for septic shock 2/2 necrotizing fasciitis - ID Consult: Dr. Mcfarland Endo - Continue RISS q4 with FS q4 - Maintain euglycemia Heme - DIC, HIT work-up for thrombocytopenia; patient is s/p 2 U FFP Psych - Possible suicide attempt; may need 1:1 when patient medically optimized <Radha,Bilal - Last Filed: 06/13/18 13:29> CCU Objective - Vital Signs / Intake & Output Vital Signs (Last 4 hours): Vital Signs Temp Pulse BP Pulse Ox 06/13/18 11:20 99.9 F H 117 H 100 06/13/18 11:10 99.9 F H 116 H 100 06/13/18 11:00 99.9 F H 115 H 104/56 L 100 06/13/18 10:50 99.9 F H 116 H 100 06/13/18 10:40 100.0 F H 116 H 100 06/13/18 10:30 100.2 F H 116 H 100 06/13/18 10:20 100.2 F H 115 H 100 06/13/18 10:10 100.2 F H 114 H 100 06/13/18 10:01 100.2 F H 116 H 111/64 100 06/13/18 10:00 100.2 F H 114 H 100 06/13/18 09:50 100.0 F H 115 H 100 06/13/18 09:40 100.0 F H 116 H 100 06/13/18 09:30 100.0 F H 115 H 100 Intake and Output (Last 8hrs): Intake & Output 06/12/18 06/13/18 06/13/18 22:59 06:59 14:59 Intake Total 2408 4276 597 Output Total 300 500 Balance 2108 3776 597 Weight 159 lb Intake: IV 2408 4276 597 Right Internal Jugular 1710 abx 550 albumin 100 fentanyl 90 heparin 144 levo 804 ns 0.9 1200 phenylephrine 456 vaso 108 Oral 0 Output: Gastric Amount 100 0 Stomach 100 0 Urine 200 500 Urethral (Lorenz) 200 500 Stool 0 Emesis 0 - Medications Active Medications: Active Medications Generic Name Dose Route Start Last Admin Trade Name Freq PRN Reason Stop Dose Admin Albumin Human 12.5 gm 06/12/18 18:00 06/13/18 13:22 Albumin Human 25% (12.5 Gm/50 Ml) IV 06/13/18 14:43 12.5 gm Q6H LAMONTE Administration Albuterol/Ipratropium 3 ml 06/11/18 07:41 Duoneb 3 Mg/0.5 Mg (3 Ml) Ud IH Q2H PRN Shortness of Breath Albuterol/Ipratropium 3 ml 06/11/18 08:00 06/13/18 13:10 Duoneb 3 Mg/0.5 Mg (3 Ml) Ud IH 3 ml [id number] LAMONTE Administration Clindamycin Phosphate 900 mg/ 106 mls @ 106 mls/hr 06/11/18 17:30 06/13/18 05 :02 Sodium Chloride IVPB 106 mls/hr Q8 LAMONTE Administration Protocol Fentanyl Citrate 1,000 mcg in 100 mls @ 2 mls/hr 06/11/18 19:42 06/13/18 08: 30 Fentanyl Citrate/Sodium Chloride 1 Mg/100 Ml IV 80 mcg/hr .Q24H PRN 8 mls/hr TITRATE PER MD ORDER Administration Protocol 20 MCG/HR NOREPINEPHRINE BIT/0.9 % NACL 4 mg in 250 mls @ 15 mls/hr 06/11/18 19:42 09:08 Levophed 4 Mg/ 250 Ml Ns Premixed IV 20 mcg/min .[id number] PRN 75 mls/hr TITRATE PER MD ORDER Administration Protocol 4 MCG/MIN Sodium Chloride 1,000 mls @ 100 mls/hr 06/11/18 22:00 06/13/18 06:41 Sodium Chloride 0.9% IV 100 mls/hr .Q10H LAMONTE Administration Acetaminophen 1,000 mg in 100 mls @ 400 mls/hr 06/12/18 03:05 06/13/18 02:33 Ofirmev IVPB 06/14/18 03:06 400 mls/hr Q6H PRN Administration Temperature Vasopressin 20 units/ Sodium 101 mls @ 9.09 mls/hr 06/12/18 08:30 06/13/18 06 :55 Chloride IV 9.09 mls/hr .[id number] LAMONTE Administration Protocol 0.03 U/MIN Phenylephrine HCl 40 mg/ 254 mls @ 38.1 mls/hr 06/12/18 09:35 06/13/18 07:14 Sodium Chloride IV 100 mcg/min .[id number] PRN 38.1 mls/hr TITRATE PER MD ORDER Administration Protocol 100 MCG/MIN Heparin Sodium/Sodium Chloride 25,000 units in 250 mls @ 12.655 mls/hr 19:42 06/13/18 08:45 Heparin 20756 Units/250ml 1/2 Normal Saline IV 12 units/kg/hr .[id number] PRN 8.437 mls/hr ADJUST RATE PER PROTOCOL Titration Protocol 18 UNITS/KG/HR Meropenem 50 mls @ 100 mls/hr 06/13/18 09:10 06/13/18 13:12 Merrem Iv 1 Gm Premix IVPB 100 mls/hr Q8 LAMONTE Administration Protocol Daptomycin 430 mg/ Sodium 100 mls @ 200 mls/hr 06/13/18 12:15 06/13/18 13:26 Chloride IV 06/18/18 12:01 200 mls/hr Q24H LAMONTE Administration Insulin Human Lispro 0 units 06/12/18 20:00 06/13/18 13:05 Humalog High SC Not Given Q4 LAMONTE Protocol Lorazepam 2 mg 06/12/18 09:43 06/13/18 04:07 Ativan IVP 2 mg Q2H PRN Administration Anxiety Protocol Pantoprazole Sodium 40 mg 06/12/18 10:00 06/13/18 10:12 Protonix Inj IVP 40 mg DAILY LAMONTE Administration Sodium Hypochlorite 500 ml 06/13/18 10:00 06/13/18 10:27 Dakins Solution 0.25% TOP 1 % DAILY LAMONTE Administration - Patient Studies Lab Studies: Microbiology Studies 06/11/18 14:52 Gram Stain - Final Abdomen Wound Culture - Preliminary Gram Positive Cocci 06/11/18 16:26 Gram Stain - Final Other: Please Indicate Wound Culture - Preliminary Gram Negative Mayo 06/11/18 11:32 MRSA Culture (Admit) - Final Naris MRSA NOT DETECTED 06/11/18 07:00 Urine Culture - Final Urine,Clean Catch No Growth (<1,000 CFU/ML) Lab Studies 06/13/18 06/13/18 06/13/18 Range/Units 11:15 11:15 11:15 WBC 17.6 H (4.5-11.0) 10^3/ul RBC 4.37 (3.5-6.1) 10^6/uL Hgb 12.3 (12.0-16.0) g/dL Hct 36.6 (36.0-48.0) % MCV 83.8 (80.0-105.0) fl MCH 28.1 (25.0-35.0) pg MCHC 33.6 (31.0-37.0) g/dl RDW 15.7 H (11.5-14.5) % Plt Count 44 L* (120.0-450.0) 10^3/uL MPV 9.6 (7.0-11.0) fl Gran % 92.7 H (50.0-68.0) % Lymph % (Auto) 6.1 L (22.0-35.0) % [place] % (Auto) 0.9 L (1.0-6.0) % Eos % (Auto) 0.1 L (1.5-5.0) % Baso % (Auto) 0.2 (0.0-3.0) % Gran # 16.30 H (1.4-6.5) Lymph # (Auto) 1.1 L (1.2-3.4) [place] # (Auto) 0.2 (0.1-0.6) Eos # (Auto) 0.0 (0.0-0.7) Baso # (Auto) 0.04 (0.0-2.0) K/mm3 Neutrophils % (Manual) (50.0-70.0) % Lymphocytes % (Manual) (22.0-35.0) % Monocytes % (Manual) (1.0-6.0) % Platelet Evaluation (NORMAL) Anisocytosis (manual) PT (9.4-12.5) SECONDS INR APTT (25.1-36.5) Seconds Fibrinogen 611 H* (200-400) mg/dl Fibrin Degrad Products >10 <40 ug/ml (< 10 ug/mL) D-Dimer, Quantitative 2886 H (0-243) ng/mlDDU pCO2 (35-45) mm/Hg pO2 (30-55) mm/Hg HCO3 (21-28) mmol/L ABG pH (7.35-7.45) ABG Total CO2 (22-28) mmol.L ABG O2 Saturation (95-98) % ABG Base Excess (-2.0-3.0) mmol/L ABG Potassium (3.6-5.2) mmol/L VBG pH (7.32-7.43) VBG pCO2 (40-60) VBG HCO3 (21-28) mmol/l VBG Total CO2 (22-28) mmol.L VBG O2 Sat (Calc) (40-65) % VBG Base Excess (0.0-2.0) mmol/L VBG Potassium (3.6-5.2) mmol/L Sodium (132-148) mmol/L Chloride (98-107) mmol/L Glucose (65-105) mg/dl Lactate (0.7-2.1) mmol/L FiO2 % Potassium (3.6-5.0) mmol/L Carbon Dioxide (21-33) mmol/L Anion Gap (10-20) BUN (7-21) mg/dL Creatinine (0.7-1.2) mg/dl Est GFR ( Amer) Est GFR (Non-Af Amer) POC Glucose (mg/dL) (65-110) mg/dL Random Glucose (70-110) mg/dL Hemoglobin A1c (4.2-6.5) % Calcium (8.4-10.5) mg/dL Phosphorus (2.5-4.5) mg/dL Magnesium (1.7-2.2) mg/dL Total Bilirubin (0.2-1.3) mg/dL AST (14-36) U/L ALT (7-56) U/L Alkaline Phosphatase (38-126) U/L Total Protein (5.8-8.3) g/dL Albumin (3.0-4.8) g/dL Globulin gm/dL Albumin/Globulin Ratio (1.1-1.8) Arterial Blood Potassium (3.6-5.2) mmol/L Venous Blood Potassium (3.6-5.2) mmol/L Hep B Core IgM Ab (NEGATIVE) 06/13/18 06/13/18 06/13/18 Range/Units 11:15 06:40 06:40 WBC (4.5-11.0) 10^3/ul RBC (3.5-6.1) 10^6/uL Hgb (12.0-16.0) g/dL Hct (36.0-48.0) % MCV (80.0-105.0) fl MCH (25.0-35.0) pg MCHC (31.0-37.0) g/dl RDW (11.5-14.5) % Plt Count (120.0-450.0) 10^3/uL MPV (7.0-11.0) fl Gran % (50.0-68.0) % Lymph % (Auto) (22.0-35.0) % [place] % (Auto) (1.0-6.0) % Eos % (Auto) (1.5-5.0) % Baso % (Auto) (0.0-3.0) % Gran # (1.4-6.5) Lymph # (Auto) (1.2-3.4) [place] # (Auto) (0.1-0.6) Eos # (Auto) (0.0-0.7) Baso # (Auto) (0.0-2.0) K/mm3 Neutrophils % (Manual) (50.0-70.0) % Lymphocytes % (Manual) (22.0-35.0) % Monocytes % (Manual) (1.0-6.0) % Platelet Evaluation (NORMAL) Anisocytosis (manual) PT 17.5 H (9.4-12.5) SECONDS INR 1.51 APTT 136.0 H* (25.1-36.5) Seconds Fibrinogen (200-400) mg/dl Fibrin Degrad Products (< 10 ug/mL) D-Dimer, Quantitative (0-243) ng/mlDDU pCO2 (35-45) mm/Hg pO2 82 H (30-55) mm/Hg HCO3 (21-28) mmol/L ABG pH (7.35-7.45) ABG Total CO2 (22-28) mmol.L ABG O2 Saturation (95-98) % ABG Base Excess (-2.0-3.0) mmol/L ABG Potassium (3.6-5.2) mmol/L VBG pH 7.15 L* (7.32-7.43) VBG pCO2 55.0 (40-60) VBG HCO3 19.2 L (21-28) mmol/l VBG Total CO2 20.9 L (22-28) mmol.L VBG O2 Sat (Calc) 96.5 H (40-65) % VBG Base Excess -10.0 L (0.0-2.0) mmol/L VBG Potassium 4.7 (3.6-5.2) mmol/L Sodium 139.0 (132-148) mmol/L Chloride 108.0 H (98-107) mmol/L Glucose 156 H (65-105) mg/dl Lactate 2.1 (0.7-2.1) mmol/L FiO2 21.0 % Potassium (3.6-5.0) mmol/L Carbon Dioxide (21-33) mmol/L Anion Gap (10-20) BUN (7-21) mg/dL Creatinine (0.7-1.2) mg/dl Est GFR ( Amer) Est GFR (Non-Af Amer) POC Glucose (mg/dL) (65-110) mg/dL Random Glucose (70-110) mg/dL Hemoglobin A1c 16.5 H (4.2-6.5) % Calcium (8.4-10.5) mg/dL Phosphorus (2.5-4.5) mg/dL Magnesium (1.7-2.2) mg/dL Total Bilirubin (0.2-1.3) mg/dL AST (14-36) U/L ALT (7-56) U/L Alkaline Phosphatase (38-126) U/L Total Protein (5.8-8.3) g/dL Albumin (3.0-4.8) g/dL Globulin gm/dL Albumin/Globulin Ratio (1.1-1.8) Arterial Blood Potassium (3.6-5.2) mmol/L Venous Blood Potassium 4.7 (3.6-5.2) mmol/L Hep B Core IgM Ab (NEGATIVE) 06/13/18 06/13/18 06/13/18 Range/Units 06:40 06:40 05:26 WBC 17.0 H (4.5-11.0) 10^3/ul RBC 4.60 (3.5-6.1) 10^6/uL Hgb 13.1 D (12.0-16.0) g/dL Hct 38.8 (36.0-48.0) % MCV 84.3 (80.0-105.0) fl MCH 28.5 (25.0-35.0) pg MCHC 33.8 (31.0-37.0) g/dl RDW 15.7 H (11.5-14.5) % Plt Count 12 L* (120.0-450.0) 10^3/uL MPV (7.0-11.0) fl Gran % (50.0-68.0) % Lymph % (Auto) [employer] (22.0-35.0) % [place] % (Auto) (1.0-6.0) % Eos % (Auto) [employer] (1.5-5.0) % Baso % (Auto) [employer] Operator (0.0-3.0) % Gran # (1.4-6.5) Lymph # (Auto) C[employer] Operator (1.2-3.4) [place] # (Auto) (0.1-0.6) Eos # (Auto) 0.0 (0.0-0.7) Baso # (Auto) 0.04 (0.0-2.0) K/mm3 Neutrophils % (Manual) (50.0-70.0) % Lymphocytes % (Manual) (22.0-35.0) % Monocytes % (Manual) (1.0-6.0) % Platelet Evaluation Low (NORMAL) Anisocytosis (manual) PT (9.4-12.5) SECONDS INR APTT (25.1-36.5) Seconds Fibrinogen (200-400) mg/dl Fibrin Degrad Products (< 10 ug/mL) D-Dimer, Quantitative (0-243) ng/mlDDU pCO2 46 H (35-45) mm/Hg pO2 94.0 (30-55) mm/Hg HCO3 17.6 L (21-28) mmol/L ABG pH 7.19 L* (7.35-7.45) ABG Total CO2 19.0 L (22-28) mmol.L ABG O2 Saturation 97.6 (95-98) % ABG Base Excess -10.4 L (-2.0-3.0) mmol/L ABG Potassium 4.4 (3.6-5.2) mmol/L VBG pH (7.32-7.43) VBG pCO2 (40-60) VBG HCO3 (21-28) mmol/l VBG Total CO2 (22-28) mmol.L VBG O2 Sat (Calc) (40-65) % VBG Base Excess (0.0-2.0) mmol/L VBG Potassium (3.6-5.2) mmol/L Sodium 143 139.0 (132-148) mmol/L Chloride 110 H 112.0 H (98-107) mmol/L Glucose 126 H (65-105) mg/dl Lactate 2.3 H (0.7-2.1) mmol/L FiO2 80.0 % Potassium 4.9 (3.6-5.0) mmol/L Carbon Dioxide 20 L (21-33) mmol/L Anion Gap 18 (10-20) BUN 57 H (7-21) mg/dL Creatinine 0.9 (0.7-1.2) mg/dl Est GFR ( Amer) > 60 Est GFR (Non-Af Amer) > 60 POC Glucose (mg/dL) (65-110) mg/dL Random Glucose 133 H (70-110) mg/dL Hemoglobin A1c (4.2-6.5) % Calcium 6.8 L* (8.4-10.5) mg/dL Phosphorus 6.3 H (2.5-4.5) mg/dL Magnesium 1.5 L (1.7-2.2) mg/dL Total Bilirubin 2.3 H (0.2-1.3) mg/dL AST 33 (14-36) U/L ALT 36 (7-56) U/L Alkaline Phosphatase 237 H (38-126) U/L Total Protein 4.7 L (5.8-8.3) g/dL Albumin 2.3 L (3.0-4.8) g/dL Globulin 2.4 gm/dL Albumin/Globulin Ratio 1.0 L (1.1-1.8) Arterial Blood Potassium 4.4 (3.6-5.2) mmol/L Venous Blood Potassium (3.6-5.2) mmol/L Hep B Core IgM Ab (NEGATIVE) 06/13/18 06/13/18 06/13/18 Range/Units 04:15 00:55 00:55 WBC (4.5-11.0) 10^3/ul RBC (3.5-6.1) 10^6/uL Hgb (12.0-16.0) g/dL Hct (36.0-48.0) % MCV (80.0-105.0) fl MCH (25.0-35.0) pg MCHC (31.0-37.0) g/dl RDW (11.5-14.5) % Plt Count (120.0-450.0) 10^3/uL MPV (7.0-11.0) fl Gran % (50.0-68.0) % Lymph % (Auto) (22.0-35.0) % [place] % (Auto) (1.0-6.0) % Eos % (Auto) (1.5-5.0) % Baso % (Auto) (0.0-3.0) % Gran # (1.4-6.5) Lymph # (Auto) (1.2-3.4) [place] # (Auto) (0.1-0.6) Eos # (Auto) (0.0-0.7) Baso # (Auto) (0.0-2.0) K/mm3 Neutrophils % (Manual) (50.0-70.0) % Lymphocytes % (Manual) (22.0-35.0) % Monocytes % (Manual) (1.0-6.0) % Platelet Evaluation (NORMAL) Anisocytosis (manual) PT (9.4-12.5) SECONDS INR APTT (25.1-36.5) Seconds Fibrinogen (200-400) mg/dl Fibrin Degrad Products (< 10 ug/mL) D-Dimer, Quantitative (0-243) ng/mlDDU pCO2 49 H (35-45) mm/Hg pO2 88.0 (30-55) mm/Hg HCO3 18.3 L (21-28) mmol/L ABG pH 7.18 L* (7.35-7.45) ABG Total CO2 19.8 L (22-28) mmol.L ABG O2 Saturation 96.9 (95-98) % ABG Base Excess -10.1 L (-2.0-3.0) mmol/L ABG Potassium 4.8 (3.6-5.2) mmol/L VBG pH (7.32-7.43) VBG pCO2 (40-60) VBG HCO3 (21-28) mmol/l VBG Total CO2 (22-28) mmol.L VBG O2 Sat (Calc) (40-65) % VBG Base Excess (0.0-2.0) mmol/L VBG Potassium (3.6-5.2) mmol/L Sodium 139.0 143 (132-148) mmol/L Chloride 111.0 H 110 H (98-107) mmol/L Glucose 118 H (65-105) mg/dl Lactate 2.8 H (0.7-2.1) mmol/L FiO2 80.0 % Potassium 5.0 (3.6-5.0) mmol/L Carbon Dioxide 18 L (21-33) mmol/L Anion Gap 21 H (10-20) BUN 53 H (7-21) mg/dL Creatinine 0.8 (0.7-1.2) mg/dl Est GFR ( Amer) > 60 Est GFR (Non-Af Amer) > 60 POC Glucose (mg/dL) 118 H (65-110) mg/dL Random Glucose 109 (70-110) mg/dL Hemoglobin A1c (4.2-6.5) % Calcium 7.4 L (8.4-10.5) mg/dL Phosphorus (2.5-4.5) mg/dL Magnesium (1.7-2.2) mg/dL Total Bilirubin 2.0 H (0.2-1.3) mg/dL AST 36 (14-36) U/L ALT 32 (7-56) U/L Alkaline Phosphatase 271 H (38-126) U/L Total Protein 5.1 L (5.8-8.3) g/dL Albumin 2.6 L (3.0-4.8) g/dL Globulin 2.5 gm/dL Albumin/Globulin Ratio 1.1 (1.1-1.8) Arterial Blood Potassium 4.8 (3.6-5.2) mmol/L Venous Blood Potassium (3.6-5.2) mmol/L Hep B Core IgM Ab (NEGATIVE) 06/13/18 06/13/18 06/12/18 Range/Units 00:55 00:04 22:49 WBC 15.3 H (4.5-11.0) 10^3/ul RBC 5.42 (3.5-6.1) 10^6/uL Hgb 15.5 (12.0-16.0) g/dL Hct 46.0 (36.0-48.0) % MCV 84.9 (80.0-105.0) fl MCH 28.6 (25.0-35.0) pg MCHC 33.7 (31.0-37.0) g/dl RDW 15.5 H (11.5-14.5) % Plt Count 8 L* (120.0-450.0) 10^3/uL MPV (7.0-11.0) fl Gran % 88.1 H (50.0-68.0) % Lymph % (Auto) 8.3 L (22.0-35.0) % [place] % (Auto) 2.9 (1.0-6.0) % Eos % (Auto) 0.1 L (1.5-5.0) % Baso % (Auto) 0.6 (0.0-3.0) % Gran # 13.46 H (1.4-6.5) Lymph # (Auto) 1.3 (1.2-3.4) [place] # (Auto) 0.4 (0.1-0.6) Eos # (Auto) 0.0 (0.0-0.7) Baso # (Auto) 0.09 (0.0-2.0) K/mm3 Neutrophils % (Manual) (50.0-70.0) % Lymphocytes % (Manual) (22.0-35.0) % Monocytes % (Manual) (1.0-6.0) % Platelet Evaluation Low (NORMAL) Anisocytosis (manual) PT 17.0 H (9.4-12.5) SECONDS INR 1.48 APTT 127.2 H* (25.1-36.5) Seconds Fibrinogen (200-400) mg/dl Fibrin Degrad Products (< 10 ug/mL) D-Dimer, Quantitative (0-243) ng/mlDDU pCO2 (35-45) mm/Hg pO2 (30-55) mm/Hg HCO3 (21-28) mmol/L ABG pH (7.35-7.45) ABG Total CO2 (22-28) mmol.L ABG O2 Saturation (95-98) % ABG Base Excess (-2.0-3.0) mmol/L ABG Potassium (3.6-5.2) mmol/L VBG pH (7.32-7.43) VBG pCO2 (40-60) VBG HCO3 (21-28) mmol/l VBG Total CO2 (22-28) mmol.L VBG O2 Sat (Calc) (40-65) % VBG Base Excess (0.0-2.0) mmol/L VBG Potassium (3.6-5.2) mmol/L Sodium (132-148) mmol/L Chloride (98-107) mmol/L Glucose (65-105) mg/dl Lactate (0.7-2.1) mmol/L FiO2 % Potassium (3.6-5.0) mmol/L Carbon Dioxide (21-33) mmol/L Anion Gap (10-20) BUN (7-21) mg/dL Creatinine (0.7-1.2) mg/dl Est GFR ( Amer) Est GFR (Non-Af Amer) POC Glucose (mg/dL) 85 (65-110) mg/dL Random Glucose (70-110) mg/dL Hemoglobin A1c (4.2-6.5) % Calcium (8.4-10.5) mg/dL Phosphorus (2.5-4.5) mg/dL Magnesium (1.7-2.2) mg/dL Total Bilirubin (0.2-1.3) mg/dL AST (14-36) U/L ALT (7-56) U/L Alkaline Phosphatase (38-126) U/L Total Protein (5.8-8.3) g/dL Albumin (3.0-4.8) g/dL Globulin gm/dL Albumin/Globulin Ratio (1.1-1.8) Arterial Blood Potassium (3.6-5.2) mmol/L Venous Blood Potassium (3.6-5.2) mmol/L Hep B Core IgM Ab (NEGATIVE) 06/12/18 06/12/18 06/12/18 Range/Units 21:40 21:40 21:30 WBC (4.5-11.0) 10^3/ul RBC (3.5-6.1) 10^6/uL Hgb (12.0-16.0) g/dL Hct (36.0-48.0) % MCV (80.0-105.0) fl MCH (25.0-35.0) pg MCHC (31.0-37.0) g/dl RDW (11.5-14.5) % Plt Count (120.0-450.0) 10^3/uL MPV (7.0-11.0) fl Gran % (50.0-68.0) % Lymph % (Auto) (22.0-35.0) % [place] % (Auto) (1.0-6.0) % Eos % (Auto) (1.5-5.0) % Baso % (Auto) (0.0-3.0) % Gran # (1.4-6.5) Lymph # (Auto) (1.2-3.4) [place] # (Auto) (0.1-0.6) Eos # (Auto) (0.0-0.7) Baso # (Auto) (0.0-2.0) K/mm3 Neutrophils % (Manual) (50.0-70.0) % Lymphocytes % (Manual) (22.0-35.0) % Monocytes % (Manual) (1.0-6.0) % Platelet Evaluation (NORMAL) Anisocytosis (manual) PT 17.0 H (9.4-12.5) SECONDS INR 1.48 APTT 127.5 H* (25.1-36.5) Seconds Fibrinogen (200-400) mg/dl Fibrin Degrad Products (< 10 ug/mL) D-Dimer, Quantitative (0-243) ng/mlDDU pCO2 (35-45) mm/Hg pO2 49 (30-55) mm/Hg HCO3 (21-28) mmol/L ABG pH (7.35-7.45) ABG Total CO2 (22-28) mmol.L ABG O2 Saturation (95-98) % ABG Base Excess (-2.0-3.0) mmol/L ABG Potassium (3.6-5.2) mmol/L VBG pH 7.14 L* (7.32-7.43) VBG pCO2 59.0 (40-60) VBG HCO3 20.1 L (21-28) mmol/l VBG Total CO2 21.9 L (22-28) mmol.L VBG O2 Sat (Calc) 87.2 H (40-65) % VBG Base Excess -9.5 L (0.0-2.0) mmol/L VBG Potassium 5.0 (3.6-5.2) mmol/L Sodium 137.0 143 (132-148) mmol/L Chloride 107.0 109 H (98-107) mmol/L Glucose 114 H (65-105) mg/dl Lactate 3.4 H (0.7-2.1) mmol/L FiO2 21.0 % Potassium 5.0 (3.6-5.0) mmol/L Carbon Dioxide 21 (21-33) mmol/L Anion Gap 18 (10-20) BUN 51 H (7-21) mg/dL Creatinine 1.0 (0.7-1.2) mg/dl Est GFR ( Amer) > 60 Est GFR (Non-Af Amer) 57 POC Glucose (mg/dL) (65-110) mg/dL Random Glucose 111 H (70-110) mg/dL Hemoglobin A1c (4.2-6.5) % Calcium 7.2 L (8.4-10.5) mg/dL Phosphorus (2.5-4.5) mg/dL Magnesium (1.7-2.2) mg/dL Total Bilirubin 1.8 H (0.2-1.3) mg/dL AST 34 (14-36) U/L ALT 43 (7-56) U/L Alkaline Phosphatase 280 H (38-126) U/L Total Protein 4.8 L (5.8-8.3) g/dL Albumin 2.3 L (3.0-4.8) g/dL Globulin 2.5 gm/dL Albumin/Globulin Ratio 0.9 L (1.1-1.8) Arterial Blood Potassium (3.6-5.2) mmol/L Venous Blood Potassium 5.0 (3.6-5.2) mmol/L Hep B Core IgM Ab (NEGATIVE) 06/12/18 06/12/18 06/12/18 Range/Units 21:30 20:36 16:05 WBC 15.7 H D (4.5-11.0) 10^3/ul RBC 5.29 (3.5-6.1) 10^6/uL Hgb 15.3 D (12.0-16.0) g/dL Hct 44.9 (36.0-48.0) % MCV 84.9 (80.0-105.0) fl MCH 28.9 (25.0-35.0) pg MCHC 34.1 (31.0-37.0) g/dl RDW 15.3 H (11.5-14.5) % Plt Count 7 L* (120.0-450.0) 10^3/uL MPV (7.0-11.0) fl Gran % 89.4 H (50.0-68.0) % Lymph % (Auto) 7.6 L (22.0-35.0) % [place] % (Auto) 2.4 (1.0-6.0) % Eos % (Auto) 0.1 L (1.5-5.0) % Baso % (Auto) 0.5 (0.0-3.0) % Gran # 14.04 H (1.4-6.5) Lymph # (Auto) 1.2 (1.2-3.4) [place] # (Auto) 0.4 (0.1-0.6) Eos # (Auto) 0.0 (0.0-0.7) Baso # (Auto) 0.08 (0.0-2.0) K/mm3 Neutrophils % (Manual) (50.0-70.0) % Lymphocytes % (Manual) (22.0-35.0) % Monocytes % (Manual) (1.0-6.0) % Platelet Evaluation Low (NORMAL) Anisocytosis (manual) PT (9.4-12.5) SECONDS INR APTT (25.1-36.5) Seconds Fibrinogen (200-400) mg/dl Fibrin Degrad Products (< 10 ug/mL) D-Dimer, Quantitative (0-243) ng/mlDDU pCO2 (35-45) mm/Hg pO2 (30-55) mm/Hg HCO3 (21-28) mmol/L ABG pH (7.35-7.45) ABG Total CO2 (22-28) mmol.L ABG O2 Saturation (95-98) % ABG Base Excess (-2.0-3.0) mmol/L ABG Potassium (3.6-5.2) mmol/L VBG pH (7.32-7.43) VBG pCO2 (40-60) VBG HCO3 (21-28) mmol/l VBG Total CO2 (22-28) mmol.L VBG O2 Sat (Calc) (40-65) % VBG Base Excess (0.0-2.0) mmol/L VBG Potassium (3.6-5.2) mmol/L Sodium (132-148) mmol/L Chloride (98-107) mmol/L Glucose (65-105) mg/dl Lactate (0.7-2.1) mmol/L FiO2 % Potassium (3.6-5.0) mmol/L Carbon Dioxide (21-33) mmol/L Anion Gap (10-20) BUN (7-21) mg/dL Creatinine (0.7-1.2) mg/dl Est GFR ( Amer) Est GFR (Non-Af Amer) POC Glucose (mg/dL) 94 95 (65-110) mg/dL Random Glucose (70-110) mg/dL Hemoglobin A1c (4.2-6.5) % Calcium (8.4-10.5) mg/dL Phosphorus (2.5-4.5) mg/dL Magnesium (1.7-2.2) mg/dL Total Bilirubin (0.2-1.3) mg/dL AST (14-36) U/L ALT (7-56) U/L Alkaline Phosphatase (38-126) U/L Total Protein (5.8-8.3) g/dL Albumin (3.0-4.8) g/dL Globulin gm/dL Albumin/Globulin Ratio (1.1-1.8) Arterial Blood Potassium (3.6-5.2) mmol/L Venous Blood Potassium (3.6-5.2) mmol/L Hep B Core IgM Ab (NEGATIVE) 06/12/18 06/12/18 06/12/18 Range/Units 15:19 15:19 15:19 WBC 12.6 H D (4.5-11.0) 10^3/ul RBC 6.15 H (3.5-6.1) 10^6/uL Hgb 18.1 H* (12.0-16.0) g/dL Hct 52.9 H (36.0-48.0) % MCV 86.0 (80.0-105.0) fl MCH 29.4 (25.0-35.0) pg MCHC 34.2 (31.0-37.0) g/dl RDW 15.6 H (11.5-14.5) % Plt Count 10 L* (120.0-450.0) 10^3/uL MPV (7.0-11.0) fl Gran % 90.2 H (50.0-68.0) % Lymph % (Auto) 7.5 L (22.0-35.0) % [place] % (Auto) 1.0 (1.0-6.0) % Eos % (Auto) 0.2 L (1.5-5.0) % Baso % (Auto) 1.1 (0.0-3.0) % Gran # 11.40 H (1.4-6.5) Lymph # (Auto) 1.0 L (1.2-3.4) [place] # (Auto) 0.1 (0.1-0.6) Eos # (Auto) 0.0 (0.0-0.7) Baso # (Auto) 0.14 (0.0-2.0) K/mm3 Neutrophils % (Manual) 92 H (50.0-70.0) % Lymphocytes % (Manual) 7 L (22.0-35.0) % Monocytes % (Manual) 1 (1.0-6.0) % Platelet Evaluation Low (NORMAL) Anisocytosis (manual) 1+ PT (9.4-12.5) SECONDS INR APTT (25.1-36.5) Seconds Fibrinogen (200-400) mg/dl Fibrin Degrad Products (< 10 ug/mL) D-Dimer, Quantitative (0-243) ng/mlDDU pCO2 (35-45) mm/Hg pO2 132 H (30-55) mm/Hg HCO3 (21-28) mmol/L ABG pH (7.35-7.45) ABG Total CO2 (22-28) mmol.L ABG O2 Saturation (95-98) % ABG Base Excess (-2.0-3.0) mmol/L ABG Potassium (3.6-5.2) mmol/L VBG pH 7.06 L* (7.32-7.43) VBG pCO2 59.0 (40-60) VBG HCO3 16.7 L (21-28) mmol/l VBG Total CO2 18.5 L (22-28) mmol.L VBG O2 Sat (Calc) 98.0 H (40-65) % VBG Base Excess -14.0 L (0.0-2.0) mmol/L VBG Potassium 5.5 H (3.6-5.2) mmol/L Sodium 141 133.0 (132-148) mmol/L Chloride 111 H 107.0 (98-107) mmol/L Glucose 110 H (65-105) mg/dl Lactate 4.6 H* (0.7-2.1) mmol/L FiO2 21.0 % Potassium 5.3 H (3.6-5.0) mmol/L Carbon Dioxide 17 L (21-33) mmol/L Anion Gap 18 (10-20) BUN 48 H (7-21) mg/dL Creatinine 0.9 (0.7-1.2) mg/dl Est GFR ( Amer) > 60 Est GFR (Non-Af Amer) > 60 POC Glucose (mg/dL) (65-110) mg/dL Random Glucose 107 (70-110) mg/dL Hemoglobin A1c (4.2-6.5) % Calcium 7.4 L (8.4-10.5) mg/dL Phosphorus 7.0 H (2.5-4.5) mg/dL Magnesium 1.7 (1.7-2.2) mg/dL Total Bilirubin 1.4 H (0.2-1.3) mg/dL AST 49 H D (14-36) U/L ALT 40 (7-56) U/L Alkaline Phosphatase 335 H D (38-126) U/L Total Protein 4.9 L (5.8-8.3) g/dL Albumin 2.1 L (3.0-4.8) g/dL Globulin 2.8 gm/dL Albumin/Globulin Ratio 0.7 L (1.1-1.8) Arterial Blood Potassium (3.6-5.2) mmol/L Venous Blood Potassium 5.5 H (3.6-5.2) mmol/L Hep B Core IgM Ab (NEGATIVE) 06/12/18 06/11/18 06/11/18 Range/Units 13:09 08:01 07:44 WBC (4.5-11.0) 10^3/ul RBC (3.5-6.1) 10^6/uL Hgb (12.0-16.0) g/dL Hct (36.0-48.0) % MCV (80.0-105.0) fl MCH (25.0-35.0) pg MCHC (31.0-37.0) g/dl RDW (11.5-14.5) % Plt Count (120.0-450.0) 10^3/uL MPV (7.0-11.0) fl Gran % (50.0-68.0) % Lymph % (Auto) (22.0-35.0) % [place] % (Auto) (1.0-6.0) % Eos % (Auto) (1.5-5.0) % Baso % (Auto) (0.0-3.0) % Gran # (1.4-6.5) Lymph # (Auto) (1.2-3.4) [place] # (Auto) (0.1-0.6) Eos # (Auto) (0.0-0.7) Baso # (Auto) (0.0-2.0) K/mm3 Neutrophils % (Manual) (50.0-70.0) % Lymphocytes % (Manual) (22.0-35.0) % Monocytes % (Manual) (1.0-6.0) % Platelet Evaluation (NORMAL) Anisocytosis (manual) PT (9.4-12.5) SECONDS INR APTT (25.1-36.5) Seconds Fibrinogen (200-400) mg/dl Fibrin Degrad Products (< 10 ug/mL) D-Dimer, Quantitative (0-243) ng/mlDDU pCO2 (35-45) mm/Hg pO2 (30-55) mm/Hg HCO3 (21-28) mmol/L ABG pH (7.35-7.45) ABG Total CO2 (22-28) mmol.L ABG O2 Saturation (95-98) % ABG Base Excess (-2.0-3.0) mmol/L ABG Potassium (3.6-5.2) mmol/L VBG pH (7.32-7.43) VBG pCO2 (40-60) VBG HCO3 (21-28) mmol/l VBG Total CO2 (22-28) mmol.L VBG O2 Sat (Calc) (40-65) % VBG Base Excess (0.0-2.0) mmol/L VBG Potassium (3.6-5.2) mmol/L Sodium (132-148) mmol/L Chloride (98-107) mmol/L Glucose (65-105) mg/dl Lactate (0.7-2.1) mmol/L FiO2 % Potassium (3.6-5.0) mmol/L Carbon Dioxide (21-33) mmol/L Anion Gap (10-20) BUN (7-21) mg/dL Creatinine (0.7-1.2) mg/dl Est GFR ( Amer) Est GFR (Non-Af Amer) POC Glucose (mg/dL) 88 370 H (65-110) mg/dL Random Glucose (70-110) mg/dL Hemoglobin A1c (4.2-6.5) % Calcium (8.4-10.5) mg/dL Phosphorus (2.5-4.5) mg/dL Magnesium (1.7-2.2) mg/dL Total Bilirubin (0.2-1.3) mg/dL AST (14-36) U/L ALT (7-56) U/L Alkaline Phosphatase (38-126) U/L Total Protein (5.8-8.3) g/dL Albumin (3.0-4.8) g/dL Globulin gm/dL Albumin/Globulin Ratio (1.1-1.8) Arterial Blood Potassium (3.6-5.2) mmol/L Venous Blood Potassium (3.6-5.2) mmol/L Hep B Core IgM Ab Negative (NEGATIVE) Laboratory Results - last 24 hr 06/11/18 06/11/18 06/12/18 07:44 08:01 13:09 WBC RBC Hgb Hct MCV MCH MCHC RDW Plt Count MPV Gran % Lymph % (Auto) [place] % (Auto) Eos % (Auto) Baso % (Auto) Gran # Lymph # (Auto) [place] # (Auto) Eos # (Auto) Baso # (Auto) Neutrophils % (Manual) Lymphocytes % (Manual) Monocytes % (Manual) Platelet Evaluation Anisocytosis (manual) PT INR APTT Fibrinogen Fibrin Degrad Products D-Dimer, Quantitative pCO2 pO2 HCO3 ABG pH ABG Total CO2 ABG O2 Saturation ABG Base Excess ABG Potassium VBG pH VBG pCO2 VBG HCO3 VBG Total CO2 VBG O2 Sat (Calc) VBG Base Excess VBG Potassium Sodium Chloride Glucose Lactate FiO2 Potassium Carbon Dioxide Anion Gap BUN Creatinine Est GFR ( Amer) Est GFR (Non-Af Amer) POC Glucose (mg/dL) 370 H 88 Random Glucose Hemoglobin A1c Calcium Phosphorus Magnesium Total Bilirubin AST ALT Alkaline Phosphatase Total Protein Albumin Globulin Albumin/Globulin Ratio Arterial Blood Potassium Venous Blood Potassium Hep B Core IgM Ab Negative 06/12/18 06/12/18 06/12/18 15:19 15:19 15:19 WBC 12.6 H D RBC 6.15 H Hgb 18.1 H* Hct 52.9 H MCV 86.0 MCH 29.4 MCHC 34.2 RDW 15.6 H Plt Count 10 L* MPV Gran % 90.2 H Lymph % (Auto) 7.5 L [place] % (Auto) 1.0 Eos % (Auto) 0.2 L Baso % (Auto) 1.1 Gran # 11.40 H Lymph # (Auto) 1.0 L [place] # (Auto) 0.1 Eos # (Auto) 0.0 Baso # (Auto) 0.14 Neutrophils % (Manual) 92 H Lymphocytes % (Manual) 7 L Monocytes % (Manual) 1 Platelet Evaluation Low Anisocytosis (manual) 1+ PT INR APTT Fibrinogen Fibrin Degrad Products D-Dimer, Quantitative pCO2 pO2 132 H HCO3 ABG pH ABG Total CO2 ABG O2 Saturation ABG Base Excess ABG Potassium VBG pH 7.06 L* VBG pCO2 59.0 VBG HCO3 16.7 L VBG Total CO2 18.5 L VBG O2 Sat (Calc) 98.0 H VBG Base Excess -14.0 L VBG Potassium 5.5 H Sodium 133.0 141 Chloride 107.0 111 H Glucose 110 H Lactate 4.6 H* FiO2 21.0 Potassium 5.3 H Carbon Dioxide 17 L Anion Gap 18 BUN 48 H Creatinine 0.9 Est GFR ( Amer) > 60 Est GFR (Non-Af Amer) > 60 POC Glucose (mg/dL) Random Glucose 107 Hemoglobin A1c Calcium 7.4 L Phosphorus 7.0 H Magnesium 1.7 Total Bilirubin 1.4 H AST 49 H D ALT 40 Alkaline Phosphatase 335 H D Total Protein 4.9 L Albumin 2.1 L Globulin 2.8 Albumin/Globulin Ratio 0.7 L Arterial Blood Potassium Venous Blood Potassium 5.5 H Hep B Core IgM Ab 06/12/18 06/12/18 06/12/18 16:05 20:36 21:30 WBC 15.7 H D RBC 5.29 Hgb 15.3 D Hct 44.9 MCV 84.9 MCH 28.9 MCHC 34.1 RDW 15.3 H Plt Count 7 L* MPV Gran % 89.4 H Lymph % (Auto) 7.6 L [place] % (Auto) 2.4 Eos % (Auto) 0.1 L Baso % (Auto) 0.5 Gran # 14.04 H Lymph # (Auto) 1.2 [place] # (Auto) 0.4 Eos # (Auto) 0.0 Baso # (Auto) 0.08 Neutrophils % (Manual) Lymphocytes % (Manual) Monocytes % (Manual) Platelet Evaluation Low Anisocytosis (manual) PT INR APTT Fibrinogen Fibrin Degrad Products D-Dimer, Quantitative pCO2 pO2 HCO3 ABG pH ABG Total CO2 ABG O2 Saturation ABG Base Excess ABG Potassium VBG pH VBG pCO2 VBG HCO3 VBG Total CO2 VBG O2 Sat (Calc) VBG Base Excess VBG Potassium Sodium Chloride Glucose Lactate FiO2 Potassium Carbon Dioxide Anion Gap BUN Creatinine Est GFR ( Amer) Est GFR (Non-Af Amer) POC Glucose (mg/dL) 95 94 Random Glucose Hemoglobin A1c Calcium Phosphorus Magnesium Total Bilirubin AST ALT Alkaline Phosphatase Total Protein Albumin Globulin Albumin/Globulin Ratio Arterial Blood Potassium Venous Blood Potassium Hep B Core IgM Ab 06/12/18 06/12/18 06/12/18 21:30 21:40 21:40 WBC RBC Hgb Hct MCV MCH MCHC RDW Plt Count MPV Gran % Lymph % (Auto) [place] % (Auto) Eos % (Auto) Baso % (Auto) Gran # Lymph # (Auto) [place] # (Auto) Eos # (Auto) Baso # (Auto) Neutrophils % (Manual) Lymphocytes % (Manual) Monocytes % (Manual) Platelet Evaluation Anisocytosis (manual) PT 17.0 H INR 1.48 APTT 127.5 H* Fibrinogen Fibrin Degrad Products D-Dimer, Quantitative pCO2 pO2 49 HCO3 ABG pH ABG Total CO2 ABG O2 Saturation ABG Base Excess ABG Potassium VBG pH 7.14 L* VBG pCO2 59.0 VBG HCO3 20.1 L VBG Total CO2 21.9 L VBG O2 Sat (Calc) 87.2 H VBG Base Excess -9.5 L VBG Potassium 5.0 Sodium 143 137.0 Chloride 109 H 107.0 Glucose 114 H Lactate 3.4 H FiO2 21.0 Potassium 5.0 Carbon Dioxide 21 Anion Gap 18 BUN 51 H Creatinine 1.0 Est GFR ( Amer) > 60 Est GFR (Non-Af Amer) 57 POC Glucose (mg/dL) Random Glucose 111 H Hemoglobin A1c Calcium 7.2 L Phosphorus Magnesium Total Bilirubin 1.8 H AST 34 ALT 43 Alkaline Phosphatase 280 H Total Protein 4.8 L Albumin 2.3 L Globulin 2.5 Albumin/Globulin Ratio 0.9 L Arterial Blood Potassium Venous Blood Potassium 5.0 Hep B Core IgM Ab 06/12/18 06/13/18 06/13/18 22:49 00:04 00:55 WBC 15.3 H RBC 5.42 Hgb 15.5 Hct 46.0 MCV 84.9 MCH 28.6 MCHC 33.7 RDW 15.5 H Plt Count 8 L* MPV Gran % 88.1 H Lymph % (Auto) 8.3 L [place] % (Auto) 2.9 Eos % (Auto) 0.1 L Baso % (Auto) 0.6 Gran # 13.46 H Lymph # (Auto) 1.3 [place] # (Auto) 0.4 Eos # (Auto) 0.0 Baso # (Auto) 0.09 Neutrophils % (Manual) Lymphocytes % (Manual) Monocytes % (Manual) Platelet Evaluation Low Anisocytosis (manual) PT 17.0 H INR 1.48 APTT 127.2 H* Fibrinogen Fibrin Degrad Products D-Dimer, Quantitative pCO2 pO2 HCO3 ABG pH ABG Total CO2 ABG O2 Saturation ABG Base Excess ABG Potassium VBG pH VBG pCO2 VBG HCO3 VBG Total CO2 VBG O2 Sat (Calc) VBG Base Excess VBG Potassium Sodium Chloride Glucose Lactate FiO2 Potassium Carbon Dioxide Anion Gap BUN Creatinine Est GFR ( Amer) Est GFR (Non-Af Amer) POC Glucose (mg/dL) 85 Random Glucose Hemoglobin A1c Calcium Phosphorus Magnesium Total Bilirubin AST ALT Alkaline Phosphatase Total Protein Albumin Globulin Albumin/Globulin Ratio Arterial Blood Potassium Venous Blood Potassium Hep B Core IgM Ab 06/13/18 06/13/18 06/13/18 00:55 00:55 04:15 WBC RBC Hgb Hct MCV MCH MCHC RDW Plt Count MPV Gran % Lymph % (Auto) [place] % (Auto) Eos % (Auto) Baso % (Auto) Gran # Lymph # (Auto) [place] # (Auto) Eos # (Auto) Baso # (Auto) Neutrophils % (Manual) Lymphocytes % (Manual) Monocytes % (Manual) Platelet Evaluation Anisocytosis (manual) PT INR APTT Fibrinogen Fibrin Degrad Products D-Dimer, Quantitative pCO2 49 H pO2 88.0 HCO3 18.3 L ABG pH 7.18 L* ABG Total CO2 19.8 L ABG O2 Saturation 96.9 ABG Base Excess -10.1 L ABG Potassium 4.8 VBG pH VBG pCO2 VBG HCO3 VBG Total CO2 VBG O2 Sat (Calc) VBG Base Excess VBG Potassium Sodium 143 139.0 Chloride 110 H 111.0 H Glucose 118 H Lactate 2.8 H FiO2 80.0 Potassium 5.0 Carbon Dioxide 18 L Anion Gap 21 H BUN 53 H Creatinine 0.8 Est GFR ( Amer) > 60 Est GFR (Non-Af Amer) > 60 POC Glucose (mg/dL) 118 H Random Glucose 109 Hemoglobin A1c Calcium 7.4 L Phosphorus Magnesium Total Bilirubin 2.0 H AST 36 ALT 32 Alkaline Phosphatase 271 H Total Protein 5.1 L Albumin 2.6 L Globulin 2.5 Albumin/Globulin Ratio 1.1 Arterial Blood Potassium 4.8 Venous Blood Potassium Hep B Core IgM Ab 06/13/18 06/13/18 06/13/18 05:26 06:40 06:40 WBC 17.0 H RBC 4.60 Hgb 13.1 D Hct 38.8 MCV 84.3 MCH 28.5 MCHC 33.8 RDW 15.7 H Plt Count 12 L* MPV Gran % Lymph % (Auto) [employer] [place] % (Auto) Eos % (Auto) [employer] Baso % (Auto) [employer] Gran # Lymph # (Auto) [employer] [place] # (Auto) Eos # (Auto) 0.0 Baso # (Auto) 0.04 Neutrophils % (Manual) Lymphocytes % (Manual) Monocytes % (Manual) Platelet Evaluation Low Anisocytosis (manual) PT INR APTT Fibrinogen Fibrin Degrad Products D-Dimer, Quantitative pCO2 46 H pO2 94.0 HCO3 17.6 L ABG pH 7.19 L* ABG Total CO2 19.0 L ABG O2 Saturation 97.6 ABG Base Excess -10.4 L ABG Potassium 4.4 VBG pH VBG pCO2 VBG HCO3 VBG Total CO2 VBG O2 Sat (Calc) VBG Base Excess VBG Potassium Sodium 139.0 143 Chloride 112.0 H 110 H Glucose 126 H Lactate 2.3 H FiO2 80.0 Potassium 4.9 Carbon Dioxide 20 L Anion Gap 18 BUN 57 H Creatinine 0.9 Est GFR ( Amer) > 60 Est GFR (Non-Af Amer) > 60 POC Glucose (mg/dL) Random Glucose 133 H Hemoglobin A1c Calcium 6.8 L* Phosphorus 6.3 H Magnesium 1.5 L Total Bilirubin 2.3 H AST 33 ALT 36 Alkaline Phosphatase 237 H Total Protein 4.7 L Albumin 2.3 L Globulin 2.4 Albumin/Globulin Ratio 1.0 L Arterial Blood Potassium 4.4 Venous Blood Potassium Hep B Core IgM Ab 06/13/18 06/13/18 06/13/18 06:40 06:40 11:15 WBC RBC Hgb Hct MCV MCH MCHC RDW Plt Count MPV Gran % Lymph % (Auto) [place] % (Auto) Eos % (Auto) Baso % (Auto) Gran # Lymph # (Auto) [place] # (Auto) Eos # (Auto) Baso # (Auto) Neutrophils % (Manual) Lymphocytes % (Manual) Monocytes % (Manual) Platelet Evaluation Anisocytosis (manual) PT 17.5 H INR 1.51 APTT 136.0 H* Fibrinogen Fibrin Degrad Products D-Dimer, Quantitative pCO2 pO2 82 H HCO3 ABG pH ABG Total CO2 ABG O2 Saturation ABG Base Excess ABG Potassium VBG pH 7.15 L* VBG pCO2 55.0 VBG HCO3 19.2 L VBG Total CO2 20.9 L VBG O2 Sat (Calc) 96.5 H VBG Base Excess -10.0 L VBG Potassium 4.7 Sodium 139.0 Chloride 108.0 H Glucose 156 H Lactate 2.1 FiO2 21.0 Potassium Carbon Dioxide Anion Gap BUN Creatinine Est GFR ( Amer) Est GFR (Non-Af Amer) POC Glucose (mg/dL) Random Glucose Hemoglobin A1c 16.5 H Calcium Phosphorus Magnesium Total Bilirubin AST ALT Alkaline Phosphatase Total Protein Albumin Globulin Albumin/Globulin Ratio Arterial Blood Potassium Venous Blood Potassium 4.7 Hep B Core IgM Ab 06/13/18 06/13/18 06/13/18 11:15 11:15 11:15 WBC 17.6 H RBC 4.37 Hgb 12.3 Hct 36.6 MCV 83.8 MCH 28.1 MCHC 33.6 RDW 15.7 H Plt Count 44 L* MPV 9.6 Gran % 92.7 H Lymph % (Auto) 6.1 L [place] % (Auto) 0.9 L Eos % (Auto) 0.1 L Baso % (Auto) 0.2 Gran # 16.30 H Lymph # (Auto) 1.1 L [place] # (Auto) 0.2 Eos # (Auto) 0.0 Baso # (Auto) 0.04 Neutrophils % (Manual) Lymphocytes % (Manual) Monocytes % (Manual) Platelet Evaluation Anisocytosis (manual) PT INR APTT Fibrinogen 611 H* Fibrin Degrad Products >10 <40 ug/ml D-Dimer, Quantitative 2886 H pCO2 pO2 HCO3 ABG pH ABG Total CO2 ABG O2 Saturation ABG Base Excess ABG Potassium VBG pH VBG pCO2 VBG HCO3 VBG Total CO2 VBG O2 Sat (Calc) VBG Base Excess VBG Potassium Sodium Chloride Glucose Lactate FiO2 Potassium Carbon Dioxide Anion Gap BUN Creatinine Est GFR ( Amer) Est GFR (Non-Af Amer) POC Glucose (mg/dL) Random Glucose Hemoglobin A1c Calcium Phosphorus Magnesium Total Bilirubin AST ALT Alkaline Phosphatase Total Protein Albumin Globulin Albumin/Globulin Ratio Arterial Blood Potassium Venous Blood Potassium Hep B Core IgM Ab Addendum Addendum: 06/13/18 13:29 ICU Attending Addendum: Patient seen and examined. Case reviewed on round with housestaff. Agree with resident note above with the following additions/exceptions: Cassie is in severe septic shock secondary to abd nec fasc resulting in multiorgan failure. Source control attempted twice via surgical team. Cultures showing GPC and GNR as nec fasc often will be polymicrobial. I agree with broad abx coverage. Currently on dapto, clinda and constanza. She is requiring pressors and will continue to titrate to MAP > 65. Currently on Levo, vaso, and laurita. She remains vent dependent and will keep her as such. She is still acidemic however her bicarb is not as low as I would expect for a ph 7.15. I suspect her bicarb is normally might higher assuming she is a chronic retainer of CO2. Will check ABG and may need to blow off more CO2 with bring her pH up for now. Her plat have significantly dropped from 100 to 4. Too short a time frame for HIT. DIC panel so far not very suggestive given fibrinogen is elevated, i would expect it to be low. Coag unreliable because she is on heparin. Will check SMEAR looking for schistocytes. She rec/d 2 units plat and her count is now 44. It likely may be from sepsis alone. Her HB is dropping as well which may be from blood loss vs dilutional. Will cont to monitor CBC q2tccis. There is a concern for PE. Her echo is consistent with RV strain (sevrely dilated RV with elevated RVSP). If she does have a PE, I would be cautious in giving her too much fluid as it may overload the RV and get on the other end of the starling curve. More fluids against a fixed obstruction will not improve forward flow. Renal function is normal and she is making decent urine which is encouraging. Overall condition guarded. Will monitor closely. GI PPX protonic DVT ppx - on heparin NPO Full Code Rest of care as noted above. Sigrid Garcia MD [employer] Critical care time : 60 mins
[2018-06-13 11:27] LABS: BASO # 0.04 K/mm3 (0.0-2.0); BASO % 0.2 % (0.0-3.0); EOS % 0.1 % (1.5-5.0); GRAN % 92.7 % (50.0-68.0); HEMOGLOBIN 12.3 g/dL (12.0-16.0); LYMPH # 1.1 (1.2-3.4); LYMPH % 6.1 % (22.0-35.0); MEAN CELL VOLUME 83.8 fl (80.0-105.0); MEAN CORPUSCULAR HEMOGLOBIN 28.1 pg (25.0-35.0); MEAN CORPUSCULAR HGB CONC 33.6 g/dl (31.0-37.0); MEAN PLATELET VOLUME 9.6 fl (7.0-11.0); MONO # 0.2 (0.1-0.6); MONO % 0.9 % (1.0-6.0); RBC 4.37 10^6/uL (3.5-6.1); RED CELL DISTRIBUTION WIDTH 15.7 % (11.5-14.5); VENOUS BLOOD PH 7.15 (7.32-7.43); WHITE BLOOD COUNT 17.6 10^3/ul (4.5-11.0)
[2018-06-13 11:31] LABS: PLATELET COUNT 44 10^3/uL (120.0-450.0)
[2018-06-13 11:48] LABS: D DIMER 2886 ng/mlDDU (0-243); FIBRINOGEN 611 mg/dl (200-400)
[2018-06-13] MEDS ORDERED: DAPTOmycin 500 mg Inj (Cubicin) IV SCH (12:00)
--- NOTE | 2018-06-13 12:08 | CP.PCM.PN ---
Subjective - Date & Time of Evaluation Date of Evaluation: 06/13/18 Time of Evaluation: 08:40 - Subjective Subjective: Patient continues to be on the ventilator, now with fevers, on 3 vasopressors, getting transfusion of platelets. Objective - Vital Signs/Intake and Output Vital Signs (last 24 hours): Temp Pulse Resp BP Pulse Ox 99.5 F 124 H 17 112/69 100 06/12/18 13:40 06/12/18 13:40 06/12/18 12:55 06/12/18 13:00 06/12/18 13:40 Intake and Output: 06/12/18 06/12/18 06:59 18:59 Intake Total 3476 310 Output Total 150 Balance 3326 310 - Medications Medications: Current Medications Albumin Human (Albumin Human 25% (12.5 Gm/50 Ml)) 12.5 gm IV Q6H LAMONTE Stop: 06/13/18 14:43 Albuterol/Ipratropium (Duoneb 3 Mg/0.5 Mg (3 Ml) Ud) 3 ml IH Q2H PRN PRN Reason: Shortness of Breath Albuterol/Ipratropium (Duoneb 3 Mg/0.5 Mg (3 Ml) Ud) 3 ml IH [id number] LAMONTE Last Admin: 06/12/18 13:05 Dose: 3 ml Heparin Sodium (Porcine) (Heparin) 5,000 units IVP Q8 LAMONTE PRN Reason: Protocol Last Admin: 06/12/18 14:22 Dose: 5,000 units Meropenem (Merrem Iv 1 Gm Premix) 50 mls @ 100 mls/hr IVPB Q12 LAMONTE PRN Reason: Protocol Last Admin: 06/12/18 09:25 Dose: 100 mls/hr Vancomycin HCl (Vancomycin 1gm) 1 gm in 250 mls @ 167 mls/hr IVPB Q12H LAMONTE PRN Reason: Protocol Last Admin: 06/12/18 05:24 Dose: 167 mls/hr Clindamycin Phosphate 900 mg/ (Sodium Chloride) 106 mls @ 106 mls/hr IVPB Q8 LAMONTE PRN Reason: Protocol Last Admin: 06/12/18 13:57 Dose: 106 mls/hr Fentanyl Citrate (Fentanyl Citrate/Sodium Chloride 1 Mg/100 Ml) 1,000 mcg in 100 mls @ 2 mls/hr IV .Q24H PRN; Protocol; 20 MCG/HR PRN Reason: TITRATE PER MD ORDER Last Admin: 06/12/18 09:36 Dose: 75 mcg/hr, 7.5 mls/hr NOREPINEPHRINE BIT/0.9 % NACL (Levophed 4 Mg/ 250 Ml Ns Premixed) 4 mg in 250 mls @ 15 mls/hr IV .[id number] PRN; Protocol; 4 MCG/MIN PRN Reason: TITRATE PER MD ORDER Last Titration: 06/12/18 13:03 Dose: 15 mcg/min, 56.25 mls/hr Sodium Chloride (Sodium Chloride 0.9%) 1,000 mls @ 100 mls/hr IV .Q10H LAMONTE Last Admin: 06/12/18 08:00 Dose: 100 mls/hr Acetaminophen (Ofirmev) 1,000 mg in 100 mls @ 400 mls/hr IVPB Q6H PRN PRN Reason: Temperature Stop: 06/14/18 03:06 Last Admin: 06/12/18 03:19 Dose: 400 mls/hr Vasopressin 20 units/ Sodium (Chloride) 101 mls @ 9.09 mls/hr IV .Q11H7M LAMONTE; 0.03 U/MIN PRN Reason: Protocol Last Admin: 06/12/18 09:12 Dose: 9.09 mls/hr Phenylephrine HCl 40 mg/ (Sodium Chloride) 254 mls @ 38.1 mls/hr IV .Q6H40M PRN ; Protocol; 100 MCG/MIN PRN Reason: TITRATE PER MD ORDER Last Admin: 06/12/18 10:15 Dose: 100 mcg/min, 38.1 mls/hr Insulin Human Lispro (Humalog High) 0 units SC Q4H LAMONTE PRN Reason: Protocol Last Admin: 06/12/18 10:26 Dose: Not Given Lorazepam (Ativan) 2 mg IVP Q2H PRN; Protocol PRN Reason: Anxiety Pantoprazole Sodium (Protonix Inj) 40 mg IVP DAILY LAMONTE Last Admin: 06/12/18 09:26 Dose: 40 mg - Labs Labs: 06/11/18 18:30 06/12/18 05:45 PT 13.5 SECONDS (9.4-12.5) H 06/11/18 04:45 INR 1.17 06/11/18 04:45 APTT 39.3 Seconds (25.1-36.5) H 06/11/18 04:45 - Constitutional Appears: Other (intubated, not responsive) - Head Exam Head Exam: NORMAL INSPECTION - ENT Exam Additional comments: ET tube in place - Respiratory Exam Respiratory Exam: Decreased Breath Sounds - Cardiovascular Exam Cardiovascular Exam: +S1, +S2 - GI/Abdominal Exam GI & Abdominal Exam: Soft Additional comments: open abdominal wound with dressings in place soaked with blood, opening extends to perineal area and to the flank areas - Extremities Exam Additional comments: both lower extremities with dressings in place Assessment and Plan - Assessment and Plan (Free Text) Plan: Assessment septic shock with multiorgan failure (VDRF, S/P acute renal failure, coagulopathy, encephalopathy) due to severe abdominal wall skin and skin structure infection/necrotizing fasciitis/Isac gangrene associated with trauma and vulvar mass S/P multiple debridements, now growing gram positive cocci in the blood and gram negative bacilli from the wound HTN S/P nephrectomy Plan will switch IV Vancomycin (proper dose at 15 mg/kg 12 at 1 gm q12) to Daptomycin pending, and will continue Merrem and IV Clindamycin pending identification and sensitivities of the gram positive cocci in the blood cx and will repeat blood cx, and will also follow up identification and sensitivities of the gram negative bacilli in the wound cx; CPK level is less than 1000 vulvar mass biopsy sample has been sent and will follow up results overall prognosis is poor and Marci Mallory will be talking to the family about this will continue to monitor clinically
[2018-06-13] MEDS: Meropenem IV 1 gm in NS 50 ML IVPB SCH ×2 (13:12→22:21)
[2018-06-13] MEDS ORDERED: Dakin's Topical 0.25%-Half Strength (480 ml) TOP ONE (14:15)
--- NOTE | 2018-06-13 15:50 | CP.PCM.PN ---
<Ronnie Narayanan - Last Filed: 06/13/18 16:42> Subjective - Date & Time of Evaluation Date of Evaluation: 06/13/18 Time of Evaluation: 09:10 - Subjective Subjective: PGY1 Medicine note for Dr. Marlyn Oleary Patient seen and examined at bedside. She is intubated (420, 26, 7, 80) and sedated on fentanyl gtt. Patient currently on 3 pressors. Patient OGT in place with 100cc bilious output. Overnight, platelet count dropped to 8 after which patient received 2U of platelets. Patient was febrile with Tmax 100.9F. Complete ROS unobtainable secondary to patient clinical condition. Objective - Vital Signs/Intake and Output Vital Signs (last 24 hours): Temp Pulse Resp BP Pulse Ox 99.9 F H 117 H 17 104/56 L 100 06/13/18 11:20 06/13/18 11:20 06/12/18 12:55 06/13/18 11:00 06/13/18 11:20 Intake and Output: 06/13/18 06/13/18 06:59 18:59 Intake Total 4486 1101 Output Total 500 Balance 3986 1101 - Medications Medications: Current Medications Albuterol/Ipratropium (Duoneb 3 Mg/0.5 Mg (3 Ml) Ud) 3 ml IH Q2H PRN PRN Reason: Shortness of Breath Albuterol/Ipratropium (Duoneb 3 Mg/0.5 Mg (3 Ml) Ud) 3 ml IH [id number] LAMONTE Last Admin: 06/13/18 13:10 Dose: 3 ml Clindamycin Phosphate 900 mg/ (Sodium Chloride) 106 mls @ 106 mls/hr IVPB Q8 LAMONTE PRN Reason: Protocol Last Admin: 06/13/18 14:49 Dose: 106 mls/hr Fentanyl Citrate (Fentanyl Citrate/Sodium Chloride 1 Mg/100 Ml) 1,000 mcg in 100 mls @ 2 mls/hr IV .Q24H PRN; Protocol; 20 MCG/HR PRN Reason: TITRATE PER MD ORDER Last Admin: 06/13/18 08:30 Dose: 80 mcg/hr, 8 mls/hr NOREPINEPHRINE BIT/0.9 % NACL (Levophed 4 Mg/ 250 Ml Ns Premixed) 4 mg in 250 mls @ 15 mls/hr IV .[id number] PRN; Protocol; 4 MCG/MIN PRN Reason: TITRATE PER MD ORDER Last Admin: 06/13/18 14:44 Dose: 20 mcg/min, 75 mls/hr Sodium Chloride (Sodium Chloride 0.9%) 1,000 mls @ 100 mls/hr IV .Q10H LAMONTE Last Admin: 06/13/18 06:41 Dose: 100 mls/hr Acetaminophen (Ofirmev) 1,000 mg in 100 mls @ 400 mls/hr IVPB Q6H PRN PRN Reason: Temperature Stop: 06/14/18 03:06 Last Admin: 06/13/18 02:33 Dose: 400 mls/hr Vasopressin 20 units/ Sodium (Chloride) 101 mls @ 9.09 mls/hr IV .Q11H7M LAMONTE; 0.03 U/MIN PRN Reason: Protocol Last Admin: 06/13/18 06:55 Dose: 9.09 mls/hr Phenylephrine HCl 40 mg/ (Sodium Chloride) 254 mls @ 38.1 mls/hr IV .Q6H40M PRN ; Protocol; 100 MCG/MIN PRN Reason: TITRATE PER MD ORDER Last Admin: 06/13/18 14:45 Dose: 100 mcg/min, 38.1 mls/hr Heparin Sodium/Sodium Chloride (Heparin 48759 Units/250ml 1/2 Normal Saline) 25 ,000 units in 250 mls @ 12.655 mls/hr IV .[id number] PRN; Protocol; 18 UNITS/KG/HR PRN Reason: ADJUST RATE PER PROTOCOL Last Titration: 06/13/18 08:45 Dose: 12 units/kg/hr, 8.437 mls/hr Meropenem (Merrem Iv 1 Gm Premix) 50 mls @ 100 mls/hr IVPB Q8 LAMONTE PRN Reason: Protocol Last Admin: 06/13/18 13:12 Dose: 100 mls/hr Daptomycin 430 mg/ Sodium (Chloride) 100 mls @ 200 mls/hr IV Q24H LAMONTE Stop: 06/18/18 12:01 Last Admin: 06/13/18 13:26 Dose: 200 mls/hr Insulin Human Lispro (Humalog High) 0 units SC Q4 LAMONTE PRN Reason: Protocol Last Admin: 06/13/18 13:05 Dose: Not Given Lorazepam (Ativan) 2 mg IVP Q2H PRN; Protocol PRN Reason: Anxiety Last Admin: 06/13/18 04:07 Dose: 2 mg Pantoprazole Sodium (Protonix Inj) 40 mg IVP DAILY LAMONTE Last Admin: 06/13/18 10:12 Dose: 40 mg Sodium Hypochlorite (Dakins Solution 0.25%) 500 ml TOP DAILY LAMONTE Last Admin: 06/13/18 10:27 Dose: 1 % Sodium Hypochlorite (Dakins Solution 0.25%) 0 ml TOP DAILY LAMONTE - Labs Labs: 06/13/18 11:15 06/13/18 06:40 PT 17.5 SECONDS (9.4-12.5) H 06/13/18 06:40 INR 1.51 06/13/18 06:40 APTT 136.0 Seconds (25.1-36.5) H* 06/13/18 06:40 - Constitutional Appears: Unkempt, Chronically Ill - Head Exam Head Exam: ATRAUMATIC, NORMAL INSPECTION, NORMOCEPHALIC - Eye Exam Eye Exam: Normal appearance, PERRL - ENT Exam ENT Exam: Mucous Membranes Dry, Normal Exam Additional comments: PATIENT INTUBATED, SEDATED - Neck Exam Neck Exam: Full ROM, Normal Inspection. absent: Lymphadenopathy - Respiratory Exam Additional comments: vent sounds heard throughout patient intubated on vent (420, 26, 7, 80) - Cardiovascular Exam Cardiovascular Exam: Tachycardia, REGULAR RHYTHM, +S1, +S2. absent: Murmur - GI/Abdominal Exam Additional comments: lower abdominal wound, necrotic, covered with dressing, malodorous, oozing fluid - dressings soaked with blood. - Rectal Exam Rectal Exam: Deferred - Exam Additional comments: labial mass, necrotic, dark color. - Extremities Exam Extremities Exam: Pedal Edema Additional comments: bilateral lower limb pitting edema, up to hip level. both feet feel cold, dark discoloration of toes b/l, pedal pulses not palpable. - Neurological Exam Neurological Exam: absent: Alert, Awake, Oriented x3 Additional comments: sedated on fentanyl gtt - Skin Skin Exam: Erythema, Mottled Assessment and Plan - Assessment and Plan (Free Text) Assessment: 58year old female PMHx HTN, COPD, HTN presented with acute AMS found to be in septic shock secondary to necrotizing fascitis of lower abdomen resulting in multiorgan failure Plan: Septic shock with multiorgan failure secondary to suspected necrotizing Fascitis of abdomen - SIRS criteria 02/01: elevated temp on admission, Tachycardia, Hypotension, Elevated WBC - Elevated Lactate on admission, source of infection being abdominal necrotizing fascitis - Abdominal/Pelvis CT on admission showing: - S/P debridement x2 with General surgery - Patient currently requiring 3 IV pressors, Levophend, Vasopressin, Phenylephrine - Broad spectrum antibiotics with Merropenem, Daptomycin, Clindamycin - ID consulted with following recommendations - Switch IV vancomycin to Daptomycin - Continue with Merrem and IV clindamycin - repeat blood culutres, follow up results - f/u wound culture gream negative and bacilli - Patient continues current management in ICU Suspected pulmonary embolism - Likely secondary to thromboembolism from limited mobility - Echocardiogram showing normal EF 55%, elevated RVSP of 55mmHg and right heart strain - Patient currently unstable for further imaging, holding off on imaging at this time - Cardiology consulted and following - Continue with Heparin gtt Thrombocytopenia - Etiology: DIC vs. HIT vs. dilutional vs Sepsis vs. chronic alcoholism - Possibly multifactorial - Platelet count trending down 100 to 12 today - S/P 1 unit pRBC, 2 unit Platelets - PT, PTT elevated, petechia, however patient is on Heparin gtt - No signs of active bleeding from IV lines, gingival bleeding - Timeline for HIT is too early - Fibrinogen elevated, likely secondary to spetic shock due to APR - Fibrin split products - Peripheral smear f/u - Heme/Onc consulted, follow up recs Metabolic acidosis - Etiology: Lactic acidosis from necrotizing fascitis vs. DKA vs. HHS - ABG pH 7.19/46/17.6/94 on FiO2 80% - Continue to monitor Respiratory Failure - Continue with mechanical ventilation - Current ventilator settings: 480/26/7/80% - Maintain SpO2 >90, PaO2>60 Uncontrolled DM2 - Etiology: Poor compliance with medication - HgA1C 17.2 on admission - ISS - ACHS Hx of COPD - Duoneb treatments as needed - Continue current mechanical ventilation Hx of HTN - Holding all anti-hypertensive - Patient currently hypotensive Hx of right nephrectomy - Reasoning unknown secondary to patient sedation - BUN/Cr stable, GFR stable - UOP 500mL past 24 hours - Neohrology consulted, f/u recs GI/DVT ppx - Protonix - Heparin gtt Diet: NPO Full Code Dispo: Patient prognosis is poor, Palliative Care to be contacting family regarding further medical managment plan Case and plan discussed with attending, Dr. Oleary <Tana Oleary - Last Filed: 06/13/18 21:22> Objective - Vital Signs/Intake and Output Vital Signs (last 24 hours): Temp Pulse Resp BP Pulse Ox 99.5 F 100 H 17 139/57 L 100 06/13/18 18:20 06/13/18 18:20 06/12/18 12:55 06/13/18 18:12 06/13/18 18:20 Intake and Output: 06/13/18 06/14/18 18:59 06:59 Intake Total 5072 Output Total 420 Balance 4652 - Medications Medications: Current Medications Albuterol/Ipratropium (Duoneb 3 Mg/0.5 Mg (3 Ml) Ud) 3 ml IH Q2H PRN PRN Reason: Shortness of Breath Albuterol/Ipratropium (Duoneb 3 Mg/0.5 Mg (3 Ml) Ud) 3 ml IH [id number] LAMONTE Last Admin: 06/13/18 20:10 Dose: 3 ml Clindamycin Phosphate 900 mg/ (Sodium Chloride) 106 mls @ 106 mls/hr IVPB Q8 LAMONTE PRN Reason: Protocol Last Admin: 06/13/18 14:49 Dose: 106 mls/hr Fentanyl Citrate (Fentanyl Citrate/Sodium Chloride 1 Mg/100 Ml) 1,000 mcg in 100 mls @ 2 mls/hr IV .Q24H PRN; Protocol; 20 MCG/HR PRN Reason: TITRATE PER MD ORDER Last Admin: 06/13/18 08:30 Dose: 80 mcg/hr, 8 mls/hr NOREPINEPHRINE BIT/0.9 % NACL (Levophed 4 Mg/ 250 Ml Ns Premixed) 4 mg in 250 mls @ 15 mls/hr IV .[id number] PRN; Protocol; 4 MCG/MIN PRN Reason: TITRATE PER MD ORDER Last Admin: 06/13/18 14:44 Dose: 20 mcg/min, 75 mls/hr Acetaminophen (Ofirmev) 1,000 mg in 100 mls @ 400 mls/hr IVPB Q6H PRN PRN Reason: Temperature Stop: 06/14/18 03:06 Last Admin: 06/13/18 02:33 Dose: 400 mls/hr Vasopressin 20 units/ Sodium (Chloride) 101 mls @ 9.09 mls/hr IV .Q11H7M LAMONTE; 0.03 U/MIN PRN Reason: Protocol Last Admin: 06/13/18 18:12 Dose: 9.09 mls/hr Phenylephrine HCl 40 mg/ (Sodium Chloride) 254 mls @ 38.1 mls/hr IV .Q6H40M PRN ; Protocol; 100 MCG/MIN PRN Reason: TITRATE PER MD ORDER Last Admin: 06/13/18 14:45 Dose: 100 mcg/min, 38.1 mls/hr Heparin Sodium/Sodium Chloride (Heparin 29789 Units/250ml 1/2 Normal Saline) 25 ,000 units in 250 mls @ 12.655 mls/hr IV .[id number] PRN; Protocol; 18 UNITS/KG/HR PRN Reason: ADJUST RATE PER PROTOCOL Last Titration: 06/13/18 18:10 Dose: 12 units/kg/hr, 8.437 mls/hr Meropenem (Merrem Iv 1 Gm Premix) 50 mls @ 100 mls/hr IVPB Q8 LAMONTE PRN Reason: Protocol Last Admin: 06/13/18 13:12 Dose: 100 mls/hr Daptomycin 430 mg/ Sodium (Chloride) 100 mls @ 200 mls/hr IV Q24H LAMONTE Stop: 06/18/18 12:01 Last Admin: 06/13/18 13:26 Dose: 200 mls/hr Sodium Chloride (Sodium Chloride 0.9%) 1,000 mls @ 100 mls/hr IV .Q10H LAMONTE Insulin Human Lispro (Humalog High) 0 units SC Q4 LAMONTE PRN Reason: Protocol Last Admin: 06/13/18 16:14 Dose: 2 units Lorazepam (Ativan) 2 mg IVP Q2H PRN; Protocol PRN Reason: Anxiety Last Admin: 06/13/18 04:07 Dose: 2 mg Pantoprazole Sodium (Protonix Inj) 40 mg IVP DAILY LAMONTE Last Admin: 06/13/18 10:12 Dose: 40 mg Sodium Hypochlorite (Dakins Solution 0.25%) 500 ml TOP DAILY LAMONTE Last Admin: 06/13/18 10:27 Dose: 1 % Sodium Hypochlorite (Dakins Solution 0.25%) 0 ml TOP DAILY LAMONTE - Labs Labs: 06/13/18 11:15 06/13/18 19:51 PT 17.5 SECONDS (9.4-12.5) H 06/13/18 06:40 INR 1.51 06/13/18 06:40 APTT 118.3 Seconds (25.1-36.5) H* 06/13/18 16:05 Attending/Attestation - Attestation I have personally seen and examined this patient.: Yes I have fully participated in the care of the patient.: Yes I have reviewed all pertinent clinical information, including history, physical exam and plan: Yes Notes (Text): Patient seen and examined by me at 9:40AM with resident. Case including HPI, physical exam, and assessment and plan discussed with resident. Agree with above with following additions/corrections. Patient is 58 year old female with past medical history significant for hypertension, DM2, and COPD that presented to the ED with altered mental status. Patient continues to be intubated and sedated. Still on 3 pressors. Platelets dropped, transfused platelets. Started on heparin drip last night for possible PE. Continues to be febrile. Unable to obtain review of systems from patient. Physical exam: Gen: Intubated and sedated HEENT: Normocephalic, atraumatic. Pupils equal and reactive. No scleral icterus. ET tube in pace. OG tube in place with bilious output. Cardiovascular: Tachycardic S1, S2. No murmurs, rubs, or gallops appreciated Pulmonary: Vented breath sounds. Coarse breath sounds. No wheezing appreciated. Gastrointestinal: Distended. Positive dressing across abdomen saturated with blood. Difficult to appreciate bowel sounds. Musculoskeletal: Positive lower extremity pitting edema bilaterally, cold feet, discolored toes. Central nervous system: Intubated and sedated Dermatologic: Positive bilateral lower extremity wounds with serous drainage. Assessment and plan: Patient is 58 year old female with past medical history significant for hypertension, DM2, and COPD that presented to the ED with altered mental status. 1. Septic shock secondary to necrotizing fascitis. S/P debridement 06/11/18 and 06/12/18. Remains on 3 pressors. Patient given albumin. Continue IV fluids. Positive leukocytosis. Still febrile. Continue to monitor closely in ICU. Wound culture positive for gram positive cocci and gram negative manny. One blood culture positive for gram positive cocci. Continue Clindamycin, Meropenem. Started on Daptomycin. ID following, recommendations appreciated. Surgery following, recommendations appreciated. GI following, recommendations appreciated. Lactate improving. 2. Acute respiratory failure. Secondary to # 1. Vent settings per ICU team. 3. Vulvar mass. S/p Biopsy. Pending pathology. 4. Hyperkalemia. Resolved. Continue to monitor. 5. Bilateral lower extremity edema, cellulitis. Lower extremity dopplers negative for DVT. Continue with antibiotics. ID following, recommendations appreciated. Podiatry consulted. 6. Elevated BNP. Cardiology consulted, recommendations appreciated. 2d echo per firing pin gauger shows left ventricular function normal with EF 55-60%, flattened septum consistent with right ventricle volume and pressure overload; right ventricle severely dilated, systolic function of RV severely reduced, consider acute PE (please see official read for full details.) 7. Possible PE. NEW problem. Patient started on heparin drip. 8. Thrombocytopenia. NEW problem. Likely secondary to septic shock. Rule out DIC. Patient given platelets with improvement. Hem/onc consulted, follow up recommendations. 9. DM2 with hyperglycemia. Off insulin drip. Hgb A1C 17.4 Bloods sugar improved. Continue with insulin sliding scale. Continue to monitor accucheks. 10. Hepatomegaly. ?secondary to cardiomyopathy vs alcohol abuse. ?history of alcohol abuse. GI following, recommendations appreciated. Hep panel negative. HIV negative. 11. Tachycardia. Likely secondary to PE. Continue Heparin drip. Continue to monitor. 12. COPD. Patient intubated. Continue nebulizer treatments. 13. Elevated BUN. Uptrending. Decreased urine output. Continue IV fluids. History of nephrectomy. Nephrology consulted, follow up recommendations. 14. Patient is a full code. Palliative care following. Family considering DNR. Poor prognosis.
[2018-06-13] MEDS ORDERED: Sodium Chloride 0.9% 1,000 ML IV SCH (15:55)
--- NOTE | 2018-06-13 16:00 | PN ---
Copied To: Cipriano Ramsey MD Attending MD: Cipriano Ramsey MD DATE: 06/13/2018 REASON FOR THE CONSULTATION AND FOLLOWUP: Cardiac evaluation, necrotizing fasciitis, septic shock, possible acute pulmonary embolism. SUBJECTIVE: Patient remains intubated, sedated, on multiple vasopressors and heparin. OBJECTIVE: GENERAL: On sedation, not arousable. VITAL SIGNS: Temperature 100; heart rate 115; blood pressure 89/58, on multiple vasopressors. HEENT: PERRLA. Extraocular muscles intact. NECK: Supple. No carotid bruit or thyromegaly. CHEST: Clear to auscultation. HEART: S1 and S2 regular. ABDOMEN: Soft. EXTREMITIES: Clubbing and cyanosis negative. LABORATORY DATA: Blood workup: WBC 17, hemoglobin 13.2, hematocrit 38.8, platelet count 12. Chemistry shows sodium 143, potassium 4.9, chloride 110, carbon dioxide 20, anion gap of 18, BUN 57, creatinine 0.7. Calcium 6.8. Total protein 4.7, albumin 2.3, albumin-globulin ratio 1.1, magnesium 1.5, phosphorus 4.3. IMPRESSION: A 58-year-old female with past medical history of hypertension, diabetes, admitted with necrotizing fasciitis. Echo consistent with acutely severe enlarged and hypokinetic right ventricle, normal right ventricular function, flattening of right ventricular septum consistent with right ventricular pressure volume overload, [id number] tricuspid regurgitation, right ventricular systolic pressure 53, which is under-determining because of the configuration of the TR jet, septic shock, multiple pressors, necrotizing fasciitis on the ER, high protein-calorie malnutrition, severe, which was not present on admission. Get multiple doses of intravenous albumin. Respiratory failure, intubated. Severe thrombocytopenia, anemia, leukocytosis, rule out disseminated intravascular coagulation. RECOMMENDATIONS: Agree to continue blood product transfusion with platelets. Start her on heparin empirically for acute pulmonary embolism possible. Patient is on multiple vasopressors, not stable to go for CT angio. Since she is intubated, we could not be conclusive. Continue aggressive treatment, high risk for oozing because of the heparin from the necrotizing fasciitis. Overall, the patient's condition is critical. Prognosis is extremely guarded. Continue vasopressors to maintain systolic more than 90. Continue broad-spectrum antibiotic. Continue vent management. We will follow with you. We will supplement magnesium and electrolytes as needed. We will also give one dose of calcium gluconate; though it is corrected, it is not low because the albumin is low but that will improve. Indirect hemodynamic monitoring. Thank you, Dr. Tana Oleary for providing us the opportunity in taking care of the patient, Cassie Mata. Cipriano Ramsey MD
--- NOTE | 2018-06-13 16:45 | CP.PCM.PN ---
<Kiki Oleary - Last Filed: 06/13/18 16:41> Subjective - Date & Time of Evaluation Date of Evaluation: 06/13/18 Time of Evaluation: 16:42 - Subjective Subjective: Podiatry Progress note: Dr. Norton 58 year old female was seen and evaluated at bedside for left planter foot bullae. Patient is intubated, unable to respond to verbal commands. Objective - Vital Signs/Intake and Output Vital Signs (last 24 hours): Temp Pulse Resp BP Pulse Ox 99.7 F H 112 H 17 108/77 100 06/13/18 16:30 06/13/18 16:30 06/12/18 12:55 06/13/18 16:00 06/13/18 16:30 Intake and Output: 06/13/18 06/13/18 06:59 18:59 Intake Total 4486 1101 Output Total 500 Balance 3986 1101 - Medications Medications: Current Medications Albuterol/Ipratropium (Duoneb 3 Mg/0.5 Mg (3 Ml) Ud) 3 ml IH Q2H PRN PRN Reason: Shortness of Breath Albuterol/Ipratropium (Duoneb 3 Mg/0.5 Mg (3 Ml) Ud) 3 ml IH [id number] [facility] Last Admin: 06/13/18 13:10 Dose: 3 ml Clindamycin Phosphate 900 mg/ (Sodium Chloride) 106 mls @ 106 mls/hr IVPB Q8 [facility] PRN Reason: Protocol Last Admin: 06/13/18 14:49 Dose: 106 mls/hr Fentanyl Citrate (Fentanyl Citrate/Sodium Chloride 1 Mg/100 Ml) 1,000 mcg in 100 mls @ 2 mls/hr IV .Q24H PRN; Protocol; 20 MCG/HR PRN Reason: TITRATE PER MD ORDER Last Admin: 06/13/18 08:30 Dose: 80 mcg/hr, 8 mls/hr NOREPINEPHRINE BIT/0.9 % NACL (Levophed 4 Mg/ 250 Ml Ns Premixed) 4 mg in 250 mls @ 15 mls/hr IV .[id number] PRN; Protocol; 4 MCG/MIN PRN Reason: TITRATE PER MD ORDER Last Admin: 06/13/18 14:44 Dose: 20 mcg/min, 75 mls/hr Acetaminophen (Ofirmev) 1,000 mg in 100 mls @ 400 mls/hr IVPB Q6H PRN PRN Reason: Temperature Stop: 06/14/18 03:06 Last Admin: 06/13/18 02:33 Dose: 400 mls/hr Vasopressin 20 units/ Sodium (Chloride) 101 mls @ 9.09 mls/hr IV .Q11H7M [facility]; 0.03 U/MIN PRN Reason: Protocol Last Admin: 06/13/18 06:55 Dose: 9.09 mls/hr Phenylephrine HCl 40 mg/ (Sodium Chloride) 254 mls @ 38.1 mls/hr IV .Q6H40M PRN ; Protocol; 100 MCG/MIN PRN Reason: TITRATE PER MD ORDER Last Admin: 06/13/18 14:45 Dose: 100 mcg/min, 38.1 mls/hr Heparin Sodium/Sodium Chloride (Heparin 76138 Units/250ml 1/2 Normal Saline) 25 ,000 units in 250 mls @ 12.655 mls/hr IV .[id number] PRN; Protocol; 18 UNITS/KG/HR PRN Reason: ADJUST RATE PER PROTOCOL Last Titration: 06/13/18 08:45 Dose: 12 units/kg/hr, 8.437 mls/hr Meropenem (Merrem Iv 1 Gm Premix) 50 mls @ 100 mls/hr IVPB Q8 [facility] PRN Reason: Protocol Last Admin: 06/13/18 13:12 Dose: 100 mls/hr Daptomycin 430 mg/ Sodium (Chloride) 100 mls @ 200 mls/hr IV Q24H [facility] Stop: 06/18/18 12:01 Last Admin: 06/13/18 13:26 Dose: 200 mls/hr Sodium Chloride (Sodium Chloride 0.9%) 1,000 mls @ 150 mls/hr IV .Q6H40M [facility] Last Admin: 06/13/18 16:10 Dose: 150 mls/hr Insulin Human Lispro (Humalog High) 0 units SC Q4 [facility] PRN Reason: Protocol Last Admin: 06/13/18 16:14 Dose: 2 units Lorazepam (Ativan) 2 mg IVP Q2H PRN; Protocol PRN Reason: Anxiety Last Admin: 06/13/18 04:07 Dose: 2 mg Pantoprazole Sodium (Protonix Inj) 40 mg IVP DAILY [facility] Last Admin: 06/13/18 10:12 Dose: 40 mg Sodium Hypochlorite (Dakins Solution 0.25%) 500 ml TOP DAILY [facility] Last Admin: 06/13/18 10:27 Dose: 1 % Sodium Hypochlorite (Dakins Solution 0.25%) 0 ml TOP DAILY [facility] - Labs Labs: 06/13/18 11:15 06/13/18 06:40 PT 17.5 SECONDS (9.4-12.5) H 06/13/18 06:40 INR 1.51 06/13/18 06:40 APTT 136.0 Seconds (25.1-36.5) H* 06/13/18 06:40 - Constitutional Appears: Well, Non-toxic, No Acute Distress - Extremities Exam Additional comments: Derm: de-roofed bullae on the plantar medial left foot, no active drainage, no purulence, no malodor, no erythema, no clinical suspicion of active infection - Neurological Exam Neurological Exam: Alert, Awake, Oriented x3 - Psychiatric Exam Psychiatric exam: Normal Affect, Normal Mood Assessment and Plan - Assessment and Plan (Free Text) Assessment: 58 year old female evaluated for serous bullae on the plantar left foot Plan: Patient seen and evaluated with attending Dr. Norton Labs, vitals and charts reviewed Bullae site dressed with bactroban, telfa, DSD Patient is stable from podiatry standpoint Will continue local wound care <Freddie Norton - Last Filed: 06/14/18 09:25> Objective - Vital Signs/Intake and Output Vital Signs (last 24 hours): Temp Pulse Resp BP Pulse Ox 100.2 F H 103 H 26 H 107/49 L 100 06/14/18 05:30 06/14/18 05:30 06/14/18 00:48 06/14/18 06:38 06/14/18 05:30 Intake and Output: 06/14/18 06/14/18 06:59 18:59 Intake Total 3526 312 Output Total 500 Balance 3026 312 - Medications Medications: Current Medications Albuterol/Ipratropium (Duoneb 3 Mg/0.5 Mg (3 Ml) Ud) 3 ml IH Q2H PRN PRN Reason: Shortness of Breath Albuterol/Ipratropium (Duoneb 3 Mg/0.5 Mg (3 Ml) Ud) 3 ml IH [id number] [facility] Last Admin: 06/14/18 07:14 Dose: 3 ml Clindamycin Phosphate 900 mg/ (Sodium Chloride) 106 mls @ 106 mls/hr IVPB Q8 [facility] PRN Reason: Protocol Last Admin: 06/14/18 05:06 Dose: 106 mls/hr Fentanyl Citrate (Fentanyl Citrate/Sodium Chloride 1 Mg/100 Ml) 1,000 mcg in 100 mls @ 2 mls/hr IV .Q24H PRN; Protocol; 20 MCG/HR PRN Reason: TITRATE PER MD ORDER Last Admin: 06/13/18 23:30 Dose: 80 mcg/hr, 8 mls/hr NOREPINEPHRINE BIT/0.9 % NACL (Levophed 4 Mg/ 250 Ml Ns Premixed) 4 mg in 250 mls @ 15 mls/hr IV .[id number] PRN; Protocol; 4 MCG/MIN PRN Reason: TITRATE PER MD ORDER Last Titration: 06/14/18 08:21 Dose: 10 mcg/min, 37.5 mls/hr Vasopressin 20 units/ Sodium (Chloride) 101 mls @ 9.09 mls/hr IV .Q11H7M [facility]; 0.03 U/MIN PRN Reason: Protocol Last Admin: 06/14/18 06:38 Dose: 9.09 mls/hr Phenylephrine HCl 40 mg/ (Sodium Chloride) 254 mls @ 38.1 mls/hr IV .Q6H40M PRN ; Protocol; 100 MCG/MIN PRN Reason: TITRATE PER MD ORDER Last Titration: 06/14/18 07:13 Dose: Infused Heparin Sodium/Sodium Chloride (Heparin 54289 Units/250ml 1/2 Normal Saline) 25 ,000 units in 250 mls @ 12.655 mls/hr IV .[id number] PRN; Protocol; 18 UNITS/KG/HR PRN Reason: ADJUST RATE PER PROTOCOL Last Titration: 06/14/18 09:10 Dose: 0 units/kg/hr, 0 mls/hr Meropenem (Merrem Iv 1 Gm Premix) 50 mls @ 100 mls/hr IVPB Q8 [facility] PRN Reason: Protocol Last Admin: 06/14/18 05:05 Dose: 100 mls/hr Daptomycin 430 mg/ Sodium (Chloride) 100 mls @ 200 mls/hr IV Q24H [facility] Stop: 06/18/18 12:01 Last Admin: 06/13/18 13:26 Dose: 200 mls/hr Sodium Chloride (Sodium Chloride 0.9%) 1,000 mls @ 100 mls/hr IV .Q10H [facility] Last Admin: 06/13/18 20:50 Dose: 100 mls/hr Dextrose/Sodium Chloride (Dextrose 5%/0.45% Ns 1000 Ml) 1,000 mls @ 75 mls/hr IV .[id number] [facility] Insulin Human Lispro (Humalog High) 0 units SC Q4 [facility] PRN Reason: Protocol Last Admin: 06/14/18 04:30 Dose: Not Given Lorazepam (Ativan) 2 mg IVP Q2H PRN; Protocol PRN Reason: Anxiety Last Admin: 06/13/18 04:07 Dose: 2 mg Pantoprazole Sodium (Protonix Inj) 40 mg IVP DAILY [facility] Last Admin: 06/13/18 10:12 Dose: 40 mg Sodium Hypochlorite (Dakins Solution 0.25%) 500 ml TOP DAILY [facility] Last Admin: 06/13/18 10:27 Dose: 1 % Sodium Hypochlorite (Dakins Solution 0.25%) 0 ml TOP DAILY [facility] - Labs Labs: 06/14/18 06:00 06/14/18 06:00 PT 17.5 SECONDS (9.4-12.5) H 06/13/18 06:40 INR 1.51 06/13/18 06:40 APTT 118.6 Seconds (25.1-36.5) H* 06/14/18 07:30 Attending/Attestation - Attestation I have personally seen and examined this patient.: Yes I have fully participated in the care of the patient.: Yes I have reviewed all pertinent clinical information, including history, physical exam and plan: Yes
[2018-06-13 17:01] LABS: PH,URINE 5.5 (4.7-8.0); URINE BILIRUBIN SMALL (NEGATIVE); URINE BLOOD NEGATIVE (NEGATIVE); URINE GLUCOSE (UA) NEGATIVE (NEGATIVE); URINE LEUKOCYTE ESTERASE NEGATIVE Leu/uL (NEGATIVE); URINE PROTEIN TRACE mg/dL (<30 mg/dL)
[2018-06-13 17:01] LABS: ARTERIAL BLOOD GAS HCO3 10.7 mmol/L (21-28); ARTERIAL BLOOD GAS O2 SAT 98.4 % (95-98); ARTERIAL BLOOD GAS PCO2 28 mm/Hg (35-45); ARTERIAL BLOOD GAS TCO2 11.6 mmol.L (22-28)
[2018-06-13 17:05] LABS: URINE APPEARANCE CLEAR (CLEAR); URINE COLOR YELLOW (YELLOW)
[2018-06-13 17:06] LABS: ARTERIAL BLOOD GAS PH 7.19 (7.35-7.45)
[2018-06-13 17:08] LABS: CREATININE,RANDOM URINE 47 mg/dL
[2018-06-13 17:15] LABS: URINE BACTERIA LARGE (NEG); URINE HYALINE CAST 0 - 2 /hpf; URINE RBC 0 - 2 /hpf (0-2)
[2018-06-13 17:16] LABS: URINE AMORPHOUS SEDIMENT FEW; URINE FINE GRANULAR CAST 0 - 2 /hpf (0-2)
--- NOTE | 2018-06-13 19:38 | CP.PCM.CON ---
History of Present Illness - History of Present Illness History of Present Illness: 58 yo F w/ pmh of htn, dm, COPD, brought to ED 2 days ago after being found on floor and with AMS, nephrology being consulted for acute kidney injury; History taken from medical record as patient is intubated; Patient reportedly found on floor with bugs and cat litter in surroundings after not being heard from in previous 2 days; daughter mentions that patient had an abdominal wound and was not compliant with medical f/u; In ED, patient found to have diffuse erythema of abd and legs as well as necrotic lesion over abdomen; CT was done that was consistent with necrotizing fasciitis of abdominal wall and patient subsequently underwent extensive debridement in OR (imaging also consistent with R nephrectomy); Patient has remained hypotensive on 3 vasopressors; heparin drip was started yesterday after echo revealed RV pressure overload that raised suspicion for PE; Review of Systems - Review of Systems Systems not reviewed;Unavailable: Intubated Past Patient History - Infectious Disease Hx of Infectious Diseases: None - Past Medical History & Family History Past Medical History?: Yes Pertinent Family History: non-contributory - Past Social History Smoking Status: Heavy Smoker > 10 Cigarettes Daily Alcohol: Other (denies) Drugs: Denies - CARDIAC Hx Cardiac Disorders: No - PULMONARY Hx Respiratory Disorders: No - NEUROLOGICAL Hx Neurological Disorder: No - HEENT Hx HEENT Problems: No - RENAL Hx Chronic Kidney Disease: No - ENDOCRINE/METABOLIC Hx Diabetes Mellitus Type 2: Yes - HEMATOLOGICAL/ONCOLOGICAL Hx Blood Disorders: No - INTEGUMENTARY Hx Dermatological Problems: No - MUSCULOSKELETAL/RHEUMATOLOGICAL Hx Musculoskeletal Disorders: No - GASTROINTESTINAL Hx Gastrointestinal Disorders: No - PSYCHIATRIC Hx Substance Use: No - ANESTHESIA Hx Anesthesia: No Meds Allergies/Adverse Reactions: Allergies Allergy/AdvReac Type Severity Reaction Status Date / Time No Known Allergies Allergy Unverified 06/11/18 04:43 - Medications Medications: Current Medications Albuterol/Ipratropium (Duoneb 3 Mg/0.5 Mg (3 Ml) Ud) 3 ml IH Q2H PRN PRN Reason: Shortness of Breath Albuterol/Ipratropium (Duoneb 3 Mg/0.5 Mg (3 Ml) Ud) 3 ml IH [id number] LAMONTE Last Admin: 06/13/18 13:10 Dose: 3 ml Clindamycin Phosphate 900 mg/ (Sodium Chloride) 106 mls @ 106 mls/hr IVPB Q8 L[place]ONTE PRN Reason: Protocol Last Admin: 06/13/18 14:49 Dose: 106 mls/hr Fentanyl Citrate (Fentanyl Citrate/Sodium Chloride 1 Mg/100 Ml) 1,000 mcg in 100 mls @ 2 mls/hr IV .Q24H PRN; Protocol; 20 MCG/HR PRN Reason: TITRATE PER MD ORDER Last Admin: 06/13/18 08:30 Dose: 80 mcg/hr, 8 mls/hr NOREPINEPHRINE BIT/0.9 % NACL (Levophed 4 Mg/ 250 Ml Ns Premixed) 4 mg in 250 mls @ 15 mls/hr IV .[id number] PRN; Protocol; 4 MCG/MIN PRN Reason: TITRATE PER MD ORDER Last Admin: 06/13/18 14:44 Dose: 20 mcg/min, 75 mls/hr Acetaminophen (Ofirmev) 1,000 mg in 100 mls @ 400 mls/hr IVPB Q6H PRN PRN Reason: Temperature Stop: 06/14/18 03:06 Last Admin: 06/13/18 02:33 Dose: 400 mls/hr Vasopressin 20 units/ Sodium (Chloride) 101 mls @ 9.09 mls/hr IV .Q11H7M LAMONTE; 0.03 U/MIN PRN Reason: Protocol Last Admin: 06/13/18 18:12 Dose: 9.09 mls/hr Phenylephrine HCl 40 mg/ (Sodium Chloride) 254 mls @ 38.1 mls/hr IV .Q6H40M PRN ; Protocol; 100 MCG/MIN PRN Reason: TITRATE PER MD ORDER Last Admin: 06/13/18 14:45 Dose: 100 mcg/min, 38.1 mls/hr Heparin Sodium/Sodium Chloride (Heparin 46817 Units/250ml 1/2 Normal Saline) 25 ,000 units in 250 mls @ 12.655 mls/hr IV .[id number] PRN; Protocol; 18 UNITS/KG/HR PRN Reason: ADJUST RATE PER PROTOCOL Last Titration: 06/13/18 18:10 Dose: 12 units/kg/hr, 8.437 mls/hr Meropenem (Merrem Iv 1 Gm Premix) 50 mls @ 100 mls/hr IVPB Q8 [place] PRN Reason: Protocol Last Admin: 06/13/18 13:12 Dose: 100 mls/hr Daptomycin 430 mg/ Sodium (Chloride) 100 mls @ 200 mls/hr IV Q24H L[place]TE Stop: 06/18/18 12:01 Last Admin: 06/13/18 13:26 Dose: 200 mls/hr Sodium Chloride (Sodium Chloride 0.9%) 1,000 mls @ 150 mls/hr IV .Q6H40M L[facility]TE Last Admin: 06/13/18 16:10 Dose: 150 mls/hr Insulin Human Lispro (Humalog High) 0 units SC Q4 L[facility]TE PRN Reason: Protocol Last Admin: 06/13/18 16:14 Dose: 2 units Lorazepam (Ativan) 2 mg IVP Q2H PRN; Protocol PRN Reason: Anxiety Last Admin: 06/13/18 04:07 Dose: 2 mg Pantoprazole Sodium (Protonix Inj) 40 mg IVP DAILY L[facility]ONTE Last Admin: 06/13/18 10:12 Dose: 40 mg Sodium Hypochlorite (Dakins Solution 0.25%) 500 ml TOP DAILY L[facility]TE Last Admin: 06/13/18 10:27 Dose: 1 % Sodium Hypochlorite (Dakins Solution 0.25%) 0 ml TOP DAILY [facility] Physical Exam - Constitutional Appears: Toxic - Eye Exam Eye Exam: absent: Scleral icterus - ENT Exam ENT Exam: Mucous Membranes Moist - Respiratory Exam Respiratory Exam: Clear to Auscultation Bilateral. absent: Rales, Rhonchi, Wheezes Additional comments: tachypneic - Cardiovascular Exam Cardiovascular Exam: Tachycardia, +S1, +S2 - GI/Abdominal Exam GI & Abdominal Exam: Soft Additional comments: abdominal wound dressing/covering in place; - Exam Additional comments: nolan in place; draining urine; - Extremities Exam Additional comments: markedly edematous legs b/l; cool distal ext; - Neurological Exam Additional comments: withdraws to painful stimuli; - Skin Skin Exam: Mottled Results - Vital Signs Recent Vital Signs: Last Vital Signs Temp 99.5 F 06/13/18 18:20 Pulse 100 H 06/13/18 18:20 Resp 17 06/12/18 12:55 BP 139/57 L 06/13/18 18:12 Pulse Ox 100 06/13/18 18:20 - Labs Result Diagrams: 06/13/18 11:15 06/13/18 19:51 Labs: Laboratory Results - last 24 hr 06/11/18 06/12/18 06/12/18 07:44 20:36 21:30 WBC 15.7 H D RBC 5.29 Hgb 15.3 D Hct 44.9 MCV 84.9 MCH 28.9 MCHC 34.1 RDW 15.3 H Plt Count 7 L* MPV Gran % 89.4 H Lymph % (Auto) 7.6 L [place] % (Auto) 2.4 Eos % (Auto) 0.1 L Baso % (Auto) 0.5 Gran # 14.04 H Lymph # (Auto) 1.2 [place] # (Auto) 0.4 Eos # (Auto) 0.0 Baso # (Auto) 0.08 Platelet Evaluation Low PT INR APTT Fibrinogen Fibrin Degrad Products D-Dimer, Quantitative pCO2 pO2 HCO3 ABG pH ABG Total CO2 ABG O2 Saturation ABG Base Excess ABG Potassium VBG pH VBG pCO2 VBG HCO3 VBG Total CO2 VBG O2 Sat (Calc) VBG Base Excess VBG Potassium Sodium Chloride Glucose Lactate Mechanical Rate FiO2 Tidal Volume PEEP Potassium Carbon Dioxide Anion Gap BUN Creatinine Est GFR ( Amer) Est GFR (Non-Af Amer) POC Glucose (mg/dL) 370 H 94 Random Glucose Hemoglobin A1c Calcium Phosphorus Magnesium Total Bilirubin AST ALT Alkaline Phosphatase Total Protein Albumin Globulin Albumin/Globulin Ratio Arterial Blood Potassium Venous Blood Potassium Urine Color Urine Appearance Urine pH Ur Specific [place] Urine Protein Urine Glucose (UA) Urine Ketones Urine Blood Urine Nitrate Urine Bilirubin Urine Urobilinogen Ur Leukocyte Esterase Urine RBC Urine WBC Ur Epithelial Cells Amorphous Sediment Urine Bacteria Hyaline Casts Fine Granular Casts Urine Other Ur Random Creatinine Ur Random Sodium Vancomycin Trough 06/12/18 06/12/18 06/12/18 21:30 21:40 21:40 WBC RBC Hgb Hct MCV MCH MCHC RDW Plt Count MPV Gran % Lymph % (Auto) [place] % (Auto) Eos % (Auto) Baso % (Auto) Gran # Lymph # (Auto) [place] # (Auto) Eos # (Auto) Baso # (Auto) Platelet Evaluation PT 17.0 H INR 1.48 APTT 127.5 H* Fibrinogen Fibrin Degrad Products D-Dimer, Quantitative pCO2 pO2 49 HCO3 ABG pH ABG Total CO2 ABG O2 Saturation ABG Base Excess ABG Potassium VBG pH 7.14 L* VBG pCO2 59.0 VBG HCO3 20.1 L VBG Total CO2 21.9 L VBG O2 Sat (Calc) 87.2 H VBG Base Excess -9.5 L VBG Potassium 5.0 Sodium 143 137.0 Chloride 109 H 107.0 Glucose 114 H Lactate 3.4 H Mechanical Rate FiO2 21.0 Tidal Volume PEEP Potassium 5.0 Carbon Dioxide 21 Anion Gap 18 BUN 51 H Creatinine 1.0 Est GFR ( Amer) > 60 Est GFR (Non-Af Amer) 57 POC Glucose (mg/dL) Random Glucose 111 H Hemoglobin A1c Calcium 7.2 L Phosphorus Magnesium Total Bilirubin 1.8 H AST 34 ALT 43 Alkaline Phosphatase 280 H Total Protein 4.8 L Albumin 2.3 L Globulin 2.5 Albumin/Globulin Ratio 0.9 L Arterial Blood Potassium Venous Blood Potassium 5.0 Urine Color Urine Appearance Urine pH Ur Specific [place] Urine Protein Urine Glucose (UA) Urine Ketones Urine Blood Urine Nitrate Urine Bilirubin Urine Urobilinogen Ur Leukocyte Esterase Urine RBC Urine WBC Ur Epithelial Cells Amorphous Sediment Urine Bacteria Hyaline Casts Fine Granular Casts Urine Other Ur Random Creatinine Ur Random Sodium Vancomycin Trough 06/12/18 06/13/18 06/13/18 22:49 00:04 00:55 WBC 15.3 H RBC 5.42 Hgb 15.5 Hct 46.0 MCV 84.9 MCH 28.6 MCHC 33.7 RDW 15.5 H Plt Count 8 L* MPV Gran % 88.1 H Lymph % (Auto) 8.3 L [place] % (Auto) 2.9 Eos % (Auto) 0.1 L Baso % (Auto) 0.6 Gran # 13.46 H Lymph # (Auto) 1.3 [place] # (Auto) 0.4 Eos # (Auto) 0.0 Baso # (Auto) 0.09 Platelet Evaluation Low PT 17.0 H INR 1.48 APTT 127.2 H* Fibrinogen Fibrin Degrad Products D-Dimer, Quantitative pCO2 pO2 HCO3 ABG pH ABG Total CO2 ABG O2 Saturation ABG Base Excess ABG Potassium VBG pH VBG pCO2 VBG HCO3 VBG Total CO2 VBG O2 Sat (Calc) VBG Base Excess VBG Potassium Sodium Chloride Glucose Lactate Mechanical Rate FiO2 Tidal Volume PEEP Potassium Carbon Dioxide Anion Gap BUN Creatinine Est GFR ( Amer) Est GFR (Non-Af Amer) POC Glucose (mg/dL) 85 Random Glucose Hemoglobin A1c Calcium Phosphorus Magnesium Total Bilirubin AST ALT Alkaline Phosphatase Total Protein Albumin Globulin Albumin/Globulin Ratio Arterial Blood Potassium Venous Blood Potassium Urine Color Urine Appearance Urine pH Ur Specific [place] Urine Protein Urine Glucose (UA) Urine Ketones Urine Blood Urine Nitrate Urine Bilirubin Urine Urobilinogen Ur Leukocyte Esterase Urine RBC Urine WBC Ur Epithelial Cells Amorphous Sediment Urine Bacteria Hyaline Casts Fine Granular Casts Urine Other Ur Random Creatinine Ur Random Sodium Vancomycin Trough 06/13/18 06/13/18 06/13/18 00:55 00:55 04:15 WBC RBC Hgb Hct MCV MCH MCHC RDW Plt Count MPV Gran % Lymph % (Auto) [place] % (Auto) Eos % (Auto) Baso % (Auto) Gran # Lymph # (Auto) [place] # (Auto) Eos # (Auto) Baso # (Auto) Platelet Evaluation PT INR APTT Fibrinogen Fibrin Degrad Products D-Dimer, Quantitative pCO2 49 H pO2 88.0 HCO3 18.3 L ABG pH 7.18 L* ABG Total CO2 19.8 L ABG O2 Saturation 96.9 ABG Base Excess -10.1 L ABG Potassium 4.8 VBG pH VBG pCO2 VBG HCO3 VBG Total CO2 VBG O2 Sat (Calc) VBG Base Excess VBG Potassium Sodium 143 139.0 Chloride 110 H 111.0 H Glucose 118 H Lactate 2.8 H Mechanical Rate FiO2 80.0 Tidal Volume PEEP Potassium 5.0 Carbon Dioxide 18 L Anion Gap 21 H BUN 53 H Creatinine 0.8 Est GFR ( Amer) > 60 Est GFR (Non-Af Amer) > 60 POC Glucose (mg/dL) 118 H Random Glucose 109 Hemoglobin A1c Calcium 7.4 L Phosphorus Magnesium Total Bilirubin 2.0 H AST 36 ALT 32 Alkaline Phosphatase 271 H Total Protein 5.1 L Albumin 2.6 L Globulin 2.5 Albumin/Globulin Ratio 1.1 Arterial Blood Potassium 4.8 Venous Blood Potassium Urine Color Urine Appearance Urine pH Ur Specific [place] Urine Protein Urine Glucose (UA) Urine Ketones Urine Blood Urine Nitrate Urine Bilirubin Urine Urobilinogen Ur Leukocyte Esterase Urine RBC Urine WBC Ur Epithelial Cells Amorphous Sediment Urine Bacteria Hyaline Casts Fine Granular Casts Urine Other Ur Random Creatinine Ur Random Sodium Vancomycin Trough 06/13/18 06/13/18 06/13/18 05:26 06:40 06:40 WBC 17.0 H RBC 4.60 Hgb 13.1 D Hct 38.8 MCV 84.3 MCH 28.5 MCHC 33.8 RDW 15.7 H Plt Count 12 L* MPV Gran % Lymph % (Auto) [place] % (Auto) Eos % (Auto) [place] Baso % (Auto) [place] Gran # Lymph # (Auto) [place] # (Auto) Eos # (Auto) 0.0 Baso # (Auto) 0.04 Platelet Evaluation Low PT INR APTT Fibrinogen Fibrin Degrad Products D-Dimer, Quantitative pCO2 46 H pO2 94.0 HCO3 17.6 L ABG pH 7.19 L* ABG Total CO2 19.0 L ABG O2 Saturation 97.6 ABG Base Excess -10.4 L ABG Potassium 4.4 VBG pH VBG pCO2 VBG HCO3 VBG Total CO2 VBG O2 Sat (Calc) VBG Base Excess VBG Potassium Sodium 139.0 143 Chloride 112.0 H 110 H Glucose 126 H Lactate 2.3 H Mechanical Rate FiO2 80.0 Tidal Volume PEEP Potassium 4.9 Carbon Dioxide 20 L Anion Gap 18 BUN 57 H Creatinine 0.9 Est GFR ( Amer) > 60 Est GFR (Non-Af Amer) > 60 POC Glucose (mg/dL) Random Glucose 133 H Hemoglobin A1c Calcium 6.8 L* Phosphorus 6.3 H Magnesium 1.5 L Total Bilirubin 2.3 H AST 33 ALT 36 Alkaline Phosphatase 237 H Total Protein 4.7 L Albumin 2.3 L Globulin 2.4 Albumin/Globulin Ratio 1.0 L Arterial Blood Potassium 4.4 Venous Blood Potassium Urine Color Urine Appearance Urine pH Ur Specific [place] Urine Protein Urine Glucose (UA) Urine Ketones Urine Blood Urine Nitrate Urine Bilirubin Urine Urobilinogen Ur Leukocyte Esterase Urine RBC Urine WBC Ur Epithelial Cells Amorphous Sediment Urine Bacteria Hyaline Casts Fine Granular Casts Urine Other Ur Random Creatinine Ur Random Sodium Vancomycin Trough 06/13/18 06/13/18 06/13/18 06:40 06:40 11:15 WBC RBC Hgb Hct MCV MCH MCHC RDW Plt Count MPV Gran % Lymph % (Auto) [place] % (Auto) Eos % (Auto) Baso % (Auto) Gran # Lymph # (Auto) [place] # (Auto) Eos # (Auto) Baso # (Auto) Platelet Evaluation PT 17.5 H INR 1.51 APTT 136.0 H* Fibrinogen Fibrin Degrad Products D-Dimer, Quantitative pCO2 pO2 82 H HCO3 ABG pH ABG Total CO2 ABG O2 Saturation ABG Base Excess ABG Potassium VBG pH 7.15 L* VBG pCO2 55.0 VBG HCO3 19.2 L VBG Total CO2 20.9 L VBG O2 Sat (Calc) 96.5 H VBG Base Excess -10.0 L VBG Potassium 4.7 Sodium 139.0 Chloride 108.0 H Glucose 156 H Lactate 2.1 Mechanical Rate FiO2 21.0 Tidal Volume PEEP Potassium Carbon Dioxide Anion Gap BUN Creatinine Est GFR ( Amer) Est GFR (Non-Af Amer) POC Glucose (mg/dL) Random Glucose Hemoglobin A1c 16.5 H Calcium Phosphorus Magnesium Total Bilirubin AST ALT Alkaline Phosphatase Total Protein Albumin Globulin Albumin/Globulin Ratio Arterial Blood Potassium Venous Blood Potassium 4.7 Urine Color Urine Appearance Urine pH Ur Specific [place] Urine Protein Urine Glucose (UA) Urine Ketones Urine Blood Urine Nitrate Urine Bilirubin Urine Urobilinogen Ur Leukocyte Esterase Urine RBC Urine WBC Ur Epithelial Cells Amorphous Sediment Urine Bacteria Hyaline Casts Fine Granular Casts Urine Other Ur Random Creatinine Ur Random Sodium Vancomycin Trough 06/13/18 06/13/18 06/13/18 11:15 11:15 11:15 WBC 17.6 H RBC 4.37 Hgb 12.3 Hct 36.6 MCV 83.8 MCH 28.1 MCHC 33.6 RDW 15.7 H Plt Count 44 L* MPV 9.6 Gran % 92.7 H Lymph % (Auto) 6.1 L [place] % (Auto) 0.9 L Eos % (Auto) 0.1 L Baso % (Auto) 0.2 Gran # 16.30 H Lymph # (Auto) 1.1 L [place] # (Auto) 0.2 Eos # (Auto) 0.0 Baso # (Auto) 0.04 Platelet Evaluation PT INR APTT Fibrinogen 611 H* Fibrin Degrad Products >10 <40 ug/ml D-Dimer, Quantitative 2886 H pCO2 pO2 HCO3 ABG pH ABG Total CO2 ABG O2 Saturation ABG Base Excess ABG Potassium VBG pH VBG pCO2 VBG HCO3 VBG Total CO2 VBG O2 Sat (Calc) VBG Base Excess VBG Potassium Sodium Chloride Glucose Lactate Mechanical Rate FiO2 Tidal Volume PEEP Potassium Carbon Dioxide Anion Gap BUN Creatinine Est GFR ( Amer) Est GFR (Non-Af Amer) POC Glucose (mg/dL) Random Glucose Hemoglobin A1c Calcium Phosphorus Magnesium Total Bilirubin AST ALT Alkaline Phosphatase Total Protein Albumin Globulin Albumin/Globulin Ratio Arterial Blood Potassium Venous Blood Potassium Urine Color Urine Appearance Urine pH Ur Specific [place] Urine Protein Urine Glucose (UA) Urine Ketones Urine Blood Urine Nitrate Urine Bilirubin Urine Urobilinogen Ur Leukocyte Esterase Urine RBC Urine WBC Ur Epithelial Cells Amorphous Sediment Urine Bacteria Hyaline Casts Fine Granular Casts Urine Other Ur Random Creatinine Ur Random Sodium Vancomycin Trough 06/13/18 06/13/18 06/13/18 16:05 16:05 16:20 WBC RBC Hgb Hct MCV MCH MCHC RDW Plt Count MPV Gran % Lymph % (Auto) [place] % (Auto) Eos % (Auto) Baso % (Auto) Gran # Lymph # (Auto) [place] # (Auto) Eos # (Auto) Baso # (Auto) Platelet Evaluation PT INR APTT 118.3 H* Fibrinogen Fibrin Degrad Products D-Dimer, Quantitative pCO2 pO2 HCO3 ABG pH ABG Total CO2 ABG O2 Saturation ABG Base Excess ABG Potassium VBG pH VBG pCO2 VBG HCO3 VBG Total CO2 VBG O2 Sat (Calc) VBG Base Excess VBG Potassium Sodium Chloride Glucose Lactate Mechanical Rate FiO2 Tidal Volume PEEP Potassium Carbon Dioxide Anion Gap BUN Creatinine Est GFR ( Amer) Est GFR (Non-Af Amer) POC Glucose (mg/dL) Random Glucose Hemoglobin A1c Calcium Phosphorus Magnesium Total Bilirubin AST ALT Alkaline Phosphatase Total Protein Albumin Globulin Albumin/Globulin Ratio Arterial Blood Potassium Venous Blood Potassium Urine Color Urine Appearance Urine pH Ur Specific [place] Urine Protein Urine Glucose (UA) Urine Ketones Urine Blood Urine Nitrate Urine Bilirubin Urine Urobilinogen Ur Leukocyte Esterase Urine RBC Urine WBC Ur Epithelial Cells Amorphous Sediment Urine Bacteria Hyaline Casts Fine Granular Casts Urine Other Ur Random Creatinine 47 Ur Random Sodium 18 Vancomycin Trough 17.9 H* 06/13/18 06/13/18 16:20 16:55 WBC RBC Hgb Hct MCV MCH MCHC RDW Plt Count MPV Gran % Lymph % (Auto) [place] % (Auto) Eos % (Auto) Baso % (Auto) Gran # Lymph # (Auto) [place] # (Auto) Eos # (Auto) Baso # (Auto) Platelet Evaluation PT INR APTT Fibrinogen Fibrin Degrad Products D-Dimer, Quantitative pCO2 28 L pO2 139.0 H HCO3 10.7 L ABG pH 7.19 L* ABG Total CO2 11.6 L ABG O2 Saturation 98.4 H ABG Base Excess -16.0 L ABG Potassium 2.3 L* VBG pH VBG pCO2 VBG HCO3 VBG Total CO2 VBG O2 Sat (Calc) VBG Base Excess VBG Potassium Sodium 145.0 Chloride 125.0 H Glucose 102 Lactate 1.0 Mechanical Rate 26 FiO2 80.0 Tidal Volume 420 PEEP 7 Potassium Carbon Dioxide Anion Gap BUN Creatinine Est GFR ( Amer) Est GFR (Non-Af Amer) POC Glucose (mg/dL) Random Glucose Hemoglobin A1c Calcium Phosphorus Magnesium Total Bilirubin AST ALT Alkaline Phosphatase Total Protein Albumin Globulin Albumin/Globulin Ratio Arterial Blood Potassium 2.3 L* Venous Blood Potassium Urine Color Yellow Urine Appearance Clear Urine pH 5.5 Ur Specific [place] >= 1.030 Urine Protein Trace H Urine Glucose (UA) Negative Urine Ketones Trace H Urine Blood Negative Urine Nitrate Negative Urine Bilirubin Small H Urine Urobilinogen 2.0 H Ur Leukocyte Esterase Negative Urine RBC 0 - 2 Urine WBC 1 - 3 Ur Epithelial Cells 4 - 5 Amorphous Sediment Few Urine Bacteria Large Hyaline Casts 0 - 2 Fine Granular Casts 0 - 2 Urine Other [place] Ur Random Creatinine Ur Random Sodium Vancomycin Trough - Imaging and Cardiology Chest x-ray Status: Image reviewed by me Additional comment: lungs clear; Assessment & Plan (1) Acute kidney injury Assessment and Plan: Mild rise in serum creatinine (0.5 -> 0.9), however, with oliguria setting of septic shock and possible cardiogenic shock with RV failure; increasing BUN and low FENa consistent with pre-renal etiology currently; has already received aggressive volume repletion with IVF and albumin, with ongoing maintenance; concern for ongoing insensible losses, however, additional volume may be detrimental given RV pressure overload; patient already on 3 pressors including levophed which should give sufficient inotropic support as well; Currently, no clear indication to initiate DISH STACKER with stable potassium level and clear CXR; may consider DISH STACKER to offload RV if parameters of sepsis are improving (stable BP, decreasing lactate/procalcitonin) but patient remains oliguric; -continue maintenance IVF w/ NS at 100 cc/hr -maintain MAP > 65; -avoid nephrotoxic agents; -we will continue to follow closely; should discuss goals of care including impending need for HD with family; Status: Acute (2) Septic shock Assessment and Plan: On 3 pressors; antibiotic coverage with clinda, dapto and meropenem, currently being dosed for normal CrCl, will need to re-assess dosing daily with concern for worsening renal function; agree with stopping vanco to avoid toxicity ( trough level at high end of goal); Status: Acute (3) Metabolic acidosis Assessment and Plan: Lactic acidosis improving with antibiotics/surgical debridement; no need for bicarb drip at this time; Status: Acute (4) Acute hypoxemic respiratory failure Assessment and Plan: Concern for PE with RV pressure overload and high FIO2 requirement despite relatively clear CXR; need to avoid excess volume administration; see above; Status: Acute (5) CHF (congestive heart failure) Status: Acute
[2018-06-13 20:04] LABS: BLOOD UREA NITROGEN 63 mg/dL (7-21); GFR AFRICAN-AMERICAN > 60; GFR NON-AFRICAN AMERICAN > 60
--- NOTE | 2018-06-13 21:50 | CP.PCM.PCO ---
<Geronimo Greer - Last Filed: 06/13/18 21:43> Assessment & Plan - Assessment and Plan (Free Text) Plan: Dr. Mart and I, Dr. Greer, talked to the patient's family regarding DNR status. We explained that this does not mean we will stop all intervention for the patient. The patient's next of kin, both daughters, were present and agreed to DNR status. - Date & Time Date: 06/13/18 Time: 21:45 <Con Valencia - Last Filed: 06/13/18 22:41> - PA / HORSER UP / Resident Statement MD/DO has reviewed & agrees with the documentation as recorded. - Scribe Statement Provider Attestation: Discussed with pts daughters at bedside as stated above. Pt's code status will be changed to DNR
[2018-06-13 23:40] LABS: PLATELET ESTIMATE LOW (NORMAL)
[2018-06-14] MEDS: Insulin Lispro (HUMAlog) HIGH Coverage SC SCH ×5 (00:52→18:49)
[2018-06-14] MEDS: Albuterol-Ipratrop 3 mg / 0.5 (3 ml) UD IH SCH ×4 (01:30→20:40)
[2018-06-14] MEDS: Heparin25000 units/250ml 1/2NS 25,000 UNITS/250 ML BAG IV PRN (01:33)
[2018-06-14] MEDS: NOREPINEPHRINE BIT/0.9 % NACL 4 MG/250 ML BAG IV PRN ×3 (04:50→21:17)
[2018-06-14] MEDS: Meropenem IV 1 gm in NS 50 ML IVPB SCH ×3 (05:05→21:18)
[2018-06-14 06:41] LABS: BASO # 0.01 K/mm3 (0.0-2.0); BASO % 0.1 % (0.0-3.0); EOS % 0.1 % (1.5-5.0); GRAN # 13.11 (1.4-6.5); GRAN % 93.1 % (50.0-68.0); HEMOGLOBIN 12.2 g/dL (12.0-16.0); LYMPH # 0.7 (1.2-3.4); MEAN CELL VOLUME 84.2 fl (80.0-105.0); MEAN CORPUSCULAR HEMOGLOBIN 27.5 pg (25.0-35.0); MEAN CORPUSCULAR HGB CONC 32.7 g/dl (31.0-37.0); MEAN PLATELET VOLUME 10.1 fl (7.0-11.0); MONO # 0.2 (0.1-0.6); MONO % 1.7 % (1.0-6.0); RBC 4.43 10^6/uL (3.5-6.1); RED CELL DISTRIBUTION WIDTH 16.3 % (11.5-14.5); WHITE BLOOD COUNT 14.1 10^3/ul (4.5-11.0)
--- NOTE | 2018-06-14 06:50 | CP.PCM.PN ---
Subjective - Date & Time of Evaluation Date of Evaluation: 06/14/18 Time of Evaluation: 11:00 - Subjective Subjective: Subjective: Patient seen and examined at bedside. Resting comfortably in bed. No acute overnight events. No further subjective data can be ascertained at this time secondary to patient being intubated and sedated. 12-point review of systems cannot be ascertained at this time due to altered mental status Physical Examination: - Constitutional Appears: Appears older than recorded age - Eye Exam Eye Exam: absent: Scleral icterus - ENT Exam ENT Exam: Mucous Membranes Moist - Respiratory Exam Respiratory Exam: Clear to Auscultation Bilateral, Tachypneic, absent: Rales, Rhonchi, Wheezes - Cardiovascular Exam Cardiovascular Exam: Tachycardia, +S1, +S2 - GI/Abdominal Exam GI & Abdominal Exam: abdominal wound dressing/covering in position, clean, and dry - Exam nolan in place; draining urine - Extremities Exam Extremities comments: markedly edematous legs bilaterally - Neurological Exam Additional comments: limited as patient is intubated and sedated - Skin Skin Exam: Mottled Assessment and Plan: Acute Kidney Injury secondary to Septic Shock - BUN and creatinine reviewed, trended, and appreciated- elevated BUN and low FENa consistent with pre-renal etiology - Oliguria improved (goal urine output is 0.5cc/kg/hr ~ 865cc 24 hour goal) 930cc 24 hour output - avoid nephrotoxins- ok to give lasix 40mg IV x 1 to reduce load on RV in hopes to increase cardiac output and reduce pre-renal DOMINIQUE - renally dose antibiotics - continue with IVF NS @ 100 cc/hr - D5/half normal saline @ 75cc/hr switched to to D5w @ 75 cc/hr to control hypernatremia Metabolic Acidosis - Gapped metabolic acidosis with combined nongapped metabolic acidosis - awaiting lactate level - continue with IVF NS @ 100 cc/hr - no need for bicarb, no need for [employer] at this time Overall guarded prognosis Thank you for the opportunity in participating in the care of this patient. We will continue to follow with you. Patient case discussed with and plan approved by attending physician, Dr. Leyva. Objective - Vital Signs/Intake and Output Vital Signs (last 24 hours): Temp Pulse Resp BP Pulse Ox 100.2 F H 103 H 26 H 111/60 100 06/14/18 05:30 06/14/18 05:30 06/14/18 00:48 06/14/18 05:00 06/14/18 05:30 Intake and Output: 06/13/18 06/14/18 18:59 06:59 Intake Total 5172 3526 Output Total 420 500 Balance 4752 3026 - Medications Medications: Current Medications Albuterol/Ipratropium (Duoneb 3 Mg/0.5 Mg (3 Ml) Ud) 3 ml IH Q2H PRN PRN Reason: Shortness of Breath Albuterol/Ipratropium (Duoneb 3 Mg/0.5 Mg (3 Ml) Ud) 3 ml IH [id number] [facility] Last Admin: 06/14/18 01:30 Dose: 3 ml Clindamycin Phosphate 900 mg/ (Sodium Chloride) 106 mls @ 106 mls/hr IVPB Q8 [facility] PRN Reason: Protocol Last Admin: 06/14/18 05:06 Dose: 106 mls/hr Fentanyl Citrate (Fentanyl Citrate/Sodium Chloride 1 Mg/100 Ml) 1,000 mcg in 100 mls @ 2 mls/hr IV .Q24H PRN; Protocol; 20 MCG/HR PRN Reason: TITRATE PER MD ORDER Last Admin: 06/13/18 23:30 Dose: 80 mcg/hr, 8 mls/hr NOREPINEPHRINE BIT/0.9 % NACL (Levophed 4 Mg/ 250 Ml Ns Premixed) 4 mg in 250 mls @ 15 mls/hr IV .[id number] PRN; Protocol; 4 MCG/MIN PRN Reason: TITRATE PER MD ORDER Last Titration: 06/14/18 06:00 Dose: 10 mcg/min, 37.5 mls/hr Vasopressin 20 units/ Sodium (Chloride) 101 mls @ 9.09 mls/hr IV .Q11H7M [facility]; 0.03 U/MIN PRN Reason: Protocol Last Admin: 06/13/18 18:12 Dose: 9.09 mls/hr Phenylephrine HCl 40 mg/ (Sodium Chloride) 254 mls @ 38.1 mls/hr IV .Q6H40M PRN ; Protocol; 100 MCG/MIN PRN Reason: TITRATE PER MD ORDER Last Titration: 06/14/18 03:03 Dose: 80 mcg/min, 30.48 mls/hr Heparin Sodium/Sodium Chloride (Heparin 22877 Units/250ml 1/2 Normal Saline) 25 ,000 units in 250 mls @ 12.655 mls/hr IV .[id number] PRN; Protocol; 18 UNITS/KG/HR PRN Reason: ADJUST RATE PER PROTOCOL Last Admin: 06/14/18 01:33 Dose: 12 units/kg/hr, 8.437 mls/hr Meropenem (Merrem Iv 1 Gm Premix) 50 mls @ 100 mls/hr IVPB Q8 [facility] PRN Reason: Protocol Last Admin: 06/14/18 05:05 Dose: 100 mls/hr Daptomycin 430 mg/ Sodium (Chloride) 100 mls @ 200 mls/hr IV Q24H [facility] Stop: 06/18/18 12:01 Last Admin: 06/13/18 13:26 Dose: 200 mls/hr Sodium Chloride (Sodium Chloride 0.9%) 1,000 mls @ 100 mls/hr IV .Q10H [facility] Last Admin: 06/13/18 20:50 Dose: 100 mls/hr Insulin Human Lispro (Humalog High) 0 units SC Q4 [facility] PRN Reason: Protocol Last Admin: 06/14/18 04:30 Dose: Not Given Lorazepam (Ativan) 2 mg IVP Q2H PRN; Protocol PRN Reason: Anxiety Last Admin: 06/13/18 04:07 Dose: 2 mg Pantoprazole Sodium (Protonix Inj) 40 mg IVP DAILY [facility] Last Admin: 06/13/18 10:12 Dose: 40 mg Sodium Hypochlorite (Dakins Solution 0.25%) 500 ml TOP DAILY [facility] Last Admin: 06/13/18 10:27 Dose: 1 % Sodium Hypochlorite (Dakins Solution 0.25%) 0 ml TOP DAILY [facility] - Labs Labs: 06/13/18 11:15 06/13/18 19:51 PT 17.5 SECONDS (9.4-12.5) H 06/13/18 06:40 INR 1.51 06/13/18 06:40 APTT 111.2 Seconds (25.1-36.5) H* 06/14/18 00:30
[2018-06-14 06:55] LABS: ALB/GLOB RATIO 0.9 (1.1-1.8); ALBUMIN 2.3 g/dL (3.0-4.8); ALT/SGPT 35 U/L (7-56); AST/SGOT 25 U/L (14-36); BLOOD UREA NITROGEN 61 mg/dL (7-21); CALCIUM 6.9 mg/dL (8.4-10.5); GFR AFRICAN-AMERICAN > 60; GFR NON-AFRICAN AMERICAN > 60
[2018-06-14 07:30] LABS: PLATELET COUNT 31 10^3/uL (120.0-450.0)
[2018-06-14 07:31] LABS: PLATELET ESTIMATE LOW (NORMAL)
[2018-06-14] MEDS: Sodium Chloride 0.9% 1,000 ML IV SCH (08:00)
[2018-06-14 09:05] LABS: ARTERIAL BLOOD GAS HCO3 15.3 mmol/L (21-28); ARTERIAL BLOOD GAS HEMOGLOBIN 11.6 g/dL (11.7-17.4); ARTERIAL BLOOD GAS O2 CAPACITY 16.6 mL/dl (16-24); ARTERIAL BLOOD GAS O2 CONTENT 16.4 ML/dl (15-23); ARTERIAL BLOOD GAS O2 SAT 98.7 % (95-98); ARTERIAL BLOOD GAS PCO2 41 mm/Hg (35-45); ARTERIAL BLOOD GAS TCO2 16.6 mmol.L (22-28)
[2018-06-14 09:06] LABS: ARTERIAL BLOOD GAS PH 7.18 (7.35-7.45)
--- NOTE | 2018-06-14 09:18 | PN ---
Copied To: Sushli Wagner MD Attending MD: Sushil Wagner MD DATE: 06/14/2018 SUBJECTIVE: The patient is in bed, in no acute distress. The patient was seen in the ICU 129, bed 6 earlier. The patient intubated on a ventilator, continues to have fevers, although it appears to be a downward trend in the fever curve. PHYSICAL EXAMINATION: VITAL SIGNS: On exam, temperature is 100.2, heart rate of 106, blood pressure is 107/49 and saturation is noted. The patient is on a vent. HEENT: Examination of HEENT is unremarkable. ET tube is in place. NECK: Supple. LUNGS: Have decreased breath sounds. HEART: Normal S1, S2. ABDOMEN: Soft. Dressing is noted. Erythema is noted. LABORATORY DATA: Laboratory examination reveals the patient's white count of 17,600, hemoglobin of 12, platelets of 44. Chemistries reveals a BUN of 61, creatinine of 0.9. LFTs are noted. Alk phos is elevated at 274. The patient's procalcitonin is 58. The urinalysis is noted. Toxicology is reviewed. Vanco trough of 17.9. Serology: HIV is negative. Hepatitis profile is negative. Microbiology reveals is a gram-positive cocci in the blood, one bottle. The wound culture has a gram-positive cocci also from the abdominal culture, preliminary results. Moderate growth. There is a gram-negative manny also. Review of orders reveals the patient to be on clindamycin, daptomycin, meropenem. ASSESSMENT AND PLAN: A 58-year-old female, seen earlier today in 129, bed 6 with septic shock with multiorgan failure with ventilatory-dependent respiratory failure, status post acute renal failure, coagulopathy and encephalopathy due to the severe abdominal wall skin and skin structure infection, necrotizing fasciitis, Isac's gangrene associated with trauma and vulvar mass, status post multiple debridements with gram-positive cocci bacteremia and a gram-negative manny in the wound in a patient with a nephrectomy and hypertension. Currently on daptomycin, clindamycin and meropenem. Waiting for identification and sensitivity of the organisms. Also vulvar lesion biopsies consistent with a squamous cell carcinoma. Repeat blood cultures have been ordered by Dr. Cisneros yesterday. Waiting for those repeat cultures and identification and sensitivity of the organisms mentioned above. Overall prognosis is quite poor. Sushil Wagner MD
[2018-06-14] MEDS ORDERED: Dextrose 5%/0.45% NS 1,000 ML IV SCH (09:30)
[2018-06-14] MEDS ORDERED: Albumin Human 25% (12.5 gm/50 ml) IV SCH (09:45)
[2018-06-14] MEDS ORDERED: Dakin's Topical 0.25%-Half Strength (480 ml) TOP SCH (10:00)
--- NOTE | 2018-06-14 10:30 | CP.PCM.PN ---
<Lupillo Amezcua - Last Filed: 06/14/18 12:16> Subjective - Date & Time of Evaluation Date of Evaluation: 06/14/18 Time of Evaluation: 06:00 - Subjective Subjective: General Surgery Note for Dr. Oleary Patient seen and examined at bedside. Overnight, vasopressor requirements were decreased. Phenylephrine was discontinued and levophed was decreased to 10 mcg. MAP has been >65. Patient is still intubated and on vent support with FiO2 decreased to 50%. Dressing was changed today. ROS unobtainable due to clinical condition. Objective - Vital Signs/Intake and Output Vital Signs (last 24 hours): Temp Pulse Resp BP Pulse Ox 100.2 F H 103 H 26 H 107/49 L 100 06/14/18 05:30 06/14/18 05:30 06/14/18 00:48 06/14/18 06:38 06/14/18 05:30 Intake and Output: 06/14/18 06/14/18 06:59 18:59 Intake Total 3526 312 Output Total 500 Balance 3026 312 - Medications Medications: Current Medications Albumin Human (Albumin Human 25% (12.5 Gm/50 Ml)) 12.5 gm IV Q6H [facility] Stop: 06/15/18 09:34 Albuterol/Ipratropium (Duoneb 3 Mg/0.5 Mg (3 Ml) Ud) 3 ml IH Q2H PRN PRN Reason: Shortness of Breath Albuterol/Ipratropium (Duoneb 3 Mg/0.5 Mg (3 Ml) Ud) 3 ml IH [id number] [facility] Last Admin: 06/14/18 07:14 Dose: 3 ml Clindamycin Phosphate 900 mg/ (Sodium Chloride) 106 mls @ 106 mls/hr IVPB Q8 [facility] PRN Reason: Protocol Last Admin: 06/14/18 05:06 Dose: 106 mls/hr Fentanyl Citrate (Fentanyl Citrate/Sodium Chloride 1 Mg/100 Ml) 1,000 mcg in 100 mls @ 2 mls/hr IV .Q24H PRN; Protocol; 20 MCG/HR PRN Reason: TITRATE PER MD ORDER Last Admin: 06/13/18 23:30 Dose: 80 mcg/hr, 8 mls/hr NOREPINEPHRINE BIT/0.9 % NACL (Levophed 4 Mg/ 250 Ml Ns Premixed) 4 mg in 250 mls @ 15 mls/hr IV .[id number] PRN; Protocol; 4 MCG/MIN PRN Reason: TITRATE PER MD ORDER Last Titration: 06/14/18 08:21 Dose: 10 mcg/min, 37.5 mls/hr Vasopressin 20 units/ Sodium (Chloride) 101 mls @ 9.09 mls/hr IV .Q11H7M [facility]; 0.03 U/MIN PRN Reason: Protocol Last Admin: 06/14/18 06:38 Dose: 9.09 mls/hr Phenylephrine HCl 40 mg/ (Sodium Chloride) 254 mls @ 38.1 mls/hr IV .Q6H40M PRN ; Protocol; 100 MCG/MIN PRN Reason: TITRATE PER MD ORDER Last Titration: 06/14/18 07:13 Dose: Infused Heparin Sodium/Sodium Chloride (Heparin 38532 Units/250ml 1/2 Normal Saline) 25 ,000 units in 250 mls @ 12.655 mls/hr IV .[id number] PRN; Protocol; 18 UNITS/KG/HR PRN Reason: ADJUST RATE PER PROTOCOL Last Titration: 06/14/18 09:10 Dose: 0 units/kg/hr, 0 mls/hr Meropenem (Merrem Iv 1 Gm Premix) 50 mls @ 100 mls/hr IVPB Q8 [facility] PRN Reason: Protocol Last Admin: 06/14/18 05:05 Dose: 100 mls/hr Daptomycin 430 mg/ Sodium (Chloride) 100 mls @ 200 mls/hr IV Q24H [facility] Stop: 06/18/18 12:01 Last Admin: 06/13/18 13:26 Dose: 200 mls/hr Sodium Chloride (Sodium Chloride 0.9%) 1,000 mls @ 100 mls/hr IV .Q10H [facility] Last Admin: 06/13/18 20:50 Dose: 100 mls/hr Dextrose/Sodium Chloride (Dextrose 5%/0.45% Ns 1000 Ml) 1,000 mls @ 75 mls/hr IV .[id number] [facility] Calcium Gluconate 1,000 mg/ (Sodium Chloride) 110 mls @ 110 mls/hr IVPB ONCE ONE Stop: 06/14/18 10:33 Insulin Human Lispro (Humalog High) 0 units SC Q4 [facility] PRN Reason: Protocol Last Admin: 06/14/18 04:30 Dose: Not Given Lorazepam (Ativan) 2 mg IVP Q2H PRN; Protocol PRN Reason: Anxiety Last Admin: 06/13/18 04:07 Dose: 2 mg Pantoprazole Sodium (Protonix Inj) 40 mg IVP DAILY [facility] Last Admin: 06/13/18 10:12 Dose: 40 mg Sodium Hypochlorite (Dakins Solution 0.25%) 500 ml TOP DAILY [facility] Last Admin: 06/13/18 10:27 Dose: 1 % Sodium Hypochlorite (Dakins Solution 0.25%) 0 ml TOP DAILY [facility] - Labs Labs: 06/14/18 06:00 06/14/18 06:00 PT 17.5 SECONDS (9.4-12.5) H 06/13/18 06:40 INR 1.51 06/13/18 06:40 APTT 118.6 Seconds (25.1-36.5) H* 06/14/18 07:30 - Additional Findings Additional findings: - Constitutional Appears: Toxic, Other (intubated and sedated) - Head Exam Head Exam: NORMOCEPHALIC - Eye Exam Eye Exam: Normal appearance - ENT Exam ENT Exam: Mucous Membranes Dry - Respiratory Exam Additional comments: intubated and on mechanical vent support - Cardiovascular Exam Cardiovascular Exam: Tachycardia - GI/Abdominal Exam GI & Abdominal Exam: Soft. absent: Tenderness Additional comments: abdominal fascia appears keenan and necrotic, few areas of oozing, surgicel applied, small area of fluctuance was drained and stitch placed, necrotic areas of skin present, kerlex soaked in saline and abdominal pads used with abdominal binder for dressing - Neurological Exam Neurological Exam: Altered (intubated and sedated) - Psychiatric Exam Psychiatric exam: Flat Affect - Skin Skin Exam: absent: Dry, Intact Assessment and Plan - Assessment and Plan (Free Text) Assessment: 58 F presents with uncontrolled DM, vulvular SCC, suspected pulmonary embolism, severe acidosis, septic shock requiring 3 pressors and necrotizing fasciitis Plan: -NPO -IV fluids -Continue to wean vasopressors -IV ABX -Dressing changes PRN -Strict I's & O's -Family met with Neeta Mallory and decided that they will make decisions together but Magnolia (daughter) will have ultimate say -DNR form signed and in chart -Vulvar biopsy positive for new squamous cell carcinoma -Overall prognosis is very grave -No further debridement or surgery is going to result in any curative or meaningful recovery, or quality of life. -Continue support care -f/u palliative care recommendations -Further recommendations as per Dr. Anirudh Amezcua PGY2 <Monica Oleary - Last Filed: 06/14/18 16:54> Objective - Vital Signs/Intake and Output Vital Signs (last 24 hours): Temp Pulse Resp BP Pulse Ox 99.3 F 115 H 27 H 111/52 L 100 06/14/18 13:30 06/14/18 13:30 06/14/18 12:48 06/14/18 13:55 06/14/18 13:30 Intake and Output: 06/14/18 06/14/18 06:59 18:59 Intake Total 3526 836 Output Total 500 Balance 3026 836 - Medications Medications: Current Medications Albuterol/Ipratropium (Duoneb 3 Mg/0.5 Mg (3 Ml) Ud) 3 ml IH Q2H PRN PRN Reason: Shortness of Breath Albuterol/Ipratropium (Duoneb 3 Mg/0.5 Mg (3 Ml) Ud) 3 ml IH [id number] [facility] Last Admin: 06/14/18 13:07 Dose: 3 ml Clindamycin Phosphate 900 mg/ (Sodium Chloride) 106 mls @ 106 mls/hr IVPB Q8 [facility] PRN Reason: Protocol Last Admin: 06/14/18 13:56 Dose: 106 mls/hr Fentanyl Citrate (Fentanyl Citrate/Sodium Chloride 1 Mg/100 Ml) 1,000 mcg in 100 mls @ 2 mls/hr IV .Q24H PRN; Protocol; 20 MCG/HR PRN Reason: TITRATE PER MD ORDER Last Admin: 06/14/18 11:40 Dose: 80 mcg/hr, 8 mls/hr NOREPINEPHRINE BIT/0.9 % NACL (Levophed 4 Mg/ 250 Ml Ns Premixed) 4 mg in 250 mls @ 15 mls/hr IV .[id number] PRN; Protocol; 4 MCG/MIN PRN Reason: TITRATE PER MD ORDER Last Titration: 06/14/18 16:17 Dose: 6 mcg/min, 22.5 mls/hr Vasopressin 20 units/ Sodium (Chloride) 101 mls @ 9.09 mls/hr IV .Q11H7M [facility]; 0.03 U/MIN PRN Reason: Protocol Last Admin: 06/14/18 06:38 Dose: 9.09 mls/hr Heparin Sodium/Sodium Chloride (Heparin 52922 Units/250ml 1/2 Normal Saline) 25 ,000 units in 250 mls @ 12.655 mls/hr IV .[id number] PRN; Protocol; 18 UNITS/KG/HR PRN Reason: ADJUST RATE PER PROTOCOL Last Titration: 06/14/18 16:23 Dose: 7 units/kg/hr, 4.921 mls/hr Meropenem (Merrem Iv 1 Gm Premix) 50 mls @ 100 mls/hr IVPB Q8 [facility] PRN Reason: Protocol Last Admin: 06/14/18 14:05 Dose: 100 mls/hr Daptomycin 430 mg/ Sodium (Chloride) 100 mls @ 200 mls/hr IV Q24H [facility] Stop: 06/18/18 12:01 Last Admin: 06/14/18 13:57 Dose: 200 mls/hr Insulin Human Lispro (Humalog High) 0 units SC Q6 [facility] PRN Reason: Protocol Last Admin: 06/14/18 12:00 Dose: 4 u Lorazepam (Ativan) 2 mg IVP Q2H PRN; Protocol PRN Reason: Anxiety Last Admin: 06/13/18 04:07 Dose: 2 mg Pantoprazole Sodium (Protonix Inj) 40 mg IVP DAILY [facility] Last Admin: 06/14/18 09:18 Dose: 40 mg Sodium Hypochlorite (Dakins Solution 0.25%) 500 ml TOP DAILY [facility] Last Admin: 06/13/18 10:27 Dose: 1 % Sodium Hypochlorite (Dakins Solution 0.25%) 0 ml TOP DAILY [facility] - Labs Labs: 06/14/18 14:20 06/14/18 06:00 PT 17.5 SECONDS (9.4-12.5) H 06/13/18 06:40 INR 1.51 06/13/18 06:40 APTT 81.4 Seconds (25.1-36.5) H 06/14/18 14:20 Assessment and Plan - Assessment and Plan (Free Text) Plan: I personally saw and examined the patient at bedside at 9:45am with the resident staff and agree with above. No signs of clinical improvement. Multi- organ dysfunction. Wound with slightly increased necrotic skin edges, grossly unchanged. Urine output dropped. I called and spoke with daughter Magnolia at 10am to update her as no family at bedside. We discussed multi-organ dysfunction , empiric anticoagulation for pulmonary embolism, DIC and thrombocytopenia, CHF , COPD and High Fi02 requirements, as well as pathology results confirming squamous cell cancer of her vulvar mass. I expressed empathetically that in this situation it is the narcotizing infection that is life-threatening and the cause of her current status and not the cancer. The cancer was incidentally found, likely to have been there for several years based on the size of the fungating mass. Magnolia did say the family came to a decision and made patient DNR last night, specifically they did not want chest compressions done if patient were to require them. We did discuss that no further surgery is recommended as it would not result in any meaningful recovery given her overall status. Any surgery would require extensive excision of her abdominal wall fascia leaving the patient with an open peritoneal cavity and a very high likelihood of major hemorrhage given need for anticoagulation or even mortality on table. I did offer my support and suggested they continue to speak with palliative care to discuss comfort care measures. She stated she and family would be coming by later today, no specific time given, and would like to speak with palliative care.
--- NOTE | 2018-06-14 11:27 | CP.PCM.PN ---
<Kiki Oleary - Last Filed: 06/14/18 11:25> Subjective - Date & Time of Evaluation Date of Evaluation: 06/14/18 Time of Evaluation: 11:25 - Subjective Subjective: Podiatry Progress note: Dr. Norton 58 year old female was seen and evaluated at bedside for left planter foot bullae. Patient is intubated, unable to respond to verbal commands. Objective - Vital Signs/Intake and Output Vital Signs (last 24 hours): Temp Pulse Resp BP Pulse Ox 100.2 F H 103 H 26 H 107/49 L 100 06/14/18 05:30 06/14/18 05:30 06/14/18 00:48 06/14/18 06:38 06/14/18 05:30 Intake and Output: 06/14/18 06/14/18 06:59 18:59 Intake Total 3526 520 Output Total 500 Balance 3026 520 - Medications Medications: Current Medications Albumin Human (Albumin Human 25% (12.5 Gm/50 Ml)) 12.5 gm IV Q6H [facility] Stop: 06/15/18 09:34 Last Admin: 06/14/18 11:04 Dose: 12.5 gm Albuterol/Ipratropium (Duoneb 3 Mg/0.5 Mg (3 Ml) Ud) 3 ml IH Q2H PRN PRN Reason: Shortness of Breath Albuterol/Ipratropium (Duoneb 3 Mg/0.5 Mg (3 Ml) Ud) 3 ml IH [id number] [facility] Last Admin: 06/14/18 07:14 Dose: 3 ml Clindamycin Phosphate 900 mg/ (Sodium Chloride) 106 mls @ 106 mls/hr IVPB Q8 [facility] PRN Reason: Protocol Last Admin: 06/14/18 05:06 Dose: 106 mls/hr Fentanyl Citrate (Fentanyl Citrate/Sodium Chloride 1 Mg/100 Ml) 1,000 mcg in 100 mls @ 2 mls/hr IV .Q24H PRN; Protocol; 20 MCG/HR PRN Reason: TITRATE PER MD ORDER Last Admin: 06/13/18 23:30 Dose: 80 mcg/hr, 8 mls/hr NOREPINEPHRINE BIT/0.9 % NACL (Levophed 4 Mg/ 250 Ml Ns Premixed) 4 mg in 250 mls @ 15 mls/hr IV .[id number] PRN; Protocol; 4 MCG/MIN PRN Reason: TITRATE PER MD ORDER Last Admin: 06/14/18 11:00 Dose: 10 mcg/min, 37.5 mls/hr Vasopressin 20 units/ Sodium (Chloride) 101 mls @ 9.09 mls/hr IV .Q11H7M [facility]; 0.03 U/MIN PRN Reason: Protocol Last Admin: 06/14/18 06:38 Dose: 9.09 mls/hr Phenylephrine HCl 40 mg/ (Sodium Chloride) 254 mls @ 38.1 mls/hr IV .Q6H40M PRN ; Protocol; 100 MCG/MIN PRN Reason: TITRATE PER MD ORDER Last Titration: 06/14/18 07:13 Dose: Infused Heparin Sodium/Sodium Chloride (Heparin 33710 Units/250ml 1/2 Normal Saline) 25 ,000 units in 250 mls @ 12.655 mls/hr IV .[id number] PRN; Protocol; 18 UNITS/KG/HR PRN Reason: ADJUST RATE PER PROTOCOL Last Titration: 06/14/18 09:10 Dose: 0 units/kg/hr, 0 mls/hr Meropenem (Merrem Iv 1 Gm Premix) 50 mls @ 100 mls/hr IVPB Q8 [facility] PRN Reason: Protocol Last Admin: 06/14/18 05:05 Dose: 100 mls/hr Daptomycin 430 mg/ Sodium (Chloride) 100 mls @ 200 mls/hr IV Q24H [facility] Stop: 06/18/18 12:01 Last Admin: 06/13/18 13:26 Dose: 200 mls/hr Sodium Chloride (Sodium Chloride 0.9%) 1,000 mls @ 100 mls/hr IV .Q10H [facility] Last Admin: 06/14/18 08:00 Dose: 100 mls/hr Dextrose/Sodium Chloride (Dextrose 5%/0.45% Ns 1000 Ml) 1,000 mls @ 75 mls/hr IV .[id number] [facility] Insulin Human Lispro (Humalog High) 0 units SC Q6 [facility] PRN Reason: Protocol Lorazepam (Ativan) 2 mg IVP Q2H PRN; Protocol PRN Reason: Anxiety Last Admin: 06/13/18 04:07 Dose: 2 mg Pantoprazole Sodium (Protonix Inj) 40 mg IVP DAILY [facility] Last Admin: 06/14/18 09:18 Dose: 40 mg Sodium Hypochlorite (Dakins Solution 0.25%) 500 ml TOP DAILY [facility] Last Admin: 06/13/18 10:27 Dose: 1 % Sodium Hypochlorite (Dakins Solution 0.25%) 0 ml TOP DAILY [facility] - Labs Labs: 06/14/18 06:00 06/14/18 06:00 PT 17.5 SECONDS (9.4-12.5) H 06/13/18 06:40 INR 1.51 06/13/18 06:40 APTT 118.6 Seconds (25.1-36.5) H* 06/14/18 07:30 - Constitutional Appears: Well, Non-toxic, No Acute Distress - Extremities Exam Additional comments: Derm: de-roofed bullae on the plantar medial left foot, no active drainage, no purulence, no malodor, no erythema, no clinical suspicion of active infection - Neurological Exam Neurological Exam: Alert, Awake, Oriented x3 - Psychiatric Exam Psychiatric exam: Normal Affect, Normal Mood Assessment and Plan - Assessment and Plan (Free Text) Assessment: 58 year old female evaluated for serous bullae on the plantar left foot Plan: Patient seen and evaluated Discussed plan with attending Dr. Norton Labs, vitals and charts reviewed Bullae site dressed with bactroban, telfa, DSD Patient is stable from podiatry standpoint Will continue local wound care <Freddie Norton - Last Filed: 06/14/18 14:22> Objective - Vital Signs/Intake and Output Vital Signs (last 24 hours): Temp Pulse Resp BP Pulse Ox 99.3 F 115 H 27 H 111/52 L 100 06/14/18 13:30 06/14/18 13:30 06/14/18 12:48 06/14/18 13:55 06/14/18 13:30 Intake and Output: 06/14/18 06/14/18 06:59 18:59 Intake Total 3526 620 Output Total 500 Balance 3026 620 - Medications Medications: Current Medications Albuterol/Ipratropium (Duoneb 3 Mg/0.5 Mg (3 Ml) Ud) 3 ml IH Q2H PRN PRN Reason: Shortness of Breath Albuterol/Ipratropium (Duoneb 3 Mg/0.5 Mg (3 Ml) Ud) 3 ml IH [id number] [facility] Last Admin: 06/14/18 13:07 Dose: 3 ml Clindamycin Phosphate 900 mg/ (Sodium Chloride) 106 mls @ 106 mls/hr IVPB Q8 [facility] PRN Reason: Protocol Last Admin: 06/14/18 13:56 Dose: 106 mls/hr Fentanyl Citrate (Fentanyl Citrate/Sodium Chloride 1 Mg/100 Ml) 1,000 mcg in 100 mls @ 2 mls/hr IV .Q24H PRN; Protocol; 20 MCG/HR PRN Reason: TITRATE PER MD ORDER Last Admin: 06/14/18 11:40 Dose: 80 mcg/hr, 8 mls/hr NOREPINEPHRINE BIT/0.9 % NACL (Levophed 4 Mg/ 250 Ml Ns Premixed) 4 mg in 250 mls @ 15 mls/hr IV .[id number] PRN; Protocol; 4 MCG/MIN PRN Reason: TITRATE PER MD ORDER Last Admin: 06/14/18 11:00 Dose: 10 mcg/min, 37.5 mls/hr Vasopressin 20 units/ Sodium (Chloride) 101 mls @ 9.09 mls/hr IV .Q11H7M [facility]; 0.03 U/MIN PRN Reason: Protocol Last Admin: 06/14/18 06:38 Dose: 9.09 mls/hr Heparin Sodium/Sodium Chloride (Heparin 35519 Units/250ml 1/2 Normal Saline) 25 ,000 units in 250 mls @ 12.655 mls/hr IV .[id number] PRN; Protocol; 18 UNITS/KG/HR PRN Reason: ADJUST RATE PER PROTOCOL Last Titration: 06/14/18 09:10 Dose: 0 units/kg/hr, 0 mls/hr Meropenem (Merrem Iv 1 Gm Premix) 50 mls @ 100 mls/hr IVPB Q8 [facility] PRN Reason: Protocol Last Admin: 06/14/18 14:05 Dose: 100 mls/hr Daptomycin 430 mg/ Sodium (Chloride) 100 mls @ 200 mls/hr IV Q24H [facility] Stop: 06/18/18 12:01 Last Admin: 06/14/18 13:57 Dose: 200 mls/hr Insulin Human Lispro (Humalog High) 0 units SC Q6 [facility] PRN Reason: Protocol Last Admin: 06/14/18 12:00 Dose: 4 u Lorazepam (Ativan) 2 mg IVP Q2H PRN; Protocol PRN Reason: Anxiety Last Admin: 06/13/18 04:07 Dose: 2 mg Pantoprazole Sodium (Protonix Inj) 40 mg IVP DAILY [facility] Last Admin: 06/14/18 09:18 Dose: 40 mg Sodium Hypochlorite (Dakins Solution 0.25%) 500 ml TOP DAILY [facility] Last Admin: 06/13/18 10:27 Dose: 1 % Sodium Hypochlorite (Dakins Solution 0.25%) 0 ml TOP DAILY [facility] - Labs Labs: 06/14/18 06:00 06/14/18 06:00 PT 17.5 SECONDS (9.4-12.5) H 06/13/18 06:40 INR 1.51 06/13/18 06:40 APTT 118.6 Seconds (25.1-36.5) H* 06/14/18 07:30 Attending/Attestation - Attestation I have personally seen and examined this patient.: Yes I have fully participated in the care of the patient.: Yes I have reviewed all pertinent clinical information, including history, physical exam and plan: Yes
[2018-06-14] MEDS: Fentanyl 1000mcg/100ml NS 1,000 MCG/100 ML BAG IV PRN ×2 (11:40→23:03)
--- NOTE | 2018-06-14 12:27 | RAD ---
Date of service: 06/14/2018 HISTORY: intubated patient COMPARISON: June 13, 2018. FINDINGS: LUNGS: Involving right upper lobe infiltrate with air bronchograms. Improved aeration left lower lobe. PLEURA: Stable, small bilateral pleural effusions. CARDIOVASCULAR: Normal. OSSEOUS STRUCTURES: No significant abnormalities. VISUALIZED UPPER ABDOMEN: Normal. OTHER FINDINGS: Stable, satisfactory position ventilatory, vascular and nasogastric apparatus. IMPRESSION: More conspicuous right upper lobe alveolar changes. Improved aeration left lower lobe.
--- NOTE | 2018-06-14 12:37 | PN ---
Copied To: Cipriano Ramsey MD Attending MD: Cipriano Ramsey MD DATE: 06/14/2018 REASON FOR THE CONSULTATION AND FOLLOWUP: Cardiac evaluation, necrotizing fasciitis, septic shock, possible acute pulmonary embolism, severe RV dysfunction. SUBJECTIVE: The patient remains intubated, multiple vasopressors, on heparin as well as fentanyl. OBJECTIVE: GENERAL: Not responding to verbal stimuli. The patient is being sedated, intubated. VITAL SIGNS: Temperature 100.2, heart rate 103, blood pressure 107/49. HEENT: PERRLA, intact.. NECK: Supple. No carotid bruit or thyromegaly. CHEST: Clear to auscultation. HEART: S1, S2 regular. ABDOMEN: Soft. EXTREMITIES: Clubbing and cyanosis negative. LABORATORY DATA: WBC 14.1, hemoglobin 12.2, hematocrit 37.3, platelet count 31. Chemistry shows sodium , potassium 5, chloride 104, carbon dioxide 17, anion gap 22, BUN 61, creatinine 0.9, calcium 6.9, total protein is 4.9, albumin 2.3, albumin globulin ratio of 0.9. IMPRESSION: Sepsis, septic shock, necrotizing fasciitis, oozing from the wound, severe thrombocytopenia, possible acute pulmonary embolism, respiratory failure, septic shock, multiple vasopressors. Echo of 06/12/2018 showed normal left ventricular size, normal thickness, normal ejection fraction, flattening of the septum consistent with right ventricle pressure volume overload, right ventricle severely dilated, systolic function of right ventricle is severely reduced, trace mitral regurgitation, [id number] tricuspid regurgitation, calculated right ventricular systolic pressure 55 mmHg maybe underestimating of right ventricle because of the configuration of TI jet, dilated IVC, consider acute pulmonary embolism. RECOMMENDATIONS: Continue heparin as tolerated, continue vasopressors, wean off Levophed as tolerated. We will give IV albumin and give 1 dose of calcium. Overall, the patient's condition is critical. Long-term prognosis is guarded. The patient's family made her the DNR. I will continue current treatment, continue broad-spectrum antibiotics, continue IV fluid, continue vent management. Cipriano Ramsey MD [facility] # [phone]
--- NOTE | 2018-06-14 13:10 | CP.PCM.CON ---
History of Present Illness - History of Present Illness History of Present Illness: Tamera Vega, PGY2, Heme-Onc Consult Note for Dr Neumann: Reason for consult: thrombocytopenia 58 year old female with PMH HTN, poorly controlled DM, COPD, presents to [facility] ED after being found on floor with AMS, Patient currently intubated, sedated on fentanyl, most HPI obtained from prior records and ICU/primary team. Patient was found on the floor with bugs and cat litter in surroundings after not being heard from in previous 2 days. Daughter, who lives upstairs, states that patient had an abdominal wound and was not compliant with medical follow up. In ED, patient found to have diffuse erythema of abd and legs as well as necrotic lesion over abdomen. CT abd pelvis showed findings consistent with necrotizing fasciitis of abdominal wall. Patient subsequently underwent extensive debridement in OR (imaging also consistent with R nephrectomy). Patient remains in ICU, intubated, on 3 pressors, heparin drip for PE (based on echo results - RV pressure overload). Patient also found to have low platelets 102 on admission, which trended down to 7, s/p platelets transfusion, now plt count 31. Hematology consulted for thrombocytopenia. 12 point ROS limited as patient is intubated/altered. PMH: hypertension, diabetes, and COPD PSH: right nephrectomy Family History: cannot be obtained due to AMS Social History: smokes 3 packs cigarettes/day, denies alcohol use, denies drug use Medications: incomplete history due to mental status. Patient reports taking Neurontin. Allergies: NKDA Code Status: DNR PMD: Indra Pharmacy: [facility] pharmacy Insurance: Medicaid, Medicare Part A Review of Systems - Review of Systems Systems not reviewed;Unavailable: Altered Mental Status, Intubated Past Patient History - Infectious Disease Hx of Infectious Diseases: None - Past Medical History & Family History Past Medical History?: Yes - Past Social History Smoking Status: Heavy Smoker > 10 Cigarettes Daily Alcohol: Other (denies) Drugs: Denies - CARDIAC Hx Cardiac Disorders: No - PULMONARY Hx Respiratory Disorders: No - NEUROLOGICAL Hx Neurological Disorder: No - HEENT Hx HEENT Problems: No - RENAL Hx Chronic Kidney Disease: No - ENDOCRINE/METABOLIC Hx Diabetes Mellitus Type 2: Yes - HEMATOLOGICAL/ONCOLOGICAL Hx Blood Disorders: No - INTEGUMENTARY Hx Dermatological Problems: No - MUSCULOSKELETAL/RHEUMATOLOGICAL Hx Musculoskeletal Disorders: No - GASTROINTESTINAL Hx Gastrointestinal Disorders: No - PSYCHIATRIC Hx Substance Use: No - ANESTHESIA Hx Anesthesia: No Meds Allergies/Adverse Reactions: Allergies Allergy/AdvReac Type Severity Reaction Status Date / Time No Known Allergies Allergy Unverified 06/11/18 04:43 - Medications Medications: Current Medications Albuterol/Ipratropium (Duoneb 3 Mg/0.5 Mg (3 Ml) Ud) 3 ml IH Q2H PRN PRN Reason: Shortness of Breath Albuterol/Ipratropium (Duoneb 3 Mg/0.5 Mg (3 Ml) Ud) 3 ml IH [id number] LAMONTE Last Admin: 06/14/18 07:14 Dose: 3 ml Clindamycin Phosphate 900 mg/ (Sodium Chloride) 106 mls @ 106 mls/hr IVPB Q8 [place] PRN Reason: Protocol Last Admin: 06/14/18 05:06 Dose: 106 mls/hr Fentanyl Citrate (Fentanyl Citrate/Sodium Chloride 1 Mg/100 Ml) 1,000 mcg in 100 mls @ 2 mls/hr IV .Q24H PRN; Protocol; 20 MCG/HR PRN Reason: TITRATE PER MD ORDER Last Admin: 06/14/18 11:40 Dose: 80 mcg/hr, 8 mls/hr NOREPINEPHRINE BIT/0.9 % NACL (Levophed 4 Mg/ 250 Ml Ns Premixed) 4 mg in 250 mls @ 15 mls/hr IV .[id number] PRN; Protocol; 4 MCG/MIN PRN Reason: TITRATE PER MD ORDER Last Admin: 06/14/18 11:00 Dose: 10 mcg/min, 37.5 mls/hr Vasopressin 20 units/ Sodium (Chloride) 101 mls @ 9.09 mls/hr IV .[id number] LAMONTE; 0.03 U/MIN PRN Reason: Protocol Last Admin: 06/14/18 06:38 Dose: 9.09 mls/hr Phenylephrine HCl 40 mg/ (Sodium Chloride) 254 mls @ 38.1 mls/hr IV .[id number] PRN ; Protocol; 100 MCG/MIN PRN Reason: TITRATE PER MD ORDER Last Titration: 06/14/18 07:13 Dose: Infused Heparin Sodium/Sodium Chloride (Heparin 81736 Units/250ml 1/2 Normal Saline) 25 ,000 units in 250 mls @ 12.655 mls/hr IV .[id number] PRN; Protocol; 18 UNITS/KG/HR PRN Reason: ADJUST RATE PER PROTOCOL Last Titration: 06/14/18 09:10 Dose: 0 units/kg/hr, 0 mls/hr Meropenem (Merrem Iv 1 Gm Premix) 50 mls @ 100 mls/hr IVPB Q8 [place] PRN Reason: Protocol Last Admin: 06/14/18 05:05 Dose: 100 mls/hr Daptomycin 430 mg/ Sodium (Chloride) 100 mls @ 200 mls/hr IV Q24H [place] Stop: 06/18/18 12:01 Last Admin: 06/13/18 13:26 Dose: 200 mls/hr Dextrose/Sodium Chloride (Dextrose 5%/0.45% Ns 1000 Ml) 1,000 mls @ 75 mls/hr IV .[id number] [place] Dextrose (Dextrose 5% In Water 1000 Ml) 1,000 mls @ 75 mls/hr IV .[id number] [place]TE Insulin Human Lispro (Humalog High) 0 units SC Q6 [place] PRN Reason: Protocol Lorazepam (Ativan) 2 mg IVP Q2H PRN; Protocol PRN Reason: Anxiety Last Admin: 06/13/18 04:07 Dose: 2 mg Pantoprazole Sodium (Protonix Inj) 40 mg IVP DAILY [facility] Last Admin: 06/14/18 09:18 Dose: 40 mg Sodium Hypochlorite (Dakins Solution 0.25%) 500 ml TOP DAILY [facility] Last Admin: 06/13/18 10:27 Dose: 1 % Sodium Hypochlorite (Dakins Solution 0.25%) 0 ml TOP DAILY [facility] Physical Exam - Constitutional Appears: Toxic Additional comments: + anasarca - Head Exam Head Exam: ATRAUMATIC, NORMOCEPHALIC - Eye Exam Eye Exam: EOMI, PERRL. absent: Conjunctival injection, Nystagmus, Scleral icterus Pupil Exam: NORMAL ACCOMODATION, PERRL. absent: Fixed, Irregular, Miosis, Unequal - ENT Exam ENT Exam: Mucous Membranes Moist - Respiratory Exam Respiratory Exam: Decreased Breath Sounds - Cardiovascular Exam Cardiovascular Exam: Tachycardia, +S1, +S2 - GI/Abdominal Exam Additional comments: + abdominal binder in place - Extremities Exam Extremities exam: Positive for: pedal edema - Neurological Exam Neurological exam: Altered Additional comments: intubated - Skin Skin Exam: Normal Color, Warm Results - Vital Signs Recent Vital Signs: Last Vital Signs Temp 100.2 F H 06/14/18 05:30 Pulse 103 H 06/14/18 05:30 Resp 26 H 06/14/18 00:48 BP 107/49 L 06/14/18 06:38 Pulse Ox 100 06/14/18 05:30 - Labs Result Diagrams: 06/14/18 06:00 06/14/18 06:00 Labs: Laboratory Results - last 24 hr 06/13/18 06/13/18 06/13/18 11:15 11:30 15:53 WBC RBC Hgb Hct MCV MCH MCHC RDW Plt Count MPV Gran % Lymph % (Auto) [place] % (Auto) Eos % (Auto) Baso % (Auto) Gran # Lymph # (Auto) [place] # (Auto) Eos # (Auto) Baso # (Auto) Differential Comment See pathology report Platelet Evaluation Low APTT pCO2 pO2 HCO3 ABG pH ABG Total CO2 ABG O2 Saturation ABG O2 Content ABG Base Excess ABG Hemoglobin ABG Carboxyhemoglobin POC ABG HHb (Measured) ABG Methemoglobin ABG O2 Capacity ABG Potassium Hgb O2 Saturation Sodium Chloride Glucose Lactate Mechanical Rate FiO2 Tidal Volume PEEP Potassium Carbon Dioxide Anion Gap BUN Creatinine Est GFR ( Amer) Est GFR (Non-Af Amer) POC Glucose (mg/dL) 170 H Random Glucose Calcium Phosphorus Magnesium Total Bilirubin AST ALT Alkaline Phosphatase Total Protein Albumin Globulin Albumin/Globulin Ratio Arterial Blood Potassium Urine Color Urine Appearance Urine pH Ur Specific [place] Urine Protein Urine Glucose (UA) Urine Ketones Urine Blood Urine Nitrate Urine Bilirubin Urine Urobilinogen Ur Leukocyte Esterase Urine RBC Urine WBC Ur Epithelial Cells Amorphous Sediment Urine Bacteria Hyaline Casts Fine Granular Casts Urine Other Ur Random Creatinine Ur Random Sodium Vancomycin Trough 06/13/18 06/13/18 06/13/18 16:05 16:05 16:20 WBC RBC Hgb Hct MCV MCH MCHC RDW Plt Count MPV Gran % Lymph % (Auto) [place] % (Auto) Eos % (Auto) Baso % (Auto) Gran # Lymph # (Auto) [place] # (Auto) Eos # (Auto) Baso # (Auto) Differential Comment Platelet Evaluation APTT 118.3 H* pCO2 pO2 HCO3 ABG pH ABG Total CO2 ABG O2 Saturation ABG O2 Content ABG Base Excess ABG Hemoglobin ABG Carboxyhemoglobin POC ABG HHb (Measured) ABG Methemoglobin ABG O2 Capacity ABG Potassium Hgb O2 Saturation Sodium Chloride Glucose Lactate Mechanical Rate FiO2 Tidal Volume PEEP Potassium Carbon Dioxide Anion Gap BUN Creatinine Est GFR ( Amer) Est GFR (Non-Af Amer) POC Glucose (mg/dL) Random Glucose Calcium Phosphorus Magnesium Total Bilirubin AST ALT Alkaline Phosphatase Total Protein Albumin Globulin Albumin/Globulin Ratio Arterial Blood Potassium Urine Color Urine Appearance Urine pH Ur Specific [place] Urine Protein Urine Glucose (UA) Urine Ketones Urine Blood Urine Nitrate Urine Bilirubin Urine Urobilinogen Ur Leukocyte Esterase Urine RBC Urine WBC Ur Epithelial Cells Amorphous Sediment Urine Bacteria Hyaline Casts Fine Granular Casts Urine Other Ur Random Creatinine 47 Ur Random Sodium 18 Vancomycin Trough 17.9 H* 06/13/18 06/13/18 06/13/18 16:20 16:55 19:51 WBC RBC Hgb Hct MCV MCH MCHC RDW Plt Count MPV Gran % Lymph % (Auto) [place] % (Auto) Eos % (Auto) Baso % (Auto) Gran # Lymph # (Auto) [place] # (Auto) Eos # (Auto) Baso # (Auto) Differential Comment Platelet Evaluation APTT pCO2 28 L pO2 139.0 H HCO3 10.7 L ABG pH 7.19 L* ABG Total CO2 11.6 L ABG O2 Saturation 98.4 H ABG O2 Content ABG Base Excess -16.0 L ABG Hemoglobin ABG Carboxyhemoglobin POC ABG HHb (Measured) ABG Methemoglobin ABG O2 Capacity ABG Potassium 2.3 L* Hgb O2 Saturation Sodium 145.0 144 Chloride 125.0 H 112 H Glucose 102 Lactate 1.0 Mechanical Rate 26 FiO2 80.0 Tidal Volume 420 PEEP 7 Potassium 4.5 Carbon Dioxide 21 Anion Gap 15 BUN 63 H Creatinine 0.8 Est GFR ( Amer) > 60 Est GFR (Non-Af Amer) > 60 POC Glucose (mg/dL) Random Glucose 141 H Calcium 7.0 L Phosphorus Magnesium Total Bilirubin AST ALT Alkaline Phosphatase Total Protein Albumin Globulin Albumin/Globulin Ratio Arterial Blood Potassium 2.3 L* Urine Color Yellow Urine Appearance Clear Urine pH 5.5 Ur Specific [place] >= 1.030 Urine Protein Trace H Urine Glucose (UA) Negative Urine Ketones Trace H Urine Blood Negative Urine Nitrate Negative Urine Bilirubin Small H Urine Urobilinogen 2.0 H Ur Leukocyte Esterase Negative Urine RBC 0 - 2 Urine WBC 1 - 3 Ur Epithelial Cells 4 - 5 Amorphous Sediment Few Urine Bacteria Large Hyaline Casts 0 - 2 Fine Granular Casts 0 - 2 Urine Other Uyeast Ur Random Creatinine Ur Random Sodium Vancomycin Trough 06/13/18 06/14/18 06/14/18 19:57 00:25 00:30 WBC RBC Hgb Hct MCV MCH MCHC RDW Plt Count MPV Gran % Lymph % (Auto) [place] % (Auto) Eos % (Auto) Baso % (Auto) Gran # Lymph # (Auto) [place] # (Auto) Eos # (Auto) Baso # (Auto) Differential Comment Platelet Evaluation APTT 111.2 H* pCO2 pO2 HCO3 ABG pH ABG Total CO2 ABG O2 Saturation ABG O2 Content ABG Base Excess ABG Hemoglobin ABG Carboxyhemoglobin POC ABG HHb (Measured) ABG Methemoglobin ABG O2 Capacity ABG Potassium Hgb O2 Saturation Sodium Chloride Glucose Lactate Mechanical Rate FiO2 Tidal Volume PEEP Potassium Carbon Dioxide Anion Gap BUN Creatinine Est GFR ( Amer) Est GFR (Non-Af Amer) POC Glucose (mg/dL) 147 H 115 H Random Glucose Calcium Phosphorus Magnesium Total Bilirubin AST ALT Alkaline Phosphatase Total Protein Albumin Globulin Albumin/Globulin Ratio Arterial Blood Potassium Urine Color Urine Appearance Urine pH Ur Specific [place] Urine Protein Urine Glucose (UA) Urine Ketones Urine Blood Urine Nitrate Urine Bilirubin Urine Urobilinogen Ur Leukocyte Esterase Urine RBC Urine WBC Ur Epithelial Cells Amorphous Sediment Urine Bacteria Hyaline Casts Fine Granular Casts Urine Other Ur Random Creatinine Ur Random Sodium Vancomycin Trough 06/14/18 06/14/18 06/14/18 03:56 06:00 06:00 WBC 14.1 H RBC 4.43 Hgb 12.2 Hct 37.3 MCV 84.2 MCH 27.5 MCHC 32.7 RDW 16.3 H Plt Count 31 L* MPV 10.1 Gran % 93.1 H Lymph % (Auto) 5.0 L [place] % (Auto) 1.7 Eos % (Auto) 0.1 L Baso % (Auto) 0.1 Gran # 13.11 H Lymph # (Auto) 0.7 L [place] # (Auto) 0.2 Eos # (Auto) 0.0 Baso # (Auto) 0.01 Differential Comment Platelet Evaluation Low APTT pCO2 pO2 HCO3 ABG pH ABG Total CO2 ABG O2 Saturation ABG O2 Content ABG Base Excess ABG Hemoglobin ABG Carboxyhemoglobin POC ABG HHb (Measured) ABG Methemoglobin ABG O2 Capacity ABG Potassium Hgb O2 Saturation Sodium 148 Chloride 114 H Glucose Lactate Mechanical Rate FiO2 Tidal Volume PEEP Potassium 5.0 Carbon Dioxide 17 L Anion Gap 22 H BUN 61 H Creatinine 0.9 Est GFR ( Amer) > 60 Est GFR (Non-Af Amer) > 60 POC Glucose (mg/dL) 139 H Random Glucose 159 H Calcium 6.9 L* Phosphorus 6.7 H Magnesium 2.0 Total Bilirubin 3.3 H AST 25 ALT 35 Alkaline Phosphatase 274 H Total Protein 4.9 L Albumin 2.3 L Globulin 2.6 Albumin/Globulin Ratio 0.9 L Arterial Blood Potassium Urine Color Urine Appearance Urine pH Ur Specific [place] Urine Protein Urine Glucose (UA) Urine Ketones Urine Blood Urine Nitrate Urine Bilirubin Urine Urobilinogen Ur Leukocyte Esterase Urine RBC Urine WBC Ur Epithelial Cells Amorphous Sediment Urine Bacteria Hyaline Casts Fine Granular Casts Urine Other Ur Random Creatinine Ur Random Sodium Vancomycin Trough 06/14/18 06/14/18 06/14/18 07:30 08:18 08:41 WBC RBC Hgb Hct MCV MCH MCHC RDW Plt Count MPV Gran % Lymph % (Auto) [place] % (Auto) Eos % (Auto) Baso % (Auto) Gran # Lymph # (Auto) [place] # (Auto) Eos # (Auto) Baso # (Auto) Differential Comment Platelet Evaluation APTT 118.6 H* pCO2 41 pO2 237.0 H HCO3 15.3 L ABG pH 7.18 L* ABG Total CO2 16.6 L ABG O2 Saturation 98.7 H ABG O2 Content 16.4 ABG Base Excess -12.4 L ABG Hemoglobin 11.6 L ABG Carboxyhemoglobin 0.5 POC ABG HHb (Measured) 1.3 ABG Methemoglobin 0.8 ABG O2 Capacity 16.6 ABG Potassium Hgb O2 Saturation 97.3 Sodium Chloride Glucose Lactate Mechanical Rate FiO2 80.0 Tidal Volume PEEP Potassium Carbon Dioxide Anion Gap BUN Creatinine Est GFR ( Amer) Est GFR (Non-Af Amer) POC Glucose (mg/dL) 178 H Random Glucose Calcium Phosphorus Magnesium Total Bilirubin AST ALT Alkaline Phosphatase Total Protein Albumin Globulin Albumin/Globulin Ratio Arterial Blood Potassium Urine Color Urine Appearance Urine pH Ur Specific [place] Urine Protein Urine Glucose (UA) Urine Ketones Urine Blood Urine Nitrate Urine Bilirubin Urine Urobilinogen Ur Leukocyte Esterase Urine RBC Urine WBC Ur Epithelial Cells Amorphous Sediment Urine Bacteria Hyaline Casts Fine Granular Casts Urine Other Ur Random Creatinine Ur Random Sodium Vancomycin Trough Assessment & Plan - Assessment and Plan (Free Text) Assessment: 58 year old female with PMH HTN, poorly controlled DM, COPD (heavy smoker), presents for AMS, found to be in septic shock 2/2 necrotizing fascitis, in MODS. Abdominal wound cultures showing proteus mirabilis and coag neg staph. Blood culture 1/2 showing Strep anginosus. Patient on IV antibiotic coverage per ID/primary team. Patient also requiring 3 pressors to maintain MAP>65. Patient on heparin drip due to possible PE as per echo reading. 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 Patient remains intubated, requiring ventilatory support, acidemic. Heme consulted for thrombocytopenia: - Likely sepsis induced, vs DIC vs HIT (unknown heparin usage prior to arrival to [facility] in the past 100 days) - DIC panel shows elevated fibrinogen, PTT elevated due to heparin drip. Peripheral smear shows nucleated some rbcs, no schistocytes - sent for HIT panel. will f/u. - Will need radical vulvectomy with lymph node sampling for squamous cell carcinoma of vulva once patient is stable - c/w ICU management, IV abx, ventilator use - will closely monitor Guarded prognosis Case discussed with Dr Neumann.
[2018-06-14 14:48] LABS: BASO # 0.01 K/mm3 (0.0-2.0); BASO % 0.1 % (0.0-3.0); EOS % 0.1 % (1.5-5.0); GRAN # 9.79 (1.4-6.5); GRAN % 90.9 % (50.0-68.0); HEMOGLOBIN 11.7 g/dL (12.0-16.0); LYMPH # 0.7 (1.2-3.4); LYMPH % 6.9 % (22.0-35.0); MEAN CELL VOLUME 84.4 fl (80.0-105.0); MEAN CORPUSCULAR HEMOGLOBIN 28.1 pg (25.0-35.0); MEAN CORPUSCULAR HGB CONC 33.3 g/dl (31.0-37.0); MEAN PLATELET VOLUME 10.7 fl (7.0-11.0); MONO # 0.2 (0.1-0.6); RBC 4.16 10^6/uL (3.5-6.1); RED CELL DISTRIBUTION WIDTH 16.4 % (11.5-14.5); WHITE BLOOD COUNT 10.8 10^3/ul (4.5-11.0)
[2018-06-14 14:54] LABS: PLATELET COUNT 28 10^3/uL (120.0-450.0)
--- NOTE | 2018-06-14 15:34 | CP.PCM.PN ---
<Ronnie Narayanan - Last Filed: 06/14/18 16:41> Subjective - Date & Time of Evaluation Date of Evaluation: 06/14/18 Time of Evaluation: 06:00 - Subjective Subjective: Ronnie Narayanan, PGY1 Medicine note for Dr. Marlyn Oleary Patient seen and examined at bedside in CCU. She is intubated (420, 26, 7, 80) and sedated on fentanyl gtt. Per staff nurse, no fever overnight, input 2400 cc , output 500, dressing change every 4 hours, soiled with large amount fluids. No bowel movement reported, otherwise no other overnight events. Complete ROS unobtainable secondary to patient clinical condition. Objective - Vital Signs/Intake and Output Vital Signs (last 24 hours): Temp Pulse Resp BP Pulse Ox 99.3 F 115 H 27 H 111/52 L 100 06/14/18 13:30 06/14/18 13:30 06/14/18 12:48 06/14/18 13:55 06/14/18 13:30 Intake and Output: 06/14/18 06/14/18 06:59 18:59 Intake Total 3526 770 Output Total 500 Balance 3026 770 - Medications Medications: Current Medications Albuterol/Ipratropium (Duoneb 3 Mg/0.5 Mg (3 Ml) Ud) 3 ml IH Q2H PRN PRN Reason: Shortness of Breath Albuterol/Ipratropium (Duoneb 3 Mg/0.5 Mg (3 Ml) Ud) 3 ml IH [id number] LAMONTE Last Admin: 06/14/18 13:07 Dose: 3 ml Clindamycin Phosphate 900 mg/ (Sodium Chloride) 106 mls @ 106 mls/hr IVPB Q8 L[facility]ONTE PRN Reason: Protocol Last Admin: 06/14/18 13:56 Dose: 106 mls/hr Fentanyl Citrate (Fentanyl Citrate/Sodium Chloride 1 Mg/100 Ml) 1,000 mcg in 100 mls @ 2 mls/hr IV .Q24H PRN; Protocol; 20 MCG/HR PRN Reason: TITRATE PER MD ORDER Last Admin: 06/14/18 11:40 Dose: 80 mcg/hr, 8 mls/hr NOREPINEPHRINE BIT/0.9 % NACL (Levophed 4 Mg/ 250 Ml Ns Premixed) 4 mg in 250 mls @ 15 mls/hr IV .[id number] PRN; Protocol; 4 MCG/MIN PRN Reason: TITRATE PER MD ORDER Last Titration: 06/14/18 15:11 Dose: 8 mcg/min, 30 mls/hr Vasopressin 20 units/ Sodium (Chloride) 101 mls @ 9.09 mls/hr IV .[id number] LAMONTE; 0.03 U/MIN PRN Reason: Protocol Last Admin: 06/14/18 06:38 Dose: 9.09 mls/hr Heparin Sodium/Sodium Chloride (Heparin 35890 Units/250ml 1/2 Normal Saline) 25 ,000 units in 250 mls @ 12.655 mls/hr IV .[id number] PRN; Protocol; 18 UNITS/KG/HR PRN Reason: ADJUST RATE PER PROTOCOL Last Titration: 06/14/18 10:10 Dose: 9 units/kg/hr, 6.328 mls/hr Meropenem (Merrem Iv 1 Gm Premix) 50 mls @ 100 mls/hr IVPB Q8 L[facility]TE PRN Reason: Protocol Last Admin: 06/14/18 14:05 Dose: 100 mls/hr Daptomycin 430 mg/ Sodium (Chloride) 100 mls @ 200 mls/hr IV Q24H L[facility]ONTE Stop: 06/18/18 12:01 Last Admin: 06/14/18 13:57 Dose: 200 mls/hr Insulin Human Lispro (Humalog High) 0 units SC Q6 L[facility]ONTE PRN Reason: Protocol Last Admin: 06/14/18 12:00 Dose: 4 u Lorazepam (Ativan) 2 mg IVP Q2H PRN; Protocol PRN Reason: Anxiety Last Admin: 06/13/18 04:07 Dose: 2 mg Pantoprazole Sodium (Protonix Inj) 40 mg IVP DAILY LAMONTE Last Admin: 06/14/18 09:18 Dose: 40 mg Sodium Hypochlorite (Dakins Solution 0.25%) 500 ml TOP DAILY LAMONTE Last Admin: 06/13/18 10:27 Dose: 1 % Sodium Hypochlorite (Dakins Solution 0.25%) 0 ml TOP DAILY LAMONTE - Labs Labs: 06/14/18 14:20 06/14/18 06:00 PT 17.5 SECONDS (9.4-12.5) H 06/13/18 06:40 INR 1.51 06/13/18 06:40 APTT 81.4 Seconds (25.1-36.5) H 06/14/18 14:20 - Constitutional Appears: Unkempt, Older Than Stated Age, Cachectic, Chronically Ill - Head Exam Head Exam: ATRAUMATIC, NORMAL INSPECTION, NORMOCEPHALIC - Eye Exam Eye Exam: Normal appearance - ENT Exam ENT Exam: Mucous Membranes Moist, Normal Exam - Neck Exam Neck Exam: Normal Inspection - Respiratory Exam Respiratory Exam: Clear to Ausculation Bilateral, NORMAL BREATHING PATTERN - Cardiovascular Exam Cardiovascular Exam: Tachycardia, REGULAR RHYTHM, +S1, +S2 - GI/Abdominal Exam Additional comments: diffuse lower abdominal wound, necrotic, covered with dressing, malodorous, oozing fluid- dressings soaked with blood - Exam External exam: Lesions Additional comments: valvular lesion - Extremities Exam Additional comments: bilateral lower limb pitting edema, up to hip level. both feet feel cold, dark discoloration of toes b/l, pedal pulses not palpable bilateral upper limb edema - Neurological Exam Neurological Exam: Altered - Skin Skin Exam: Erythema, Mottled Assessment and Plan - Assessment and Plan (Free Text) Assessment: 58 y/o female with PMH significant for COPD, DM, depression, tobacco abuse, and right sided nephrectomy admitted for altered mental status for being found on the floor. She was found to have diffuse abdominal necrotic wound resulting in septic shock. Plan: Septic shock with multiorgan failure secondary to suspected necrotizing Fascitis of abdomen - SIRS criteria 4/4: elevated temp on admission, Tachycardia, Hypotension, Elevated WBC - Elevated Lactate on admission, source of infection being abdominal necrotizing fascitis - Abdominal/Pelvis CT on admission showing: - S/P debridement x2 with General surgery - Patient currently requiring 2 IV pressors, Levophend, Vasopressin - Broad spectrum antibiotics with Merropenem, Daptomycin, Clindamycin - blood culutres shows gram negative rods, streptococcus anginosus group - wound culture shows coagulase negative staphylococcus, proteus mirabilis - Patient continues current management in ICU -As per surgery note, No further debridement or surgery is going to result in any curative or meaningful recovery, or quality of life. Continue support care. f/u palliative care recommendations - Discontinue IVF NS @ 100 - Discontinue albumin - start D5w @ 75 cc/hr to control hypernatremia Suspected pulmonary embolism - Likely secondary to thromboembolism from limited mobility - Echocardiogram showing normal EF 55%, elevated RVSP of 55mmHg and right heart strain - Patient currently unstable for further imaging, holding off on imaging at this time - Continue with Heparin gtt Thrombocytopenia - Etiology: DIC vs. HIT vs. dilutional vs Sepsis vs. chronic alcoholism - Possibly multifactorial - Platelet count 28 today - S/P 1 unit pRBC, 2 unit Platelets - PT, PTT elevated, petechia, however patient is on Heparin gtt - No signs of active bleeding from IV lines, gingival bleeding - Fibrinogen elevated, likely secondary to spetic shock due to APR - Fibrin split products - Peripheral smear shows nucleated some rbcs, , no schistocytes - Heme/Onc consulted: c/w ICU management, IV abx, ventilator use. Guarded prognosis Metabolic acidosis - Etiology: Lactic acidosis from necrotizing fascitis vs. DKA vs. HHS - ABG pH 7.18/41/15.3/237 on FiO2 80% - Continue to monitor Respiratory Failure - Continue with mechanical ventilation - Current ventilator settings: 480/26/7/80% - Maintain SpO2 >90, PaO2>60 Uncontrolled DM2 - Etiology: Poor compliance with medication - HgA1C 17.2 on admission - ISS - ACHS Hx of COPD - Duoneb treatments as needed - Continue current mechanical ventilation Hx of HTN - Holding all anti-hypertensive - Patient currently hypotensive Hx of right nephrectomy - Reasoning unknown secondary to patient sedation - BUN/Cr stable, GFR stable - UOP 500mL past 24 hours - Neohrology consulted: no clear indication to initiate RESEARCH & INSIGHTS EXECUTIVE with stable K and CXR. may consider RESEARCH & INSIGHTS EXECUTIVE to offload RV if parameters of sepsis are improving ( stable BP, decreasing lactate/procalcitonin) but patient remains oliguric. Abx need to re-assess dosing daily with concern for worsening renal function. no need for bicarb drip. 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 Oleary <Tana Oleary R - Last Filed: 06/14/18 20:57> Objective - Vital Signs/Intake and Output Vital Signs (last 24 hours): Temp Pulse Resp BP Pulse Ox 98.4 F 111 H 27 H 102/67 100 06/14/18 18:40 06/14/18 18:40 06/14/18 12:48 06/14/18 18:00 06/14/18 18:40 Intake and Output: 06/14/18 06/15/18 18:59 06:59 Intake Total 2022 Balance 2022 - Medications Medications: Current Medications Albuterol/Ipratropium (Duoneb 3 Mg/0.5 Mg (3 Ml) Ud) 3 ml IH Q2H PRN PRN Reason: Shortness of Breath Albuterol/Ipratropium (Duoneb 3 Mg/0.5 Mg (3 Ml) Ud) 3 ml IH [id number] LAMONTE Last Admin: 06/14/18 13:07 Dose: 3 ml Fentanyl Citrate (Fentanyl Citrate/Sodium Chloride 1 Mg/100 Ml) 1,000 mcg in 100 mls @ 2 mls/hr IV .Q24H PRN; Protocol; 20 MCG/HR PRN Reason: TITRATE PER MD ORDER Last Admin: 06/14/18 11:40 Dose: 80 mcg/hr, 8 mls/hr NOREPINEPHRINE BIT/0.9 % NACL (Levophed 4 Mg/ 250 Ml Ns Premixed) 4 mg in 250 mls @ 15 mls/hr IV .[id number] PRN; Protocol; 4 MCG/MIN PRN Reason: TITRATE PER MD ORDER Last Titration: 06/14/18 16:49 Dose: 8 mcg/min, 30 mls/hr Vasopressin 20 units/ Sodium (Chloride) 101 mls @ 9.09 mls/hr IV .[id number] LAMONTE; 0.03 U/MIN PRN Reason: Protocol Last Admin: 06/14/18 17:23 Dose: 9.09 mls/hr Heparin Sodium/Sodium Chloride (Heparin 75392 Units/250ml 1/2 Normal Saline) 25 ,000 units in 250 mls @ 12.655 mls/hr IV .[id number] PRN; Protocol; 18 UNITS/KG/HR PRN Reason: ADJUST RATE PER PROTOCOL Last Titration: 06/14/18 16:23 Dose: 7 units/kg/hr, 4.921 mls/hr Meropenem (Merrem Iv 1 Gm Premix) 50 mls @ 100 mls/hr IVPB Q8 [facility]TE PRN Reason: Protocol Last Admin: 06/14/18 14:05 Dose: 100 mls/hr Daptomycin 430 mg/ Sodium (Chloride) 100 mls @ 200 mls/hr IV Q24H L[facility]ONTE Stop: 06/18/18 12:01 Last Admin: 06/14/18 13:57 Dose: 200 mls/hr Insulin Human Lispro (Humalog High) 0 units SC Q6 L[facility]ONTE PRN Reason: Protocol Last Admin: 06/14/18 18:49 Dose: Not Given Lorazepam (Ativan) 2 mg IVP Q2H PRN; Protocol PRN Reason: Anxiety Last Admin: 06/13/18 04:07 Dose: 2 mg Pantoprazole Sodium (Protonix Inj) 40 mg IVP DAILY LAMONTE Last Admin: 06/14/18 09:18 Dose: 40 mg Sodium Hypochlorite (Dakins Solution 0.25%) 500 ml TOP DAILY L[facility]ONTE Last Admin: 06/13/18 10:27 Dose: 1 % Sodium Hypochlorite (Dakins Solution 0.25%) 0 ml TOP DAILY LAMONTE - Labs Labs: 06/14/18 14:20 06/14/18 06:00 PT 17.5 SECONDS (9.4-12.5) H 06/13/18 06:40 INR 1.51 06/13/18 06:40 APTT 81.4 Seconds (25.1-36.5) H 06/14/18 14:20 Attending/Attestation - Attestation I have personally seen and examined this patient.: Yes I have fully participated in the care of the patient.: Yes I have reviewed all pertinent clinical information, including history, physical exam and plan: Yes Notes (Text): Patient seen and examined by me at 10:00AM with resident. Case including HPI, physical exam, and assessment and plan discussed with resident. Agree with above with following additions/corrections. Patient is 58 year old female with past medical history significant for hypertension, DM2, and COPD that presented to the ED with altered mental status. Patient continues to be intubated and sedated. On 2 pressors. On heparin drip. Poor urine output. Patient with low grade temperatures. Unable to obtain review of systems from patient. Physical exam: Gen: Intubated and sedated HEENT: Normocephalic, atraumatic. Pupils equal and reactive. No scleral icterus. ET tube in pace. OG tube in place. Cardiovascular: Tachycardic S1, S2. No murmurs, rubs, or gallops appreciated Pulmonary: Vented breath sounds. Coarse breath sounds. No wheezing appreciated. Gastrointestinal: Positive dressing and binder across abdomen saturated with blood. Difficult to appreciate bowel sounds. Musculoskeletal: Positive upper and lower extremity pitting edema bilaterally, cold feet, discolored toes. Central nervous system: Intubated and sedated Dermatologic: Positive bilateral lower extremity wounds with serous drainage. Assessment and plan: Patient is 58 year old female with past medical history significant for hypertension, DM2, and COPD that presented to the ED with altered mental status. 1. Septic shock secondary to necrotizing fascitis with multiorgan failure. Patient made DNR over night. S/P debridement 06/11/18 and 06/12/18. Remains on 2 pressors. Positive leukocytosis. With low grade fevers. IV fluids changed. Wound culture positive for proteus. One blood culture positive for strep anginosus . Continue Clindamycin, Meropenem, and Daptomycin. ID following, recommendations appreciated. Surgery following, recommendations appreciated. GI following, recommendations appreciated.Continue to monitor closely in ICU. 2. Acute respiratory failure. Secondary to # 1. Vent settings per ICU team. 3. Vulvar mass. S/p Biopsy. Positive for squamous cell carcinoma. Oncology following, recommendations appreciated. 4. Hyperkalemia. Resolved. Continue to monitor. 5. Bilateral lower extremity edema, cellulitis. Lower extremity dopplers negative for DVT. Continue with antibiotics. ID following, recommendations appreciated. Podiatry following, recommendations appreciated. 6. Elevated BNP. Cardiology consulted, recommendations appreciated. 2d echo per electrician station assistant shows left ventricular function normal with EF 55-60%, flattened septum consistent with right ventricle volume and pressure overload; right ventricle severely dilated, systolic function of RV severely reduced, consider acute PE (please see official read for full details.) 7. Possible PE. Continue heparin drip 8. Thrombocytopenia. Likely secondary to septic shock. Less likely DIC. Patient given platelets with improvement. Now down trending again. Hem/onc following, recommendations appreciated. . 9. DM2 with hyperglycemia. Off insulin drip. Hgb A1C 17.4 Bloods sugar improved. Continue with insulin sliding scale. Continue to monitor accucheks. 10. Hepatomegaly. ?secondary to cardiomyopathy vs alcohol abuse. ?history of alcohol abuse. GI following, recommendations appreciated. Hep panel negative. HIV negative. 11. Tachycardia. Likely secondary to PE/septic shock. Continue Heparin drip. Continue to monitor. 12. COPD. Patient intubated. Continue nebulizer treatments. 13. Elevated BUN. Anasarca. Decreased urine output. IV fluids changed. Given a dose of lasix. History of nephrectomy. Nephrology following, recommendations appreciated. 14. Patient is now a DNR. Palliative care following Poor prognosis.
--- NOTE | 2018-06-14 16:28 | CP.CCUPN ---
<Adithya Garcia - Last Filed: 06/14/18 16:17> CCU Subjective - Physician Review Events Since Last Encounter (Free Text): 06/14/18 16:17 Patient seen and examined at bedside, patient was changed to DNR overnight. Otherwise no acute overnight events. Patient's history is limited 2/2 intubation and sedation status. CCU Objective - Vital Signs / Intake & Output Vital Signs (Last 4 hours): Vital Signs Temp Pulse Resp BP Pulse Ox 06/14/18 13:55 111/52 L 06/14/18 13:30 99.3 F 115 H 100 06/14/18 13:20 99.5 F 115 H 100 06/14/18 13:10 99.5 F 114 H 100 06/14/18 13:00 99.5 F 114 H 100 06/14/18 12:50 99.5 F 108 H 100 06/14/18 12:48 99.5 F 115 H 27 H 100 06/14/18 12:40 99.5 F 116 H 100 06/14/18 12:30 99.5 F 117 H 100 06/14/18 12:20 99.5 F 116 H 100 Intake and Output (Last 8hrs): Intake & Output 06/14/18 06/14/18 06/14/18 06:59 14:59 22:59 Intake Total 3022 620 150 Output Total 500 Balance 2522 620 150 Intake: IV 3022 620 150 Right Internal Jugular 2483 Output: Urine 500 Urethral (Lorenz) 500 Stool 0 - Physical Exam Head: Positive for: Atraumatic, Normocephalic Pupils: Positive for: PERRL Extroacular Muscles: Positive for: EOMI Conjunctiva: Positive for: Normal Ears: Positive for: Normal, NORMAL TM, Normal Canal. Negative for: Erythema, TM Bulging, Fluid, TM Perf Mouth: Positive for: Moist Mucous Membranes Pharnyx: Positive for: Normal. Negative for: ERYTHEMA, EXUDATE, TONSILS ENLARGED, Peritonsilar Swelling, Uvular Deviation, Muffled/Hoarse Voice, Strider , Soft Palate/Uvular Edema Nose (External): Positive for: Atraumatic Nose (Internal): Positive for: Normal Inspection Neck: Positive for: Normal Range of Motion. Negative for: Meningeal Signs, Paraspinal Tenderness, Lymphadenopathy Respiratory/Chest: Positive for: Clear to Auscultation, Good Air Exchange. Negative for: Respiratory Distress, Accessory Muscle Use Cardiovascular: Positive for: Normal S1, S2, Tachycardic. Negative for: Murmurs Abdomen: Negative for: Tenderness, Distention, Peritoneal Signs Upper Extremity: Positive for: Normal Inspection. Negative for: Cyanosis, Edema Lower Extremity: Positive for: Edema (Edema to lower legs) Neurological: Positive for: CN II-XII Intact, Motor Func Grossly Intact, Normal Sensory Function, Normal Cerebellar Funct Skin: Positive for: Warm, Dry, Other (Diffuse cellulitic areas to abdomen and lower legs, hands with area of excoriations/scabbed lesions). Negative for: Rashes Psychiatric: Positive for: Alert - Medications Active Medications: Active Medications Generic Name Dose Route Start Last Admin Trade Name Freq PRN Reason Stop Dose Admin Albuterol/Ipratropium 3 ml 06/11/18 07:41 Duoneb 3 Mg/0.5 Mg (3 Ml) Ud IH Q2H PRN Shortness of Breath Albuterol/Ipratropium 3 ml 06/11/18 08:00 06/14/18 13:07 Duoneb 3 Mg/0.5 Mg (3 Ml) Ud IH 3 ml [id number] LAMONTE Administration Clindamycin Phosphate 900 mg/ 106 mls @ 106 mls/hr 06/11/18 17:30 06/14/18 13 :56 Sodium Chloride IVPB 106 mls/hr Q8 LAMONTE Administration Protocol Fentanyl Citrate 1,000 mcg in 100 mls @ 2 mls/hr 06/11/18 19:42 06/14/18 11: 40 Fentanyl Citrate/Sodium Chloride 1 Mg/100 Ml IV 80 mcg/hr .Q24H PRN 8 mls/hr TITRATE PER MD ORDER Administration Protocol 20 MCG/HR NOREPINEPHRINE BIT/0.9 % NACL 4 mg in 250 mls @ 15 mls/hr 06/11/18 19:42 15:11 Levophed 4 Mg/ 250 Ml Ns Premixed IV 8 mcg/min .[id number] PRN 30 mls/hr TITRATE PER MD ORDER Titration Protocol 4 MCG/MIN Vasopressin 20 units/ Sodium 101 mls @ 9.09 mls/hr 06/12/18 08:30 06/14/18 06 :38 Chloride IV 9.09 mls/hr .[id number] LAMONTE Administration Protocol 0.03 U/MIN Heparin Sodium/Sodium Chloride 25,000 units in 250 mls @ 12.655 mls/hr 19:42 06/14/18 10:10 Heparin 87983 Units/250ml 1/2 Normal Saline IV 9 units/kg/hr .[id number] PRN 6.328 mls/hr ADJUST RATE PER PROTOCOL Titration Protocol 18 UNITS/KG/HR Meropenem 50 mls @ 100 mls/hr 06/13/18 09:10 06/14/18 14:05 Merrem Iv 1 Gm Premix IVPB 100 mls/hr Q8 LAMONTE Administration Protocol Daptomycin 430 mg/ Sodium 100 mls @ 200 mls/hr 06/13/18 12:15 06/14/18 13:57 Chloride IV 06/18/18 12:01 200 mls/hr Q24H LAMONTE Administration Insulin Human Lispro 0 units 06/14/18 12:00 06/14/18 12:00 Humalog High SC 4 u Q6 LAMONTE Administration Protocol Lorazepam 2 mg 06/12/18 09:43 06/13/18 04:07 Ativan IVP 2 mg Q2H PRN Administration Anxiety Protocol Pantoprazole Sodium 40 mg 06/12/18 10:00 06/14/18 09:18 Protonix Inj IVP 40 mg DAILY LAMONTE Administration Sodium Hypochlorite 500 ml 06/13/18 10:00 06/13/18 10:27 Dakins Solution 0.25% TOP 1 % DAILY LAMONTE Administration Sodium Hypochlorite 0 ml 06/14/18 10:00 Dakins Solution 0.25% TOP DAILY LAMONTE - Patient Studies Lab Studies: Microbiology Studies 06/11/18 14:52 Gram Stain - Final Abdomen Wound Culture - Final Coagulase Neg Staphylococcus 06/11/18 16:26 Gram Stain - Final Other: Please Indicate Wound Culture - Final Proteus Mirabilis Lab Studies 06/14/18 06/14/18 06/14/18 Range/Units 14:20 14:20 08:41 WBC 10.8 D (4.5-11.0) 10^3/ul RBC 4.16 (3.5-6.1) 10^6/uL Hgb 11.7 L (12.0-16.0) g/dL Hct 35.1 L (36.0-48.0) % MCV 84.4 (80.0-105.0) fl MCH 28.1 (25.0-35.0) pg MCHC 33.3 (31.0-37.0) g/dl RDW 16.4 H (11.5-14.5) % Plt Count 28 L* (120.0-450.0) 10^3/uL MPV 10.7 (7.0-11.0) fl Gran % 90.9 H (50.0-68.0) % Lymph % (Auto) 6.9 L (22.0-35.0) % [place] % (Auto) 2.0 (1.0-6.0) % Eos % (Auto) 0.1 L (1.5-5.0) % Baso % (Auto) 0.1 (0.0-3.0) % Gran # 9.79 H (1.4-6.5) Lymph # (Auto) 0.7 L (1.2-3.4) [place] # (Auto) 0.2 (0.1-0.6) Eos # (Auto) 0.0 (0.0-0.7) Baso # (Auto) 0.01 (0.0-2.0) K/mm3 Differential Comment Platelet Evaluation (NORMAL) APTT 81.4 H (25.1-36.5) Seconds pCO2 41 (35-45) mm/Hg pO2 237.0 H (80-100) mm/Hg HCO3 15.3 L (21-28) mmol/L ABG pH 7.18 L* (7.35-7.45) ABG Total CO2 16.6 L (22-28) mmol.L ABG O2 Saturation 98.7 H (95-98) % ABG O2 Content 16.4 (15-23) ML/dl ABG Base Excess -12.4 L (-2.0-3.0) mmol/L ABG Hemoglobin 11.6 L (11.7-17.4) g/dL ABG Carboxyhemoglobin 0.5 (0.5-1.5) % POC ABG HHb (Measured) 1.3 (0-5) % ABG Methemoglobin 0.8 (0.0-3.0) % ABG O2 Capacity 16.6 (16-24) mL/dl ABG Potassium (3.6-5.2) mmol/L Hgb O2 Saturation 97.3 (95.0-98.0) % Sodium (132-148) mmol/L Chloride (98-107) mmol/L Glucose (65-105) mg/dl Lactate (0.7-2.1) mmol/L Mechanical Rate FiO2 80.0 % Tidal Volume PEEP Potassium (3.6-5.0) mmol/L Carbon Dioxide (21-33) mmol/L Anion Gap (10-20) BUN (7-21) mg/dL Creatinine (0.7-1.2) mg/dl Est GFR ( Amer) Est GFR (Non-Af Amer) POC Glucose (mg/dL) (65-110) mg/dL Random Glucose (70-110) mg/dL Calcium (8.4-10.5) mg/dL Phosphorus (2.5-4.5) mg/dL Magnesium (1.7-2.2) mg/dL Total Bilirubin (0.2-1.3) mg/dL AST (14-36) U/L ALT (7-56) U/L Alkaline Phosphatase (38-126) U/L Total Protein (5.8-8.3) g/dL Albumin (3.0-4.8) g/dL Globulin gm/dL Albumin/Globulin Ratio (1.1-1.8) Arterial Blood Potassium (3.6-5.2) mmol/L Urine Color (YELLOW) Urine Appearance (CLEAR) Urine pH (4.7-8.0) Ur Specific [place] (1.005-1.035) Urine Protein (<30 mg/dL) mg/dL Urine Glucose (UA) (NEGATIVE) mg/dL Urine Ketones (NEGATIVE) mg/dL Urine Blood (NEGATIVE) Urine Nitrate (NEGATIVE) Urine Bilirubin (NEGATIVE) Urine Urobilinogen (<1 E.U./dL) E.U./dL Ur Leukocyte Esterase (NEGATIVE) Cal/uL Urine RBC (0-2) /hpf Urine WBC (0-6) /hpf Ur Epithelial Cells (0-5) /hpf Amorphous Sediment Urine Bacteria (NEG) Hyaline Casts /hpf Fine Granular Casts (0-2) /hpf Urine Other Ur Random Creatinine mg/dL Ur Random Sodium meq/L Vancomycin Trough (5.0-10.0) ug/mL Crossmatch 06/14/18 06/14/18 06/14/18 Range/Units 08:18 07:30 06:00 WBC (4.5-11.0) 10^3/ul RBC (3.5-6.1) 10^6/uL Hgb (12.0-16.0) g/dL Hct (36.0-48.0) % MCV (80.0-105.0) fl MCH (25.0-35.0) pg MCHC (31.0-37.0) g/dl RDW (11.5-14.5) % Plt Count (120.0-450.0) 10^3/uL MPV (7.0-11.0) fl Gran % (50.0-68.0) % Lymph % (Auto) (22.0-35.0) % [place] % (Auto) (1.0-6.0) % Eos % (Auto) (1.5-5.0) % Baso % (Auto) (0.0-3.0) % Gran # (1.4-6.5) Lymph # (Auto) (1.2-3.4) [place] # (Auto) (0.1-0.6) Eos # (Auto) (0.0-0.7) Baso # (Auto) (0.0-2.0) K/mm3 Differential Comment Platelet Evaluation (NORMAL) APTT 118.6 H* (25.1-36.5) Seconds pCO2 (35-45) mm/Hg pO2 (80-100) mm/Hg HCO3 (21-28) mmol/L ABG pH (7.35-7.45) ABG Total CO2 (22-28) mmol.L ABG O2 Saturation (95-98) % ABG O2 Content (15-23) ML/dl ABG Base Excess (-2.0-3.0) mmol/L ABG Hemoglobin (11.7-17.4) g/dL ABG Carboxyhemoglobin (0.5-1.5) % POC ABG HHb (Measured) (0-5) % ABG Methemoglobin (0.0-3.0) % ABG O2 Capacity (16-24) mL/dl ABG Potassium (3.6-5.2) mmol/L Hgb O2 Saturation (95.0-98.0) % Sodium 148 (132-148) mmol/L Chloride 114 H (98-107) mmol/L Glucose (65-105) mg/dl Lactate (0.7-2.1) mmol/L Mechanical Rate FiO2 % Tidal Volume PEEP Potassium 5.0 (3.6-5.0) mmol/L Carbon Dioxide 17 L (21-33) mmol/L Anion Gap 22 H (10-20) BUN 61 H (7-21) mg/dL Creatinine 0.9 (0.7-1.2) mg/dl Est GFR ( Amer) > 60 Est GFR (Non-Af Amer) > 60 POC Glucose (mg/dL) 178 H (65-110) mg/dL Random Glucose 159 H (70-110) mg/dL Calcium 6.9 L* (8.4-10.5) mg/dL Phosphorus 6.7 H (2.5-4.5) mg/dL Magnesium 2.0 (1.7-2.2) mg/dL Total Bilirubin 3.3 H (0.2-1.3) mg/dL AST 25 (14-36) U/L ALT 35 (7-56) U/L Alkaline Phosphatase 274 H (38-126) U/L Total Protein 4.9 L (5.8-8.3) g/dL Albumin 2.3 L (3.0-4.8) g/dL Globulin 2.6 gm/dL Albumin/Globulin Ratio 0.9 L (1.1-1.8) Arterial Blood Potassium (3.6-5.2) mmol/L Urine Color (YELLOW) Urine Appearance (CLEAR) Urine pH (4.7-8.0) Ur Specific [place] (1.005-1.035) Urine Protein (<30 mg/dL) mg/dL Urine Glucose (UA) (NEGATIVE) mg/dL Urine Ketones (NEGATIVE) mg/dL Urine Blood (NEGATIVE) Urine Nitrate (NEGATIVE) Urine Bilirubin (NEGATIVE) Urine Urobilinogen (<1 E.U./dL) E.U./dL Ur Leukocyte Esterase (NEGATIVE) Cal/uL Urine RBC (0-2) /hpf Urine WBC (0-6) /hpf Ur Epithelial Cells (0-5) /hpf Amorphous Sediment Urine Bacteria (NEG) Hyaline Casts /hpf Fine Granular Casts (0-2) /hpf Urine Other Ur Random Creatinine mg/dL Ur Random Sodium meq/L Vancomycin Trough (5.0-10.0) ug/mL Crossmatch 06/14/18 06/14/18 06/14/18 Range/Units 06:00 03:56 00:30 WBC 14.1 H (4.5-11.0) 10^3/ul RBC 4.43 (3.5-6.1) 10^6/uL Hgb 12.2 (12.0-16.0) g/dL Hct 37.3 (36.0-48.0) % MCV 84.2 (80.0-105.0) fl MCH 27.5 (25.0-35.0) pg MCHC 32.7 (31.0-37.0) g/dl RDW 16.3 H (11.5-14.5) % Plt Count 31 L* (120.0-450.0) 10^3/uL MPV 10.1 (7.0-11.0) fl Gran % 93.1 H (50.0-68.0) % Lymph % (Auto) 5.0 L (22.0-35.0) % [place] % (Auto) 1.7 (1.0-6.0) % Eos % (Auto) 0.1 L (1.5-5.0) % Baso % (Auto) 0.1 (0.0-3.0) % Gran # 13.11 H (1.4-6.5) Lymph # (Auto) 0.7 L (1.2-3.4) [place] # (Auto) 0.2 (0.1-0.6) Eos # (Auto) 0.0 (0.0-0.7) Baso # (Auto) 0.01 (0.0-2.0) K/mm3 Differential Comment Platelet Evaluation Low (NORMAL) APTT 111.2 H* (25.1-36.5) Seconds pCO2 (35-45) mm/Hg pO2 (80-100) mm/Hg HCO3 (21-28) mmol/L ABG pH (7.35-7.45) ABG Total CO2 (22-28) mmol.L ABG O2 Saturation (95-98) % ABG O2 Content (15-23) ML/dl ABG Base Excess (-2.0-3.0) mmol/L ABG Hemoglobin (11.7-17.4) g/dL ABG Carboxyhemoglobin (0.5-1.5) % POC ABG HHb (Measured) (0-5) % ABG Methemoglobin (0.0-3.0) % ABG O2 Capacity (16-24) mL/dl ABG Potassium (3.6-5.2) mmol/L Hgb O2 Saturation (95.0-98.0) % Sodium (132-148) mmol/L Chloride (98-107) mmol/L Glucose (65-105) mg/dl Lactate (0.7-2.1) mmol/L Mechanical Rate FiO2 % Tidal Volume PEEP Potassium (3.6-5.0) mmol/L Carbon Dioxide (21-33) mmol/L Anion Gap (10-20) BUN (7-21) mg/dL Creatinine (0.7-1.2) mg/dl Est GFR ( Amer) Est GFR (Non-Af Amer) POC Glucose (mg/dL) 139 H (65-110) mg/dL Random Glucose (70-110) mg/dL Calcium (8.4-10.5) mg/dL Phosphorus (2.5-4.5) mg/dL Magnesium (1.7-2.2) mg/dL Total Bilirubin (0.2-1.3) mg/dL AST (14-36) U/L ALT (7-56) U/L Alkaline Phosphatase (38-126) U/L Total Protein (5.8-8.3) g/dL Albumin (3.0-4.8) g/dL Globulin gm/dL Albumin/Globulin Ratio (1.1-1.8) Arterial Blood Potassium (3.6-5.2) mmol/L Urine Color (YELLOW) Urine Appearance (CLEAR) Urine pH (4.7-8.0) Ur Specific [place] (1.005-1.035) Urine Protein (<30 mg/dL) mg/dL Urine Glucose (UA) (NEGATIVE) mg/dL Urine Ketones (NEGATIVE) mg/dL Urine Blood (NEGATIVE) Urine Nitrate (NEGATIVE) Urine Bilirubin (NEGATIVE) Urine Urobilinogen (<1 E.U./dL) E.U./dL Ur Leukocyte Esterase (NEGATIVE) Cal/uL Urine RBC (0-2) /hpf Urine WBC (0-6) /hpf Ur Epithelial Cells (0-5) /hpf Amorphous Sediment Urine Bacteria (NEG) Hyaline Casts /hpf Fine Granular Casts (0-2) /hpf Urine Other Ur Random Creatinine mg/dL Ur Random Sodium meq/L Vancomycin Trough (5.0-10.0) ug/mL Crossmatch 06/14/18 06/13/18 06/13/18 Range/Units 00:25 19:57 19:51 WBC (4.5-11.0) 10^3/ul RBC (3.5-6.1) 10^6/uL Hgb (12.0-16.0) g/dL Hct (36.0-48.0) % MCV (80.0-105.0) fl MCH (25.0-35.0) pg MCHC (31.0-37.0) g/dl RDW (11.5-14.5) % Plt Count (120.0-450.0) 10^3/uL MPV (7.0-11.0) fl Gran % (50.0-68.0) % Lymph % (Auto) (22.0-35.0) % [place] % (Auto) (1.0-6.0) % Eos % (Auto) (1.5-5.0) % Baso % (Auto) (0.0-3.0) % Gran # (1.4-6.5) Lymph # (Auto) (1.2-3.4) [place] # (Auto) (0.1-0.6) Eos # (Auto) (0.0-0.7) Baso # (Auto) (0.0-2.0) K/mm3 Differential Comment Platelet Evaluation (NORMAL) APTT (25.1-36.5) Seconds pCO2 (35-45) mm/Hg pO2 (80-100) mm/Hg HCO3 (21-28) mmol/L ABG pH (7.35-7.45) ABG Total CO2 (22-28) mmol.L ABG O2 Saturation (95-98) % ABG O2 Content (15-23) ML/dl ABG Base Excess (-2.0-3.0) mmol/L ABG Hemoglobin (11.7-17.4) g/dL ABG Carboxyhemoglobin (0.5-1.5) % POC ABG HHb (Measured) (0-5) % ABG Methemoglobin (0.0-3.0) % ABG O2 Capacity (16-24) mL/dl ABG Potassium (3.6-5.2) mmol/L Hgb O2 Saturation (95.0-98.0) % Sodium 144 (132-148) mmol/L Chloride 112 H (98-107) mmol/L Glucose (65-105) mg/dl Lactate (0.7-2.1) mmol/L Mechanical Rate FiO2 % Tidal Volume PEEP Potassium 4.5 (3.6-5.0) mmol/L Carbon Dioxide 21 (21-33) mmol/L Anion Gap 15 (10-20) BUN 63 H (7-21) mg/dL Creatinine 0.8 (0.7-1.2) mg/dl Est GFR ( Amer) > 60 Est GFR (Non-Af Amer) > 60 POC Glucose (mg/dL) 115 H 147 H (65-110) mg/dL Random Glucose 141 H (70-110) mg/dL Calcium 7.0 L (8.4-10.5) mg/dL Phosphorus (2.5-4.5) mg/dL Magnesium (1.7-2.2) mg/dL Total Bilirubin (0.2-1.3) mg/dL AST (14-36) U/L ALT (7-56) U/L Alkaline Phosphatase (38-126) U/L Total Protein (5.8-8.3) g/dL Albumin (3.0-4.8) g/dL Globulin gm/dL Albumin/Globulin Ratio (1.1-1.8) Arterial Blood Potassium (3.6-5.2) mmol/L Urine Color (YELLOW) Urine Appearance (CLEAR) Urine pH (4.7-8.0) Ur Specific [place] (1.005-1.035) Urine Protein (<30 mg/dL) mg/dL Urine Glucose (UA) (NEGATIVE) mg/dL Urine Ketones (NEGATIVE) mg/dL Urine Blood (NEGATIVE) Urine Nitrate (NEGATIVE) Urine Bilirubin (NEGATIVE) Urine Urobilinogen (<1 E.U./dL) E.U./dL Ur Leukocyte Esterase (NEGATIVE) Cal/uL Urine RBC (0-2) /hpf Urine WBC (0-6) /hpf Ur Epithelial Cells (0-5) /hpf Amorphous Sediment Urine Bacteria (NEG) Hyaline Casts /hpf Fine Granular Casts (0-2) /hpf Urine Other Ur Random Creatinine mg/dL Ur Random Sodium meq/L Vancomycin Trough (5.0-10.0) ug/mL Crossmatch 06/13/18 06/13/18 06/13/18 Range/Units 16:55 16:20 16:20 WBC (4.5-11.0) 10^3/ul RBC (3.5-6.1) 10^6/uL Hgb (12.0-16.0) g/dL Hct (36.0-48.0) % MCV (80.0-105.0) fl MCH (25.0-35.0) pg MCHC (31.0-37.0) g/dl RDW (11.5-14.5) % Plt Count (120.0-450.0) 10^3/uL MPV (7.0-11.0) fl Gran % (50.0-68.0) % Lymph % (Auto) (22.0-35.0) % [place] % (Auto) (1.0-6.0) % Eos % (Auto) (1.5-5.0) % Baso % (Auto) (0.0-3.0) % Gran # (1.4-6.5) Lymph # (Auto) (1.2-3.4) [place] # (Auto) (0.1-0.6) Eos # (Auto) (0.0-0.7) Baso # (Auto) (0.0-2.0) K/mm3 Differential Comment Platelet Evaluation (NORMAL) APTT (25.1-36.5) Seconds pCO2 28 L (35-45) mm/Hg pO2 139.0 H (80-100) mm/Hg HCO3 10.7 L (21-28) mmol/L ABG pH 7.19 L* (7.35-7.45) ABG Total CO2 11.6 L (22-28) mmol.L ABG O2 Saturation 98.4 H (95-98) % ABG O2 Content (15-23) ML/dl ABG Base Excess -16.0 L (-2.0-3.0) mmol/L ABG Hemoglobin (11.7-17.4) g/dL ABG Carboxyhemoglobin (0.5-1.5) % POC ABG HHb (Measured) (0-5) % ABG Methemoglobin (0.0-3.0) % ABG O2 Capacity (16-24) mL/dl ABG Potassium 2.3 L* (3.6-5.2) mmol/L Hgb O2 Saturation (95.0-98.0) % Sodium 145.0 (132-148) mmol/L Chloride 125.0 H (98-107) mmol/L Glucose 102 (65-105) mg/dl Lactate 1.0 (0.7-2.1) mmol/L Mechanical Rate 26 FiO2 80.0 % Tidal Volume 420 PEEP 7 Potassium (3.6-5.0) mmol/L Carbon Dioxide (21-33) mmol/L Anion Gap (10-20) BUN (7-21) mg/dL Creatinine (0.7-1.2) mg/dl Est GFR ( Amer) Est GFR (Non-Af Amer) POC Glucose (mg/dL) (65-110) mg/dL Random Glucose (70-110) mg/dL Calcium (8.4-10.5) mg/dL Phosphorus (2.5-4.5) mg/dL Magnesium (1.7-2.2) mg/dL Total Bilirubin (0.2-1.3) mg/dL AST (14-36) U/L ALT (7-56) U/L Alkaline Phosphatase (38-126) U/L Total Protein (5.8-8.3) g/dL Albumin (3.0-4.8) g/dL Globulin gm/dL Albumin/Globulin Ratio (1.1-1.8) Arterial Blood Potassium 2.3 L* (3.6-5.2) mmol/L Urine Color Yellow (YELLOW) Urine Appearance Clear (CLEAR) Urine pH 5.5 (4.7-8.0) Ur Specific [place] >= 1.030 (1.005-1.035) Urine Protein Trace H (<30 mg/dL) mg/dL Urine Glucose (UA) Negative (NEGATIVE) mg/dL Urine Ketones Trace H (NEGATIVE) mg/dL Urine Blood Negative (NEGATIVE) Urine Nitrate Negative (NEGATIVE) Urine Bilirubin Small H (NEGATIVE) Urine Urobilinogen 2.0 H (<1 E.U./dL) E.U./dL Ur Leukocyte Esterase Negative (NEGATIVE) Cal/uL Urine RBC 0 - 2 (0-2) /hpf Urine WBC 1 - 3 (0-6) /hpf Ur Epithelial Cells 4 - 5 (0-5) /hpf Amorphous Sediment Few Urine Bacteria Large (NEG) Hyaline Casts 0 - 2 /hpf Fine Granular Casts 0 - 2 (0-2) /hpf Urine Other Uyeast Ur Random Creatinine 47 mg/dL Ur Random Sodium 18 meq/L Vancomycin Trough (5.0-10.0) ug/mL Crossmatch 06/13/18 06/13/18 06/13/18 Range/Units 16:05 16:05 15:53 WBC (4.5-11.0) 10^3/ul RBC (3.5-6.1) 10^6/uL Hgb (12.0-16.0) g/dL Hct (36.0-48.0) % MCV (80.0-105.0) fl MCH (25.0-35.0) pg MCHC (31.0-37.0) g/dl RDW (11.5-14.5) % Plt Count (120.0-450.0) 10^3/uL MPV (7.0-11.0) fl Gran % (50.0-68.0) % Lymph % (Auto) (22.0-35.0) % [place] % (Auto) (1.0-6.0) % Eos % (Auto) (1.5-5.0) % Baso % (Auto) (0.0-3.0) % Gran # (1.4-6.5) Lymph # (Auto) (1.2-3.4) [place] # (Auto) (0.1-0.6) Eos # (Auto) (0.0-0.7) Baso # (Auto) (0.0-2.0) K/mm3 Differential Comment Platelet Evaluation (NORMAL) APTT 118.3 H* (25.1-36.5) Seconds pCO2 (35-45) mm/Hg pO2 (80-100) mm/Hg HCO3 (21-28) mmol/L ABG pH (7.35-7.45) ABG Total CO2 (22-28) mmol.L ABG O2 Saturation (95-98) % ABG O2 Content (15-23) ML/dl ABG Base Excess (-2.0-3.0) mmol/L ABG Hemoglobin (11.7-17.4) g/dL ABG Carboxyhemoglobin (0.5-1.5) % POC ABG HHb (Measured) (0-5) % ABG Methemoglobin (0.0-3.0) % ABG O2 Capacity (16-24) mL/dl ABG Potassium (3.6-5.2) mmol/L Hgb O2 Saturation (95.0-98.0) % Sodium (132-148) mmol/L Chloride (98-107) mmol/L Glucose (65-105) mg/dl Lactate (0.7-2.1) mmol/L Mechanical Rate FiO2 % Tidal Volume PEEP Potassium (3.6-5.0) mmol/L Carbon Dioxide (21-33) mmol/L Anion Gap (10-20) BUN (7-21) mg/dL Creatinine (0.7-1.2) mg/dl Est GFR ( Amer) Est GFR (Non-Af Amer) POC Glucose (mg/dL) 170 H (65-110) mg/dL Random Glucose (70-110) mg/dL Calcium (8.4-10.5) mg/dL Phosphorus (2.5-4.5) mg/dL Magnesium (1.7-2.2) mg/dL Total Bilirubin (0.2-1.3) mg/dL AST (14-36) U/L ALT (7-56) U/L Alkaline Phosphatase (38-126) U/L Total Protein (5.8-8.3) g/dL Albumin (3.0-4.8) g/dL Globulin gm/dL Albumin/Globulin Ratio (1.1-1.8) Arterial Blood Potassium (3.6-5.2) mmol/L Urine Color (YELLOW) Urine Appearance (CLEAR) Urine pH (4.7-8.0) Ur Specific [place] (1.005-1.035) Urine Protein (<30 mg/dL) mg/dL Urine Glucose (UA) (NEGATIVE) mg/dL Urine Ketones (NEGATIVE) mg/dL Urine Blood (NEGATIVE) Urine Nitrate (NEGATIVE) Urine Bilirubin (NEGATIVE) Urine Urobilinogen (<1 E.U./dL) E.U./dL Ur Leukocyte Esterase (NEGATIVE) Cal/uL Urine RBC (0-2) /hpf Urine WBC (0-6) /hpf Ur Epithelial Cells (0-5) /hpf Amorphous Sediment Urine Bacteria (NEG) Hyaline Casts /hpf Fine Granular Casts (0-2) /hpf Urine Other Ur Random Creatinine mg/dL Ur Random Sodium meq/L Vancomycin Trough 17.9 H* (5.0-10.0) ug/mL Crossmatch 06/13/18 06/13/18 06/11/18 Range/Units 11:30 11:15 14:25 WBC (4.5-11.0) 10^3/ul RBC (3.5-6.1) 10^6/uL Hgb (12.0-16.0) g/dL Hct (36.0-48.0) % MCV (80.0-105.0) fl MCH (25.0-35.0) pg MCHC (31.0-37.0) g/dl RDW (11.5-14.5) % Plt Count (120.0-450.0) 10^3/uL MPV (7.0-11.0) fl Gran % (50.0-68.0) % Lymph % (Auto) (22.0-35.0) % [place] % (Auto) (1.0-6.0) % Eos % (Auto) (1.5-5.0) % Baso % (Auto) (0.0-3.0) % Gran # (1.4-6.5) Lymph # (Auto) (1.2-3.4) [place] # (Auto) (0.1-0.6) Eos # (Auto) (0.0-0.7) Baso # (Auto) (0.0-2.0) K/mm3 Differential Comment See pathology report Platelet Evaluation Low (NORMAL) APTT (25.1-36.5) Seconds pCO2 (35-45) mm/Hg pO2 (80-100) mm/Hg HCO3 (21-28) mmol/L ABG pH (7.35-7.45) ABG Total CO2 (22-28) mmol.L ABG O2 Saturation (95-98) % ABG O2 Content (15-23) ML/dl ABG Base Excess (-2.0-3.0) mmol/L ABG Hemoglobin (11.7-17.4) g/dL ABG Carboxyhemoglobin (0.5-1.5) % POC ABG HHb (Measured) (0-5) % ABG Methemoglobin (0.0-3.0) % ABG O2 Capacity (16-24) mL/dl ABG Potassium (3.6-5.2) mmol/L Hgb O2 Saturation (95.0-98.0) % Sodium (132-148) mmol/L Chloride (98-107) mmol/L Glucose (65-105) mg/dl Lactate (0.7-2.1) mmol/L Mechanical Rate FiO2 % Tidal Volume PEEP Potassium (3.6-5.0) mmol/L Carbon Dioxide (21-33) mmol/L Anion Gap (10-20) BUN (7-21) mg/dL Creatinine (0.7-1.2) mg/dl Est GFR ( Amer) Est GFR (Non-Af Amer) POC Glucose (mg/dL) (65-110) mg/dL Random Glucose (70-110) mg/dL Calcium (8.4-10.5) mg/dL Phosphorus (2.5-4.5) mg/dL Magnesium (1.7-2.2) mg/dL Total Bilirubin (0.2-1.3) mg/dL AST (14-36) U/L ALT (7-56) U/L Alkaline Phosphatase (38-126) U/L Total Protein (5.8-8.3) g/dL Albumin (3.0-4.8) g/dL Globulin gm/dL Albumin/Globulin Ratio (1.1-1.8) Arterial Blood Potassium (3.6-5.2) mmol/L Urine Color (YELLOW) Urine Appearance (CLEAR) Urine pH (4.7-8.0) Ur Specific [place] (1.005-1.035) Urine Protein (<30 mg/dL) mg/dL Urine Glucose (UA) (NEGATIVE) mg/dL Urine Ketones (NEGATIVE) mg/dL Urine Blood (NEGATIVE) Urine Nitrate (NEGATIVE) Urine Bilirubin (NEGATIVE) Urine Urobilinogen (<1 E.U./dL) E.U./dL Ur Leukocyte Esterase (NEGATIVE) Cal/uL Urine RBC (0-2) /hpf Urine WBC (0-6) /hpf Ur Epithelial Cells (0-5) /hpf Amorphous Sediment Urine Bacteria (NEG) Hyaline Casts /hpf Fine Granular Casts (0-2) /hpf Urine Other Ur Random Creatinine mg/dL Ur Random Sodium meq/L Vancomycin Trough (5.0-10.0) ug/mL Crossmatch See Detail Laboratory Results - last 24 hr 06/11/18 06/13/18 06/13/18 14:25 11:15 11:30 WBC RBC Hgb Hct MCV MCH MCHC RDW Plt Count MPV Gran % Lymph % (Auto) [place] % (Auto) Eos % (Auto) Baso % (Auto) Gran # Lymph # (Auto) [place] # (Auto) Eos # (Auto) Baso # (Auto) Differential Comment See pathology report Platelet Evaluation Low APTT pCO2 pO2 HCO3 ABG pH ABG Total CO2 ABG O2 Saturation ABG O2 Content ABG Base Excess ABG Hemoglobin ABG Carboxyhemoglobin POC ABG HHb (Measured) ABG Methemoglobin ABG O2 Capacity ABG Potassium Hgb O2 Saturation Sodium Chloride Glucose Lactate Mechanical Rate FiO2 Tidal Volume PEEP Potassium Carbon Dioxide Anion Gap BUN Creatinine Est GFR ( Amer) Est GFR (Non-Af Amer) POC Glucose (mg/dL) Random Glucose Calcium Phosphorus Magnesium Total Bilirubin AST ALT Alkaline Phosphatase Total Protein Albumin Globulin Albumin/Globulin Ratio Arterial Blood Potassium Urine Color Urine Appearance Urine pH Ur Specific [place] Urine Protein Urine Glucose (UA) Urine Ketones Urine Blood Urine Nitrate Urine Bilirubin Urine Urobilinogen Ur Leukocyte Esterase Urine RBC Urine WBC Ur Epithelial Cells Amorphous Sediment Urine Bacteria Hyaline Casts Fine Granular Casts Urine Other Ur Random Creatinine Ur Random Sodium Vancomycin Trough Crossmatch See Detail 06/13/18 06/13/18 06/13/18 15:53 16:05 16:05 WBC RBC Hgb Hct MCV MCH MCHC RDW Plt Count MPV Gran % Lymph % (Auto) [place] % (Auto) Eos % (Auto) Baso % (Auto) Gran # Lymph # (Auto) [place] # (Auto) Eos # (Auto) Baso # (Auto) Differential Comment Platelet Evaluation APTT 118.3 H* pCO2 pO2 HCO3 ABG pH ABG Total CO2 ABG O2 Saturation ABG O2 Content ABG Base Excess ABG Hemoglobin ABG Carboxyhemoglobin POC ABG HHb (Measured) ABG Methemoglobin ABG O2 Capacity ABG Potassium Hgb O2 Saturation Sodium Chloride Glucose Lactate Mechanical Rate FiO2 Tidal Volume PEEP Potassium Carbon Dioxide Anion Gap BUN Creatinine Est GFR ( Amer) Est GFR (Non-Af Amer) POC Glucose (mg/dL) 170 H Random Glucose Calcium Phosphorus Magnesium Total Bilirubin AST ALT Alkaline Phosphatase Total Protein Albumin Globulin Albumin/Globulin Ratio Arterial Blood Potassium Urine Color Urine Appearance Urine pH Ur Specific [place] Urine Protein Urine Glucose (UA) Urine Ketones Urine Blood Urine Nitrate Urine Bilirubin Urine Urobilinogen Ur Leukocyte Esterase Urine RBC Urine WBC Ur Epithelial Cells Amorphous Sediment Urine Bacteria Hyaline Casts Fine Granular Casts Urine Other Ur Random Creatinine Ur Random Sodium Vancomycin Trough 17.9 H* Crossmatch 06/13/18 06/13/18 06/13/18 16:20 16:20 16:55 WBC RBC Hgb Hct MCV MCH MCHC RDW Plt Count MPV Gran % Lymph % (Auto) [place] % (Auto) Eos % (Auto) Baso % (Auto) Gran # Lymph # (Auto) [place] # (Auto) Eos # (Auto) Baso # (Auto) Differential Comment Platelet Evaluation APTT pCO2 28 L pO2 139.0 H HCO3 10.7 L ABG pH 7.19 L* ABG Total CO2 11.6 L ABG O2 Saturation 98.4 H ABG O2 Content ABG Base Excess -16.0 L ABG Hemoglobin ABG Carboxyhemoglobin POC ABG HHb (Measured) ABG Methemoglobin ABG O2 Capacity ABG Potassium 2.3 L* Hgb O2 Saturation Sodium 145.0 Chloride 125.0 H Glucose 102 Lactate 1.0 Mechanical Rate 26 FiO2 80.0 Tidal Volume 420 PEEP 7 Potassium Carbon Dioxide Anion Gap BUN Creatinine Est GFR ( Amer) Est GFR (Non-Af Amer) POC Glucose (mg/dL) Random Glucose Calcium Phosphorus Magnesium Total Bilirubin AST ALT Alkaline Phosphatase Total Protein Albumin Globulin Albumin/Globulin Ratio Arterial Blood Potassium 2.3 L* Urine Color Yellow Urine Appearance Clear Urine pH 5.5 Ur Specific [place] >= 1.030 Urine Protein Trace H Urine Glucose (UA) Negative Urine Ketones Trace H Urine Blood Negative Urine Nitrate Negative Urine Bilirubin Small H Urine Urobilinogen 2.0 H Ur Leukocyte Esterase Negative Urine RBC 0 - 2 Urine WBC 1 - 3 Ur Epithelial Cells 4 - 5 Amorphous Sediment Few Urine Bacteria Large Hyaline Casts 0 - 2 Fine Granular Casts 0 - 2 Urine Other Uyeast Ur Random Creatinine 47 Ur Random Sodium 18 Vancomycin Trough Crossmatch 06/13/18 06/13/18 06/14/18 19:51 19:57 00:25 WBC RBC Hgb Hct MCV MCH MCHC RDW Plt Count MPV Gran % Lymph % (Auto) [place] % (Auto) Eos % (Auto) Baso % (Auto) Gran # Lymph # (Auto) [place] # (Auto) Eos # (Auto) Baso # (Auto) Differential Comment Platelet Evaluation APTT pCO2 pO2 HCO3 ABG pH ABG Total CO2 ABG O2 Saturation ABG O2 Content ABG Base Excess ABG Hemoglobin ABG Carboxyhemoglobin POC ABG HHb (Measured) ABG Methemoglobin ABG O2 Capacity ABG Potassium Hgb O2 Saturation Sodium 144 Chloride 112 H Glucose Lactate Mechanical Rate FiO2 Tidal Volume PEEP Potassium 4.5 Carbon Dioxide 21 Anion Gap 15 BUN 63 H Creatinine 0.8 Est GFR ( Amer) > 60 Est GFR (Non-Af Amer) > 60 POC Glucose (mg/dL) 147 H 115 H Random Glucose 141 H Calcium 7.0 L Phosphorus Magnesium Total Bilirubin AST ALT Alkaline Phosphatase Total Protein Albumin Globulin Albumin/Globulin Ratio Arterial Blood Potassium Urine Color Urine Appearance Urine pH Ur Specific [place] Urine Protein Urine Glucose (UA) Urine Ketones Urine Blood Urine Nitrate Urine Bilirubin Urine Urobilinogen Ur Leukocyte Esterase Urine RBC Urine WBC Ur Epithelial Cells Amorphous Sediment Urine Bacteria Hyaline Casts Fine Granular Casts Urine Other Ur Random Creatinine Ur Random Sodium Vancomycin Trough Crossmatch 06/14/18 06/14/18 06/14/18 00:30 03:56 06:00 WBC 14.1 H RBC 4.43 Hgb 12.2 Hct 37.3 MCV 84.2 MCH 27.5 MCHC 32.7 RDW 16.3 H Plt Count 31 L* MPV 10.1 Gran % 93.1 H Lymph % (Auto) 5.0 L [place] % (Auto) 1.7 Eos % (Auto) 0.1 L Baso % (Auto) 0.1 Gran # 13.11 H Lymph # (Auto) 0.7 L [place] # (Auto) 0.2 Eos # (Auto) 0.0 Baso # (Auto) 0.01 Differential Comment Platelet Evaluation Low APTT 111.2 H* pCO2 pO2 HCO3 ABG pH ABG Total CO2 ABG O2 Saturation ABG O2 Content ABG Base Excess ABG Hemoglobin ABG Carboxyhemoglobin POC ABG HHb (Measured) ABG Methemoglobin ABG O2 Capacity ABG Potassium Hgb O2 Saturation Sodium Chloride Glucose Lactate Mechanical Rate FiO2 Tidal Volume PEEP Potassium Carbon Dioxide Anion Gap BUN Creatinine Est GFR ( Amer) Est GFR (Non-Af Amer) POC Glucose (mg/dL) 139 H Random Glucose Calcium Phosphorus Magnesium Total Bilirubin AST ALT Alkaline Phosphatase Total Protein Albumin Globulin Albumin/Globulin Ratio Arterial Blood Potassium Urine Color Urine Appearance Urine pH Ur Specific [place] Urine Protein Urine Glucose (UA) Urine Ketones Urine Blood Urine Nitrate Urine Bilirubin Urine Urobilinogen Ur Leukocyte Esterase Urine RBC Urine WBC Ur Epithelial Cells Amorphous Sediment Urine Bacteria Hyaline Casts Fine Granular Casts Urine Other Ur Random Creatinine Ur Random Sodium Vancomycin Trough Crossmatch 06/14/18 06/14/18 06/14/18 06:00 07:30 08:18 WBC RBC Hgb Hct MCV MCH MCHC RDW Plt Count MPV Gran % Lymph % (Auto) [place] % (Auto) Eos % (Auto) Baso % (Auto) Gran # Lymph # (Auto) [place] # (Auto) Eos # (Auto) Baso # (Auto) Differential Comment Platelet Evaluation APTT 118.6 H* pCO2 pO2 HCO3 ABG pH ABG Total CO2 ABG O2 Saturation ABG O2 Content ABG Base Excess ABG Hemoglobin ABG Carboxyhemoglobin POC ABG HHb (Measured) ABG Methemoglobin ABG O2 Capacity ABG Potassium Hgb O2 Saturation Sodium 148 Chloride 114 H Glucose Lactate Mechanical Rate FiO2 Tidal Volume PEEP Potassium 5.0 Carbon Dioxide 17 L Anion Gap 22 H BUN 61 H Creatinine 0.9 Est GFR ( Amer) > 60 Est GFR (Non-Af Amer) > 60 POC Glucose (mg/dL) 178 H Random Glucose 159 H Calcium 6.9 L* Phosphorus 6.7 H Magnesium 2.0 Total Bilirubin 3.3 H AST 25 ALT 35 Alkaline Phosphatase 274 H Total Protein 4.9 L Albumin 2.3 L Globulin 2.6 Albumin/Globulin Ratio 0.9 L Arterial Blood Potassium Urine Color Urine Appearance Urine pH Ur Specific [place] Urine Protein Urine Glucose (UA) Urine Ketones Urine Blood Urine Nitrate Urine Bilirubin Urine Urobilinogen Ur Leukocyte Esterase Urine RBC Urine WBC Ur Epithelial Cells Amorphous Sediment Urine Bacteria Hyaline Casts Fine Granular Casts Urine Other Ur Random Creatinine Ur Random Sodium Vancomycin Trough Crossmatch 06/14/18 06/14/18 06/14/18 08:41 14:20 14:20 WBC 10.8 D RBC 4.16 Hgb 11.7 L Hct 35.1 L MCV 84.4 MCH 28.1 MCHC 33.3 RDW 16.4 H Plt Count 28 L* MPV 10.7 Gran % 90.9 H Lymph % (Auto) 6.9 L [place] % (Auto) 2.0 Eos % (Auto) 0.1 L Baso % (Auto) 0.1 Gran # 9.79 H Lymph # (Auto) 0.7 L [place] # (Auto) 0.2 Eos # (Auto) 0.0 Baso # (Auto) 0.01 Differential Comment Platelet Evaluation APTT 81.4 H pCO2 41 pO2 237.0 H HCO3 15.3 L ABG pH 7.18 L* ABG Total CO2 16.6 L ABG O2 Saturation 98.7 H ABG O2 Content 16.4 ABG Base Excess -12.4 L ABG Hemoglobin 11.6 L ABG Carboxyhemoglobin 0.5 POC ABG HHb (Measured) 1.3 ABG Methemoglobin 0.8 ABG O2 Capacity 16.6 ABG Potassium Hgb O2 Saturation 97.3 Sodium Chloride Glucose Lactate Mechanical Rate FiO2 80.0 Tidal Volume PEEP Potassium Carbon Dioxide Anion Gap BUN Creatinine Est GFR ( Amer) Est GFR (Non-Af Amer) POC Glucose (mg/dL) Random Glucose Calcium Phosphorus Magnesium Total Bilirubin AST ALT Alkaline Phosphatase Total Protein Albumin Globulin Albumin/Globulin Ratio Arterial Blood Potassium Urine Color Urine Appearance Urine pH Ur Specific [place] Urine Protein Urine Glucose (UA) Urine Ketones Urine Blood Urine Nitrate Urine Bilirubin Urine Urobilinogen Ur Leukocyte Esterase Urine RBC Urine WBC Ur Epithelial Cells Amorphous Sediment Urine Bacteria Hyaline Casts Fine Granular Casts Urine Other Ur Random Creatinine Ur Random Sodium Vancomycin Trough Crossmatch Fingerstick Blood Sugar Results: 208 Assessment/Plan - Assessment and Plan (Free Text) Assessment: 58 year old female under ICU management for septic shock in the setting of lactic acidosis, likely 2/2 necrotizing fasciitis. 1. Acute AMS 2. Possible Nec Fasciitis 3. Acute thrombocytopenia 4. Acute metabolic acidosis likely 2/2 HHS 5. Acute hyperkalemia, likely 2/2 HHS 6. 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 Hx COPD 8. Hx DM 9. Hx HTN Patient's labs reveal lactic acidosis as well as decreased paO2 on ABG. Patient is currently protecting her airway and is 100% O2 saturation. glucose levels on admission 514, trending downward with a metabolic acidosis. Tox screen negative, but no UA obtained to look for ketones. Chest XR shows chronic COPD. Acutely, ECHO shows possibility of PE; given patient's current status, CTA is not going to be plausible; ptt shows that heparin drip is therapeutic. Plan Neuro - Maintain normothermia - Treat lactic acidosis, likely source of infection, which are contributing to AMS - Titrate fentanyl drip to RASS score of -4 Pulm - Duonebs PRN and LAMONTE - Maintain sats > 92% - Lung protective ventilation protocol (Peak pressures < 30) with settings of: 50/26/7/420 Cardio - Maintain MAP > 65, A-line placed for more accurate measurement of BP - Patient on levophed, vasopressin, drips; took of neosynephrine - Start Lasix to decrease R sided heart pressure - Heparin drip for possible PE GI - GI PPX - Surgery on consult - s/p two debridements - GI on consult - have signed off - Correct electrolyte abnormalities PRN (hypocalcemic) - Goal UOP should be .5/kg/hr; Continue to try to maintain MAP > 65 to allow for renal perfusion - D/c fluids of 100/hr NS; Start D5W at 75/hr ID - Continue Clinda, Merrem, discontinue Vanc, and start Daptomycin for septic shock 2/2 necrotizing fasciitis - ID Consult: Dr. Mcfarland Endo - Continue RISS q4 with FS q4 - Maintain euglycemia Heme - DIC work up reveals low probability for DIC, HIT work-up pending, for thrombocytopenia; patient is s/p 2 U FFP Psych - Possible suicide attempt; may need 1:1 when patient medically optimized <Sigrid Garcia - Last Filed: 06/14/18 17:29> CCU Objective - Vital Signs / Intake & Output Vital Signs (Last 4 hours): Vital Signs Temp Pulse BP BP Pulse Ox 06/14/18 17:23 95/52 L 06/14/18 16:40 98.6 F 117 H 100 06/14/18 16:30 98.6 F 126 H 100 06/14/18 16:20 98.6 F 117 H 100 06/14/18 16:10 98.6 F 127 H 100 06/14/18 16:00 98.6 F 116 H 97/61 L 100 06/14/18 15:50 98.6 F 116 H 100 06/14/18 15:40 98.6 F 118 H 100 06/14/18 15:30 98.6 F 115 H 100 06/14/18 15:20 98.8 F 116 H 100 06/14/18 15:10 98.8 F 116 H 100 06/14/18 15:05 98.8 F 118 H 134/76 100 06/14/18 15:00 98.8 F 118 H 148/65 100 06/14/18 14:50 99.0 F 122 H 100 06/14/18 14:40 99.1 F 125 H 100 06/14/18 14:30 99.3 F 118 H 100 06/14/18 14:20 99.3 F 118 H 100 06/14/18 14:10 99.3 F 114 H 100 06/14/18 14:00 99.3 F 115 H 105/50 L 100 06/14/18 13:55 111/52 L 06/14/18 13:50 99.3 F 114 H 100 06/14/18 13:40 99.3 F 116 H 100 06/14/18 13:30 99.3 F 115 H 100 Intake and Output (Last 8hrs): Intake & Output 06/14/18 06/14/18 06/14/18 06:59 14:59 22:59 Intake Total 3022 620 217 Output Total 500 Balance 2522 620 217 Intake: IV 3022 620 217 Right Internal Jugular 2483 Output: Urine 500 Urethral (Lorenz) 500 Stool 0 - Medications Active Medications: Active Medications Generic Name Dose Route Start Last Admin Trade Name Freq PRN Reason Stop Dose Admin Albuterol/Ipratropium 3 ml 06/11/18 07:41 Duoneb 3 Mg/0.5 Mg (3 Ml) Ud IH Q2H PRN Shortness of Breath Albuterol/Ipratropium 3 ml 06/11/18 08:00 06/14/18 13:07 Duoneb 3 Mg/0.5 Mg (3 Ml) Ud IH 3 ml [id number] LAMONTE Administration Clindamycin Phosphate 900 mg/ 106 mls @ 106 mls/hr 06/11/18 17:30 06/14/18 13 :56 Sodium Chloride IVPB 106 mls/hr Q8 LAMONTE Administration Protocol Fentanyl Citrate 1,000 mcg in 100 mls @ 2 mls/hr 06/11/18 19:42 06/14/18 11: 40 Fentanyl Citrate/Sodium Chloride 1 Mg/100 Ml IV 80 mcg/hr .Q24H PRN 8 mls/hr TITRATE PER MD ORDER Administration Protocol 20 MCG/HR NOREPINEPHRINE BIT/0.9 % NACL 4 mg in 250 mls @ 15 mls/hr 06/11/18 19:42 16:49 Levophed 4 Mg/ 250 Ml Ns Premixed IV 8 mcg/min .[id number] PRN 30 mls/hr TITRATE PER MD ORDER Titration Protocol 4 MCG/MIN Vasopressin 20 units/ Sodium 101 mls @ 9.09 mls/hr 06/12/18 08:30 06/14/18 17 :23 Chloride IV 9.09 mls/hr .[id number] LAMONTE Administration Protocol 0.03 U/MIN Heparin Sodium/Sodium Chloride 25,000 units in 250 mls @ 12.655 mls/hr 19:42 06/14/18 16:23 Heparin 87110 Units/250ml 1/2 Normal Saline IV 7 units/kg/hr .[id number] PRN 4.921 mls/hr ADJUST RATE PER PROTOCOL Titration Protocol 18 UNITS/KG/HR Meropenem 50 mls @ 100 mls/hr 06/13/18 09:10 06/14/18 14:05 Merrem Iv 1 Gm Premix IVPB 100 mls/hr Q8 LAMONTE Administration Protocol Daptomycin 430 mg/ Sodium 100 mls @ 200 mls/hr 06/13/18 12:15 06/14/18 13:57 Chloride IV 06/18/18 12:01 200 mls/hr Q24H LAMONTE Administration Insulin Human Lispro 0 units 06/14/18 12:00 06/14/18 12:00 Humalog High SC 4 u Q6 LAMONTE Administration Protocol Lorazepam 2 mg 06/12/18 09:43 06/13/18 04:07 Ativan IVP 2 mg Q2H PRN Administration Anxiety Protocol Pantoprazole Sodium 40 mg 06/12/18 10:00 06/14/18 09:18 Protonix Inj IVP 40 mg DAILY LAMONTE Administration Sodium Hypochlorite 500 ml 06/13/18 10:00 06/13/18 10:27 Dakins Solution 0.25% TOP 1 % DAILY LAMONTE Administration Sodium Hypochlorite 0 ml 06/14/18 10:00 Dakins Solution 0.25% TOP DAILY LAMONTE - Patient Studies Lab Studies: Microbiology Studies 06/11/18 14:52 Gram Stain - Final Abdomen Wound Culture - Final Coagulase Neg Staphylococcus 06/11/18 16:26 Gram Stain - Final Other: Please Indicate Wound Culture - Final Proteus Mirabilis Lab Studies 06/14/18 06/14/18 06/14/18 Range/Units 14:20 14:20 08:41 WBC 10.8 D (4.5-11.0) 10^3/ul RBC 4.16 (3.5-6.1) 10^6/uL Hgb 11.7 L (12.0-16.0) g/dL Hct 35.1 L (36.0-48.0) % MCV 84.4 (80.0-105.0) fl MCH 28.1 (25.0-35.0) pg MCHC 33.3 (31.0-37.0) g/dl RDW 16.4 H (11.5-14.5) % Plt Count 28 L* (120.0-450.0) 10^3/uL MPV 10.7 (7.0-11.0) fl Gran % 90.9 H (50.0-68.0) % Lymph % (Auto) 6.9 L (22.0-35.0) % [place] % (Auto) 2.0 (1.0-6.0) % Eos % (Auto) 0.1 L (1.5-5.0) % Baso % (Auto) 0.1 (0.0-3.0) % Gran # 9.79 H (1.4-6.5) Lymph # (Auto) 0.7 L (1.2-3.4) [place] # (Auto) 0.2 (0.1-0.6) Eos # (Auto) 0.0 (0.0-0.7) Baso # (Auto) 0.01 (0.0-2.0) K/mm3 Differential Comment Platelet Evaluation (NORMAL) APTT 81.4 H (25.1-36.5) Seconds pCO2 41 (35-45) mm/Hg pO2 237.0 H (80-100) mm/Hg HCO3 15.3 L (21-28) mmol/L ABG pH 7.18 L* (7.35-7.45) ABG Total CO2 16.6 L (22-28) mmol.L ABG O2 Saturation 98.7 H (95-98) % ABG O2 Content 16.4 (15-23) ML/dl ABG Base Excess -12.4 L (-2.0-3.0) mmol/L ABG Hemoglobin 11.6 L (11.7-17.4) g/dL ABG Carboxyhemoglobin 0.5 (0.5-1.5) % POC ABG HHb (Measured) 1.3 (0-5) % ABG Methemoglobin 0.8 (0.0-3.0) % ABG O2 Capacity 16.6 (16-24) mL/dl Hgb O2 Saturation 97.3 (95.0-98.0) % FiO2 80.0 % Sodium (132-148) mmol/L Potassium (3.6-5.0) mmol/L Chloride (98-107) mmol/L Carbon Dioxide (21-33) mmol/L Anion Gap (10-20) BUN (7-21) mg/dL Creatinine (0.7-1.2) mg/dl Est GFR ( Amer) Est GFR (Non-Af Amer) POC Glucose (mg/dL) (65-110) mg/dL Random Glucose (70-110) mg/dL Calcium (8.4-10.5) mg/dL Phosphorus (2.5-4.5) mg/dL Magnesium (1.7-2.2) mg/dL Total Bilirubin (0.2-1.3) mg/dL AST (14-36) U/L ALT (7-56) U/L Alkaline Phosphatase (38-126) U/L Total Protein (5.8-8.3) g/dL Albumin (3.0-4.8) g/dL Globulin gm/dL Albumin/Globulin Ratio (1.1-1.8) Crossmatch 06/14/18 06/14/18 06/14/18 Range/Units 08:18 07:30 06:00 WBC (4.5-11.0) 10^3/ul RBC (3.5-6.1) 10^6/uL Hgb (12.0-16.0) g/dL Hct (36.0-48.0) % MCV (80.0-105.0) fl MCH (25.0-35.0) pg MCHC (31.0-37.0) g/dl RDW (11.5-14.5) % Plt Count (120.0-450.0) 10^3/uL MPV (7.0-11.0) fl Gran % (50.0-68.0) % Lymph % (Auto) (22.0-35.0) % [place] % (Auto) (1.0-6.0) % Eos % (Auto) (1.5-5.0) % Baso % (Auto) (0.0-3.0) % Gran # (1.4-6.5) Lymph # (Auto) (1.2-3.4) [place] # (Auto) (0.1-0.6) Eos # (Auto) (0.0-0.7) Baso # (Auto) (0.0-2.0) K/mm3 Differential Comment Platelet Evaluation (NORMAL) APTT 118.6 H* (25.1-36.5) Seconds pCO2 (35-45) mm/Hg pO2 (80-100) mm/Hg HCO3 (21-28) mmol/L ABG pH (7.35-7.45) ABG Total CO2 (22-28) mmol.L ABG O2 Saturation (95-98) % ABG O2 Content (15-23) ML/dl ABG Base Excess (-2.0-3.0) mmol/L ABG Hemoglobin (11.7-17.4) g/dL ABG Carboxyhemoglobin (0.5-1.5) % POC ABG HHb (Measured) (0-5) % ABG Methemoglobin (0.0-3.0) % ABG O2 Capacity (16-24) mL/dl Hgb O2 Saturation (95.0-98.0) % FiO2 % Sodium 148 (132-148) mmol/L Potassium 5.0 (3.6-5.0) mmol/L Chloride 114 H (98-107) mmol/L Carbon Dioxide 17 L (21-33) mmol/L Anion Gap 22 H (10-20) BUN 61 H (7-21) mg/dL Creatinine 0.9 (0.7-1.2) mg/dl Est GFR ( Amer) > 60 Est GFR (Non-Af Amer) > 60 POC Glucose (mg/dL) 178 H (65-110) mg/dL Random Glucose 159 H (70-110) mg/dL Calcium 6.9 L* (8.4-10.5) mg/dL Phosphorus 6.7 H (2.5-4.5) mg/dL Magnesium 2.0 (1.7-2.2) mg/dL Total Bilirubin 3.3 H (0.2-1.3) mg/dL AST 25 (14-36) U/L ALT 35 (7-56) U/L Alkaline Phosphatase 274 H (38-126) U/L Total Protein 4.9 L (5.8-8.3) g/dL Albumin 2.3 L (3.0-4.8) g/dL Globulin 2.6 gm/dL Albumin/Globulin Ratio 0.9 L (1.1-1.8) Crossmatch 06/14/18 06/14/18 06/14/18 Range/Units 06:00 03:56 00:30 WBC 14.1 H (4.5-11.0) 10^3/ul RBC 4.43 (3.5-6.1) 10^6/uL Hgb 12.2 (12.0-16.0) g/dL Hct 37.3 (36.0-48.0) % MCV 84.2 (80.0-105.0) fl MCH 27.5 (25.0-35.0) pg MCHC 32.7 (31.0-37.0) g/dl RDW 16.3 H (11.5-14.5) % Plt Count 31 L* (120.0-450.0) 10^3/uL MPV 10.1 (7.0-11.0) fl Gran % 93.1 H (50.0-68.0) % Lymph % (Auto) 5.0 L (22.0-35.0) % [place] % (Auto) 1.7 (1.0-6.0) % Eos % (Auto) 0.1 L (1.5-5.0) % Baso % (Auto) 0.1 (0.0-3.0) % Gran # 13.11 H (1.4-6.5) Lymph # (Auto) 0.7 L (1.2-3.4) [place] # (Auto) 0.2 (0.1-0.6) Eos # (Auto) 0.0 (0.0-0.7) Baso # (Auto) 0.01 (0.0-2.0) K/mm3 Differential Comment Platelet Evaluation Low (NORMAL) APTT 111.2 H* (25.1-36.5) Seconds pCO2 (35-45) mm/Hg pO2 (80-100) mm/Hg HCO3 (21-28) mmol/L ABG pH (7.35-7.45) ABG Total CO2 (22-28) mmol.L ABG O2 Saturation (95-98) % ABG O2 Content (15-23) ML/dl ABG Base Excess (-2.0-3.0) mmol/L ABG Hemoglobin (11.7-17.4) g/dL ABG Carboxyhemoglobin (0.5-1.5) % POC ABG HHb (Measured) (0-5) % ABG Methemoglobin (0.0-3.0) % ABG O2 Capacity (16-24) mL/dl Hgb O2 Saturation (95.0-98.0) % FiO2 % Sodium (132-148) mmol/L Potassium (3.6-5.0) mmol/L Chloride (98-107) mmol/L Carbon Dioxide (21-33) mmol/L Anion Gap (10-20) BUN (7-21) mg/dL Creatinine (0.7-1.2) mg/dl Est GFR ( Amer) Est GFR (Non-Af Amer) POC Glucose (mg/dL) 139 H (65-110) mg/dL Random Glucose (70-110) mg/dL Calcium (8.4-10.5) mg/dL Phosphorus (2.5-4.5) mg/dL Magnesium (1.7-2.2) mg/dL Total Bilirubin (0.2-1.3) mg/dL AST (14-36) U/L ALT (7-56) U/L Alkaline Phosphatase (38-126) U/L Total Protein (5.8-8.3) g/dL Albumin (3.0-4.8) g/dL Globulin gm/dL Albumin/Globulin Ratio (1.1-1.8) Crossmatch 06/14/18 06/13/18 06/13/18 Range/Units 00:25 19:57 19:51 WBC (4.5-11.0) 10^3/ul RBC (3.5-6.1) 10^6/uL Hgb (12.0-16.0) g/dL Hct (36.0-48.0) % MCV (80.0-105.0) fl MCH (25.0-35.0) pg MCHC (31.0-37.0) g/dl RDW (11.5-14.5) % Plt Count (120.0-450.0) 10^3/uL MPV (7.0-11.0) fl Gran % (50.0-68.0) % Lymph % (Auto) (22.0-35.0) % [place] % (Auto) (1.0-6.0) % Eos % (Auto) (1.5-5.0) % Baso % (Auto) (0.0-3.0) % Gran # (1.4-6.5) Lymph # (Auto) (1.2-3.4) [place] # (Auto) (0.1-0.6) Eos # (Auto) (0.0-0.7) Baso # (Auto) (0.0-2.0) K/mm3 Differential Comment Platelet Evaluation (NORMAL) APTT (25.1-36.5) Seconds pCO2 (35-45) mm/Hg pO2 (80-100) mm/Hg HCO3 (21-28) mmol/L ABG pH (7.35-7.45) ABG Total CO2 (22-28) mmol.L ABG O2 Saturation (95-98) % ABG O2 Content (15-23) ML/dl ABG Base Excess (-2.0-3.0) mmol/L ABG Hemoglobin (11.7-17.4) g/dL ABG Carboxyhemoglobin (0.5-1.5) % POC ABG HHb (Measured) (0-5) % ABG Methemoglobin (0.0-3.0) % ABG O2 Capacity (16-24) mL/dl Hgb O2 Saturation (95.0-98.0) % FiO2 % Sodium 144 (132-148) mmol/L Potassium 4.5 (3.6-5.0) mmol/L Chloride 112 H (98-107) mmol/L Carbon Dioxide 21 (21-33) mmol/L Anion Gap 15 (10-20) BUN 63 H (7-21) mg/dL Creatinine 0.8 (0.7-1.2) mg/dl Est GFR ( Amer) > 60 Est GFR (Non-Af Amer) > 60 POC Glucose (mg/dL) 115 H 147 H (65-110) mg/dL Random Glucose 141 H (70-110) mg/dL Calcium 7.0 L (8.4-10.5) mg/dL Phosphorus (2.5-4.5) mg/dL Magnesium (1.7-2.2) mg/dL Total Bilirubin (0.2-1.3) mg/dL AST (14-36) U/L ALT (7-56) U/L Alkaline Phosphatase (38-126) U/L Total Protein (5.8-8.3) g/dL Albumin (3.0-4.8) g/dL Globulin gm/dL Albumin/Globulin Ratio (1.1-1.8) Crossmatch 06/13/18 06/13/1818 Range/Units 15:53 11:30 11:15 WBC (4.5-11.0) 10^3/ul RBC (3.5-6.1) 10^6/uL Hgb (12.0-16.0) g/dL Hct (36.0-48.0) % MCV (80.0-105.0) fl MCH (25.0-35.0) pg MCHC (31.0-37.0) g/dl RDW (11.5-14.5) % Plt Count (120.0-450.0) 10^3/uL MPV (7.0-11.0) fl Gran % (50.0-68.0) % Lymph % (Auto) (22.0-35.0) % [place] % (Auto) (1.0-6.0) % Eos % (Auto) (1.5-5.0) % Baso % (Auto) (0.0-3.0) % Gran # (1.4-6.5) Lymph # (Auto) (1.2-3.4) [place] # (Auto) (0.1-0.6) Eos # (Auto) (0.0-0.7) Baso # (Auto) (0.0-2.0) K/mm3 Differential Comment See pathology report Platelet Evaluation Low (NORMAL) APTT (25.1-36.5) Seconds pCO2 (35-45) mm/Hg pO2 (80-100) mm/Hg HCO3 (21-28) mmol/L ABG pH (7.35-7.45) ABG Total CO2 (22-28) mmol.L ABG O2 Saturation (95-98) % ABG O2 Content (15-23) ML/dl ABG Base Excess (-2.0-3.0) mmol/L ABG Hemoglobin (11.7-17.4) g/dL ABG Carboxyhemoglobin (0.5-1.5) % POC ABG HHb (Measured) (0-5) % ABG Methemoglobin (0.0-3.0) % ABG O2 Capacity (16-24) mL/dl Hgb O2 Saturation (95.0-98.0) % FiO2 % Sodium (132-148) mmol/L Potassium (3.6-5.0) mmol/L Chloride (98-107) mmol/L Carbon Dioxide (21-33) mmol/L Anion Gap (10-20) BUN (7-21) mg/dL Creatinine (0.7-1.2) mg/dl Est GFR ( Amer) Est GFR (Non-Af Amer) POC Glucose (mg/dL) 170 H (65-110) mg/dL Random Glucose (70-110) mg/dL Calcium (8.4-10.5) mg/dL Phosphorus (2.5-4.5) mg/dL Magnesium (1.7-2.2) mg/dL Total Bilirubin (0.2-1.3) mg/dL AST (14-36) U/L ALT (7-56) U/L Alkaline Phosphatase (38-126) U/L Total Protein (5.8-8.3) g/dL Albumin (3.0-4.8) g/dL Globulin gm/dL Albumin/Globulin Ratio (1.1-1.8) Crossmatch 06/11/18 Range/Units 14:25 WBC (4.5-11.0) 10^3/ul RBC (3.5-6.1) 10^6/uL Hgb (12.0-16.0) g/dL Hct (36.0-48.0) % MCV (80.0-105.0) fl MCH (25.0-35.0) pg MCHC (31.0-37.0) g/dl RDW (11.5-14.5) % Plt Count (120.0-450.0) 10^3/uL MPV (7.0-11.0) fl Gran % (50.0-68.0) % Lymph % (Auto) (22.0-35.0) % [place] % (Auto) (1.0-6.0) % Eos % (Auto) (1.5-5.0) % Baso % (Auto) (0.0-3.0) % Gran # (1.4-6.5) Lymph # (Auto) (1.2-3.4) [place] # (Auto) (0.1-0.6) Eos # (Auto) (0.0-0.7) Baso # (Auto) (0.0-2.0) K/mm3 Differential Comment Platelet Evaluation (NORMAL) APTT (25.1-36.5) Seconds pCO2 (35-45) mm/Hg pO2 (80-100) mm/Hg HCO3 (21-28) mmol/L ABG pH (7.35-7.45) ABG Total CO2 (22-28) mmol.L ABG O2 Saturation (95-98) % ABG O2 Content (15-23) ML/dl ABG Base Excess (-2.0-3.0) mmol/L ABG Hemoglobin (11.7-17.4) g/dL ABG Carboxyhemoglobin (0.5-1.5) % POC ABG HHb (Measured) (0-5) % ABG Methemoglobin (0.0-3.0) % ABG O2 Capacity (16-24) mL/dl Hgb O2 Saturation (95.0-98.0) % FiO2 % Sodium (132-148) mmol/L Potassium (3.6-5.0) mmol/L Chloride (98-107) mmol/L Carbon Dioxide (21-33) mmol/L Anion Gap (10-20) BUN (7-21) mg/dL Creatinine (0.7-1.2) mg/dl Est GFR ( Amer) Est GFR (Non-Af Amer) POC Glucose (mg/dL) (65-110) mg/dL Random Glucose (70-110) mg/dL Calcium (8.4-10.5) mg/dL Phosphorus (2.5-4.5) mg/dL Magnesium (1.7-2.2) mg/dL Total Bilirubin (0.2-1.3) mg/dL AST (14-36) U/L ALT (7-56) U/L Alkaline Phosphatase (38-126) U/L Total Protein (5.8-8.3) g/dL Albumin (3.0-4.8) g/dL Globulin gm/dL Albumin/Globulin Ratio (1.1-1.8) Crossmatch See Detail Laboratory Results - last 24 hr 06/11/18 06/13/18 06/13/18 14:25 11:15 11:30 WBC RBC Hgb Hct MCV MCH MCHC RDW Plt Count MPV Gran % Lymph % (Auto) [place] % (Auto) Eos % (Auto) Baso % (Auto) Gran # Lymph # (Auto) [place] # (Auto) Eos # (Auto) Baso # (Auto) Differential Comment See pathology report Platelet Evaluation Low APTT pCO2 pO2 HCO3 ABG pH ABG Total CO2 ABG O2 Saturation ABG O2 Content ABG Base Excess ABG Hemoglobin ABG Carboxyhemoglobin POC ABG HHb (Measured) ABG Methemoglobin ABG O2 Capacity Hgb O2 Saturation FiO2 Sodium Potassium Chloride Carbon Dioxide Anion Gap BUN Creatinine Est GFR ( Amer) Est GFR (Non-Af Amer) POC Glucose (mg/dL) Random Glucose Calcium Phosphorus Magnesium Total Bilirubin AST ALT Alkaline Phosphatase Total Protein Albumin Globulin Albumin/Globulin Ratio Crossmatch See Detail 06/13/18 06/13/18 06/13/18 15:53 19:51 19:57 WBC RBC Hgb Hct MCV MCH MCHC RDW Plt Count MPV Gran % Lymph % (Auto) [place] % (Auto) Eos % (Auto) Baso % (Auto) Gran # Lymph # (Auto) [place] # (Auto) Eos # (Auto) Baso # (Auto) Differential Comment Platelet Evaluation APTT pCO2 pO2 HCO3 ABG pH ABG Total CO2 ABG O2 Saturation ABG O2 Content ABG Base Excess ABG Hemoglobin ABG Carboxyhemoglobin POC ABG HHb (Measured) ABG Methemoglobin ABG O2 Capacity Hgb O2 Saturation FiO2 Sodium 144 Potassium 4.5 Chloride 112 H Carbon Dioxide 21 Anion Gap 15 BUN 63 H Creatinine 0.8 Est GFR ( Amer) > 60 Est GFR (Non-Af Amer) > 60 POC Glucose (mg/dL) 170 H 147 H Random Glucose 141 H Calcium 7.0 L Phosphorus Magnesium Total Bilirubin AST ALT Alkaline Phosphatase Total Protein Albumin Globulin Albumin/Globulin Ratio Crossmatch 06/14/18 06/14/18 06/14/18 00:25 00:30 03:56 WBC RBC Hgb Hct MCV MCH MCHC RDW Plt Count MPV Gran % Lymph % (Auto) [place] % (Auto) Eos % (Auto) Baso % (Auto) Gran # Lymph # (Auto) [place] # (Auto) Eos # (Auto) Baso # (Auto) Differential Comment Platelet Evaluation APTT 111.2 H* pCO2 pO2 HCO3 ABG pH ABG Total CO2 ABG O2 Saturation ABG O2 Content ABG Base Excess ABG Hemoglobin ABG Carboxyhemoglobin POC ABG HHb (Measured) ABG Methemoglobin ABG O2 Capacity Hgb O2 Saturation FiO2 Sodium Potassium Chloride Carbon Dioxide Anion Gap BUN Creatinine Est GFR ( Amer) Est GFR (Non-Af Amer) POC Glucose (mg/dL) 115 H 139 H Random Glucose Calcium Phosphorus Magnesium Total Bilirubin AST ALT Alkaline Phosphatase Total Protein Albumin Globulin Albumin/Globulin Ratio Crossmatch 06/14/18 06/14/18 06/14/18 06:00 06:00 07:30 WBC 14.1 H RBC 4.43 Hgb 12.2 Hct 37.3 MCV 84.2 MCH 27.5 MCHC 32.7 RDW 16.3 H Plt Count 31 L* MPV 10.1 Gran % 93.1 H Lymph % (Auto) 5.0 L [place] % (Auto) 1.7 Eos % (Auto) 0.1 L Baso % (Auto) 0.1 Gran # 13.11 H Lymph # (Auto) 0.7 L [place] # (Auto) 0.2 Eos # (Auto) 0.0 Baso # (Auto) 0.01 Differential Comment Platelet Evaluation Low APTT 118.6 H* pCO2 pO2 HCO3 ABG pH ABG Total CO2 ABG O2 Saturation ABG O2 Content ABG Base Excess ABG Hemoglobin ABG Carboxyhemoglobin POC ABG HHb (Measured) ABG Methemoglobin ABG O2 Capacity Hgb O2 Saturation FiO2 Sodium 148 Potassium 5.0 Chloride 114 H Carbon Dioxide 17 L Anion Gap 22 H BUN 61 H Creatinine 0.9 Est GFR ( Amer) > 60 Est GFR (Non-Af Amer) > 60 POC Glucose (mg/dL) Random Glucose 159 H Calcium 6.9 L* Phosphorus 6.7 H Magnesium 2.0 Total Bilirubin 3.3 H AST 25 ALT 35 Alkaline Phosphatase 274 H Total Protein 4.9 L Albumin 2.3 L Globulin 2.6 Albumin/Globulin Ratio 0.9 L Crossmatch 06/14/18 06/14/18 06/14/18 08:18 08:41 14:20 WBC 10.8 D RBC 4.16 Hgb 11.7 L Hct 35.1 L MCV 84.4 MCH 28.1 MCHC 33.3 RDW 16.4 H Plt Count 28 L* MPV 10.7 Gran % 90.9 H Lymph % (Auto) 6.9 L [place] % (Auto) 2.0 Eos % (Auto) 0.1 L Baso % (Auto) 0.1 Gran # 9.79 H Lymph # (Auto) 0.7 L [place] # (Auto) 0.2 Eos # (Auto) 0.0 Baso # (Auto) 0.01 Differential Comment Platelet Evaluation APTT pCO2 41 pO2 237.0 H HCO3 15.3 L ABG pH 7.18 L* ABG Total CO2 16.6 L ABG O2 Saturation 98.7 H ABG O2 Content 16.4 ABG Base Excess -12.4 L ABG Hemoglobin 11.6 L ABG Carboxyhemoglobin 0.5 POC ABG HHb (Measured) 1.3 ABG Methemoglobin 0.8 ABG O2 Capacity 16.6 Hgb O2 Saturation 97.3 FiO2 80.0 Sodium Potassium Chloride Carbon Dioxide Anion Gap BUN Creatinine Est GFR ( Amer) Est GFR (Non-Af Amer) POC Glucose (mg/dL) 178 H Random Glucose Calcium Phosphorus Magnesium Total Bilirubin AST ALT Alkaline Phosphatase Total Protein Albumin Globulin Albumin/Globulin Ratio Crossmatch 06/14/18 14:20 WBC RBC Hgb Hct MCV MCH MCHC RDW Plt Count MPV Gran % Lymph % (Auto) [place] % (Auto) Eos % (Auto) Baso % (Auto) Gran # Lymph # (Auto) [place] # (Auto) Eos # (Auto) Baso # (Auto) Differential Comment Platelet Evaluation APTT 81.4 H pCO2 pO2 HCO3 ABG pH ABG Total CO2 ABG O2 Saturation ABG O2 Content ABG Base Excess ABG Hemoglobin ABG Carboxyhemoglobin POC ABG HHb (Measured) ABG Methemoglobin ABG O2 Capacity Hgb O2 Saturation FiO2 Sodium Potassium Chloride Carbon Dioxide Anion Gap BUN Creatinine Est GFR ( Amer) Est GFR (Non-Af Amer) POC Glucose (mg/dL) Random Glucose Calcium Phosphorus Magnesium Total Bilirubin AST ALT Alkaline Phosphatase Total Protein Albumin Globulin Albumin/Globulin Ratio Crossmatch Addendum Addendum: 06/14/18 17:29 ICU Attending Addendum: Patient seen and examined. Case reviewed on round with housestaff. Agree with resident note above with the following additions/exceptions: Cassie continues to be in severe septic shock secondary to abd nec fasc resulting in multiorgan failure. S/p debrid x 2. Cultures showing GPC and GNR as nec fasc often will be polymicrobial. I agree with broad abx coverage. Currently on dapto, clinda and constanza. Remains on Levophed and vasopressin. Not on Robbie. She is also very volume overloaded (+8L). She is making urine however not nearly as would be expected given her input. There is also a concern for PE. Her echo is consistent with RV strain (sevrely dilated RV with elevated RVSP). She may just be volume overloaded and in RV failure. To off load the RV we will diurese with lasix IV this AM, plan BID. F/u urine output. Her plat have significantly dropped from 100 to 4. Too short a time frame for HIT. DIC panel so far not very suggestive given fibrinogen is elevated, i would expect it to be low. Coag unreliable because she is on heparin. f/u smear goal plat > 20K Overall condition guarded. Will monitor closely. GI PPX protonic DVT ppx - on heparin NPO DNR as of 06/13/2018 Rest of care as noted above. Sigrid Garcia MD General Manager [employer] Critical care time : 40 mins
[2018-06-14 21:53] LABS: BASO # 0.01 K/mm3 (0.0-2.0); BASO % 0.1 % (0.0-3.0); EOS % 0.1 % (1.5-5.0); GRAN # 8.78 (1.4-6.5); GRAN % 86.8 % (50.0-68.0); HEMOGLOBIN 11.6 g/dL (12.0-16.0); LYMPH # 0.9 (1.2-3.4); LYMPH % 8.8 % (22.0-35.0); MEAN CELL VOLUME 83.3 fl (80.0-105.0); MEAN CORPUSCULAR HEMOGLOBIN 27.8 pg (25.0-35.0); MEAN CORPUSCULAR HGB CONC 33.3 g/dl (31.0-37.0); MONO # 0.4 (0.1-0.6); MONO % 4.2 % (1.0-6.0); RBC 4.18 10^6/uL (3.5-6.1); RED CELL DISTRIBUTION WIDTH 16.6 % (11.5-14.5); WHITE BLOOD COUNT 10.1 10^3/ul (4.5-11.0)
[2018-06-14 21:59] LABS: PLATELET COUNT 20 10^3/uL (120.0-450.0)
[2018-06-15] MEDS: Albuterol-Ipratrop 3 mg / 0.5 (3 ml) UD IH SCH ×2 (01:40→07:04)
[2018-06-15 02:35] LABS: BASO # 0.02 K/mm3 (0.0-2.0); BASO % 0.2 % (0.0-3.0); EOS % 0.1 % (1.5-5.0); GRAN % 88.3 % (50.0-68.0); LYMPH # 0.7 (1.2-3.4); LYMPH % 7.1 % (22.0-35.0); MEAN CELL VOLUME 82.5 fl (80.0-105.0); MEAN CORPUSCULAR HEMOGLOBIN 28.4 pg (25.0-35.0); MEAN CORPUSCULAR HGB CONC 34.4 g/dl (31.0-37.0); MONO # 0.4 (0.1-0.6); MONO % 4.3 % (1.0-6.0); PLATELET COUNT 51 10^3/uL (120.0-450.0); RBC 4.23 10^6/uL (3.5-6.1); RED CELL DISTRIBUTION WIDTH 16.6 % (11.5-14.5); WHITE BLOOD COUNT 10.1 10^3/ul (4.5-11.0)
[2018-06-15] MEDS: Meropenem IV 1 gm in NS 50 ML IVPB SCH (05:50)
[2018-06-15 06:25] VITALS: BP 125/73
[2018-06-15] MEDS: Insulin Lispro (HUMAlog) HIGH Coverage SC SCH ×2 (06:36)
[2018-06-15 06:38] LABS: ALB/GLOB RATIO 0.8 (1.1-1.8); ALBUMIN 2.3 g/dL (3.0-4.8); ALT/SGPT 34 U/L (7-56); AST/SGOT 19 U/L (14-36); BLOOD UREA NITROGEN 76 mg/dL (7-21); CALCIUM 7.5 mg/dL (8.4-10.5); GFR AFRICAN-AMERICAN > 60; GFR NON-AFRICAN AMERICAN 51
[2018-06-15] MEDS: NOREPINEPHRINE BIT/0.9 % NACL 4 MG/250 ML BAG IV PRN (08:00)
[2018-06-15 08:17] LABS: BASO # 0.01 K/mm3 (0.0-2.0); BASO % 0.1 % (0.0-3.0); GRAN # 8.62 (1.4-6.5); GRAN % 89.1 % (50.0-68.0); HEMOGLOBIN 11.5 g/dL (12.0-16.0); LYMPH # 0.7 (1.2-3.4); LYMPH % 7.5 % (22.0-35.0); MEAN CELL VOLUME 83.2 fl (80.0-105.0); MEAN CORPUSCULAR HGB CONC 33.7 g/dl (31.0-37.0); MONO # 0.3 (0.1-0.6); MONO % 3.3 % (1.0-6.0); RED CELL DISTRIBUTION WIDTH 16.6 % (11.5-14.5); WHITE BLOOD COUNT 9.7 10^3/ul (4.5-11.0)
[2018-06-15 08:25] LABS: PLATELET COUNT 30 10^3/uL (120.0-450.0)
--- NOTE | 2018-06-15 10:12 | CP.PCM.PN ---
Subjective - Date & Time of Evaluation Date of Evaluation: 06/15/18 Time of Evaluation: 10:09 - Subjective Subjective: Tamera Vega, PGY2, Heme-Onc Progress Note for Dr Neumann: Patient seen and examined at bedside. No acute events overnight. Patient remains intubated, responsive to sternal rub. Patient's family discussing with palliative nurse Marci Mallory for terminal extubation, comfort care. ROS limited due to patient intubated/sedated. Objective - Vital Signs/Intake and Output Vital Signs (last 24 hours): Temp Pulse Resp BP Pulse Ox 97.7 F 121 H 27 H 125/73 100 06/15/18 06:20 06/15/18 06:20 06/14/18 12:48 06/15/18 06:00 06/15/18 06:20 Intake and Output: 06/15/18 06/15/18 06:59 18:59 Intake Total 1805 15 Output Total 670 Balance 1135 15 - Medications Medications: Current Medications Albuterol/Ipratropium (Duoneb 3 Mg/0.5 Mg (3 Ml) Ud) 3 ml IH Q2H PRN PRN Reason: Shortness of Breath Albuterol/Ipratropium (Duoneb 3 Mg/0.5 Mg (3 Ml) Ud) 3 ml IH [id number] LAMONTE Last Admin: 06/15/18 07:04 Dose: 3 ml Fentanyl Citrate (Fentanyl Citrate/Sodium Chloride 1 Mg/100 Ml) 1,000 mcg in 100 mls @ 2 mls/hr IV .Q24H PRN; Protocol; 20 MCG/HR PRN Reason: TITRATE PER MD ORDER Last Admin: 06/14/18 23:03 Dose: 80 mcg/hr, 8 mls/hr NOREPINEPHRINE BIT/0.9 % NACL (Levophed 4 Mg/ 250 Ml Ns Premixed) 4 mg in 250 mls @ 15 mls/hr IV .[id number] PRN; Protocol; 4 MCG/MIN PRN Reason: TITRATE PER MD ORDER Last Admin: 06/15/18 08:00 Dose: 6 mcg/min, 22.5 mls/hr Vasopressin 20 units/ Sodium (Chloride) 101 mls @ 9.09 mls/hr IV .[id number] LAMONTE; 0.03 U/MIN PRN Reason: Protocol Last Admin: 06/15/18 05:48 Dose: 9.09 mls/hr Heparin Sodium/Sodium Chloride (Heparin 58756 Units/250ml 1/2 Normal Saline) 25 ,000 units in 250 mls @ 12.655 mls/hr IV .[id number] PRN; Protocol; 18 UNITS/KG/HR PRN Reason: ADJUST RATE PER PROTOCOL Last Titration: 06/15/18 06:16 Dose: 9 units/kg/hr, 6.328 mls/hr Meropenem (Merrem Iv 1 Gm Premix) 50 mls @ 100 mls/hr IVPB Q8 L[facility]ONTE PRN Reason: Protocol Last Admin: 06/15/18 05:50 Dose: 100 mls/hr Daptomycin 430 mg/ Sodium (Chloride) 100 mls @ 200 mls/hr IV Q24H LAMONTE Stop: 06/18/18 12:01 Last Admin: 06/14/18 13:57 Dose: 200 mls/hr Dextrose (Dextrose 5% In Water 1000 Ml) 1,000 mls @ 100 mls/hr IV .Q10H LAMONTE Last Admin: 06/15/18 10:01 Dose: 100 mls/hr Insulin Human Lispro (Humalog High) 0 units SC Q6 L[facility]ONTE PRN Reason: Protocol Last Admin: 06/15/18 06:36 Dose: 7 u Lorazepam (Ativan) 2 mg IVP Q2H PRN; Protocol PRN Reason: Anxiety Last Admin: 06/13/18 04:07 Dose: 2 mg Pantoprazole Sodium (Protonix Inj) 40 mg IVP DAILY LAMONTE Last Admin: 06/15/18 10:00 Dose: 40 mg Sodium Hypochlorite (Dakins Solution 0.25%) 500 ml TOP DAILY LAMONTE Last Admin: 06/13/18 10:27 Dose: 1 % Sodium Hypochlorite (Dakins Solution 0.25%) 0 ml TOP DAILY LAMONTE - Labs Labs: 06/15/18 08:05 06/15/18 04:05 PT 17.5 SECONDS (9.4-12.5) H 06/13/18 06:40 INR 1.51 06/13/18 06:40 APTT 47.2 Seconds (25.1-36.5) H 06/15/18 04:05 - Additional Findings Additional findings: - Constitutional Appears: Toxic Additional comments: + anasarca - Head Exam Head Exam: ATRAUMATIC, NORMOCEPHALIC - Eye Exam Eye Exam: EOMI, PERRL. absent: Conjunctival injection, Nystagmus, Scleral icterus Pupil Exam: NORMAL ACCOMODATION, PERRL. absent: Fixed, Irregular, Miosis, Unequal - ENT Exam ENT Exam: Mucous Membranes Moist - Respiratory Exam Respiratory Exam: Decreased Breath Sounds - Cardiovascular Exam Cardiovascular Exam: Tachycardia, +S1, +S2 - GI/Abdominal Exam Additional comments: + abdominal binder in place - Extremities Exam Extremities exam: Positive for: pedal edema - Neurological Exam Neurological exam: Altered Additional comments: intubated - Skin Skin Exam: Normal Color, Warm Assessment and Plan - Assessment and Plan (Free Text) Assessment: 58 year old female with PMH HTN, poorly controlled DM, COPD (heavy smoker), presents for AMS, found to be in septic shock 2/2 necrotizing fascitis, in MODS. Abdominal wound cultures showing proteus mirabilis and coag neg staph. Blood culture 1/2 showing Strep anginosus. Patient on IV antibiotic coverage per ID/primary team. Patient also requiring 3 pressors to maintain MAP>65. Patient on heparin drip due to possible PE as per echo reading. 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 Patient remains intubated, requiring ventilatory support, acidemic. Heme consulted for thrombocytopenia: - Likely sepsis induced, vs HIT (unknown heparin usage prior to arrival to [facility] in the past 100 days) vs DIC (ruled out) - DIC panel shows elevated fibrinogen, PTT elevated due to heparin drip. Peripheral smear shows nucleated some rbcs, no schistocytes - sent for HIT panel. will f/u. - Will need radical vulvectomy with lymph node sampling for squamous cell carcinoma of vulva once patient is stable - plt count 30,000 today, maintain >20,000. - c/w ICU management, IV abx, ventilator use - will closely monitor - further management per primary team Guarded prognosis Case discussed with Dr Neumann.
--- NOTE | 2018-06-15 10:19 | CP.PCM.PN ---
<Kiki Oleary - Last Filed: 06/15/18 10:17> Subjective - Date & Time of Evaluation Date of Evaluation: 06/15/18 Time of Evaluation: 10:17 - Subjective Subjective: Podiatry Progress note: Dr. Norton 58 year old female was seen and evaluated at bedside for left planter foot bullae. Patient is intubated, unable to respond to verbal commands. Objective - Vital Signs/Intake and Output Vital Signs (last 24 hours): Temp Pulse Resp BP Pulse Ox 97.7 F 121 H 27 H 125/73 100 06/15/18 06:20 06/15/18 06:20 06/14/18 12:48 06/15/18 06:00 06/15/18 06:20 Intake and Output: 06/15/18 06/15/18 06:59 18:59 Intake Total 1805 15 Output Total 670 Balance 1135 15 - Medications Medications: Current Medications Albuterol/Ipratropium (Duoneb 3 Mg/0.5 Mg (3 Ml) Ud) 3 ml IH Q2H PRN PRN Reason: Shortness of Breath Albuterol/Ipratropium (Duoneb 3 Mg/0.5 Mg (3 Ml) Ud) 3 ml IH [id number] LAMONTE Last Admin: 06/15/18 07:04 Dose: 3 ml Fentanyl Citrate (Fentanyl Citrate/Sodium Chloride 1 Mg/100 Ml) 1,000 mcg in 100 mls @ 2 mls/hr IV .Q24H PRN; Protocol; 20 MCG/HR PRN Reason: TITRATE PER MD ORDER Last Admin: 06/14/18 23:03 Dose: 80 mcg/hr, 8 mls/hr NOREPINEPHRINE BIT/0.9 % NACL (Levophed 4 Mg/ 250 Ml Ns Premixed) 4 mg in 250 mls @ 15 mls/hr IV .[id number] PRN; Protocol; 4 MCG/MIN PRN Reason: TITRATE PER MD ORDER Last Admin: 06/15/18 08:00 Dose: 6 mcg/min, 22.5 mls/hr Vasopressin 20 units/ Sodium (Chloride) 101 mls @ 9.09 mls/hr IV .Q11H7M LAMONTE; 0.03 U/MIN PRN Reason: Protocol Last Admin: 06/15/18 05:48 Dose: 9.09 mls/hr Heparin Sodium/Sodium Chloride (Heparin 62398 Units/250ml 1/2 Normal Saline) 25 ,000 units in 250 mls @ 12.655 mls/hr IV .[id number] PRN; Protocol; 18 UNITS/KG/HR PRN Reason: ADJUST RATE PER PROTOCOL Last Titration: 06/15/18 06:16 Dose: 9 units/kg/hr, 6.328 mls/hr Meropenem (Merrem Iv 1 Gm Premix) 50 mls @ 100 mls/hr IVPB Q8 LAMONTE PRN Reason: Protocol Last Admin: 06/15/18 05:50 Dose: 100 mls/hr Daptomycin 430 mg/ Sodium (Chloride) 100 mls @ 200 mls/hr IV Q24H LAMONTE Stop: 06/18/18 12:01 Last Admin: 06/14/18 13:57 Dose: 200 mls/hr Dextrose (Dextrose 5% In Water 1000 Ml) 1,000 mls @ 100 mls/hr IV .Q10H LAMONTE Last Admin: 06/15/18 10:01 Dose: 100 mls/hr Insulin Human Lispro (Humalog High) 0 units SC Q6 LAMONTE PRN Reason: Protocol Last Admin: 06/15/18 06:36 Dose: 7 u Lorazepam (Ativan) 2 mg IVP Q2H PRN; Protocol PRN Reason: Anxiety Last Admin: 06/13/18 04:07 Dose: 2 mg Pantoprazole Sodium (Protonix Inj) 40 mg IVP DAILY LAMONTE Last Admin: 06/15/18 10:00 Dose: 40 mg Sodium Hypochlorite (Dakins Solution 0.25%) 500 ml TOP DAILY LAMONTE Last Admin: 06/13/18 10:27 Dose: 1 % Sodium Hypochlorite (Dakins Solution 0.25%) 0 ml TOP DAILY LAMONTE - Labs Labs: 06/15/18 08:05 06/15/18 04:05 PT 17.5 SECONDS (9.4-12.5) H 06/13/18 06:40 INR 1.51 06/13/18 06:40 APTT 47.2 Seconds (25.1-36.5) H 06/15/18 04:05 - Constitutional Appears: Well, Non-toxic, No Acute Distress - Extremities Exam Extremities Exam: Normal Capillary Refill. absent: Calf Tenderness, Full ROM Additional comments: Derm: de-roofed bullae on the plantar medial left foot, no active drainage, no purulence, no malodor, no erythema, no clinical suspicion of active infection - Neurological Exam Neurological Exam: Alert, Awake, Oriented x3 - Psychiatric Exam Psychiatric exam: Normal Affect, Normal Mood Assessment and Plan - Assessment and Plan (Free Text) Assessment: 58 year old female evaluated for serous bullae on the plantar left foot Plan: Patient seen and evaluated Discussed plan with attending Dr. Norton Labs, vitals and charts reviewed Bullae site dressed with bactroban, telfa, DSD Patient is stable from podiatry standpoint Will continue local wound care <Freddie Norton - Last Filed: 06/16/18 17:01> Objective - Vital Signs/Intake and Output Vital Signs (last 24 hours): Temp Pulse Resp BP Pulse Ox 96.8 F L 112 H 15 125/73 100 06/15/18 17:02 06/15/18 17:02 06/15/18 17:02 06/15/18 06:00 06/15/18 06:20 - Labs Labs: 06/15/18 08:05 06/15/18 04:05 PT 17.5 SECONDS (9.4-12.5) H 06/13/18 06:40 INR 1.51 06/13/18 06:40 APTT 114.0 Seconds (25.1-36.5) H* 06/15/18 12:00 Attending/Attestation - Attestation I have personally seen and examined this patient.: Yes I have fully participated in the care of the patient.: Yes I have reviewed all pertinent clinical information, including history, physical exam and plan: Yes
--- NOTE | 2018-06-15 10:38 | CP.PCM.PN ---
Subjective - Date & Time of Evaluation Date of Evaluation: 06/15/18 Time of Evaluation: 10:33 - Subjective Subjective: General Surgery Progress Note For Dr. Oleary This 58F was seen and examined this AM at bedside. No acute events reported overnight. Spoke with ICU resident, family meeting to take place this afternoon with possible comfort care. Objective - Vital Signs/Intake and Output Vital Signs (last 24 hours): Temp Pulse Resp BP Pulse Ox 97.7 F 121 H 27 H 125/73 100 06/15/18 06:20 06/15/18 06:20 06/14/18 12:48 06/15/18 06:00 06/15/18 06:20 Intake and Output: 06/15/18 06/15/18 06:59 18:59 Intake Total 1805 15 Output Total 670 Balance 1135 15 - Medications Medications: Current Medications Albuterol/Ipratropium (Duoneb 3 Mg/0.5 Mg (3 Ml) Ud) 3 ml IH Q2H PRN PRN Reason: Shortness of Breath Albuterol/Ipratropium (Duoneb 3 Mg/0.5 Mg (3 Ml) Ud) 3 ml IH [id number] LAMONTE Last Admin: 06/15/18 07:04 Dose: 3 ml Fentanyl Citrate (Fentanyl Citrate/Sodium Chloride 1 Mg/100 Ml) 1,000 mcg in 100 mls @ 2 mls/hr IV .Q24H PRN; Protocol; 20 MCG/HR PRN Reason: TITRATE PER MD ORDER Last Admin: 06/14/18 23:03 Dose: 80 mcg/hr, 8 mls/hr NOREPINEPHRINE BIT/0.9 % NACL (Levophed 4 Mg/ 250 Ml Ns Premixed) 4 mg in 250 mls @ 15 mls/hr IV .[id number] PRN; Protocol; 4 MCG/MIN PRN Reason: TITRATE PER MD ORDER Last Admin: 06/15/18 08:00 Dose: 6 mcg/min, 22.5 mls/hr Vasopressin 20 units/ Sodium (Chloride) 101 mls @ 9.09 mls/hr IV .Q11H7M LAMONTE; 0.03 U/MIN PRN Reason: Protocol Last Admin: 06/15/18 05:48 Dose: 9.09 mls/hr Heparin Sodium/Sodium Chloride (Heparin 31486 Units/250ml 1/2 Normal Saline) 25 ,000 units in 250 mls @ 12.655 mls/hr IV .[id number] PRN; Protocol; 18 UNITS/KG/HR PRN Reason: ADJUST RATE PER PROTOCOL Last Titration: 06/15/18 06:16 Dose: 9 units/kg/hr, 6.328 mls/hr Meropenem (Merrem Iv 1 Gm Premix) 50 mls @ 100 mls/hr IVPB Q8 LAMONTE PRN Reason: Protocol Last Admin: 06/15/18 05:50 Dose: 100 mls/hr Daptomycin 430 mg/ Sodium (Chloride) 100 mls @ 200 mls/hr IV Q24H LAMONTE Stop: 06/18/18 12:01 Last Admin: 06/14/18 13:57 Dose: 200 mls/hr Dextrose (Dextrose 5% In Water 1000 Ml) 1,000 mls @ 100 mls/hr IV .Q10H LAMONTE Last Admin: 06/15/18 10:01 Dose: 100 mls/hr Insulin Human Lispro (Humalog High) 0 units SC Q6 LAMONTE PRN Reason: Protocol Last Admin: 06/15/18 06:36 Dose: 7 u Lorazepam (Ativan) 2 mg IVP Q2H PRN; Protocol PRN Reason: Anxiety Last Admin: 06/13/18 04:07 Dose: 2 mg Pantoprazole Sodium (Protonix Inj) 40 mg IVP DAILY LAMONTE Last Admin: 06/15/18 10:00 Dose: 40 mg Sodium Hypochlorite (Dakins Solution 0.25%) 500 ml TOP DAILY LAMONTE Last Admin: 06/13/18 10:27 Dose: 1 % Sodium Hypochlorite (Dakins Solution 0.25%) 0 ml TOP DAILY LAMONTE - Labs Labs: 06/15/18 08:05 06/15/18 04:05 PT 17.5 SECONDS (9.4-12.5) H 06/13/18 06:40 INR 1.51 06/13/18 06:40 APTT 47.2 Seconds (25.1-36.5) H 06/15/18 04:05 - Constitutional Appears: Chronically Ill - Head Exam Head Exam: ATRAUMATIC, NORMOCEPHALIC - Eye Exam Eye Exam: EOMI - ENT Exam ENT Exam: Mucous Membranes Moist - Respiratory Exam Respiratory Exam: NORMAL BREATHING PATTERN - Cardiovascular Exam Cardiovascular Exam: REGULAR RHYTHM - GI/Abdominal Exam Additional comments: Wound covered dakins soaked bandages - Neurological Exam Neurological Exam: Altered Assessment and Plan - Assessment and Plan (Free Text) Assessment: 58 F presents with uncontrolled DM, vulvular SCC, suspected pulmonary embolism, severe acidosis, septic shock requiring 2 pressors and necrotizing fasciitis Family meeting held today family decided to extubate patient with comfort care measures. No plans for surgical intervention. Further recommendations per Dr. Anirudh Owen PGY3
[2018-06-15] MEDS ORDERED: Norepinephrine 8 MG in Sodium Chloride 0.9% 500 ML IV PRN (11:47)
--- NOTE | 2018-06-15 11:55 | CP.CCUPN ---
<Adithya Garcia - Last Filed: 06/15/18 11:29> CCU Subjective - Physician Review Events Since Last Encounter (Free Text): 06/15/18 11:29 Patient seen and examined at bedside. Platelets dropped to 20 overnight, without any platelets given, came back up to 50. Levophed was titrated from 10 to 6. Patient's family decided on terminal extubation with comfort measures yesterday. Otherwise, history limited 2/2 patient's intubation/sedation status. CCU Objective - Vital Signs / Intake & Output Intake and Output (Last 8hrs): Intake & Output 06/14/18 06/15/18 06/15/18 22:59 06:59 14:59 Intake Total 1472 1736 15 Output Total 670 Balance 1472 1066 15 Weight 71.214 kg Intake: IV 1472 1736 15 Right Internal Jugular 700 abx 450 100 albumin 50 fentanyl 96 96 heparin 102 60 levo 380 360 vaso 108 21 Output: Gastric Amount 120 Stomach 120 Urine 550 Urethral (Lorenz) 550 Other: # Voids Urethral (Lorenz) 920 # Bowel Movements 0 - Physical Exam Head: Positive for: Atraumatic, Normocephalic Pupils: Positive for: PERRL Extroacular Muscles: Positive for: EOMI Conjunctiva: Positive for: Normal Ears: Positive for: Normal, NORMAL TM, Normal Canal. Negative for: Erythema, TM Bulging, Fluid, TM Perf Mouth: Positive for: Moist Mucous Membranes Pharnyx: Positive for: Normal. Negative for: ERYTHEMA, EXUDATE, TONSILS ENLARGED, Peritonsilar Swelling, Uvular Deviation, Muffled/Hoarse Voice, Strider , Soft Palate/Uvular Edema Nose (External): Positive for: Atraumatic Nose (Internal): Positive for: Normal Inspection Neck: Positive for: Normal Range of Motion. Negative for: Meningeal Signs, Paraspinal Tenderness, Lymphadenopathy Respiratory/Chest: Positive for: Clear to Auscultation, Good Air Exchange. Negative for: Respiratory Distress, Accessory Muscle Use Cardiovascular: Positive for: Normal S1, S2, Tachycardic. Negative for: Murmurs Abdomen: Negative for: Tenderness, Distention, Peritoneal Signs Upper Extremity: Positive for: Normal Inspection. Negative for: Cyanosis, Edema Lower Extremity: Positive for: Edema (Edema to lower legs) Neurological: Positive for: CN II-XII Intact, Motor Func Grossly Intact, Normal Sensory Function, Normal Cerebellar Funct Skin: Positive for: Warm, Dry, Other (Diffuse cellulitic areas to abdomen and lower legs, hands with area of excoriations/scabbed lesions). Negative for: Rashes Psychiatric: Positive for: Alert - Medications Active Medications: Active Medications Generic Name Dose Route Start Last Admin Trade Name Freq PRN Reason Stop Dose Admin Albuterol/Ipratropium 3 ml 06/11/18 07:41 Duoneb 3 Mg/0.5 Mg (3 Ml) Ud IH Q2H PRN Shortness of Breath Albuterol/Ipratropium 3 ml 06/11/18 08:00 06/15/18 07:04 Duoneb 3 Mg/0.5 Mg (3 Ml) Ud IH 3 ml [id number] LAMONTE Administration Fentanyl Citrate 1,000 mcg in 100 mls @ 2 mls/hr 06/11/18 19:42 06/14/18 23: 03 Fentanyl Citrate/Sodium Chloride 1 Mg/100 Ml IV 80 mcg/hr .Q24H PRN 8 mls/hr TITRATE PER MD ORDER Administration Protocol 20 MCG/HR NOREPINEPHRINE BIT/0.9 % NACL 4 mg in 250 mls @ 15 mls/hr 06/11/18 19:42 08:00 Levophed 4 Mg/ 250 Ml Ns Premixed IV 6 mcg/min .[id number] PRN 22.5 mls/hr TITRATE PER MD ORDER Administration Protocol 4 MCG/MIN Vasopressin 20 units/ Sodium 101 mls @ 9.09 mls/hr 06/12/18 08:30 06/15/18 05 :48 Chloride IV 9.09 mls/hr .[id number] LAMONTE Administration Protocol 0.03 U/MIN Heparin Sodium/Sodium Chloride 25,000 units in 250 mls @ 12.655 mls/hr 19:42 06/15/18 06:16 Heparin 87839 Units/250ml 1/2 Normal Saline IV 9 units/kg/hr .[id number] PRN 6.328 mls/hr ADJUST RATE PER PROTOCOL Titration Protocol 18 UNITS/KG/HR Meropenem 50 mls @ 100 mls/hr 06/13/18 09:10 06/15/18 05:50 Merrem Iv 1 Gm Premix IVPB 100 mls/hr Q8 LAMONTE Administration Protocol Daptomycin 430 mg/ Sodium 100 mls @ 200 mls/hr 06/13/18 12:15 06/14/18 13:57 Chloride IV 06/18/18 12:01 200 mls/hr Q24H LAMONTE Administration Dextrose 1,000 mls @ 100 mls/hr 06/14/18 23:45 06/15/18 10:01 Dextrose 5% In Water 1000 Ml IV 100 mls/hr .Q10H LAMONTE Administration Insulin Human Lispro 0 units 06/14/18 12:00 06/15/18 06:36 Humalog High SC 7 u Q6 LAMONTE Administration Protocol Lorazepam 2 mg 06/12/18 09:43 06/13/18 04:07 Ativan IVP 2 mg Q2H PRN Administration Anxiety Protocol Pantoprazole Sodium 40 mg 06/12/18 10:00 06/15/18 10:00 Protonix Inj IVP 40 mg DAILY LAMONTE Administration Sodium Hypochlorite 500 ml 06/13/18 10:00 06/13/18 10:27 Dakins Solution 0.25% TOP 1 % DAILY LAMONTE Administration Sodium Hypochlorite 0 ml 06/14/18 10:00 Dakins Solution 0.25% TOP DAILY LAMONTE - Patient Studies Lab Studies: Microbiology Studies 06/14/18 05:30 Blood Culture - Preliminary Blood-Venous NO GROWTH AFTER 24 HOURS 06/14/18 06:00 Blood Culture - Preliminary Blood-Venous NO GROWTH AFTER 24 HOURS 06/14/18 13:45 Gram Stain - Final Sputum Induced 06/11/18 14:52 Gram Stain - Final Abdomen Wound Culture - Final Coagulase Neg Staphylococcus 06/11/18 16:26 Gram Stain - Final Other: Please Indicate Wound Culture - Final Proteus Mirabilis Lab Studies 06/15/18 06/15/18 06/15/18 Range/Units 08:05 06:32 04:05 WBC 9.7 (4.5-11.0) 10^3/ul RBC 4.10 (3.5-6.1) 10^6/uL Hgb 11.5 L (12.0-16.0) g/dL Hct 34.1 L (36.0-48.0) % MCV 83.2 (80.0-105.0) fl MCH 28.0 (25.0-35.0) pg MCHC 33.7 (31.0-37.0) g/dl RDW 16.6 H (11.5-14.5) % Plt Count 30 L* (120.0-450.0) 10^3/uL MPV (7.0-11.0) fl Gran % 89.1 H (50.0-68.0) % Lymph % (Auto) 7.5 L (22.0-35.0) % [place] % (Auto) 3.3 (1.0-6.0) % Eos % (Auto) 0.0 L (1.5-5.0) % Baso % (Auto) 0.1 (0.0-3.0) % Gran # 8.62 H (1.4-6.5) Lymph # (Auto) 0.7 L (1.2-3.4) [place] # (Auto) 0.3 (0.1-0.6) Eos # (Auto) 0.0 (0.0-0.7) Baso # (Auto) 0.01 (0.0-2.0) K/mm3 APTT 47.2 H (25.1-36.5) Seconds Sodium (132-148) mmol/L Potassium (3.6-5.0) mmol/L Chloride (98-107) mmol/L Carbon Dioxide (21-33) mmol/L Anion Gap (10-20) BUN (7-21) mg/dL Creatinine (0.7-1.2) mg/dl Est GFR ( Amer) Est GFR (Non-Af Amer) POC Glucose (mg/dL) 287 H (65-110) mg/dL Random Glucose (70-110) mg/dL Calcium (8.4-10.5) mg/dL Phosphorus (2.5-4.5) mg/dL Magnesium (1.7-2.2) mg/dL Total Bilirubin (0.2-1.3) mg/dL AST (14-36) U/L ALT (7-56) U/L Alkaline Phosphatase (38-126) U/L Total Protein (5.8-8.3) g/dL Albumin (3.0-4.8) g/dL Globulin gm/dL Albumin/Globulin Ratio (1.1-1.8) Procalcitonin (0.19-0.49) NG/ML B. henselae IgG Titer Bartonella sahni IgG Crossmatch 06/15/18 06/15/18 06/15/18 Range/Units 04:05 02:00 00:06 WBC 10.1 (4.5-11.0) 10^3/ul RBC 4.23 (3.5-6.1) 10^6/uL Hgb 12.0 (12.0-16.0) g/dL Hct 34.9 L (36.0-48.0) % MCV 82.5 (80.0-105.0) fl MCH 28.4 (25.0-35.0) pg MCHC 34.4 (31.0-37.0) g/dl RDW 16.6 H (11.5-14.5) % Plt Count 51 L (120.0-450.0) 10^3/uL MPV (7.0-11.0) fl Gran % 88.3 H (50.0-68.0) % Lymph % (Auto) 7.1 L (22.0-35.0) % [place] % (Auto) 4.3 (1.0-6.0) % Eos % (Auto) 0.1 L (1.5-5.0) % Baso % (Auto) 0.2 (0.0-3.0) % Gran # 8.90 H (1.4-6.5) Lymph # (Auto) 0.7 L (1.2-3.4) [place] # (Auto) 0.4 (0.1-0.6) Eos # (Auto) 0.0 (0.0-0.7) Baso # (Auto) 0.02 (0.0-2.0) K/mm3 APTT (25.1-36.5) Seconds Sodium 147 (132-148) mmol/L Potassium 5.0 (3.6-5.0) mmol/L Chloride 115 H (98-107) mmol/L Carbon Dioxide 15 L (21-33) mmol/L Anion Gap 21 H (10-20) BUN 76 H (7-21) mg/dL Creatinine 1.1 (0.7-1.2) mg/dl Est GFR ( Amer) > 60 Est GFR (Non-Af Amer) 51 POC Glucose (mg/dL) 228 H (65-110) mg/dL Random Glucose 270 H (70-110) mg/dL Calcium 7.5 L (8.4-10.5) mg/dL Phosphorus 7.1 H (2.5-4.5) mg/dL Magnesium 2.0 (1.7-2.2) mg/dL Total Bilirubin 4.2 H (0.2-1.3) mg/dL AST 19 (14-36) U/L ALT 34 (7-56) U/L Alkaline Phosphatase 279 H (38-126) U/L Total Protein 5.0 L (5.8-8.3) g/dL Albumin 2.3 L (3.0-4.8) g/dL Globulin 2.7 gm/dL Albumin/Globulin Ratio 0.8 L (1.1-1.8) Procalcitonin (0.19-0.49) NG/ML B. henselae IgG Titer Bartonella sahni IgG Crossmatch 06/14/18 06/14/18 06/14/18 Range/Units 21:40 21:40 17:54 WBC 10.1 (4.5-11.0) 10^3/ul RBC 4.18 (3.5-6.1) 10^6/uL Hgb 11.6 L (12.0-16.0) g/dL Hct 34.8 L (36.0-48.0) % MCV 83.3 (80.0-105.0) fl MCH 27.8 (25.0-35.0) pg MCHC 33.3 (31.0-37.0) g/dl RDW 16.6 H (11.5-14.5) % Plt Count 20 L* (120.0-450.0) 10^3/uL MPV (7.0-11.0) fl Gran % 86.8 H (50.0-68.0) % Lymph % (Auto) 8.8 L (22.0-35.0) % [place] % (Auto) 4.2 (1.0-6.0) % Eos % (Auto) 0.1 L (1.5-5.0) % Baso % (Auto) 0.1 (0.0-3.0) % Gran # 8.78 H (1.4-6.5) Lymph # (Auto) 0.9 L (1.2-3.4) [place] # (Auto) 0.4 (0.1-0.6) Eos # (Auto) 0.0 (0.0-0.7) Baso # (Auto) 0.01 (0.0-2.0) K/mm3 APTT 49.5 H (25.1-36.5) Seconds Sodium (132-148) mmol/L Potassium (3.6-5.0) mmol/L Chloride (98-107) mmol/L Carbon Dioxide (21-33) mmol/L Anion Gap (10-20) BUN (7-21) mg/dL Creatinine (0.7-1.2) mg/dl Est GFR ( Amer) Est GFR (Non-Af Amer) POC Glucose (mg/dL) 194 H (65-110) mg/dL Random Glucose (70-110) mg/dL Calcium (8.4-10.5) mg/dL Phosphorus (2.5-4.5) mg/dL Magnesium (1.7-2.2) mg/dL Total Bilirubin (0.2-1.3) mg/dL AST (14-36) U/L ALT (7-56) U/L Alkaline Phosphatase (38-126) U/L Total Protein (5.8-8.3) g/dL Albumin (3.0-4.8) g/dL Globulin gm/dL Albumin/Globulin Ratio (1.1-1.8) Procalcitonin (0.19-0.49) NG/ML B. henselae IgG Titer Bartonella sahni IgG Crossmatch 06/14/18 06/14/18 06/14/18 Range/Units 14:20 14:20 12:02 WBC 10.8 D (4.5-11.0) 10^3/ul RBC 4.16 (3.5-6.1) 10^6/uL Hgb 11.7 L (12.0-16.0) g/dL Hct 35.1 L (36.0-48.0) % MCV 84.4 (80.0-105.0) fl MCH 28.1 (25.0-35.0) pg MCHC 33.3 (31.0-37.0) g/dl RDW 16.4 H (11.5-14.5) % Plt Count 28 L* (120.0-450.0) 10^3/uL MPV 10.7 (7.0-11.0) fl Gran % 90.9 H (50.0-68.0) % Lymph % (Auto) 6.9 L (22.0-35.0) % [place] % (Auto) 2.0 (1.0-6.0) % Eos % (Auto) 0.1 L (1.5-5.0) % Baso % (Auto) 0.1 (0.0-3.0) % Gran # 9.79 H (1.4-6.5) Lymph # (Auto) 0.7 L (1.2-3.4) [place] # (Auto) 0.2 (0.1-0.6) Eos # (Auto) 0.0 (0.0-0.7) Baso # (Auto) 0.01 (0.0-2.0) K/mm3 APTT 81.4 H (25.1-36.5) Seconds Sodium (132-148) mmol/L Potassium (3.6-5.0) mmol/L Chloride (98-107) mmol/L Carbon Dioxide (21-33) mmol/L Anion Gap (10-20) BUN (7-21) mg/dL Creatinine (0.7-1.2) mg/dl Est GFR ( Amer) Est GFR (Non-Af Amer) POC Glucose (mg/dL) 208 H (65-110) mg/dL Random Glucose (70-110) mg/dL Calcium (8.4-10.5) mg/dL Phosphorus (2.5-4.5) mg/dL Magnesium (1.7-2.2) mg/dL Total Bilirubin (0.2-1.3) mg/dL AST (14-36) U/L ALT (7-56) U/L Alkaline Phosphatase (38-126) U/L Total Protein (5.8-8.3) g/dL Albumin (3.0-4.8) g/dL Globulin gm/dL Albumin/Globulin Ratio (1.1-1.8) Procalcitonin (0.19-0.49) NG/ML B. henselae IgG Titer Bartonella sahni IgG Crossmatch 06/14/18 06/14/18 06/11/18 Range/Units 08:18 06:00 15:13 WBC (4.5-11.0) 10^3/ul RBC (3.5-6.1) 10^6/uL Hgb (12.0-16.0) g/dL Hct (36.0-48.0) % MCV (80.0-105.0) fl MCH (25.0-35.0) pg MCHC (31.0-37.0) g/dl RDW (11.5-14.5) % Plt Count (120.0-450.0) 10^3/uL MPV (7.0-11.0) fl Gran % (50.0-68.0) % Lymph % (Auto) (22.0-35.0) % [place] % (Auto) (1.0-6.0) % Eos % (Auto) (1.5-5.0) % Baso % (Auto) (0.0-3.0) % Gran # (1.4-6.5) Lymph # (Auto) (1.2-3.4) [place] # (Auto) (0.1-0.6) Eos # (Auto) (0.0-0.7) Baso # (Auto) (0.0-2.0) K/mm3 APTT (25.1-36.5) Seconds Sodium (132-148) mmol/L Potassium (3.6-5.0) mmol/L Chloride (98-107) mmol/L Carbon Dioxide (21-33) mmol/L Anion Gap (10-20) BUN (7-21) mg/dL Creatinine (0.7-1.2) mg/dl Est GFR ( Amer) Est GFR (Non-Af Amer) POC Glucose (mg/dL) 178 H (65-110) mg/dL Random Glucose (70-110) mg/dL Calcium (8.4-10.5) mg/dL Phosphorus (2.5-4.5) mg/dL Magnesium (1.7-2.2) mg/dL Total Bilirubin (0.2-1.3) mg/dL AST (14-36) U/L ALT (7-56) U/L Alkaline Phosphatase (38-126) U/L Total Protein (5.8-8.3) g/dL Albumin (3.0-4.8) g/dL Globulin gm/dL Albumin/Globulin Ratio (1.1-1.8) Procalcitonin 31.81 H (0.19-0.49) NG/ML B. henselae IgG Titer Negative Bartonella sahni IgG Negative Crossmatch 06/11/18 Range/Units 14:25 WBC (4.5-11.0) 10^3/ul RBC (3.5-6.1) 10^6/uL Hgb (12.0-16.0) g/dL Hct (36.0-48.0) % MCV (80.0-105.0) fl MCH (25.0-35.0) pg MCHC (31.0-37.0) g/dl RDW (11.5-14.5) % Plt Count (120.0-450.0) 10^3/uL MPV (7.0-11.0) fl Gran % (50.0-68.0) % Lymph % (Auto) (22.0-35.0) % [place] % (Auto) (1.0-6.0) % Eos % (Auto) (1.5-5.0) % Baso % (Auto) (0.0-3.0) % Gran # (1.4-6.5) Lymph # (Auto) (1.2-3.4) [place] # (Auto) (0.1-0.6) Eos # (Auto) (0.0-0.7) Baso # (Auto) (0.0-2.0) K/mm3 APTT (25.1-36.5) Seconds Sodium (132-148) mmol/L Potassium (3.6-5.0) mmol/L Chloride (98-107) mmol/L Carbon Dioxide (21-33) mmol/L Anion Gap (10-20) BUN (7-21) mg/dL Creatinine (0.7-1.2) mg/dl Est GFR ( Amer) Est GFR (Non-Af Amer) POC Glucose (mg/dL) (65-110) mg/dL Random Glucose (70-110) mg/dL Calcium (8.4-10.5) mg/dL Phosphorus (2.5-4.5) mg/dL Magnesium (1.7-2.2) mg/dL Total Bilirubin (0.2-1.3) mg/dL AST (14-36) U/L ALT (7-56) U/L Alkaline Phosphatase (38-126) U/L Total Protein (5.8-8.3) g/dL Albumin (3.0-4.8) g/dL Globulin gm/dL Albumin/Globulin Ratio (1.1-1.8) Procalcitonin (0.19-0.49) NG/ML B. henselae IgG Titer Bartonella sahni IgG Crossmatch See Detail Laboratory Results - last 24 hr 06/11/18 06/11/18 06/14/18 14:25 15:13 06:00 WBC RBC Hgb Hct MCV MCH MCHC RDW Plt Count MPV Gran % Lymph % (Auto) [place] % (Auto) Eos % (Auto) Baso % (Auto) Gran # Lymph # (Auto) [place] # (Auto) Eos # (Auto) Baso # (Auto) APTT Sodium Potassium Chloride Carbon Dioxide Anion Gap BUN Creatinine Est GFR ( Amer) Est GFR (Non-Af Amer) POC Glucose (mg/dL) Random Glucose Calcium Phosphorus Magnesium Total Bilirubin AST ALT Alkaline Phosphatase Total Protein Albumin Globulin Albumin/Globulin Ratio Procalcitonin 31.81 H B. henselae IgG Titer Negative Bartonella sahni IgG Negative Crossmatch See Detail 06/14/18 06/14/18 06/14/18 08:18 12:02 14:20 WBC 10.8 D RBC 4.16 Hgb 11.7 L Hct 35.1 L MCV 84.4 MCH 28.1 MCHC 33.3 RDW 16.4 H Plt Count 28 L* MPV 10.7 Gran % 90.9 H Lymph % (Auto) 6.9 L [place] % (Auto) 2.0 Eos % (Auto) 0.1 L Baso % (Auto) 0.1 Gran # 9.79 H Lymph # (Auto) 0.7 L [place] # (Auto) 0.2 Eos # (Auto) 0.0 Baso # (Auto) 0.01 APTT Sodium Potassium Chloride Carbon Dioxide Anion Gap BUN Creatinine Est GFR ( Amer) Est GFR (Non-Af Amer) POC Glucose (mg/dL) 178 H 208 H Random Glucose Calcium Phosphorus Magnesium Total Bilirubin AST ALT Alkaline Phosphatase Total Protein Albumin Globulin Albumin/Globulin Ratio Procalcitonin B. henselae IgG Titer Bartonella sahni IgG Crossmatch 06/14/18 06/14/18 06/14/18 14:20 17:54 21:40 WBC 10.1 RBC 4.18 Hgb 11.6 L Hct 34.8 L MCV 83.3 MCH 27.8 MCHC 33.3 RDW 16.6 H Plt Count 20 L* MPV Gran % 86.8 H Lymph % (Auto) 8.8 L [place] % (Auto) 4.2 Eos % (Auto) 0.1 L Baso % (Auto) 0.1 Gran # 8.78 H Lymph # (Auto) 0.9 L [place] # (Auto) 0.4 Eos # (Auto) 0.0 Baso # (Auto) 0.01 APTT 81.4 H Sodium Potassium Chloride Carbon Dioxide Anion Gap BUN Creatinine Est GFR ( Amer) Est GFR (Non-Af Amer) POC Glucose (mg/dL) 194 H Random Glucose Calcium Phosphorus Magnesium Total Bilirubin AST ALT Alkaline Phosphatase Total Protein Albumin Globulin Albumin/Globulin Ratio Procalcitonin B. henselae IgG Titer Bartonella sahni IgG Crossmatch 06/14/18 06/15/18 06/15/18 21:40 00:06 02:00 WBC 10.1 RBC 4.23 Hgb 12.0 Hct 34.9 L MCV 82.5 MCH 28.4 MCHC 34.4 RDW 16.6 H Plt Count 51 L MPV Gran % 88.3 H Lymph % (Auto) 7.1 L [place] % (Auto) 4.3 Eos % (Auto) 0.1 L Baso % (Auto) 0.2 Gran # 8.90 H Lymph # (Auto) 0.7 L [place] # (Auto) 0.4 Eos # (Auto) 0.0 Baso # (Auto) 0.02 APTT 49.5 H Sodium Potassium Chloride Carbon Dioxide Anion Gap BUN Creatinine Est GFR ( Amer) Est GFR (Non-Af Amer) POC Glucose (mg/dL) 228 H Random Glucose Calcium Phosphorus Magnesium Total Bilirubin AST ALT Alkaline Phosphatase Total Protein Albumin Globulin Albumin/Globulin Ratio Procalcitonin B. henselae IgG Titer Bartonella sahni IgG Crossmatch 06/15/18 06/15/18 06/15/18 04:05 04:05 06:32 WBC RBC Hgb Hct MCV MCH MCHC RDW Plt Count MPV Gran % Lymph % (Auto) [place] % (Auto) Eos % (Auto) Baso % (Auto) Gran # Lymph # (Auto) [place] # (Auto) Eos # (Auto) Baso # (Auto) APTT 47.2 H Sodium 147 Potassium 5.0 Chloride 115 H Carbon Dioxide 15 L Anion Gap 21 H BUN 76 H Creatinine 1.1 Est GFR ( Amer) > 60 Est GFR (Non-Af Amer) 51 POC Glucose (mg/dL) 287 H Random Glucose 270 H Calcium 7.5 L Phosphorus 7.1 H Magnesium 2.0 Total Bilirubin 4.2 H AST 19 ALT 34 Alkaline Phosphatase 279 H Total Protein 5.0 L Albumin 2.3 L Globulin 2.7 Albumin/Globulin Ratio 0.8 L Procalcitonin B. henselae IgG Titer Bartonella sahni IgG Crossmatch 06/15/18 08:05 WBC 9.7 RBC 4.10 Hgb 11.5 L Hct 34.1 L MCV 83.2 MCH 28.0 MCHC 33.7 RDW 16.6 H Plt Count 30 L* MPV Gran % 89.1 H Lymph % (Auto) 7.5 L [place] % (Auto) 3.3 Eos % (Auto) 0.0 L Baso % (Auto) 0.1 Gran # 8.62 H Lymph # (Auto) 0.7 L [place] # (Auto) 0.3 Eos # (Auto) 0.0 Baso # (Auto) 0.01 APTT Sodium Potassium Chloride Carbon Dioxide Anion Gap BUN Creatinine Est GFR ( Amer) Est GFR (Non-Af Amer) POC Glucose (mg/dL) Random Glucose Calcium Phosphorus Magnesium Total Bilirubin AST ALT Alkaline Phosphatase Total Protein Albumin Globulin Albumin/Globulin Ratio Procalcitonin B. henselae IgG Titer Bartonella sahni IgG Crossmatch Fingerstick Blood Sugar Results: 287 Assessment/Plan - Assessment and Plan (Free Text) Assessment: 58 year old female under ICU management for septic shock with multi organ failure in the setting of lactic acidosis, DOMINIQUE, and Hypoxic respiratory failure likely 2/2 necrotizing fasciitis; patient 1. Acute AMS 2. Possible Nec Fasciitis 3. Acute thrombocytopenia 4. Acute metabolic acidosis likely 2/2 HHS 5. Acute hyperkalemia, likely 2/2 HHS 6. 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 Hx COPD 8. Hx DM 9. Hx HTN Patient's lactic acidosis has resolved, new blood cultures are negative, but patient continues to have an uncompensated metabolic acidosis, with unknown etiology. AG is still elevated at 17. Given this HAGMA, on my differential is that patient could have ingested a toxin which is propagating the acidosis. Acutely, ECHO shows possibility of PE; given patient's current status, CTA is not going to be plausible; ptt shows that heparin drip is therapeutic. Regardless, patient's family decided on hospice care with terminal extubation last night, which is scheduled for today. Plan: Neuro - Maintain normothermia - Treat lactic acidosis and likely source of infection, which are contributing to AMS - Titrate fentanyl drip to RASS score of -4 Pulm - Duonebs PRN and LAMONTE - Maintain sats > 92% - Lung protective ventilation protocol (Peak pressures < 30) with settings of: 50/26/7/460 Cardio - Maintain MAP > 65, A-line placed for more accurate measurement of BP - Patient on levophed, vasopressin, drips - Started Lasix to decrease R sided heart pressure - Heparin drip for possible PE GI - GI PPX - Surgery on consult - s/p two debridements - GI on consult - have signed off - Correct electrolyte abnormalities - Goal UOP should be .5/kg/hr; Continue to try to maintain MAP > 65 to allow for renal perfusion - Maintenance fluids of D5W at 75/hr ID - Continue Clinda, Merrem, and Daptomycin for septic shock 2/2 necrotizing fasciitis; CPK level was normal on admission; blood cultures showed bacteroides , indicating an abdominal source, as well as strep anginosis; wound culture with proteus and abdominal wound culture with coag negative staph (all old cultures); new blood cultures show no new growth - ID Consult: Dr. Bogghossian Endo - Continue RISS q4 with FS q4 - Maintain euglycemia Heme - DIC work up reveals low probability for DIC, HIT work-up pending, for thrombocytopenia; patient is s/p 2 U FFP Psych - Possible suicide attempt; may need 1:1 when patient medically optimized Disposition: Prognosis is guarded, and goals of care discussed with family <GarciaSigrid - Last Filed: 06/15/18 13:21> CCU Objective - Vital Signs / Intake & Output Intake and Output (Last 8hrs): Intake & Output 06/14/18 06/15/18 06/15/18 22:59 06:59 14:59 Intake Total 1472 1736 115 Output Total 670 Balance 1472 1066 115 Weight 157 lb Intake: IV 1472 1736 115 Right Internal Jugular 700 abx 450 100 albumin 50 fentanyl 96 96 heparin 102 60 levo 380 360 vaso 108 21 Output: Gastric Amount 120 Stomach 120 Urine 550 Urethral (Lorenz) 550 Other: # Voids Urethral (Lorenz) 920 # Bowel Movements 0 - Medications Active Medications: Active Medications Generic Name Dose Route Start Last Admin Trade Name Freq PRN Reason Stop Dose Admin Fentanyl Citrate 1,000 mcg in 100 mls @ 2 mls/hr 06/11/18 19:42 06/15/18 12: 25 Fentanyl Citrate/Sodium Chloride 1 Mg/100 Ml IV 80 mcg/hr .Q24H PRN 8 mls/hr TITRATE PER MD ORDER Administration Protocol 20 MCG/HR Morphine Sulfate 4 mg 06/15/18 12:56 Morphine IVP Q4 PRN Dyspnea - Patient Studies Lab Studies: Microbiology Studies 06/14/18 05:30 Blood Culture - Preliminary Blood-Venous NO GROWTH AFTER 24 HOURS 06/14/18 06:00 Blood Culture - Preliminary Blood-Venous NO GROWTH AFTER 24 HOURS 06/14/18 13:45 Gram Stain - Final Sputum Induced 06/11/18 14:52 Gram Stain - Final Abdomen Wound Culture - Final Coagulase Neg Staphylococcus Lab Studies 06/15/18 06/15/18 06/15/18 Range/Units 12:08 12:00 08:38 WBC (4.5-11.0) 10^3/ul RBC (3.5-6.1) 10^6/uL Hgb (12.0-16.0) g/dL Hct (36.0-48.0) % MCV (80.0-105.0) fl MCH (25.0-35.0) pg MCHC (31.0-37.0) g/dl RDW (11.5-14.5) % Plt Count (120.0-450.0) 10^3/uL MPV (7.0-11.0) fl Gran % (50.0-68.0) % Lymph % (Auto) (22.0-35.0) % [place] % (Auto) (1.0-6.0) % Eos % (Auto) (1.5-5.0) % Baso % (Auto) (0.0-3.0) % Gran # (1.4-6.5) Lymph # (Auto) (1.2-3.4) [place] # (Auto) (0.1-0.6) Eos # (Auto) (0.0-0.7) Baso # (Auto) (0.0-2.0) K/mm3 APTT 114.0 H* (25.1-36.5) Seconds Sodium (132-148) mmol/L Potassium (3.6-5.0) mmol/L Chloride (98-107) mmol/L Carbon Dioxide (21-33) mmol/L Anion Gap (10-20) BUN (7-21) mg/dL Creatinine (0.7-1.2) mg/dl Est GFR ( Amer) Est GFR (Non-Af Amer) POC Glucose (mg/dL) 249 H 290 H (65-110) mg/dL Random Glucose (70-110) mg/dL Calcium (8.4-10.5) mg/dL Phosphorus (2.5-4.5) mg/dL Magnesium (1.7-2.2) mg/dL Total Bilirubin (0.2-1.3) mg/dL AST (14-36) U/L ALT (7-56) U/L Alkaline Phosphatase (38-126) U/L Total Protein (5.8-8.3) g/dL Albumin (3.0-4.8) g/dL Globulin gm/dL Albumin/Globulin Ratio (1.1-1.8) Procalcitonin (0.19-0.49) NG/ML B. henselae IgG Titer Bartonella sahni IgG Crossmatch 06/15/18 06/15/18 06/15/18 Range/Units 08:05 06:32 04:05 WBC 9.7 (4.5-11.0) 10^3/ul RBC 4.10 (3.5-6.1) 10^6/uL Hgb 11.5 L (12.0-16.0) g/dL Hct 34.1 L (36.0-48.0) % MCV 83.2 (80.0-105.0) fl MCH 28.0 (25.0-35.0) pg MCHC 33.7 (31.0-37.0) g/dl RDW 16.6 H (11.5-14.5) % Plt Count 30 L* (120.0-450.0) 10^3/uL MPV (7.0-11.0) fl Gran % 89.1 H (50.0-68.0) % Lymph % (Auto) 7.5 L (22.0-35.0) % [place] % (Auto) 3.3 (1.0-6.0) % Eos % (Auto) 0.0 L (1.5-5.0) % Baso % (Auto) 0.1 (0.0-3.0) % Gran # 8.62 H (1.4-6.5) Lymph # (Auto) 0.7 L (1.2-3.4) [place] # (Auto) 0.3 (0.1-0.6) Eos # (Auto) 0.0 (0.0-0.7) Baso # (Auto) 0.01 (0.0-2.0) K/mm3 APTT 47.2 H (25.1-36.5) Seconds Sodium (132-148) mmol/L Potassium (3.6-5.0) mmol/L Chloride (98-107) mmol/L Carbon Dioxide (21-33) mmol/L Anion Gap (10-20) BUN (7-21) mg/dL Creatinine (0.7-1.2) mg/dl Est GFR ( Amer) Est GFR (Non-Af Amer) POC Glucose (mg/dL) 287 H (65-110) mg/dL Random Glucose (70-110) mg/dL Calcium (8.4-10.5) mg/dL Phosphorus (2.5-4.5) mg/dL Magnesium (1.7-2.2) mg/dL Total Bilirubin (0.2-1.3) mg/dL AST (14-36) U/L ALT (7-56) U/L Alkaline Phosphatase (38-126) U/L Total Protein (5.8-8.3) g/dL Albumin (3.0-4.8) g/dL Globulin gm/dL Albumin/Globulin Ratio (1.1-1.8) Procalcitonin (0.19-0.49) NG/ML B. henselae IgG Titer Bartonella sahni IgG Crossmatch 06/15/18 06/15/18 06/15/18 Range/Units 04:05 02:00 00:06 WBC 10.1 (4.5-11.0) 10^3/ul RBC 4.23 (3.5-6.1) 10^6/uL Hgb 12.0 (12.0-16.0) g/dL Hct 34.9 L (36.0-48.0) % MCV 82.5 (80.0-105.0) fl MCH 28.4 (25.0-35.0) pg MCHC 34.4 (31.0-37.0) g/dl RDW 16.6 H (11.5-14.5) % Plt Count 51 L (120.0-450.0) 10^3/uL MPV (7.0-11.0) fl Gran % 88.3 H (50.0-68.0) % Lymph % (Auto) 7.1 L (22.0-35.0) % [place] % (Auto) 4.3 (1.0-6.0) % Eos % (Auto) 0.1 L (1.5-5.0) % Baso % (Auto) 0.2 (0.0-3.0) % Gran # 8.90 H (1.4-6.5) Lymph # (Auto) 0.7 L (1.2-3.4) [place] # (Auto) 0.4 (0.1-0.6) Eos # (Auto) 0.0 (0.0-0.7) Baso # (Auto) 0.02 (0.0-2.0) K/mm3 APTT (25.1-36.5) Seconds Sodium 147 (132-148) mmol/L Potassium 5.0 (3.6-5.0) mmol/L Chloride 115 H (98-107) mmol/L Carbon Dioxide 15 L (21-33) mmol/L Anion Gap 21 H (10-20) BUN 76 H (7-21) mg/dL Creatinine 1.1 (0.7-1.2) mg/dl Est GFR ( Amer) > 60 Est GFR (Non-Af Amer) 51 POC Glucose (mg/dL) 228 H (65-110) mg/dL Random Glucose 270 H (70-110) mg/dL Calcium 7.5 L (8.4-10.5) mg/dL Phosphorus 7.1 H (2.5-4.5) mg/dL Magnesium 2.0 (1.7-2.2) mg/dL Total Bilirubin 4.2 H (0.2-1.3) mg/dL AST 19 (14-36) U/L ALT 34 (7-56) U/L Alkaline Phosphatase 279 H (38-126) U/L Total Protein 5.0 L (5.8-8.3) g/dL Albumin 2.3 L (3.0-4.8) g/dL Globulin 2.7 gm/dL Albumin/Globulin Ratio 0.8 L (1.1-1.8) Procalcitonin (0.19-0.49) NG/ML B. henselae IgG Titer Bartonella sahni IgG Crossmatch 06/14/18 06/14/18 06/14/18 Range/Units 21:40 21:40 17:54 WBC 10.1 (4.5-11.0) 10^3/ul RBC 4.18 (3.5-6.1) 10^6/uL Hgb 11.6 L (12.0-16.0) g/dL Hct 34.8 L (36.0-48.0) % MCV 83.3 (80.0-105.0) fl MCH 27.8 (25.0-35.0) pg MCHC 33.3 (31.0-37.0) g/dl RDW 16.6 H (11.5-14.5) % Plt Count 20 L* (120.0-450.0) 10^3/uL MPV (7.0-11.0) fl Gran % 86.8 H (50.0-68.0) % Lymph % (Auto) 8.8 L (22.0-35.0) % [place] % (Auto) 4.2 (1.0-6.0) % Eos % (Auto) 0.1 L (1.5-5.0) % Baso % (Auto) 0.1 (0.0-3.0) % Gran # 8.78 H (1.4-6.5) Lymph # (Auto) 0.9 L (1.2-3.4) [place] # (Auto) 0.4 (0.1-0.6) Eos # (Auto) 0.0 (0.0-0.7) Baso # (Auto) 0.01 (0.0-2.0) K/mm3 APTT 49.5 H (25.1-36.5) Seconds Sodium (132-148) mmol/L Potassium (3.6-5.0) mmol/L Chloride (98-107) mmol/L Carbon Dioxide (21-33) mmol/L Anion Gap (10-20) BUN (7-21) mg/dL Creatinine (0.7-1.2) mg/dl Est GFR ( Amer) Est GFR (Non-Af Amer) POC Glucose (mg/dL) 194 H (65-110) mg/dL Random Glucose (70-110) mg/dL Calcium (8.4-10.5) mg/dL Phosphorus (2.5-4.5) mg/dL Magnesium (1.7-2.2) mg/dL Total Bilirubin (0.2-1.3) mg/dL AST (14-36) U/L ALT (7-56) U/L Alkaline Phosphatase (38-126) U/L Total Protein (5.8-8.3) g/dL Albumin (3.0-4.8) g/dL Globulin gm/dL Albumin/Globulin Ratio (1.1-1.8) Procalcitonin (0.19-0.49) NG/ML B. henselae IgG Titer Bartonella sahni IgG Crossmatch 06/14/18 06/14/18 06/14/18 Range/Units 14:20 14:20 12:02 WBC 10.8 D (4.5-11.0) 10^3/ul RBC 4.16 (3.5-6.1) 10^6/uL Hgb 11.7 L (12.0-16.0) g/dL Hct 35.1 L (36.0-48.0) % MCV 84.4 (80.0-105.0) fl MCH 28.1 (25.0-35.0) pg MCHC 33.3 (31.0-37.0) g/dl RDW 16.4 H (11.5-14.5) % Plt Count 28 L* (120.0-450.0) 10^3/uL MPV 10.7 (7.0-11.0) fl Gran % 90.9 H (50.0-68.0) % Lymph % (Auto) 6.9 L (22.0-35.0) % [place] % (Auto) 2.0 (1.0-6.0) % Eos % (Auto) 0.1 L (1.5-5.0) % Baso % (Auto) 0.1 (0.0-3.0) % Gran # 9.79 H (1.4-6.5) Lymph # (Auto) 0.7 L (1.2-3.4) [place] # (Auto) 0.2 (0.1-0.6) Eos # (Auto) 0.0 (0.0-0.7) Baso # (Auto) 0.01 (0.0-2.0) K/mm3 APTT 81.4 H (25.1-36.5) Seconds Sodium (132-148) mmol/L Potassium (3.6-5.0) mmol/L Chloride (98-107) mmol/L Carbon Dioxide (21-33) mmol/L Anion Gap (10-20) BUN (7-21) mg/dL Creatinine (0.7-1.2) mg/dl Est GFR ( Amer) Est GFR (Non-Af Amer) POC Glucose (mg/dL) 208 H (65-110) mg/dL Random Glucose (70-110) mg/dL Calcium (8.4-10.5) mg/dL Phosphorus (2.5-4.5) mg/dL Magnesium (1.7-2.2) mg/dL Total Bilirubin (0.2-1.3) mg/dL AST (14-36) U/L ALT (7-56) U/L Alkaline Phosphatase (38-126) U/L Total Protein (5.8-8.3) g/dL Albumin (3.0-4.8) g/dL Globulin gm/dL Albumin/Globulin Ratio (1.1-1.8) Procalcitonin (0.19-0.49) NG/ML B. henselae IgG Titer Bartonella sahni IgG Crossmatch 06/14/18 06/11/18 06/11/18 Range/Units 06:00 15:13 14:25 WBC (4.5-11.0) 10^3/ul RBC (3.5-6.1) 10^6/uL Hgb (12.0-16.0) g/dL Hct (36.0-48.0) % MCV (80.0-105.0) fl MCH (25.0-35.0) pg MCHC (31.0-37.0) g/dl RDW (11.5-14.5) % Plt Count (120.0-450.0) 10^3/uL MPV (7.0-11.0) fl Gran % (50.0-68.0) % Lymph % (Auto) (22.0-35.0) % [place] % (Auto) (1.0-6.0) % Eos % (Auto) (1.5-5.0) % Baso % (Auto) (0.0-3.0) % Gran # (1.4-6.5) Lymph # (Auto) (1.2-3.4) [place] # (Auto) (0.1-0.6) Eos # (Auto) (0.0-0.7) Baso # (Auto) (0.0-2.0) K/mm3 APTT (25.1-36.5) Seconds Sodium (132-148) mmol/L Potassium (3.6-5.0) mmol/L Chloride (98-107) mmol/L Carbon Dioxide (21-33) mmol/L Anion Gap (10-20) BUN (7-21) mg/dL Creatinine (0.7-1.2) mg/dl Est GFR ( Amer) Est GFR (Non-Af Amer) POC Glucose (mg/dL) (65-110) mg/dL Random Glucose (70-110) mg/dL Calcium (8.4-10.5) mg/dL Phosphorus (2.5-4.5) mg/dL Magnesium (1.7-2.2) mg/dL Total Bilirubin (0.2-1.3) mg/dL AST (14-36) U/L ALT (7-56) U/L Alkaline Phosphatase (38-126) U/L Total Protein (5.8-8.3) g/dL Albumin (3.0-4.8) g/dL Globulin gm/dL Albumin/Globulin Ratio (1.1-1.8) Procalcitonin 31.81 H (0.19-0.49) NG/ML B. henselae IgG Titer Negative Bartonella sahni IgG Negative Crossmatch See Detail Laboratory Results - last 24 hr 06/11/18 06/11/18 06/14/18 14:25 15:13 06:00 WBC RBC Hgb Hct MCV MCH MCHC RDW Plt Count MPV Gran % Lymph % (Auto) [place] % (Auto) Eos % (Auto) Baso % (Auto) Gran # Lymph # (Auto) [place] # (Auto) Eos # (Auto) Baso # (Auto) APTT Sodium Potassium Chloride Carbon Dioxide Anion Gap BUN Creatinine Est GFR ( Amer) Est GFR (Non-Af Amer) POC Glucose (mg/dL) Random Glucose Calcium Phosphorus Magnesium Total Bilirubin AST ALT Alkaline Phosphatase Total Protein Albumin Globulin Albumin/Globulin Ratio Procalcitonin 31.81 H B. henselae IgG Titer Negative Bartonella sahni IgG Negative Crossmatch See Detail 06/14/18 06/14/18 06/14/18 12:02 14:20 14:20 WBC 10.8 D RBC 4.16 Hgb 11.7 L Hct 35.1 L MCV 84.4 MCH 28.1 MCHC 33.3 RDW 16.4 H Plt Count 28 L* MPV 10.7 Gran % 90.9 H Lymph % (Auto) 6.9 L [place] % (Auto) 2.0 Eos % (Auto) 0.1 L Baso % (Auto) 0.1 Gran # 9.79 H Lymph # (Auto) 0.7 L [place] # (Auto) 0.2 Eos # (Auto) 0.0 Baso # (Auto) 0.01 APTT 81.4 H Sodium Potassium Chloride Carbon Dioxide Anion Gap BUN Creatinine Est GFR ( Amer) Est GFR (Non-Af Amer) POC Glucose (mg/dL) 208 H Random Glucose Calcium Phosphorus Magnesium Total Bilirubin AST ALT Alkaline Phosphatase Total Protein Albumin Globulin Albumin/Globulin Ratio Procalcitonin B. henselae IgG Titer Bartonella sahni IgG Crossmatch 06/14/18 06/14/18 06/14/18 17:54 21:40 21:40 WBC 10.1 RBC 4.18 Hgb 11.6 L Hct 34.8 L MCV 83.3 MCH 27.8 MCHC 33.3 RDW 16.6 H Plt Count 20 L* MPV Gran % 86.8 H Lymph % (Auto) 8.8 L [place] % (Auto) 4.2 Eos % (Auto) 0.1 L Baso % (Auto) 0.1 Gran # 8.78 H Lymph # (Auto) 0.9 L [place] # (Auto) 0.4 Eos # (Auto) 0.0 Baso # (Auto) 0.01 APTT 49.5 H Sodium Potassium Chloride Carbon Dioxide Anion Gap BUN Creatinine Est GFR ( Amer) Est GFR (Non-Af Amer) POC Glucose (mg/dL) 194 H Random Glucose Calcium Phosphorus Magnesium Total Bilirubin AST ALT Alkaline Phosphatase Total Protein Albumin Globulin Albumin/Globulin Ratio Procalcitonin B. henselae IgG Titer Bartonella sahni IgG Crossmatch 06/15/18 06/15/18 06/15/18 00:06 02:00 04:05 WBC 10.1 RBC 4.23 Hgb 12.0 Hct 34.9 L MCV 82.5 MCH 28.4 MCHC 34.4 RDW 16.6 H Plt Count 51 L MPV Gran % 88.3 H Lymph % (Auto) 7.1 L [place] % (Auto) 4.3 Eos % (Auto) 0.1 L Baso % (Auto) 0.2 Gran # 8.90 H Lymph # (Auto) 0.7 L [place] # (Auto) 0.4 Eos # (Auto) 0.0 Baso # (Auto) 0.02 APTT Sodium 147 Potassium 5.0 Chloride 115 H Carbon Dioxide 15 L Anion Gap 21 H BUN 76 H Creatinine 1.1 Est GFR ( Amer) > 60 Est GFR (Non-Af Amer) 51 POC Glucose (mg/dL) 228 H Random Glucose 270 H Calcium 7.5 L Phosphorus 7.1 H Magnesium 2.0 Total Bilirubin 4.2 H AST 19 ALT 34 Alkaline Phosphatase 279 H Total Protein 5.0 L Albumin 2.3 L Globulin 2.7 Albumin/Globulin Ratio 0.8 L Procalcitonin B. henselae IgG Titer Bartonella sahni IgG Crossmatch 06/15/18 06/15/18 06/15/18 04:05 06:32 08:05 WBC 9.7 RBC 4.10 Hgb 11.5 L Hct 34.1 L MCV 83.2 MCH 28.0 MCHC 33.7 RDW 16.6 H Plt Count 30 L* MPV Gran % 89.1 H Lymph % (Auto) 7.5 L [place] % (Auto) 3.3 Eos % (Auto) 0.0 L Baso % (Auto) 0.1 Gran # 8.62 H Lymph # (Auto) 0.7 L [place] # (Auto) 0.3 Eos # (Auto) 0.0 Baso # (Auto) 0.01 APTT 47.2 H Sodium Potassium Chloride Carbon Dioxide Anion Gap BUN Creatinine Est GFR ( Amer) Est GFR (Non-Af Amer) POC Glucose (mg/dL) 287 H Random Glucose Calcium Phosphorus Magnesium Total Bilirubin AST ALT Alkaline Phosphatase Total Protein Albumin Globulin Albumin/Globulin Ratio Procalcitonin B. henselae IgG Titer Bartonella sahni IgG Crossmatch 06/15/18 06/15/18 06/15/18 08:38 12:00 12:08 WBC RBC Hgb Hct MCV MCH MCHC RDW Plt Count MPV Gran % Lymph % (Auto) [place] % (Auto) Eos % (Auto) Baso % (Auto) Gran # Lymph # (Auto) [place] # (Auto) Eos # (Auto) Baso # (Auto) APTT 114.0 H* Sodium Potassium Chloride Carbon Dioxide Anion Gap BUN Creatinine Est GFR ( Amer) Est GFR (Non-Af Amer) POC Glucose (mg/dL) 290 H 249 H Random Glucose Calcium Phosphorus Magnesium Total Bilirubin AST ALT Alkaline Phosphatase Total Protein Albumin Globulin Albumin/Globulin Ratio Procalcitonin B. henselae IgG Titer Bartonella sahni IgG Crossmatch Addendum Addendum: 06/15/18 13:19 ICU Attending Addendum: Patient seen and examined. Case reviewed on round with housestaff. Agree with resident note above with the following additions/exceptions: Cassie continues to be in refractory severe septic shock secondary to abd nec fasc resulting in multiorgan failure. 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 Yesterday, met with family who were very upset at to her care. [place] that she was often in dirty sheets. In addition they cited poor communication with providers. I examined the patient several times during the day and did not witness any below-standard conditions. I did answer all their questions. This AM, daughter, son, sister and other family members at bedside. Everyone in agreement to make PREPARATION ROOM WORKER. Patient on fentanyl drip, will cont, morphine IV push 10mg given prior to extubation. comfort measures only Rest of care as noted above. Sigrid Garcia MD Publisher Assistant
[2018-06-15] MEDS ORDERED: Morphine 4 mg/ml ISec IVP STA (12:06)
[2018-06-15] MEDS ORDERED: Morphine PCA 1 mg/ml (30ml) 30 ML IV PRN ×2 (12:19→14:22)
[2018-06-15] MEDS: Fentanyl 1000mcg/100ml NS 1,000 MCG/100 ML BAG IV PRN (12:25)
[2018-06-15] MEDS ORDERED: Morphine 4 mg/ml ISec IVP PRN (12:56)
--- NOTE | 2018-06-15 13:13 | CP.PCM.PN ---
<Ronnie Narayanan - Last Filed: 06/15/18 13:27> Subjective - Date & Time of Evaluation Date of Evaluation: 06/15/18 Time of Evaluation: 06:10 - Subjective Subjective: Patient seen and examined at bedside. No significant overnight events. Patient still sedated and intubated. Patient's family decided on terminal extubation with comfort measures yesterday. Input 2300, output 550 cc, Lasix was give. No other information given by the nurse staff. Objective - Vital Signs/Intake and Output Vital Signs (last 24 hours): Temp Pulse Resp BP Pulse Ox 97.7 F 121 H 27 H 125/73 100 06/15/18 06:20 06/15/18 06:20 06/14/18 12:48 06/15/18 06:00 06/15/18 06:20 Intake and Output: 06/15/18 06/15/18 06:59 18:59 Intake Total 1805 115 Output Total 670 Balance 1135 115 - Medications Medications: Current Medications Fentanyl Citrate (Fentanyl Citrate/Sodium Chloride 1 Mg/100 Ml) 1,000 mcg in 100 mls @ 2 mls/hr IV .Q24H PRN; Protocol; 20 MCG/HR PRN Reason: TITRATE PER MD ORDER Last Admin: 06/15/18 12:25 Dose: 80 mcg/hr, 8 mls/hr Morphine Sulfate (Morphine) 4 mg IVP Q4 PRN PRN Reason: Dyspnea - Labs Labs: 06/15/18 08:05 06/15/18 04:05 PT 17.5 SECONDS (9.4-12.5) H 06/13/18 06:40 INR 1.51 06/13/18 06:40 APTT 114.0 Seconds (25.1-36.5) H* 06/15/18 12:00 - Constitutional Appears: Older Than Stated Age, Cachectic, Chronically Ill - Head Exam Head Exam: ATRAUMATIC, NORMAL INSPECTION, NORMOCEPHALIC - Eye Exam Eye Exam: Normal appearance - ENT Exam ENT Exam: Normal Exam - Neck Exam Neck Exam: Full ROM, Normal Inspection. absent: Lymphadenopathy - Respiratory Exam Additional comments: on ventelation - Cardiovascular Exam Cardiovascular Exam: REGULAR RHYTHM, +S1, +S2 - GI/Abdominal Exam Additional comments: diffuse lower abdominal wound. dressing applied. - Exam Additional comments: vulvular lesion, color changes, necrotic - Extremities Exam Additional comments: diffuse upper ad lower limb pitting edema - Back Exam Additional comments: sedated - Skin Skin Exam: Mottled, Pallor Assessment and Plan - Assessment and Plan (Free Text) Assessment: 58 y/o female with PMH significant for COPD, DM, depression, tobacco abuse, and right sided nephrectomy admitted for altered mental status for being found on the floor. She was found to have diffuse abdominal necrotic wound resulting in septic shock. Plan: Septic shock with multiorgan failure secondary to suspected necrotizing Fascitis of abdomen - SIRS criteria 4/4: elevated temp on admission, Tachycardia, Hypotension, Elevated WBC - Elevated Lactate on admission, source of infection being abdominal necrotizing fascitis - S/P debridement x2 with General surgery - Patient currently requiring 2 IV pressors, Levophend, Vasopressin. Levophed titrated from 10 to 6 - Broad spectrum antibiotics with Merropenem, Daptomycin, Clindamycin - blood culutres shows gram negative rods, streptococcus anginosus group - wound culture shows coagulase negative staphylococcus, proteus mirabilis - Patient continues current management in ICU -As per surgery note, No further debridement or surgery is going to result in any curative or meaningful recovery, or quality of life. Continue support care. f/u palliative care recommendations - D5w @ 75 cc/hr to control hypernatremia Suspected pulmonary embolism - Likely secondary to thromboembolism from limited mobility - Echocardiogram showing normal EF 55%, elevated RVSP of 55mmHg and right heart strain - Patient currently unstable for further imaging, holding off on imaging at this time - Continue with Heparin gtt Thrombocytopenia - Etiology: Sepsis vs. chronic alcoholism - Possibly multifactorial - Platelet count 30 today. No platelets given - PT, PTT elevated, petechia, however patient is on Heparin gtt - No signs of active bleeding from IV lines, gingival bleeding - Fibrinogen elevated, likely secondary to spetic shock due to APR - Fibrin split products - Peripheral smear shows nucleated some rbcs, , no schistocytes - Heme/Onc consulted: c/w ICU management, IV abx, ventilator use. Guarded prognosis Metabolic acidosis - Etiology: Lactic acidosis from necrotizing fascitis - ABG pH 7.18/41/16.6/98.7 on FiO2 80% - Continue to monitor Respiratory Failure - Continue with mechanical ventilation - Current ventilator settings: 480/26/7/50% - Maintain SpO2 >90, PaO2>60 Uncontrolled DM2 - ISS - ACHS Hx of COPD - Duoneb treatments as needed - Continue current mechanical ventilation Hx of HTN - Holding all anti-hypertensive - Patient currently hypotensive Hx of right nephrectomy - Reasoning unknown secondary to patient sedation - BUN/Cr stable, GFR stable - UOP 550mL past 24 hours - Neohrology consulted: no clear indication to initiate CRYSTAL CUTTER with stable K and CXR. may consider CRYSTAL CUTTER to offload RV if parameters of sepsis are improving ( stable BP, decreasing lactate/procalcitonin) but patient remains oliguric. Abx need to re-assess dosing daily with concern for worsening renal function. no need for bicarb drip. 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 - Will need radical vulvectomy with lymph node sampling for squamous cell carcinoma of vulva once patient is stable GI/DVT ppx - Protonix - Heparin gtt Diet: NPO DNR form signed and in chart Patient' prognosis is very poor Patient's family decided on terminal extubation with comfort measures <Tana Oleary R - Last Filed: 06/16/18 09:18> Objective - Vital Signs/Intake and Output Vital Signs (last 24 hours): Temp Pulse Resp BP Pulse Ox 96.8 F L 112 H 15 125/73 100 06/15/18 17:02 06/15/18 17:02 06/15/18 17:02 06/15/18 06:00 06/15/18 06:20 - Labs Labs: 06/15/18 08:05 06/15/18 04:05 PT 17.5 SECONDS (9.4-12.5) H 06/13/18 06:40 INR 1.51 06/13/18 06:40 APTT 114.0 Seconds (25.1-36.5) H* 06/15/18 12:00 Attending/Attestation - Attestation I have personally seen and examined this patient.: Yes I have fully participated in the care of the patient.: Yes I have reviewed all pertinent clinical information, including history, physical exam and plan: Yes Notes (Text): Patient seen and examined by me at 09:30AM with resident 06/15/18. Case including HPI, physical exam, and assessment and plan discussed with resident. Agree with above with following additions/corrections. Patient is 58 year old female with past medical history significant for hypertension, DM2, and COPD that presented to the ED with altered mental status. Patient is intubated and sedated. Patient's family have decided to make patient comfort care. Palliative care following, terminal extubation being discussed with family by palliative care. Patient is afebrile. Physical exam: Gen: Intubated and sedated HEENT: Normocephalic, atraumatic. Pupils equal and reactive. No scleral icterus. ET tube in pace. OG tube in place. Cardiovascular: Tachycardic S1, S2. No murmurs, rubs, or gallops appreciated Pulmonary: Vented breath sounds. Coarse breath sounds. No wheezing appreciated. Gastrointestinal: Positive dressing and binder across abdomen clean, dry, and intact this AM. Difficult to appreciate bowel sounds. Musculoskeletal: Positive upper and lower extremity pitting edema bilaterally, improved cold feet, improved discolored toes. Central nervous system: Intubated and sedated Dermatologic: Positive bilateral lower extremity wounds with serous drainage. Assessment and plan: Patient is 58 year old female with past medical history significant for hypertension, DM2, and COPD that presented to the ED with altered mental status. 1. Septic shock secondary to necrotizing fascitis with multiorgan failure. Patient DNR and likely comfort care. S/P debridement 06/11/18 and 06/12/18. Leukocytosis resolved. Now afebriled. Continue IV fluids. Wound culture positive for proteus. One blood culture positive for strep anginosus . Continue Clindamycin, Meropenem, and Daptomycin. ID following, recommendations appreciated. Surgery following, recommendations appreciated. GI following, recommendations appreciated. Continue to monitor closely in ICU. 2. Acute respiratory failure. Secondary to # 1. Vent settings per ICU team. 3. Vulvar mass. S/p Biopsy. Positive for squamous cell carcinoma. Oncology following, recommendations appreciated. 4. Hyperkalemia. Resolved. Continue to monitor. 5. Bilateral lower extremity edema, cellulitis. Lower extremity dopplers negative for DVT. Continue with antibiotics. ID following, recommendations appreciated. Podiatry following, recommendations appreciated. 6. Elevated BNP. Cardiology consulted, recommendations appreciated. 2d echo per manager operations and procurement shows left ventricular function normal with EF 55-60%, flattened septum consistent with right ventricle volume and pressure overload; right ventricle severely dilated, systolic function of RV severely reduced, consider acute PE (please see official read for full details.) 7. Possible PE. Continue heparin drip 8. Thrombocytopenia. Likely secondary to septic shock. Less likely DIC. Patient given platelets with improvement. Levels fluctuating. Hem/onc following , recommendations appreciated. . 9. DM2 with hyperglycemia. Off insulin drip. Hgb A1C 17.4 Bloods sugar improved. Continue with insulin sliding scale. Continue to monitor accucheks. 10. Hepatomegaly. ?secondary to cardiomyopathy vs alcohol abuse. ?history of alcohol abuse. GI following, recommendations appreciated. Hep panel negative. HIV negative. 11. Tachycardia. Likely secondary to PE/septic shock. Continue Heparin drip. Continue to monitor. 12. COPD. Patient intubated. Continue nebulizer treatments. 13. Elevated BUN. Anasarca. Decreased urine output. Continue IV fluids. History of nephrectomy. Nephrology following, recommendations appreciated. 14. Patient is now a DNR. Palliative care following Poor prognosis.
--- NOTE | 2018-06-15 13:53 | CP.PCM.PN ---
Subjective - Date & Time of Evaluation Date of Evaluation: 06/15/18 Time of Evaluation: 11:30 - Subjective Subjective: intubated, no acute changes Objective - Vital Signs/Intake and Output Vital Signs (last 24 hours): Temp Pulse Resp BP Pulse Ox 97.7 F 121 H 27 H 125/73 100 06/15/18 06:20 06/15/18 06:20 06/14/18 12:48 06/15/18 06:00 06/15/18 06:20 Intake and Output: 06/15/18 06/15/18 06:59 18:59 Intake Total 1805 115 Output Total 670 Balance 1135 115 - Medications Medications: Current Medications Fentanyl Citrate (Fentanyl Citrate/Sodium Chloride 1 Mg/100 Ml) 1,000 mcg in 100 mls @ 2 mls/hr IV .Q24H PRN; Protocol; 20 MCG/HR PRN Reason: TITRATE PER MD ORDER Last Admin: 06/15/18 12:25 Dose: 80 mcg/hr, 8 mls/hr Morphine Sulfate (Morphine) 4 mg IVP Q4 PRN PRN Reason: Dyspnea - Labs Labs: 06/15/18 08:05 06/15/18 04:05 PT 17.5 SECONDS (9.4-12.5) H 06/13/18 06:40 INR 1.51 06/13/18 06:40 APTT 114.0 Seconds (25.1-36.5) H* 06/15/18 12:00 - Constitutional Appears: Chronically Ill - Head Exam Head Exam: NORMOCEPHALIC - Eye Exam Eye Exam: Normal appearance, PERRL - Respiratory Exam Respiratory Exam: Decreased Breath Sounds - Cardiovascular Exam Cardiovascular Exam: Tachycardia, +S1, +S2 - GI/Abdominal Exam Additional comments: left abdominal wound - Extremities Exam Extremities Exam: Pedal Edema - Neurological Exam Neurological Exam: Altered - Skin Skin Exam: Dry, Pallor Assessment and Plan - Assessment and Plan (Free Text) Assessment: 58 year old female with history of HTN who was admitted with sepsis, necrotizing fasciitis left lower abdomen, squamous cell carcinoma, respiratory failure and hypotension. I spoke with family via speaker phone yesterday, Dr Gómez Amezcua also present. Daughter expressed that she was interested in terminal extubation and comfort measures. I explained that once extubated the intent was to make patient comfortable and that all aggressive life prolonging measures would be stopped. Hospice also discussed. Encouraged to weigh benefit and burdens of decision and diuscuss with her siblings before making this decision. Family wishes to proceed with terminal extubation today. Daughter Magnolia and son Murali at bedside Process of terminal al extubation explained in detail. Questions answered. Dr. Garcia also spoke with family. Magnolia signed terminal extubation consent. Spiritual support declined. Psychosocial support and end of life counseling provided. Hospice services explained, questions answered. Family in agreement to transition to hospice services Time spent with family goals of care and end o life discussions, 90 minutes Plan: Terminal extubation End of life counseling. Psychosocial support Morphine IVP as needed, will start Morphine continuous infusion Hospice eval for GIP services
--- NOTE | 2018-06-15 13:55 | CP.PCM.PN ---
Subjective - Date & Time of Evaluation Date of Evaluation: 06/15/18 Time of Evaluation: 11:00 - Subjective Subjective: Michael Oleary- Internal Medicine Resident- Nephrology Progress Note Subjective: Patient seen and examined at bedside. Resting comfortably in bed. No further subjective data can be ascertained at this time secondary to patient being intubated and sedated. 12-point review of systems cannot be ascertained at this time due to altered mental status Physical Examination: - Constitutional Appears: Appears older than recorded age - Eye Exam Eye Exam: absent: Scleral icterus - ENT Exam ENT Exam: Mucous Membranes Moist - Respiratory Exam Respiratory Exam: Clear to Auscultation Bilateral, Tachypneic, absent: Rales, Rhonchi, Wheezes - Cardiovascular Exam Cardiovascular Exam: Tachycardia, +S1, +S2 - GI/Abdominal Exam GI & Abdominal Exam: abdominal wound dressing/covering in position, clean, and dry - Exam nolan in place; draining urine - Extremities Exam Extremities comments: markedly edematous legs bilaterally - Neurological Exam Additional comments: limited as patient is intubated and sedated - Skin Skin Exam: Mottled Assessment and Plan: As per critical care team, patient will be extubated as per family's request. No further intervention at this time from nephro perspective. Thank you for the opportunity in participating in the care of this patient. We will continue to follow with you. Patient case discussed with and plan approved by attending physician, Dr. Leyva. Objective - Vital Signs/Intake and Output Vital Signs (last 24 hours): Temp Pulse Resp BP Pulse Ox 97.7 F 121 H 27 H 125/73 100 06/15/18 06:20 06/15/18 06:20 06/14/18 12:48 06/15/18 06:00 06/15/18 06:20 Intake and Output: 06/15/18 06/15/18 06:59 18:59 Intake Total 1805 115 Output Total 670 Balance 1135 115 - Medications Medications: Current Medications Fentanyl Citrate (Fentanyl Citrate/Sodium Chloride 1 Mg/100 Ml) 1,000 mcg in 100 mls @ 2 mls/hr IV .Q24H PRN; Protocol; 20 MCG/HR PRN Reason: TITRATE PER MD ORDER Last Admin: 06/15/18 12:25 Dose: 80 mcg/hr, 8 mls/hr Morphine Sulfate (Morphine) 4 mg IVP Q4 PRN PRN Reason: Dyspnea - Labs Labs: 06/15/18 08:05 06/15/18 04:05 PT 17.5 SECONDS (9.4-12.5) H 06/13/18 06:40 INR 1.51 06/13/18 06:40 APTT 114.0 Seconds (25.1-36.5) H* 06/15/18 12:00
--- NOTE | 2018-06-15 13:56 | PN ---
Copied To: Cipriano Ramsey MD Attending MD: Cipriano Ramsey MD DATE: 06/15/2018 REASON FOR THE CONSULTATION AND FOLLOWUP: Cardiac evaluation, necrotizing fasciitis, septic shock, possible acute pulmonary embolism, severe RV dysfunction, respiratory failure, intubated, multiple vasopressors. SUBJECTIVE: Patient remains intubated, multiple vasopressors, on heparin and sedation. OBJECTIVE: VITAL SIGNS: Temperature afebrile, heart rate 121, blood pressure 125/73. HEENT: PERRLA. Extraocular muscles intact. NECK: Supple. No carotid bruits or thyromegaly. CHEST: Clear to auscultation. HEART: S1 and S2 regular. ABDOMEN: Soft. EXTREMITIES: Clubbing and cyanosis, negative. LABORATORY DATA: Blood workup: WBC 9.7, hemoglobin 11.5, hematocrit 34.1, platelet count 30. Chemistry shows sodium 147, potassium 5, chloride 115, carbon dioxide 15, anion gap of 21, BUN 76, creatinine 1.1. Total protein 5, albumin 2.3. IMPRESSION: A 58-year-old female with past medical history significant for hypertension, hyperlipidemia. Admitted with necrotizing fasciitis, sepsis, septic shock, intubated. Echocardiogram consistent with acute pulmonary embolism, severe right ventricular dysfunction and severely dilated, multiple vasopressors, preserved left ventricular function, being intubated. RECOMMENDATION: Continue IV albumin to increase plasma osmotic pressure, wean off Levophed. Continue antibiotic. Continue heparin. Monitor platelet. Overall, the patient's condition is critical. Prognosis is guarded. We will follow with you. Thank you, Dr. Oleary, for providing us the opportunity in taking care of Cassie Mata. Cipriano Ramsey MD
--- NOTE | 2018-06-15 14:01 | PN ---
Copied To: Sushil Wagner MD Attending MD: Sushil Wagner MD DATE: 06/15/2018 SUBJECTIVE: The patient is in bed, in no acute distress, nontoxic. OBJECTIVE: VITAL SIGNS: On exam, temperature is 97, blood pressure is 125/70, respiratory rate of 18. HEENT: Examination is unremarkable. NECK: Supple. LUNGS: Have decreased breath sounds. HEART: Normal S1, S2. ABDOMEN: Soft, nontender. DATA: Laboratory examination reveals the patient's white count is down to 9.7, hemoglobin of 11 and a BUN of 76, creatinine of 1.1. The patient's bicarbonate is 15. Urinalysis is noted. Vanco trough is noted. Microbiology reveals the repeat blood cultures are negative. The wound culture has Proteus mirabilis, which is sensitive to Cipro, sensitive to meropenem and amikacin. It is resistant to ceftriaxone, resistant to ampicillin and Bactrim. The patient also had another wound culture, it was a coag-negative staph and it is resistant to oxacillin. The patient does have bacteroides fragilis in the blood. The other blood culture has Streptococcus anginosus group, is sensitive to ceftriaxone. Review of orders reveals the patient to be on antibiotics, which were the patient's family has decided to terminally extubate the patient and stop all the antibiotics. 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 Sushil Wagner MD
[2018-06-15 16:16] VITALS: TEMP 96.8
[2018-06-15 17:05] VITALS: PULSE 112; RESP 15
== END 2018-06-15 16:43 | disposition hospice, inpatient (51) | DRG 853 ==
LOC: ED 04:21 → ERH 06:50 → CCU 09:05
PROVIDERS: ADMIT Internal Medicine; ATTEND Hospitalist
PROC: 0JBB0ZZ Excision of Perineum Subcutaneous Tissue and Fascia, Open Approach (ICD-10-PCS; 2018-06-11)
PROC: 0UBM0ZX Excision of Vulva, Open Approach, Diagnostic (ICD-10-PCS; 2018-06-11)
PROC: 5A1945Z Respiratory Ventilation, 24-96 Consecutive Hours (ICD-10-PCS; 2018-06-11)
PROC: 0BH17EZ Insertion of Endotracheal Airway into Trachea, Via Natural or Artificial Opening (ICD-10-PCS; 2018-06-11)
PROC: 30233N1 Transfusion of Nonautologous Red Blood Cells into Peripheral Vein, Percutaneous Approach (ICD-10-PCS; 2018-06-11)
PROC: 0JB80ZZ Excision of Abdomen Subcutaneous Tissue and Fascia, Open Approach (ICD-10-PCS; principal; 2018-06-11 13:00)
PROC: 0JD80ZZ Extraction of Abdomen Subcutaneous Tissue and Fascia, Open Approach (ICD-10-PCS; 2018-06-12)
PROC: 3E033XZ Introduction of Vasopressor into Peripheral Vein, Percutaneous Approach (ICD-10-PCS; 2018-06-12)
PROC: 30233R1 Transfusion of Nonautologous Platelets into Peripheral Vein, Percutaneous Approach (ICD-10-PCS; 2018-06-13)
DX: A41.9 Sepsis, unspecified organism (principal); M72.6 Necrotizing fasciitis; E43 Unspecified severe protein-calorie malnutrition; R65.21 Severe sepsis with septic shock; J96.01 Acute respiratory failure with hypoxia; G93.40 Encephalopathy, unspecified; I26.99 Other pulmonary embolism without acute cor pulmonale; L03.116 Cellulitis of left lower limb; L03.115 Cellulitis of right lower limb; N17.9 Acute kidney failure, unspecified; I42.9 Cardiomyopathy, unspecified; E87.2 Acidosis; Z99.11 Dependence on respirator [ventilator] status; C51.9 Malignant neoplasm of vulva, unspecified; I11.0 Hypertensive heart disease with heart failure; I50.9 Heart failure, unspecified; E11.65 Type 2 diabetes mellitus with hyperglycemia; J44.9 Chronic obstructive pulmonary disease, unspecified; E87.5 Hyperkalemia; E11.42 Type 2 diabetes mellitus with diabetic polyneuropathy; F17.210 Nicotine dependence, cigarettes, uncomplicated; E78.5 Hyperlipidemia, unspecified; D69.6 Thrombocytopenia, unspecified; B96.4 Proteus (mirabilis) (morganii) as the cause of diseases classified elsewhere; J98.2 Interstitial emphysema; F32.9 Major depressive disorder, single episode, unspecified; Z66 Do not resuscitate; Z51.5 Encounter for palliative care; Z91.14 Patient's other noncompliance with medication regimen; Z90.5 Acquired absence of kidney; Z79.4 Long term (current) use of insulin

== ENCOUNTER 2018-06-15 16:45 | Inpatient (IN) | payer OTHER ==
[2018-06-15] MEDS: Morphine PCA 1 mg/ml (30ml) 30 ML IV PRN (23:11)
--- NOTE | 2018-06-16 04:48 | CP.PCM.HP ---
<Jake Berry - Last Filed: 06/16/18 04:53> History of Present Illness - History of Present Illness History of Present Illness: Shawn Berry PGY2 - History and Physical for Hospice admission CC: Hospice admission HPI: Patient is a 58 year old female with past medical history of HTN, COPD, poorly controlled DM who presented to [facility] after being found on floor of her home with altered mental status. Patient was brought to [facility] and evaluated and treated for septic shock secondary to necrotizing fascitis. Patient underwent multiple wound debridements with general surgery and was monitored in ICU. Patient developed multi organ failure secondary to her septic shock secondary to her necrotizing fascitis. Patient was continually monitored, stabilized and treated in the ICU. Patient required three IV pressors, intubation and mechanical ventilation, insulin drip, heparin drip and high intensity IV antibiotics for stabilization of her medical condition. Patient was evaluated by Palliative care team and after discussions between primary medical team, ICU team, palliative care team and family the patient was terminally extubated and placed on comfort measures. Patient was transferred from ICU to general medical floor onto the Hospice service. 12 point ROS unable to be obtained due to patient sedation. PMH: HTN, DM, COPD PSH: Right Nephrectomy, Multiple Abdominal debridement due to necrotizing fascitis, Vulvar biopsy SOCHx: Tobacco: Reportedly smoked up to 3 PPD, ETOH and ID: no indication from family or records FMH: Noncontributory ALL: NKDA MEDS: MAR Reviewed PMD: Dr. Burrell Code status: DNR Present on Admission - Present on Admission Any Indicators Present on Admission: Yes History of DVT/PE: Yes History of Uncontrolled Diabetes: Yes Review of Systems - Review of Systems Systems not reviewed;Unavailable: Altered Mental Status Past Patient History - Infectious Disease Hx of Infectious Diseases: None - Past Medical History & Family History Past Medical History?: Yes - Past Social History Smoking Status: Heavy Smoker > 10 Cigarettes Daily Alcohol: None Drugs: Denies - CARDIAC Hx Cardiac Disorders: No - PULMONARY Hx Respiratory Disorders: No - NEUROLOGICAL Hx Neurological Disorder: No - HEENT Hx HEENT Problems: No - RENAL Hx Chronic Kidney Disease: No - ENDOCRINE/METABOLIC Hx Diabetes Mellitus Type 2: Yes - HEMATOLOGICAL/ONCOLOGICAL Hx Blood Disorders: No - INTEGUMENTARY Hx Dermatological Problems: No - MUSCULOSKELETAL/RHEUMATOLOGICAL Hx Musculoskeletal Disorders: No - GASTROINTESTINAL Hx Gastrointestinal Disorders: No - PSYCHIATRIC Hx Substance Use: No - ANESTHESIA Hx Anesthesia: No Meds Allergies/Adverse Reactions: Allergies Allergy/AdvReac Type Severity Reaction Status Date / Time No Known Allergies Allergy Unverified 06/11/18 04:43 Physical Exam - Constitutional Appears: No Acute Distress - Head Exam Head Exam: ATRAUMATIC, NORMAL INSPECTION, NORMOCEPHALIC - Eye Exam Eye Exam: PERRL Pupil Exam: Mydriatic - ENT Exam ENT Exam: Mucous Membranes Moist - Respiratory Exam Respiratory Exam: Clear to Auscultation Bilateral, NORMAL BREATHING PATTERN - Cardiovascular Exam Cardiovascular Exam: REGULAR RHYTHM, +S1, +S2 - GI/Abdominal Exam Additional comments: abdominal fascia exposed, few areas of oozing, surgicel applied, small area of fluctuance was drained and stitch placed, necrotic areas of skin present, kerlex soaked in dakins and abdominal pads used as dressing in conjunction with abdominal binder - Extremities Exam Additional comments: bilateral lower limb 2+ pitting edema, dark discoloration of toes b/l, pedal pulses not palpable - Neurological Exam Neurological exam: Altered - Skin Skin Exam: Dry, Petechiae, Warm Additional comments: abdominal wound that is noted to be necrotic with underlying fascia exposed currently with wound dressing intact Slight bluish discolaration of toes L>R, improved temperature from admission, delayed capillary refill Assessment & Plan - Assessment and Plan (Free Text) Assessment: Patient is a 58 year old female with past medical history that includes HTN, DM2 who is being admitted to Hospice service for end of life care. Multiorgan failure secondary to septic shock secondary to necrotizing fascitis Palliative care has been following patient and has spoke with the family regarding treatment plan and intended course of care. Family expressed interest in terminal extubation and comfort measures. Patient's family was educated on the intent of terminal extubation and that the patient was to be made comfortable and that all aggressive life prolonging measures would be haulted. Patient's family discussed and decided to proceed with Hospice care for the patient. All questions regarding terminal extubation, Hospice services and treatment plan from family were answered and understood. Patient was made DNR. Family was at bedside and medical team will provide support as necessary. Patient underwent terminal extubation and was admitted to Hospice service. Efforts to make patient comfortable were conducted. Palliative care provided end of life counseling, psychosocial support Patient was placed on continuous morphine infusion Case and plan discussed with attending, Dr. Roland Farleyra PGY2 - Date & Time Date: 06/15/18 Time: 20:15 <Bharath Watkins P - Last Filed: 06/16/18 07:37> Results - Vital Signs Recent Vital Signs: Last Vital Signs Temp 96.9 F L 06/16/18 04:46 Pulse 105 H 06/16/18 04:46 Resp 20 06/16/18 04:46 BP 91/51 L 06/16/18 04:46 Pulse Ox Attending/Attestation - Attestation I have personally seen and examined this patient.: Yes I have fully participated in the care of the patient.: Yes I have reviewed all pertinent clinical information: Yes Notes (Text): 06/16/18 07:35 Patient with multi-organ failure due to sepsis from necrotizing facitis, has also malignant vulval fungating mass, terminally extubated yesterday and admitted for hospice and comfort care.
[2018-06-16 05:04] VITALS: BP 91/51; PULSE 105; RESP 20; TEMP 96.9
[2018-06-16] MEDS: Morphine PCA 1 mg/ml (30ml) 30 ML IV PRN ×4 (05:32→21:12)
[2018-06-16] MEDS ORDERED: DiphenhydrAMINE 50 mg/ml Inj IVP PRN (18:01)
--- NOTE | 2018-06-16 19:40 | CP.PCM.DIS ---
Provider - Provider Date of Admission: 06/15/18 16:45 Attending physician: Tana Oleary DO Primary care physician: Zuhair Durham MD Consults: cardiology nephrology infectious disease surgery Time Spent in preparation of Discharge (in minutes): 50 Hospital Course - Hospital Course Hospital Course: Upon admission Ms. Mata is a 58 year old female with a past medical history of hypertension , diabetes, COPD, and right nephrectomy who was brought in by EMS to the ED on for altered mental status. Police found the patient on the floor. Patient was able to answer few questions but history and review of systems could not be obtained as the patient was confused. She was AAOx2, lethargic, had difficulty answering questions, and complained of bilateral leg pain. A large blister on the left lower extremity was present. She denied chest pain, shortness of breath. Patient smoked 3 packs of cigarettes per day, denied alcohol use, and denied drug use. Hospital course Abdominal CT revealed extensive subcutaneous emphysema in the mid and lower abdomen/pelvis. Air was seen tracking along the external and internal iliac vascular bundles. Extensive cellulitis secondary to a gas-forming organism was not able to be excluded. Dr. Cisneros was consulted for ID, Dr. Oleary was consulted for surgery, Dr. Clifford was consulted for GI, Dr. Leyva was consulted for nephrology, and Dr. Dr khan was consulted for lower extremity pain and the left lower extremity blister. Potassium was elevated and calcium gluconate and insulin were given. O2 and Duonebs were given for COPD. Insulin sliding scale was started for diabetes management. Fluids were given for hemoconcentration secondary to dehydration, rhabdomyolysis, and hypotension. Protonix were given for GI prophylaxis. Antibiotics were started per ID's recommendations. Debridement of skin, soft tissue, muscle, and fascia for necrotizing soft tissue infection of the abdominal wall and perineum were performed twice. An incidental soft tissue mass on the left vulva was discovered in surgery, sent for biopsy, and revealed squamous cell carcinoma. Vasopressors were started for septic shock and lactate was monitored. An echo revealed a possible PE and heparin was started. The patient was intubated with vent support. A DIC panel was ordered due to lowering platelet numbers. One unit pRBC and 2 units of platelets were given. Cultures of the wound and blood were taken and showed gram positive cocci and gram negative rods bacteria. Antibiotics were adjusted according to cultures and sensitivities. Palliative care was consulted and met with the family regarding decision- making. The decision was made to extubate the patient with comfort care measures. Hospice services were discussed with the family and they agreed to transition to hospice care. Palliative care provided end of life counseling and psychosocial support to family, and the patient was placed on a continuous morphine infusion. Please note this is a summary of patient's hospital stay. For full hospital course please refer to medical records. - Date & Time of H&P Date of H&P: 06/15/18 Time of H&P: 20:40 Discharge Exam - Head Exam Head Exam: ATRAUMATIC, NORMAL INSPECTION, NORMOCEPHALIC - Eye Exam Pupil Exam: Miosis - ENT Exam ENT Exam: Mucous Membranes Dry - Respiratory Exam Respiratory Exam: Decreased Breath Sounds - Cardiovascular Exam Cardiovascular Exam: Bradycardia, +S1, +S2 - GI/Abdominal Exam GI & Abdominal Exam: Hypoactive Bowel Sounds, Soft Additional comments: lower abdominal wound covered with dressing with fluid oozing out of the wound. malodor. - Exam Additional comments: vulvar mass, necritic, with skin discoloration - Extremities Exam Additional comments: diffuse upper and lower limbs swelling. pitting edema. erythema. toes and finger are cool to touch - Neurological Exam Neurological exam: Altered Additional comments: patient is sedated - Psychiatric Exam Additional comments: patient is unresponsive to verbal or painful stimuli - Skin Skin Exam: Abrasion, Erythema, Mottled, Rash Discharge Plan - Follow Up Plan Condition: GOOD Disposition: WITH WITHOUT AUTOPSY Referrals: Zuhair Durham MD [Primary Care Provider] -
[2018-06-17] MEDS: Morphine PCA 1 mg/ml (30ml) 30 ML IV PRN ×2 (03:02→09:01)
--- NOTE | 2018-06-17 10:55 | CP.PCM.PN ---
<Skyler Guo - Last Filed: 06/19/18 07:14> Subjective - Date & Time of Evaluation Date of Evaluation: 06/17/18 Time of Evaluation: 08:00 - Subjective Subjective: Patient seen unable to examine because family was present bedside. Patient currently in house hospice care. No acute issues overnight. Vital signs 96.9 T, P ulse 105, Resp rate 20, BP: 91/51. 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 Continuing Efforts to make patient comfortable and provide end of life palliative care. Plan: -continuous morphine infusion -provide hospice and comfort care -no additional aggressive life prolonging measures <Meghan Posada - Last Filed: 06/19/18 07:30> Objective - Vital Signs/Intake and Output Vital Signs (last 24 hours): Temp Pulse Resp BP Pulse Ox 96.9 F L 105 H 20 91/51 L 06/16/18 04:46 06/16/18 04:46 06/16/18 04:46 06/16/18 04:46 Attending/Attestation - Attestation I have personally seen and examined this patient.: No I have fully participated in the care of the patient.: Yes I have reviewed all pertinent clinical information, including history, physical exam and plan: Yes Notes (Text): 06/19/18 07:29 Attending note; Went to see patient this morning. Patient is currently on hospice care. Family members by the bedside resting. Chart reviewed. Case discussed with nursing in detail. continue current care.
--- NOTE | 2018-06-17 14:01 | CP.PCM.PRO ---
Pronouncement of Note - Clinical Findings Physical Exam: No Response Verbal/Painful Stimuli, Absent Peripheral Pulses{ Carotid & Femoral}, Absent Heart & Breath Sounds, No Pupillary Light Reflex, No Corneal Reflex, Pupils Fixed & Dilated, Absence of Vital Signs - Pronouncement Time Time of Pronouncement of : 13:48 - Notifications Pronouncement Notifications: Family Notified, Atending Notified Lighting Designer Notified: No - Autopsy Autopsy Requested: No - [place] [id number]
--- NOTE | 2018-06-18 17:20 | CP.PCM.PN ---
<NorbertoRonnie dow - Last Filed: 06/18/18 17:37> Subjective - Date & Time of Evaluation Date of Evaluation: 06/16/18 Time of Evaluation: 07:15 - Subjective Subjective: Patient seen and examined on 06/16/18 at bedside status post terminal extubation and transfer to hospice care. Patient is sedated in bed, have a very shallow breath, in agony. Patient's family in the room. No further life prolonging measures are taken. Objective - Vital Signs/Intake and Output Vital Signs (last 24 hours): Temp Pulse Resp BP Pulse Ox 96.9 F L 105 H 20 91/51 L 06/16/18 04:46 06/16/18 04:46 06/16/18 04:46 06/16/18 04:46 - Constitutional Appears: Cachectic, Chronically Ill (sedated) - Eye Exam Pupil Exam: Miosis Additional comments: dry eyes. fixed pupils. - ENT Exam ENT Exam: Mucous Membranes Dry - Respiratory Exam Additional comments: shallow short breathing - Cardiovascular Exam Cardiovascular Exam: +S1, +S2 Assessment and Plan - Assessment and Plan (Free Text) Assessment: Patient underwent terminal extubation and was admitted to Hospice service. Efforts to make patient comfortable and provide end of life palliative care. Plan: -continuous morphine infusion -aggressive life prolonging measures haulted -provide hospice and comfort care <Tana Oleary - Last Filed: 06/19/18 07:58> Objective - Vital Signs/Intake and Output Vital Signs (last 24 hours): Temp Pulse Resp BP Pulse Ox 96.9 F L 105 H 20 91/51 L 06/16/18 04:46 06/16/18 04:46 06/16/18 04:46 06/16/18 04:46 Attending/Attestation - Attestation I have personally seen and examined this patient.: Yes I have fully participated in the care of the patient.: Yes I have reviewed all pertinent clinical information, including history, physical exam and plan: Yes Notes (Text): Patient seen and examined by me at 11:30AM with resident 06/16/18. This is note for 06/16/18. Case discussed with resident. Agree with above with following additions/corrections. Patient is sedated and on hospice care. Shallow breaths. On morphine drip. No family at bedside. Physical exam: General: Sedated and in no acute distress. Cardiovascular: Normal rhythm. Normal S1, S2. 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 1. Septic shock secondary to necrotizing fasciitis, multi-organ failure. Patient is on inpatient hospice. Continue current treatment. Continue morphine drip. Continue supportive care.
== END 2018-06-17 13:48 | DRG 871 ==
LOC: CCU 16:45 → 5RSO 19:56
PROVIDERS: ADMIT Hospitalist; ATTEND Internal Medicine
DX: A41.9 Sepsis, unspecified organism (principal); R65.21 Severe sepsis with septic shock; M72.6 Necrotizing fasciitis; T79.7XXA Traumatic subcutaneous emphysema, initial encounter; C79.31 Secondary malignant neoplasm of brain; C79.51 Secondary malignant neoplasm of bone; M62.82 Rhabdomyolysis; L03.90 Cellulitis, unspecified; E11.65 Type 2 diabetes mellitus with hyperglycemia; E86.0 Dehydration; G40.909 Epilepsy, unspecified, not intractable, without status epilepticus; I10 Essential (primary) hypertension; I25.10 Atherosclerotic heart disease of native coronary artery without angina pectoris; J44.9 Chronic obstructive pulmonary disease, unspecified; Z51.5 Encounter for palliative care; Z66 Do not resuscitate; F17.210 Nicotine dependence, cigarettes, uncomplicated; Z85.528 Personal history of other malignant neoplasm of kidney; Z85.828 Personal history of other malignant neoplasm of skin; Z86.73 Personal history of transient ischemic attack (TIA), and cerebral infarction without residual deficits; Z87.11 Personal history of peptic ulcer disease; Z90.5 Acquired absence of kidney